=== PATIENT | female | born 1945 | race Caucasian/White ===

== ENCOUNTER 2019-09-22 09:07 | Inpatient (IN) | payer MEDICARE, OTHER, SELFPAY ==
[2019-09-22] VITALS (11 sets, daily range): BP systolic 126–158; BP diastolic 64–99; PULSE 69–92; RESP 16–20; TEMP 36.5–36.7; O2SAT 60–97; BMI 36.8
--- NOTE | 2019-09-22 09:23 | XR_ITS ---
WS: [id number] XR chest 1V portable [id number] REASON FOR EXAM: syncope FINDINGS: An infiltrate is seen in the right lung base. There appears to be prominence of the right ventricle not seen on previous exam. No other evidence to suggest aneurysms. There is arteriosclerotic changes in the arch of the aorta. XR/XR chest 1V portable [id number] IMPRESSION: There now appears to be prominence of the right ventricle. Consider CT to evalu ate for possible aneurysm with the history. There is an infiltrate in the right lung base. Arteriosclerotic changes.
--- NOTE | 2019-09-22 09:23 | CTR_ITS ---
PROCEDURE INFORMATION: Exam: CT Head Without Contrast Exam date and time: 09/22/2019 11:00 AM Age: 73 years old Clinical indication: Syncope and collapse; Patient HX: Multiple syncopal episodes over last few days. History of stroke. TECHNIQUE: Imaging protocol: Computed tomography of the head without contrast. Total DLP: 876.04 mGy-cm Radiation optimization: All CT scans at this facility use at least one of these dose optimization techniques: automated exposure control; mA and/or kV adjustment per patient size (includes targeted exams where dose is matched to clinical indication); or iterative reconstruction. COMPARISON: CT head wo con* [id number] 04/13/2014 8:07 AM FINDINGS: Brain: There is no acute intracranial hemorrhage or mass effect. Mild diffuse volume loss is within the range of normal for patient age. There are small vessel ischemic changes within the periventricular and subcortical white matter, but the normal hodge/white matter delineation is maintained. Chronic lacunar infarcts involve the basal ganglia. There is right inferior cerebellar cerebellar encephalomalacia. Ventricles: Normal. No ventriculomegaly. Bones/joints: Unremarkable. No acute fracture. Sinuses: Visualized sinuses are unremarkable. No fluid levels. Mastoid air cells: Visualized mastoid air cells are well aerated. Soft tissues: Unremarkable. CT/CT head wo con* [id number] IMPRESSION: No acute intracranial hemorrhage or edema. Radiation Dose CTDIVOL = (mGy): DLP = 876.04 (mGy-cm)
--- NOTE | 2019-09-22 09:31 | ECG_ITS ---
Measurements Intervals [place] Rate: 83 P: -15 [place]: 142 QRS: 37 QRSD: 107 T: 75 QT: 365 QTc: 431 SINUS RHYTHM LOW QRS VOLTAGE IN EXTREMITY LEADS [QRS DEFLECTION < 0.5 mV IN LIMB LEADS] No previous ECG available for comparison Electronically Signed On 09-22-2019 12:40:13 CDT by Khoa Sol [id number]
--- NOTE | 2019-09-22 09:32 | W.ED.FALL ---
HPI - Fall General: Chief Complaint: Fall Stated Complaint: dizzy and falling Time Seen by Provider: 09/22/19 09:23 Source: patient Mode of arrival: ambulatory History of Present Illness: HPI Narrative: Callie is a 73-year-old female who states she has had dizziness and syncopal events over the last 5 days. She states she has had multiple falls where she just blacks out and wakes up on the floor. Patient's family states that she has been slurring some of her words as well but that is resolved today. She denies any syncope today but states she has felt lightheaded. She has a long history of COPD and is on 4 L of oxygen at home. She denies any chest pain or no shortness of breath. She denies any headache. MD complaint: fall Onset (ago): day(s) Associated symptoms-after fall: Denies abdominal pain, chest pain, headache(s) or neck pain Review of Systems Const: Denies: fever, chills, body aches or change in appetite Eyes: Denies: blurry vision or eye discomfort ENMT: Denies: throat pain or dental pain Card: Denies: chest pain Resp: Denies: shortness of breath GI: Denies: abdominal pain, nausea, vomiting or diarrhea : Denies: painful urination Musc: Denies: neck pain or back pain Skin/Breast: Denies: rash Neuro: Reports: frequent falls and dizziness; Denies: headache Psych: Denies: depression Juan Carlos/Lymph: Denies: easy bruising All/Imm: Denies: hives PFSH ED PFSH: Social History Smoking and tobacco status: former smoker Physical Exam Const: COMMON NORMALS: no apparent distress, oriented x3 and healthy appearing HENMT: COMMON NORMALS: normocephalic and head/scalp atraumatic HEAD & SCALP: normocephalic and atraumatic Eye: COMMON NORMALS: PERRL and EOMs intact bilaterally PUPIL: Yes PERRL Neck/C-Spine: COMMON NORMALS: full ROM and supple Chest: COMMONS NORMALS: inspection of chest normal and palpation of chest normal Resp: COMMON NORMALS: normal respiratory effort, no retractions, no use of accessory muscles and clear to auscultation bilaterally AUSCULTATION: clear to auscultation bilaterally Cardio: COMMON NORMALS: regular rate, regular rhythm and no murmurs RATE: regular rate RHYTHM: regular rhythm GI: COMMON NORMALS: normal to inspection, nondistended, normoactive bowel sounds, soft to palpation, non-tender and no masses PALPATION: Yes soft Extremity: COMMON NORMALS: normal to inspection and full ROM Neuro: COMMON NORMALS: oriented x3, moves all extremities and no focal motor deficits Psych: COMMON NORMALS: mental status grossly normal, thought process normal and cooperative THOUGHT PROCESS: normal thought process Skin: COMMON NORMALS: no rashes or lesions noted and no wounds GENERAL SKIN EXAM: no rashes or lesions noted Course Vital Signs: Vital signs: Vital Signs Temperature 98 F 09/22/19 09:16 Pulse Rate 78 09/22/19 11:45 Respiratory Rate 17 09/22/19 11:45 Blood Pressure 133/64 09/22/19 11:45 Pulse Oximetry 95 09/22/19 11:45 MDM - Fall MDM Narrative: Medical decision making narrative: Patient presents here with syncopal event. She is found to be dehydrated along with acute kidney injury with elevated creatinine. This is likely causing her syncope. CT chest here is negative and repeat troponin went down. She has no signs of cardiac cause. I spoke to hospitalist will admit and further hydrate. Lab Data: Labs: Lab Results 09/22/19 09/22/19 09/22/19 Range/Units 09:36 09:45 09:58 WBC 10.0 (4.0-10.0) 10^3/ uL RBC 3.86 L (4.1-5.3) 10^6/u L Hgb 11.3 L (11.5-15.3) g/dL Hct 37.6 (37.0-47.0) % MCV 97.4 (81-99) fL MCH 29.3 (28.0-34.0) pg MCHC 30.1 (30.0-36.0) g/dL RDW 14.4 (12.1-15.1) % Plt Count 124 L (130-400) 10^3/c mm MPV 11.8 H (7.4-10.4) fL Neut % (Auto) 71.8 % Lymph % (Auto) 10.9 % Hanson % (Auto) 7.8 % Eos % (Auto) 8.8 % Baso % (Auto) 0.3 % Neut # (Auto) 7.2 (1.8-7.7) 10^3/u L Lymph # (Auto) 1.1 (0.8-4.8) 10^3/u L Hanson # (Auto) 0.8 (0.2-0.9) 10^3/u L Eos # (Auto) 0.9 H (0.0-0.8) 10^3/u L Baso # (Auto) 0.0 (0.0-0.1) 10^3/u L Nucleated RBC % (a uto) 0 % Nucleated RBCs # 0.0 /100WBC Specimen Type Arterial Sample Site Radial, right ABG pH 7.26 L (7.35-7.45) ABG pCO2 53.7 H (35-45) mmHg ABG pO2 60.0 L (80.0-100.0) mmH g ABG HCO3 24.1 (22-26) mmol/L ABG Base Excess -3.4 L (-2.0-2.0) mmol/ L Edi Test Pos Hematocrit 34.7 L (37-47) % O2 Delivery Device Nc FiO2 36.0 % Wind Turbine Performance Engineer ID [email or web address] Sodium 132 L (136-145) mmol/L Potassium 5.1 (3.5-5.1) mmol/L Chloride 93 L (98-107) mmol/L Carbon Dioxide 29 (22-29) mmol/L Anion Gap 15.1 (5-19) BUN 55 H (8-23) mg/dL Creatinine 6.5 H* (0.5-0.9) mg/dL Glucose 115 (65-115) mg/dL Calculated Osmolal ity 273 L (285-295) mOsm/k g Calcium 8.0 L (8.5-10.5) mg/dL Total Bilirubin 0.3 (0.15-1.2) mg/dL AST 14 (0-32) U/L ALT 17 (0-33) U/L Alkaline Phosphata se 86 (35-105) IU/L Troponin T Baselin e (0-10) ng/mL Troponin T 120 Min gerald (0-10) ng/mL Delta Troponin T (0-10) ABS# Total Protein 6.6 (6.6-8.7) g/dL Albumin 2.3 L (3.5-5.2) g/dL Globulin 4.3 (1.3-4.6) g/dL 09/22/19 09/22/19 Range/Units 09:58 11:57 WBC (4.0-10.0) 10^3/ uL RBC (4.1-5.3) 10^6/u L Hgb (11.5-15.3) g/dL Hct (37.0-47.0) % MCV (81-99) fL MCH (28.0-34.0) pg MCHC (30.0-36.0) g/dL RDW (12.1-15.1) % Plt Count (130-400) 10^3/c mm MPV (7.4-10.4) fL Neut % (Auto) % Lymph % (Auto) % Hanson % (Auto) % Eos % (Auto) % Baso % (Auto) % Neut # (Auto) (1.8-7.7) 10^3/u L Lymph # (Auto) (0.8-4.8) 10^3/u L Hanson # (Auto) (0.2-0.9) 10^3/u L Eos # (Auto) (0.0-0.8) 10^3/u L Baso # (Auto) (0.0-0.1) 10^3/u L Nucleated RBC % (a uto) % Nucleated RBCs # /100WBC Specimen Type Sample Site ABG pH (7.35-7.45) ABG pCO2 (35-45) mmHg ABG pO2 (80.0-100.0) mmH g ABG HCO3 (22-26) mmol/L ABG Base Excess (-2.0-2.0) mmol/ L Edi Test Hematocrit (37-47) % O2 Delivery Device FiO2 % Wind Turbine Performance Engineer ID Sodium (136-145) mmol/L Potassium (3.5-5.1) mmol/L Chloride (98-107) mmol/L Carbon Dioxide (22-29) mmol/L Anion Gap (5-19) BUN (8-23) mg/dL Creatinine (0.5-0.9) mg/dL Glucose (65-115) mg/dL Calculated Osmolal ity (285-295) mOsm/k g Calcium (8.5-10.5) mg/dL Total Bilirubin (0.15-1.2) mg/dL AST (0-32) U/L ALT (0-33) U/L Alkaline Phosphata se (35-105) IU/L Troponin T Baselin e 52 H (0-10) ng/mL Troponin T 120 Min gerald 48.92 H (0-10) ng/mL Delta Troponin T -3.08 L (0-10) ABS# Total Protein (6.6-8.7) g/dL Albumin (3.5-5.2) g/dL Globulin (1.3-4.6) g/dL Imaging Data^: CXR: Radiologist's impression: [address] [place] [address] XRay Report Signed Patient: Callie Hobbs Unit #: [id number] : 1945 Age/Sex: 73 / F ADM Date: 09/22/19 Loc: ER Room/Bed: Attending Dr: Ordering Provider/Ordering MD: Connie Chilel MD Date of Service: 09/22/19 Procedure(s): XR chest 1V portable [id number] Accession Number(s): [id number] Report Number: [id number] WS: [id number] XR chest 1V portable [id number] REASON FOR EXAM: syncope FINDINGS: An infiltrate is seen in the right lung base. There appears to be prominence of the right ventricle not seen on previous exam. No other evidence to suggest aneurysms. There is arteriosclerotic changes in the arch of the aorta. XR/XR chest 1V portable [id number] IMPRESSION: There now appears to be prominence of the right ventricle. Consider CT to evaluate for possible aneurysm with the history. There is an infiltrate in the right lung base. Arteriosclerotic changes. Dictated By: Eduardo Rosales DO Signed By: Eduardo Rosales DO Signed Date/Time: 09/22/19 1002 DD/ 1000 CT Chest: Radiologist's impression: [facility] [address] [place] [address] CT Scan Report Signed Patient: Callie Hobbs Unit #: [id number] : 1945 Age/Sex: 73 / F ADM Date: 09/22/19 Loc: ER Room/Bed: Attending Dr: Ordering Provider/Ordering MD: Connie Chilel MD Date of Service: 09/22/19 Procedure(s): CT chest wo con [id number] Accession Number(s): [id number] Report Number: [id number] PROCEDURE INFORMATION: Exam: CT Chest Without Contrast Exam date and time: 09/22/2019 11:00 AM Age: 73 years old Clinical indication: Patient HX: Persistent cough; Additional info: Syncope TECHNIQUE: Imaging protocol: Computed tomography of the chest without contrast. Total DLP: 1377.85 mGy-cm Radiation optimization: All CT scans at this facility use at least one of these dose optimization techniques: automated exposure control; mA and/or kV adjustment per patient size (includes targeted exams where dose is matched to clinical indication); or iterative reconstruction. COMPARISON: CR XR chest 1V portable [id number] 09/22/2019 9:48 AM FINDINGS: Lungs: There is biapical scarring. There is moderate upper zone predominant emphysema. Streaky bibasilar opacities are compatible with atelectasis. There is a ovoid soft tissue nodule with internal calcification along the right medial lung base, potentially hamartoma. Pleural space: There is mild dependent pleural thickening, right greater than left. Heart: There are calcific atherosclerotic changes of the coronary arteries. Aorta: Unremarkable. No aortic aneurysm. Lymph nodes: There is mediastinal and hilar lymphadenopathy. There is some kiarra calcification, compatible with previous granulomatous exposure. Dominant precarinal lymph node measures 1.7 cm in diameter. Bones/joints: Unremarkable. No acute fracture. Soft tissues: No significant soft tissue swelling. The spleen is at the upper limits of normal in size. CT/CT chest wo con [id number] IMPRESSION: 1. Biapical scarring and moderate emphysema. 2. Mediastinal and hilar lymphadenopathy with evidence of granulomatous exposure previously. 3. 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 CT Head: Radiologist's impression: [address] [address] [address] Scan Report Signed Patient: Callie Hobbs Unit #: [id number] : 1945 Age/Sex: 73 / F ADM Date: 09/22/19 Loc: ER Room/Bed: Attending Dr: Ordering Provider/Ordering MD: Connie Chilel MD Date of Service: 09/22/19 Procedure(s): CT head wo con* [id number] Accession Number(s): [id number] Report Number: [id number] PROCEDURE INFORMATION: Exam: CT Head Without Contrast Exam date and time: 09/22/2019 11:00 AM Age: 73 years old Clinical indication: Syncope and collapse; Patient HX: Multiple syncopal episodes over last few days. History of stroke. TECHNIQUE: Imaging protocol: Computed tomography of the head without contrast. Total DLP: 876.04 mGy-cm Radiation optimization: All CT scans at this facility use at least one of these dose optimization techniques: automated exposure control; mA and/or kV adjustment per patient size (includes targeted exams where dose is matched to clinical indication); or iterative reconstruction. COMPARISON: CT head wo con* [id number] 04/13/2014 8:07 AM FINDINGS: Brain: There is no acute intracranial hemorrhage or mass effect. Mild diffuse volume loss is within the range of normal for patient age. There are small vessel ischemic changes within the periventricular and subcortical white matter, but the normal hodge/white matter delineation is maintained. Chronic lacunar infarcts involve the basal ganglia. There is right inferior cerebellar cerebellar encephalomalacia. Ventricles: Normal. No ventriculomegaly. Bones/joints: Unremarkable. No acute fracture. Sinuses: Visualized sinuses are unremarkable. No fluid levels. Mastoid air cells: Visualized mastoid air cells are well aerated. Soft tissues: Unremarkable. CT/CT head wo con* [id number] IMPRESSION: No acute intracranial hemorrhage or edema. EKG Data^: EKG 1: Attestation: I personally reviewed and interpreted this EKG as follows: EKG interpretation date: 09/22/19 EKG interpretation time: 09:43 Interpretation: nsr hr [address] or t wave abnormalities qrs 107 qtc 405 EKG 2: EKG interpretation date: 09/22/19 EKG interpretation time: 11:44 Interpretation: nsr hr [address] or t wave abnormalities qrs 103 qtc 404 Discharge Plan Discharge Patient Disposition: Admitted As Inpatient Clinical Impression: Syncope, Acute kidney injury Condition: Stable Prescriptions: No Action atorvastatin 20 mg Tablet 20 mg PO DAILY RF: 0 sulfamethoxazole-trimethoprim 800-160 mg Tablet 1 tab PO BID RF: 0 alprazolam 0.5 mg Tablet 0.5 mg PO QID PRN (Reason: Anxiety) RF: 0 trazodone 100 mg Tablet 100 mg PO BEDTIME RF: 0 lisinopril 10 mg Tablet 10 mg PO BID RF: 0 aspirin 81 mg Tablet,Chewable 81 mg PO DAILY RF: 0 venlafaxine 150 mg Tablet Extended Release 24hr 150 mg PO DAILY RF: 0 Plavix 75 mg Tablet 75 mg PO DAILY RF: 0 metoprolol tartrate 50 mg Tablet 50 mg PO BID RF: 0 omeprazole 20 mg Capsule,Delayed Release(Dr/Ec) 20 mg PO DAILY RF: 0 Referrals: Savage Salmeron Jr, MD [Primary Care Provider] - Coding Level of Care Code ED Ground Water Pump Installer for Janag Fwd Exam Comprehensive
[2019-09-22] MEDS: sodium chloride 0.9% 1,000 ML 999 ML IV (09:42)
[2019-09-22 09:46] LABS: Basophils % 0.3 %; Eosinophils # 0.9 10^3/uL (0.0-0.8); Eosinophils % 8.8 %; Hematocrit 37.6 % (37.0-47.0); Hemoglobin 11.3 g/dL (11.5-15.3); Lymphocytes # 1.1 10^3/uL (0.8-4.8); Lymphocytes % 10.9 %; Mean Corpuscular HGB Conc 30.1 g/dL (30.0-36.0); Mean Corpuscular Hemoglobin 29.3 pg (28.0-34.0); Mean Corpuscular Volume 97.4 fL (81-99); Mean Platelet Volume 11.8 fL (7.4-10.4); Monocytes # 0.8 10^3/uL (0.2-0.9); Monocytes % 7.8 %; Neutrophils # 7.2 10^3/uL (1.8-7.7); Neutrophils % 71.8 %; Nucleated Red Blood Cells % 0 %; Platelet Count 124 10^3/cmm (130-400); Red Blood Count 3.86 10^6/uL (4.1-5.3); Red Cell Distribution Width 14.4 % (12.1-15.1)
[2019-09-22 09:57] LABS: ABG PCO2 53.7 mmHg (35-45); ABG PH Result 7.26 (7.35-7.45); Arterial Blood Gas Hematocrit 34.7 % (37-47); Base Excess ABG -3.4 mmol/L (-2.0-2.0); Blood Gas Allen Test Pos; Blood Gas Sample Site Radial, right; Blood Gas Sample Type Arterial; HCO3 ABG 24.1 mmol/L (22-26); Oxygen Device NC
--- NOTE | 2019-09-22 10:11 | CTR_ITS ---
PROCEDURE INFORMATION: Exam: CT Chest Without Contrast Exam date and time: 09/22/2019 11:00 AM Age: 73 years old Clinical indication: Patient HX: Persistent cough; Additional info: Syncope TECHNIQUE: Imaging protocol: Computed tomography of the chest without contrast. Total DLP: 1377.85 mGy-cm Radiation optimization: All CT scans at this facility use at least one of these dose optimization techniques: automated exposure control; mA and/or kV adjustment per patient size (includes targeted exams where dose is matched to clinical indication); or iterative reconstruction. COMPARISON: CR XR chest 1V portable [id number] 09/22/2019 9:48 AM FINDINGS: Lungs: There is biapical scarring. There is moderate upper zone predominant emphysema. Streaky bibasilar opacities are compatible with atelectasis. There is a ovoid soft tissue nodule with internal calcification along the right medial lung base, potentially hamartoma. Pleural space: There is mild dependent pleural thickening, right greater than left. Heart: There are calcific atherosclerotic changes of the coronary arteries. Aorta: Unremarkable. No aortic aneurysm. Lymph nodes: There is mediastinal and hilar lymphadenopathy. There is some kiarra calcification, compatible with previous granulomatous exposure. Dominant precarinal lymph node measures 1.7 cm in diameter. Bones/joints: Unremarkable. No acute fracture. Soft tissues: No significant soft tissue swelling. The spleen is at the upper limits of normal in size. CT/CT chest wo con [id number] IMPRESSION: 1. Biapical scarring and moderate emphysema. 2. Mediastinal and hilar lymphadenopathy with evidence of granulomatous exposure previously. 3. 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 Radiation Dose CTDIVOL = (mGy): DLP = 1377.85 (mGy-cm)
[2019-09-22 10:28] LABS: Alanine Aminotransferase 17 U/L (0-33); Albumin Level 2.3 g/dL (3.5-5.2); Alkaline Phosphatase 86 IU/L (35-105); Anion Gap 15.1 (5-19); Aspartate Amino Transferase 14 U/L (0-32); Blood Urea Nitrogen 55 mg/dL (8-23); Carbon Dioxide 29 mmol/L (22-29); Chloride 93 mmol/L (98-107); Globulin 4.3 g/dL (1.3-4.6); Glucose 115 mg/dL (65-115); Osmolality Calculated 273 mOsm/kg (285-295); Potassium 5.1 mmol/L (3.5-5.1); Sodium 132 mmol/L (136-145); Total Bilirubin 0.3 mg/dL (0.15-1.2); Total Protein 6.6 g/dL (6.6-8.7); Troponin(5th) Baseline 52 ng/mL (0-10)
[2019-09-22] MEDS: sodium chloride 0.9% 500 ML 999 ML IV (10:44)
--- NOTE | 2019-09-22 11:31 | ECG_ITS ---
Measurements Intervals [place] Rate: 78 P: -9 ND: 154 QRS: 31 QRSD: 103 T: 67 QT: 370 QTc: 424 SINUS RHYTHM LOW QRS VOLTAGE IN EXTREMITY LEADS [QRS DEFLECTION < 0.5 mV IN LIMB LEADS] Compared to ECG 09/22/2019 09:43:40 No significant changes Electronically Signed On 09-23-2019 8:51:44 CDT by Koha Sol [id number]
[2019-09-22 12:17] LABS: Troponin 5 2HR 48.92 ng/mL (0-10)
[2019-09-22 12:31] LABS: Troponin 5 2HR Delta -3.08 ABS# (0-10)
--- NOTE | 2019-09-22 12:56 | USCV_ITS ---
Callie Hobbs Age: 73 Gender: F : 1945 Exam Date: 09/22/2019 18:04 Ordering Phys: Ruben Burgos MD Technologist: Shawanda Cameron Exam Location[place] [facility] [place]ication: DVT? HISTORY: Rash on legs. PROCEDURES: The venous duplex Doppler examination of both lower extremities was performed in the standard fashion. The following venous structures were evaluated: common femoral vein, profunda vein, proximal portion of the greater saphenous vein, superficial femoral vein, and the popliteal vein. In addition, the posterior tibial and peroneal trunk were evaluated. Serial compression, augmentation maneuvers, and spectral Doppler flow evaluation were performed. FINDINGS: No DVT seen in any vessel examined CONCLUSIONS No evidence of right lower extremity DVT. No evidence of left lower extremity DVT. Octavio Yi MD (Electronically Signed) Final Date: 23 September 2019 16:39 S
--- NOTE | 2019-09-22 12:56 | USCV_ITS ---
Callie Hobbs Age: 73 Gender: F : 1945 Exam Date: 09/22/2019 18:24 Ordering Phys: Ruben Burgos Technologist: Shawanda Cameron [place] [facility] [place]: [place] WITH DIZZINESS AND FALLING BP: / HR: 118 Rhythm: Sinus Technical Quality: Adequate MEASUREMENTS (Male / Female) Normal Values 2D ECHO LV Chamber Size 3.2 cm RV Chamber Size 3.6 cm LVOT Diameter 2.0 cm LV Ejection Fraction MOD 2C 62.1 % LV Ejection Fraction 2C AL 60.8 % LA Diameter 4.1 cm LA Width 2.8 cm LA Height 4.4 cm RA Width 3.5 cm RA Height 4.1 cm Aorta at Sinotubular Diameter 3.0 cm M-MODE LV Diastolic Diameter MM 4.0 cm 4.2 - 5.9 / 3.9 - 5.3 cm LV Systolic Diameter MM 2.4 cm LV Ejection Fraction MM Teich 71.6 % IVS Diastolic Thickness MM 1.1 cm 0.6 - 1.0 / 0.6 - 0.9 cm IVS Systolic Thickness MM 2.0 cm LVPW Diastolic Thickness MM 1.0 cm 0.6 - 1.0 / 0.6 - 0.9 cm LVPW Systolic Thickness MM 1.7 cm RV Diastolic Diameter MM 2.2 cm Aortic Annulus Diameter 3.3 cm LA Ao Ratio MM 1.2 MV E Point Septal Separation 0.4 cm DOPPLER AV Peak Velocity 214.0 cm/s LVOT Peak Velocity 155.0 cm/s AV Area Cont Eq vti 2.0 cm squared AV Area Cont Eq pk 2.3 cm squared MV Area PHT 5.5 cm squared Mitral E to A Ratio 1.2 MV E' Velocity 13.0 cm/s Mitral E to MV E' Ratio 9.2 Mitral E to LV E' Lateral Ratio 8.5 Mitral E to LV E' Septal Ratio 10.1 TR Peak Velocity 272.3 cm/s TR Peak Gradient 29.7 mmHg TR Mean Velocity 185.6 cm/s TR Mean Gradient 15.8 mmHg TR Velocity Time Integral 57.2 cm TV Peak E Velocity 73.0 cm/s Right Atrial Pressure 3.0 mmHg Pulmonary Artery Systolic Pressu 32.7 mmHg PV Peak Velocity 81.0 cm/s RV Acceleration Time 0.1 s RV Ejection Time 0.3 s RV AcT/ET 0.5 FINDINGS Left Ventricle Normal left ventricular size, systolic function and wall thickness, with no regional wall motion abnormalities. Left ventricular ejection fraction is estimated at 65 %. Right Ventricle Normal right ventricular size and systolic function. Right Atrium Normal right atrial size. Left Atrium Normal left atrial size. Mitral Valve Structurally normal mitral valve. No mitral valve stenosis. Trace mitral valve regurgitation. Aortic Valve Thickened aortic valve. No aortic valve regurgitation. Mild aortic valve sclerosis . Tricuspid Valve Structurally normal tricuspid valve. Trace to mild tricuspid valve regurgitation. Pulmonic Valve Pulmonic valve not well visualized. Pericardium Small pericardial effusion with no evidence of tamponade Aorta CONCLUSIONS Normal LV function EF 65% No significant valvular stenosis or regurgitation Small pericardial effusion with no evidence of tamponade Darlene Sol MD (Electronically Signed) Final Date: 22 September 2019 19:25 S
--- NOTE | 2019-09-22 12:56 | USCV_ITS ---
Callie Hobbs Age: 73 Gender: F : 1945 Exam Date: 09/22/2019 17:43 Ordering Phys: Ruben Burgos MD Technologist: Shawanda Cameron [place] [facility] [place]: [place] Risk Factors: Unknown Previous Vascular Surgery: None Right Brachial BP: / Left Brachial BP: / Right Left Velocity (cm/s) Spectral Plaque Velocity (cm/s) Spectral Plaque Syst/Diast Broadening Syst/Diast Broadening 144.50/31.10 Prox CCA 164.50/ 9.10 144.20/33.40 Mid CCA 138.90/ 22.50 140.60/31.00 Hetro Distal CCA 207.40/ 34.90 Hetro 134.10/27.20 Hetro Prox ICA 202.90/ 32.20 Hetro 152.70/39.00 Mid ICA 174.60/ 24.90 Hetro 118.90/31.80 Distal ICA 139.80/ 26.00 177.90 Hetro ECA 248.50 Hetro 1.06 ICA/CCA 1.32 Antegrade Vertebral Antegrade 26.40/ 8.80 cm/s 46.30/ 14.50 cm/s Tri Subclavian Tri 120.0 246.0 0 0 CONCLUSIONS Right ICA stenosis 50-69%. Moderate atheromatous plaque right carotid bulb/ICA. Left ICA stenosis 50-69%. Moderate atheromatous plaque left carotid bulb/ICA. Normal antegrade Doppler flow noted in the right vertebral artery. Normal antegrade Doppler flow noted in the left vertebral artery. Octavio Yi MD (Electronically Signed) Final Date: 23 September 2019 16:43 S
--- NOTE | 2019-09-22 13:04 | P.HP_ITS ---
Providers/Chief Complaint Primary Care Provider: Savage Salmeron Jr, MD Chief Complaint: dizzy and falling History of Present Illness Callie Hobbs is a 73 year old female with past medical history of CVA of posterior cerebellar infarct in 2013, COPD with baseline 3 L oxygen requirement, obstructive sleep apnea not on CPAP, hyperlipidemia, hypertension, anxiety, C. difficile colitis with complaint of having multiple syncopal events since Thursday. Patient gives history of being treated for UTI by her primary care physician since September 11 with Bactrim DS for 1 week. Patient last took Bactrim on Thursday, September 18. Patient stated since September 19 she has had at least 6-7 episodes of syncope which she describes as losing consciousness and hitting the ground for a few seconds. Most of these events are associated with dizziness, n ausea. Patient had vomiting and one episode and had bowel accident and one episode. All of these events have been unwitnessed. Patient thinks he does not think of having any jittery or seizure-like movements during these events. As per the daughter who is bedside patient did have some slurry speech from Thursday afternoon to Thursday morning which has resolved now. These events are not associated with palpitations, chest pain, aura. Patient has not had any episodes like this in the past. Patient denies of having any UTI-like symptoms at present. Denies of having any flulike symptoms, diarrhea, cough, abdominal pain, swelling in her legs, orthopnea, PND, lightheadedness, shortness of ember ath, cough, bleeding from anywhere. As per the patient her urine output has also decreased right dramatically since Thursday evening. In the ER patient's blood work was concerning for creatinine of 6.1 which is new, potassium of 5.1 so hospital service was asked to see the patient to admit. During my evaluation patient was lying comfortably in bed, AO x3 and is able to tell the whole story on his own without any confusion. Review of Systems Const: Denies: fever, chills, body aches, change in appetite, malaise, night sweats, diaphoresis, change in sleep pattern, daytime sleepiness or snoring Eyes: Denies: change in vision, blurry vision, photophobia, eye discomfort or eye discharge ENMT: Denies: throat pain, enlarged tonsils, hoarseness, mouth pain, oral sores/lesions, dry mouth, tinnitus, nasal congestion or post nasal drip Card: Denies: chest pain, palpitations, irregular heart rhythm, edema, swelling of feet/ankles, lightheadedness, syncope, pre-syncope, shortness of breath on exertion, shortness of breath when lying down, leg pain with exertion or bluish discoloration of hands/feet Resp: Denies: shortness of breath, productive cough, non-productive cough, wheezing, stridor, pain on inspiration, change in phlegm color, coughing up blood or chest congestion GI: Denies: abdominal pain, nausea, vomiting, vomiting blood, coffee grounds in vomit, difficulty swallowing, heartburn/indigestion, diarrhea, constipation, bloating, cramping, change in bowel habits, painful bowel movements, blood in stool or black tarry stool : Denies: flank pain, painful urination, urinary frequency, urinary urgency, urinary hesitancy, nighttime urination or blood in urine Musc: Denies: neck pain, back pain, extremity pain, joint pain, joint swelling, redness, joint stiffness or limited range of motion Neuro: Reports: frequent falls and dizziness; Denies: headache, numbness in extremities, weakness in extremities, changes in sensation, lack of coordination, difficulty walking, vertigo, confusion, slurred speech, difficulty communicating thoughts or seizure-like activity Psych: Denies: anxiety, depression, mood swings, panic attacks, hopelessness or irritability Endo: Denies: excessive urination, excessive thirst, tired all the time, cold intolerance, excessive sweating, flushing or heat intolerance Juan Carlos/Lymph: Denies: easy bruising or easy bleeding All/Imm: Denies: tongue swelling, facial swelling or acute wheezing Medications/Allergies Home Medications Medication Instructions Recorded Confirmed Last Taken Type alprazolam 0.5 mg PO QID PRN 09/22/19 09/22/19 09/21/19 History aspirin 81 mg PO DAILY 09/22/19 09/22/19 09/21/19 History atorvastatin 20 mg PO DAILY 09/22/19 09/22/19 09/21/19 History clopidogrel [Plavix] 75 mg PO DAILY 09/22/19 09/22/19 09/21/19 History lisinopril 10 mg PO BID 09/22/19 09/22/19 09/21/19 History metoprolol tartrate 50 mg PO BID 09/22/19 09/22/19 09/21/19 History omeprazole 20 mg PO DAILY 09/22/19 09/22/19 09/21/19 History sulfamethoxazole-trimethoprim 1 tab PO BID 09/22/19 09/22/19 09/18/19 History trazodone 100 mg PO BEDTIME 09/22/19 09/22/19 09/21/19 History venlafaxine 150 mg PO DAILY 09/22/19 09/22/19 09/21/19 History Allergies Allergy/AdvReac Type Severity Reaction Status Date / Time No Known Allergies Allergy Verified 09/22/19 09:16 PFSH Acute PFSH: Medical History (Updated 09/22/19 @ 14:18 by Ruben Burgos MD) Anxiety C. difficile colitis COPD (chronic obstructive pulmonary disease) CVA (cerebral vascular accident) HLD (hyperlipidemia) HTN (hypertension) Posterior inferior cerebellar artery embolism Surgical History (Updated 09/22/19 @ 14:18 by Ruben Burgos MD) Status post right knee replacement Social History (Updated 09/22/19 @ 14:20 by Ruben Burgos MD) Smoking and tobacco status: former smoker Alcohol intake: never Household members: none Housing: House Vitals/I&O/Wt Last Vital Signs Temp 98 F 09/22/19 09:16 Pulse 78 09/22/19 11:45 Resp 17 09/22/19 11:45 BP 133/64 09/22/19 11:45 Pulse Ox 95 09/22/19 11:45 09/21/19 09/22/19 09/22/19 22:59 06:59 14:59 Intake Total 1500 / 1500 Balance 1500 / 1500 Weight last 48 hrs Weight 94.347 kg Physical Exam Narrative: EXAM NARRATIVE: General: No acute distress, AO x3, lethargic, multiple purpuric rash bilateral thighs and legs and arms. HEENT: PERRLA, pupils bilaterally equal and reactive Chest: Normal vesicular breath sounds, no added sounds, equal good air entry bilaterally CVS: S1-S2 regular, no murmurs, no tachycardia, no gallops, no rubs Abdomen: Soft, nontender, no organomegaly, bowel sounds present Neuro: No focal deficits, no facial deformity, AO x3, power 5/5 in all limbs Data : 09/22/19 09:36 09/22/19 09:58 A&P Assessment and plan (1) Syncope: Status: Acute Qualifiers: Syncope type: unspecified Qualified Code(s): R55 - Syncope and collapse Code(s): R55 - Syncope and collapse (2) Acute kidney injury: Status: Acute Code(s): N17.9 - Acute kidney failure, unspecified (3) COPD (chronic obstructive pulmonary disease): Status: Acute Code(s): J44.9 - Chronic obstructive pulmonary disease, unspecified (4) HLD (hyperlipidemia): Status: Acute Code(s): E78.5 - Hyperlipidemia, unspecified (5) HTN (hypertension): Status: Acute Code(s): I10 - Essential (primary) hypertension Additional A&P Information Syncope: Given patient's history of CVA along with creatinine of six-point presentation even though her potassium was higher normal at present etiology of the syncope in her case could be both neurological and cardiological at present. Neurology: Patient has a history of CVA in the past. Continue with aspirin, Plavix, statin at present Lipid panel HbA1c in the morning. Carotid Dopplers. Unfortunately cannot do CTA head and neck or MRA with contrast at present because of acute kidney injury. Will do MRI of brain without contrast. Fall precautions, seizure pulse precautions, every neurochecks. At present cannot rule out seizures though patient does not have any history of same. Check prolactin. Cardiovascular: Could be cardiovascular because of arrhythmias given possible hyperkalemia. Put on telemetry. We will continue to monitor. Check orthostatics. CT chest concerning for cardiomegaly cannot rule out pericardial effusion. Check stat echocardiogram to rule out tamponade though patient does not have any vitals concerning for tamponade physiology. Trend troponins, EKG not concerning of acute ischemia. Symptoms could be related to acute PE. Unfortunately cannot do CTA given the [place]. Check d-dimer. Check lower limb Dopplers. COPD: ABG concerning for mild acidosis which is most likely a mixed metabolic and respiratory acidosis. Continue oxygen supplementation keeping saturation over 90%. DuoNeb's every 6 hours, budesonide IV 12 hours. No steroids for now as no wheezing. Acute kidney injury: Most likely because of Bactrim use along with lisinopril use. Last lisinopril dose yesterday. Normal SNF 75 cc/h. Medication reconciled for nephrotoxic drugs. Check BMP daily. No electrolyte imbalance at present. Potassium 5.1. No metabolic acidosis. Urine lites, urine creatinine, renal ultrasound. We will hold off on nephrology consult for now but will consult if creatinine continues to worsen. No signs of uremia at present. Hypertension: Given the syncope will hold off on antihypertensives for now. We will introduce blood pressure medications except lisinopril for systolic blood pressure of more than 150 mmHg. Continue chronic medications like trazodone but will hold off on venlafaxine given the acute kidney injury. Full code. Renal nondialysis diet. Heparin 5000 units every 12 hours. Attestations Medical Necessity Statement*: More than 2 midnights for syncope work-up, severe acute kidney injury Time Spent in Patient Care: Greater than 35 minutes Coding Level of Care Code Acute Heater Installer for [facility] Fwd Diagnoses Syncope R55 Syncope type: unspecified Acute kidney injury N17.9 COPD (chronic obstructive pulmonary disease) J44.9 HLD (hyperlipidemia) E78.5 HTN (hypertension) I10
[2019-09-22 13:35] LABS: D Dimer 1.32 ug/mIFEU (0-0.59)
[2019-09-22 13:41] LABS: Iron 10 ug/dL (37-145); Percent Saturation 5.5 % (20-50); Total Iron Binding Capacity 181 mcg/dl; Unsaturated Iron Binding 171 ug/dL (112-347)
[2019-09-22 14:05] LABS: NT Pro B Type Natriuretic Pept 3799 pg/mL (0-125)
--- NOTE | 2019-09-22 14:31 | MR_ITS ---
WS: [id number] MRI HEAD WITHOUT CONTRAST TECHNIQUE: Sagittal T1, T2 axial, T2 axial FLAIR, axial and coronal T1 images, axial susceptibility w eighted imaging, axial diffusion weighted images, and coronal T2 images were obtained. CLINICAL INFORMATION: h/o stroke, multiple syncope COMPARISON: CT head September 22, 2019 FINDINGS: A few tiny foci of restricted diffusion in the deep right frontal and left frontoparietal white matte r. Findings consistent with small foci of acute ischemia. Additional small focus of restricted diffus ion about the right occipital horn. No other foci of restricted diffusion. No mass effect or midline shift. Advanced small vessel changes with moderate parenchymal volume loss. Chronic lacunar infarcts in the basal ganglia and right thalamus. Small vessel changes in the tierra. Large chronic infarct with enceph alomalacia and gliosis involving the inferior right cerebellum. Normal vascular flow voids at the sku ll base. No extra-axial fluid collections. Paranasal sinuses and mastoid air cells are well aerated. Mild mucosal thickening in the mastoid air cells. No hemosiderin on the susceptibility weighted images. Moderate symmetric atrophy involving the tempor al lobes and hippocampal formations. MR/MR head wo con* [id number] IMPRESSION: 1. A few tiny foci of restricted diffusion in the right posterior frontal lobe and left centrum semiovale consistent with acute ischemia. Additional small fo cus of partially restricted diffusion about the right occipital horn consistent with acute to subacute ischemia. 2. No large areas of acute ischemia. 3. No mass effect or midline shift. 4. Advanced small vessel changes with moderate parenchymal volume loss. 5. Chronic lacunar infarcts involving the bilateral basal ganglia and right th alamus. 6. Large chronic infarct involving the right cerebellum with encephalomalacia ankle analysis. 7. Small vessel changes in the tierra.
--- NOTE | 2019-09-22 15:31 | ECG_ITS ---
Measurements Intervals [place] Rate: 85 P: 2 LA: 150 QRS: 17 QRSD: 105 T: 73 QT: 346 QTc: 412 SINUS RHYTHM LOW QRS VOLTAGE IN EXTREMITY LEADS [QRS DEFLECTION < 0.5 mV IN LIMB LEADS] Compared to ECG 09/22/2019 09:43:40 No significant changes Electronically Signed On 09-24-2019 14:51:39 CDT by Ezra Russell M.D. [id number]
[2019-09-22 15:33] LABS: Thyroid Stimulating Hormone 2.97 uIU/mL (0.27-4.20)
[2019-09-22 15:58] LABS: Influenza A by IFA Negative (Negative); Influenza B by IFA Negative (Negative)
[2019-09-22] MEDS: metoprolol tartrate 50 mg Tablet PO (18:39)
[2019-09-22] MEDS: apixaban 5 mg Tablet PO (18:39)
[2019-09-22] MEDS: sodium chloride 0.9% 1,000 ML 75 ML IV (18:40)
[2019-09-22 19:28] LABS: Specific Gravity, Urine 1.015 (1.005-1.030); Urine Appearance Cloudy (CLEAR); Urine Color Amber (Yellow); pH Urine 5 (5-7)
[2019-09-22 19:29] LABS: Bilirubin Urine 1+ (NEGATIVE); Blood Urine 2+ (Negative); Glucose Urine UA Norm (Normal); Ketones Urine Negative (Negative); Leukocyte Esterase Urine Trace (Negative); Nitrate Urine Negative (Negative); Protein Urine 1+ (Negative); Urobilinogen Urine Norm (Negative)
[2019-09-22 19:34] LABS: Amphetamines Screen Urine Negative (Negative); Barbiturates Screen Urine Negative (Negative); Benzodiazepines Screen Urine Positive (Negative); Cocaine Screen Urine Negative (Negative); Opiate Screen Urine Negative (Negative); PCP Screen Urine Positive (Negative); THC Screen Urine Negative (Negative)
[2019-09-22 19:53] LABS: Potassium, Radom Urine 43 mmol/L; Urine Creatinine 108 mg/dL (28-217); Urine Random Chloride 21 mmol/L; Urine Random Sodium 51 mmol/L
[2019-09-22 20:06] LABS: Troponin 5 6HR 47.27 ng/mL (0-10)
[2019-09-22 20:09] LABS: Fine Granular Casts Urine 0-4 /lpf; Hyaline Casts Urine 0-4
[2019-09-22 20:11] LABS: Add Urine Culture? No; Bacteria Urine TRACE; RBC Urine 0-4 /hpf (0-2); Squamous Epithelial Cell Urine 0-4 (0-5); Transitional Epi Cells Urine 0-4 /hpf
[2019-09-22] MEDS: ipratropium-albuterol 3 mL Neb INHALATION (20:55)
[2019-09-22] MEDS: trazodone 100 mg Tablet PO (21:10)
[2019-09-23] VITALS (12 sets, daily range): BP systolic 122–165; BP diastolic 71–81; PULSE 69–95; RESP 16–20; TEMP 36.3–36.9; O2SAT 90–97
[2019-09-23] MEDS: ipratropium-albuterol 3 mL Neb INHALATION ×4 (02:15→21:38)
[2019-09-23 06:04] LABS: Eosinophils % 13.5 %; Hematocrit 32.5 % (37.0-47.0); Hemoglobin 9.7 g/dL (11.5-15.3); Lymphocytes # 1.1 10^3/uL (0.8-4.8); Lymphocytes % 15.4 %; Mean Corpuscular HGB Conc 29.8 g/dL (30.0-36.0); Mean Corpuscular Hemoglobin 29.2 pg (28.0-34.0); Mean Corpuscular Volume 97.9 fL (81-99); Mean Platelet Volume 11.6 fL (7.4-10.4); Monocytes # 0.8 10^3/uL (0.2-0.9); Monocytes % 10.4 %; Neutrophils # 4.4 10^3/uL (1.8-7.7); Neutrophils % 60.2 %; Nucleated Red Blood Cells % 0 %; Platelet Count 117 10^3/cmm (130-400); Red Blood Count 3.32 10^6/uL (4.1-5.3); Red Cell Distribution Width 14.6 % (12.1-15.1); White Blood Count 7.3 10^3/uL (4.0-10.0)
[2019-09-23 06:19] LABS: Chol HDL Ratio 14.11 mg/dL (0.0-4.40); Cholesterol 127 mg/dL (0-200); HDL Cholesterol 9 mg/dL (60-100); LDL Cholesterol Calculated 38 mg/dL (50-129); Triglycerides 398 mg/dL (0-150); VLDL Cholestrol Calculation 80 mg/dL (0-30)
[2019-09-23 06:20] LABS: Alanine Aminotransferase 14 U/L (0-33); Albumin Level 2.4 g/dL (3.5-5.2); Alkaline Phosphatase 77 IU/L (35-105); Aspartate Amino Transferase 13 U/L (0-32); Blood Urea Nitrogen 62 mg/dL (8-23); Calcium 8.3 mg/dL (8.5-10.5); Carbon Dioxide 26 mmol/L (22-29); Chloride 92 mmol/L (98-107); Globulin 3.8 g/dL (1.3-4.6); Glucose 88 mg/dL (65-115); Osmolality Calculated 270 mOsm/kg (285-295); Sodium 131 mmol/L (136-145); Total Bilirubin 0.2 mg/dL (0.15-1.2); Total Protein 6.2 g/dL (6.6-8.7)
[2019-09-23 06:23] LABS: Estmated Average Glucose 111; Hemoglobin A1C 5.5 % (4.0-6.0)
[2019-09-23] MEDS: sodium chloride 0.9% 1,000 ML 75 ML IV ×2 (08:15→22:19)
[2019-09-23] MEDS: metoprolol tartrate 50 mg Tablet PO ×2 (08:16→17:29)
[2019-09-23] MEDS: apixaban 5 mg Tablet PO ×2 (08:16→17:29)
[2019-09-23] MEDS: aspirin 81 mg Chew Tablet PO (08:16)
[2019-09-23] MEDS: atorvastatin 40 mg Tablet 20 MG PO (08:16)
--- NOTE | 2019-09-23 11:14 | P.CONIM_ITS ---
Providers/Reason For Consult Consulting Physican/Specialty*: Nephrology Reason for Consult*: acute renal failure Attending Physician: Ruben Burgos MD Primary Care Provider: Savage Salmeron Jr, MD History of Present Illness History of Present Illness Callie Hobbs is a 73 year old female Thank you for consultation, today I review this very pleasant 73 year old female in the presence of her daughter for evaluation of acute kidney failure. She was in pretty reasonable health until she suffered from a bladder infection, between September 10 and September 17, where she took the antibiotic Bactrim. On the , i.e. Thursday, she started to develop subtle changes in her cognition. Her daughter describes this as a loss of her train of thought, easily. She was acting out of sorts. She does have the occasional fall, and she had two significant falls on Thursday. She did not sustain any injury. She has had a noticeably lower urine output over the last few days. On admission yesterday her serum creatinine was 6.5, increasing to 7.3 today. There is no history of acute or chronic kidney disease. The only other lab data we have is from January 2019, when her creatinine was 0.9. She has also broken out in a rash. This is affecting a lower extremity and her forearm. This is a red blotchy rash. She denies any other new medications that have been initiated. Of note she does take a baby aspirin and has done for many years. She also takes combination of omeprazole and lisinopril also for at least three years. They deny any other additional symptoms of kidney failure at this time. This includes extremity oedema, shortness of breath or other high volume symptoms. No myoclonic twitching, no nausea and vomiting, the appetite is low but she is able to eat and drink. She has a history of urinary incontinence, however no bladder outflow obstructive symptoms. Haemodynamically she has been stable since admission with systolic pressures between 120 and 130. Review of Systems Const: Denies: fever or chills Eyes: Denies: change in vision ENMT: Denies: uvular edema Card: Denies: chest pain or palpitations Resp: Denies: shortness of breath or productive cough Psych: Reports: memory loss and difficulty concentrating; Denies: anxiety or depression Meds/Allergies Home Medications and Allergies Home Medications Medication Instructions Recorded Confirmed Type alprazolam 0.5 mg PO QID PRN 09/22/19 09/22/19 History aspirin 81 mg PO DAILY 09/22/19 09/22/19 History atorvastatin 20 mg PO DAILY 09/22/19 09/22/19 History clopidogrel [Plavix] 75 mg PO DAILY 09/22/19 09/22/19 History lisinopril 10 mg PO BID 09/22/19 09/22/19 History metoprolol tartrate 50 mg PO BID 09/22/19 09/22/19 History omeprazole 20 mg PO DAILY 09/22/19 09/22/19 History sulfamethoxazole-trimethoprim 1 tab PO BID 09/22/19 09/22/19 History trazodone 100 mg PO BEDTIME 09/22/19 09/22/19 History venlafaxine 150 mg PO DAILY 09/22/19 09/22/19 History Allergies Allergy/AdvReac Type Severity Reaction Status Date / Time No Known Allergies Allergy Verified 09/22/19 09:16 Current Medications Current Medications Generic Name Dose Route Start Last Admin Trade Name Freq PRN Reason Stop Dose Admin Albuterol/Ipratropium 3 ml 09/22/19 15:23 09/23/19 08:19 Duoneb INHALATION 3 ml Q6H.RESPIRATORY DOROTHY Administration Apixaban 5 mg 09/22/19 18:00 09/23/19 08:16 Eliquis PO 5 mg BID DOROTHY Administration Aspirin 81 mg 09/23/19 09:00 09/23/19 08:16 Aspirin Chewable PO 81 mg DAILY DOROTHY Administration Atorvastatin Calcium 20 mg 09/23/19 09:00 09/23/19 08:16 Lipitor PO 20 mg DAILY DOROTHY Administration Sodium Chloride 1,000 mls @ 75 mls/hr 09/22/19 15:23 09/23/19 08:15 Sodium Chloride 0.9% IV 75 mls/hr .[id number] DOROTHY Administration Metoprolol Tartrate 50 mg 09/22/19 18:00 09/23/19 08:16 Lopressor PO 50 mg BID DOROTHY Administration Trazodone HCl 100 mg 09/22/19 21:00 09/22/19 21:10 Desyrel PO 100 mg BEDTIME DOROTHY Administration PFSH Acute PFSH: Medical History (Updated 09/22/19 @ 14:18 by Ruben Burgos MD) Anxiety C. difficile colitis COPD (chronic obstructive pulmonary disease) CVA (cerebral vascular accident) HLD (hyperlipidemia) HTN (hypertension) Posterior inferior cerebellar artery embolism Surgical History (Updated 09/22/19 @ 14:18 by Ruben Burgos MD) Status post right knee replacement Social History (Updated 09/22/19 @ 14:20 by Ruben Burgos MD) Smoking and tobacco status: former smoker Alcohol intake: never Household members: none Housing: House Vitals/I&O/Wt Last Vital Signs Temp 98.5 F 09/23/19 07:17 Pulse 95 09/23/19 08:24 Resp 18 09/23/19 08:20 BP 122/71 09/23/19 07:17 Pulse Ox 95 09/23/19 08:20 09/22/19 09/23/19 09/23/19 22:59 06:59 14:59 Intake Total 120 / 1620 1120 / 1120 Output Total 150 / 150 Balance 120 / 1620 970 / 970 Weight last 48 hrs Weight 95.396 kg Weight 94.347 kg Physical Exam HENMT: THROAT: no uvular edema Eye: COMMON NORMALS: PERRL and EOMs intact bilaterally PUPIL: Yes PERRL Neck/C-Spine: COMMON NORMALS: no JVD Lymph: LYMPHATIC: no lymphadenopathy noted and no lymphedema noted Chest: COMMONS NORMALS: inspection of chest normal Resp: COMMON NORMALS: normal respiratory effort and no retractions Cardio: COMMON NORMALS: no JVD, regular rate, regular rhythm, S1 normal heart sound and S2 normal heart sound RATE: regular rate RHYTHM: regular rhythm HEART SOUNDS: S1 normal and S2 normal : COMMON NORMALS: Yes no CVA tenderness BLADDER/KIDNEY EXAM: Yes no CVA tenderness Back/Pelvis: COMMON NORMALS: no CVA tenderness and thoracic and lumbar spine normal to inspection Extremity: COMMON NORMALS: normal to inspection and full ROM A&P Additional A&P Information 1. Acute kidney failure. She has a nice combination of typical stigmata of acute interstitial nephritis. This includes a recent new prescription for a classic causative drug i.e. Bactrim, a rash, peripheral eosinophilia at 13.5%, sterile pyuria also appears to be present. Other potential causes would be much less likely. I will send off some basic serology to include NISHA, ANCA, compliments. I will also repeat urinalysis with urine eosinophils. Of note she does not appear to be prerenal in her assessment and evaluation, her haemodynamics are stable, fractional excretion of sodium is 2.3%, and BUN/creatinine ratio is 8.4, all speaking against renal hypoperfusion. I discussed the utility of a kidney biopsy, and although this would be nice for definitive diagnosis, it would be complicated by her recent use of anticoagulation, the ongoing need for anticoagulation also in the event of bleeding. I treat initially with 500 to 1000 mg of intravenous methylprednisolone daily for three days, followed by oral prednisone at 1 mg/kg daily for definitive management of AIN. She does not have an acute indication for haemodialysis today, I would like to defer placing a dialysis catheter in the hope that she has a rapid turnaround with the steroids. Avoid the usual nephrotoxic agents. Dose medications for GFR less than 15 2. Chemistry considering the degree of kidney damage, chemistry is currently well balanced. 3. Haemodynamics. Stable. No changes to management in this regard. I would like to thank Dr Brito for this consultation, as always it's a pleasure for myself and [facility] to all these patients with you. Consultation including evaluation and physical examination was performed via telemedicine, utilising the help of the bedside nurse. Nimesh Kenney MD [facility], telemedicine [phone] Coding Level of Care Code Acute Barber Apprentice for [facility]
--- NOTE | 2019-09-23 11:27 | PC.CHAP ---
Pastoral Care Encounter/Spiritual Assessment Type of Contact [] Declined rewind operator visit [] Patient/Family/Request visit [] Outpatient visit [] Follow-up visit [] Physician referral [] Code/Alert [X] Routine visit [] Staff referral [] Actively dying [] Patient sleeping [] Family support [] [] Out of room [] Palliative care [] [X] Receiving care in room [] Pre-surgical visit [] Trauma [] Long length of stay [] ICU visit [] Other: Relational/Emotional Strength [X] Patient feels connected with others/family/visitors/staff [] Distress [] Loneliness/isolation [] Abandonment Spirituality of Patient [X] Person of Brittany [] Attends Mormonism of their Brittany [X] Believes in Prayer [] Reads Bible or Restorationist materials [] There are Spiritual issues to be addressed Supervisor Chemical Interventions [X] Prayer [X] Non-anxious presence [X] Spiritual/emotional support [] Crisis/trauma care [X] Spiritual counseling [] Bereavement support [] Provided bereavement packet [] Provided Bible/devotional materials [] Provided toy/stuffed animal, coloring book to patient or family member [] Provided Communion [] Anointing/Noonan [] Salvation [X] Completed spiritual assessment [] Other: Impact on Illness or Injury [] Angry [] Fearful [] Anxious [] Often cries [] Exhaustion [x] Unable to work [] Unable to attend quaker [] Unable to walk/stand [] Unable to read [x] Unable to drive [] Unable to eat/drink [] Unable to sleep [] Unable to be with family [] Patient intubated [] Other: Summary With Family daughter, Have tests, waiting on treatment to see what needs to be done, maybe Dilassies, has family close to watch over her lives a lone. Time spent with patient
--- NOTE | 2019-09-23 11:37 | PC.CHAP ---
Pastoral Care Encounter/Spiritual Assessment Type of Contact [] Declined urology physician assistant visit [] Patient/Family/Request visit [] Outpatient visit [] Follow-up visit [] Physician referral [] Code/Alert [] Routine visit [] Staff referral [] Actively dying [] Patient sleeping [] Family support [] [] Out of room [] Palliative care [] [] Receiving care in room [] Pre-surgical visit [] Trauma [] Long length of stay [] ICU visit [] Other: Relational/Emotional Strength [] Patient feels connected with others/family/visitors/staff [] Distress [] Loneliness/isolation [] Abandonment Spirituality of Patient [] Person of Brittany [] Attends Anabaptist of their Brittany [] Believes in Prayer [] Reads Bible or Tenriism materials [] There are Spiritual issues to be addressed Garment Sewing Machine Operator Interventions [] Prayer [] Active listening [] Non-anxious presence [] Spiritual/emotional support [] Crisis/trauma care [] Spiritual counseling [] Bereavement support [] Provided bereavement packet [] Provided Bible/devotional materials [] Provided toy/stuffed animal, coloring book to patient or family member [] Provided Communion [] Anointing/[place] [] Salvation [] Completed spiritual assessment [] Other: Impact on Illness or Injury [] Angry [] Fearful [] Anxious [] Often cries [] Exhaustion [] Unable to work [] Unable to attend yazidi [] Unable to walk/stand [] Unable to read [] Unable to drive [] Unable to eat/drink [] Unable to sleep [] Unable to be with family [] Patient intubated [] Other: Summary Time spent with patient
--- NOTE | 2019-09-23 11:38 | PC.CHAP ---
Pastoral Care Encounter/Spiritual Assessment Type of Contact [] Declined account liaison visit [] Patient/Family/Request visit [] Outpatient visit [] Follow-up visit [] Physician referral [] Code/Alert [x] Routine visit [] Staff referral [] Actively dying [] Patient sleeping [] Family support [] [] Out of room [] Palliative care [] [x] Receiving care in room [] Pre-surgical visit [] Trauma [] Long length of stay [] ICU visit [] Other: Relational/Emotional Strength [x] Patient feels connected with others/family/visitors/staff [] Distress [] Loneliness/isolation [] Abandonment Spirituality of Patient [x] Person of Brittany [] Attends Yarsani of their Brittany [x] Believes in Prayer [] Reads Bible or Jain materials [] There are Spiritual issues 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 Interventions [x] Prayer [x] Active listening [x] Non-anxious presence [x] Spiritual/emotional support [] Crisis/trauma care [x] Spiritual counseling [] Bereavement support [] Provided bereavement packet [] Provided Bible/devotional materials [] Provided toy/stuffed animal, coloring book to patient or family member [] Provided Communion [] Anointing/[place] [] Salvation [x] Completed spiritual assessment [] Other: Impact on Illness or Injury [] Angry [] Fearful [] Anxious [] Often cries [] Exhaustion [] Unable to work [] Unable to attend presybeterian [] Unable to walk/stand [] Unable to read [] Unable to drive [] Unable to eat/drink [] Unable to sleep [] Unable to be with family [] Patient intubated [] Other: Summary family daughterBebeto Waiting on tests, for now waiting to see what needs to be done maybe dilassiss Time spent with patient 10 mins
--- NOTE | 2019-09-23 13:18 | PM.PN ---
Subjective Subjective: Interval history: No acute events overnight. Patient denies of having any nausea, vomiting, headache any limb weakness overnight. She complains of feeling weak. Labs, input output noted. Vitals/I&O/Wt Last Vital Signs Temp 97.3 F L 09/23/19 11:25 Pulse 83 09/23/19 11:25 Resp 16 09/23/19 11:25 BP 140/81 09/23/19 11:25 Pulse Ox 92 09/23/19 11:25 09/22/19 09/23/19 09/23/19 22:59 06:59 14:59 Intake Total 120 / 1620 1120 / 1120 Output Total 150 / 150 Balance 120 / 1620 970 / 970 Weight last 48 hrs Weight 95.396 kg Weight 94.347 kg Physical Exam Narrative: EXAM NARRATIVE: General: No acute distress, AO x3, lethargic, multiple purpuric rash bilateral thighs and legs and arms. HEENT: PERRLA, pupils bilaterally equal and reactive Chest: Normal vesicular breath sounds, no added sounds, equal good air entry bilaterally CVS: S1-S2 regular, no murmurs, no tachycardia, no gallops, no rubs Abdomen: Soft, nontender, no organomegaly, bowel sounds present Neuro: No focal deficits, no facial deformity, AO x3, power 5/5 in all limbs Data : 09/23/19 04:50 09/23/19 04:50 A&P Assessment and plan (1) Syncope: Status: Acute Qualifiers: Syncope type: unspecified Qualified Code(s): R55 - Syncope and collapse Code(s): R55 - Syncope and collapse (2) Embolic stroke: Status: Acute Code(s): I63.9 - Cerebral infarction, unspecified (3) Acute kidney injury: Status: Acute Code(s): N17.9 - Acute kidney failure, unspecified (4) COPD (chronic obstructive pulmonary disease): Status: Acute Code(s): J44.9 - Chronic obstructive pulmonary disease, unspecified (5) HLD (hyperlipidemia): Status: Acute Code(s): E78.5 - Hyperlipidemia, unspecified (6) HTN (hypertension): Status: Acute Code(s): I10 - Essential (primary) hypertension Additional A&P Information Syncope: Given patient's history of CVA along with creatinine of six-point presentation even though her potassium was higher normal at present etiology of the syncope in her case could be both neurological and cardiological at present. Results of MRI brain, lipid panel, HbA1c, echocardiogram, CT chest, proBNP, procalcitonin, prolactin appreciated. Radiology of syncope is most likely because of embolic strokes. Case discussed with Dr. Beltrán. Continue with aspirin, statins. We will switch her Plavix to Eliquis for now in view of embolic strokes. Unfortunately cannot do CTA head, MRI brain at present because of severe acute kidney injury. Continue on telemetry to rule out atrial fibrillation. Patient would most likely need a Holter monitor as an outpatient. Every neurochecks. Fall, seizure precautions. Procalcitonin prolactin most likely elevated because of acute kidney injury. Patient would most likely need to follow-up with Dr. Beltrán in 2 weeks after discharge. COPD: ABG concerning for mild acidosis which is most likely a mixed metabolic and respiratory acidosis. Continue oxygen supplementation keeping saturation over 90%. DuoNeb's every 6 hours, budesonide IV 12 hours. No steroids for now as no wheezing. Acute kidney injury: After looking at the urine studies results, CBC concern for acute interstitial nephritis. Most likely because of Bactrim use along with lisinopril use. Last lisinopril dose yesterday. Continue with normal saline at 75 cc/h. Medication reconciled for nephrotoxic drugs. Check BMP daily. Case discussed with Dr. Hopkins. Will need to start patient on stress dose steroids for now. We will check for autoimmune work-up. Hypertension: Given the syncope will hold off on antihypertensives for now. We will introduce blood pressure medications except lisinopril for systolic blood pressure of more than 150 mmHg. Continue chronic medications like trazodone but will hold off on venlafaxine given the acute kidney injury. Full code. Renal nondialysis diet. Heparin 5000 units every 12 hours. Attestations Medical Necessity Statement*: Embolic stroke, severe acute kidney injury Time Spent in Patient Care: Greater than 35 minutes Coding Level of Care Code Acute Operations And Intelligence Assistant for [facility] Diagnoses Syncope R55 Syncope type: unspecified Embolic stroke I63.9 Acute kidney injury N17.9 COPD (chronic obstructive pulmonary disease) J44.9 HLD (hyperlipidemia) E78.5 HTN (hypertension) I10
[2019-09-23 13:25] LABS: Protein Urine Trace (Negative); Urine Appearance SL Hazy (CLEAR); Urine Color Yellow (Yellow); pH Urine 5 (5-7)
[2019-09-23 13:26] LABS: Bilirubin Urine 1+ (NEGATIVE); Blood Urine 2+ (Negative); Glucose Urine UA Norm (Normal); Ketones Urine Negative (Negative); Leukocyte Esterase Urine Negative (Negative); Nitrate Urine Negative (Negative); Urobilinogen Urine Norm (Negative)
[2019-09-23 13:49] LABS: Bacteria Urine 1+; RBC Urine 0-4 /hpf (0-2); WBC Urine 0-4 /hpf (0-5)
[2019-09-23 13:50] LABS: Add Urine Culture? Yes
[2019-09-23 13:58] LABS: Complement C3 72 mg/dL (90-180)
[2019-09-23 14:27] LABS: Eosinophil Urine No Eosinophils Seen; Urine Eosinophil Count 0 (0-0)
[2019-09-23] MEDS: ondansetron 2 mg/ML SDV 2 mL 4 MG IVP (19:39)
[2019-09-23] MEDS: budesonide 0.5 mg/2 mL Neb INHALATION (21:38)
[2019-09-23] MEDS: trazodone 100 mg Tablet PO (22:16)
[2019-09-24] VITALS (8 sets, daily range): BP systolic 148–185; BP diastolic 65–85; PULSE 65–87; RESP 16–18; TEMP 36.4–36.8; O2SAT 91–96; BMI 37.9
[2019-09-24 06:08] LABS: Hematocrit 32.3 % (37.0-47.0); Hemoglobin 9.9 g/dL (11.5-15.3); Lymphocytes # 0.6 10^3/uL (0.8-4.8); Lymphocytes % 16.9 %; Mean Corpuscular HGB Conc 30.7 g/dL (30.0-36.0); Mean Corpuscular Hemoglobin 28.9 pg (28.0-34.0); Mean Corpuscular Volume 94.2 fL (81-99); Mean Platelet Volume 11.6 fL (7.4-10.4); Monocytes # 0.1 10^3/uL (0.2-0.9); Monocytes % 2.2 %; Neutrophils # 2.9 10^3/uL (1.8-7.7); Neutrophils % 80.3 %; Nucleated Red Blood Cells % 0 %; Platelet Count 119 10^3/cmm (130-400); Red Blood Count 3.43 10^6/uL (4.1-5.3); Red Cell Distribution Width 14.3 % (12.1-15.1); White Blood Count 3.6 10^3/uL (4.0-10.0)
[2019-09-24 06:34] LABS: Alanine Aminotransferase 13 U/L (0-33); Albumin Level 2.9 g/dL (3.5-5.2); Alkaline Phosphatase 80 IU/L (35-105); Anion Gap 18.3 (5-19); Aspartate Amino Transferase 11 U/L (0-32); Blood Urea Nitrogen 71 mg/dL (8-23); Calcium 8.7 mg/dL (8.5-10.5); Carbon Dioxide 24 mmol/L (22-29); Chloride 95 mmol/L (98-107); Globulin 4.1 g/dL (1.3-4.6); Glucose 163 mg/dL (65-115); Osmolality Calculated 277 mOsm/kg (285-295); Potassium 5.3 mmol/L (3.5-5.1); Sodium 132 mmol/L (136-145); Total Bilirubin 0.2 mg/dL (0.15-1.2)
[2019-09-24 07:28] LABS: Slide Review Slide Review Perform
[2019-09-24] MEDS: atorvastatin 40 mg Tablet 20 MG PO (08:37)
[2019-09-24] MEDS: aspirin 81 mg Chew Tablet PO (08:37)
[2019-09-24] MEDS: metoprolol tartrate 50 mg Tablet PO ×2 (08:37→17:04)
[2019-09-24] MEDS: apixaban 5 mg Tablet PO ×2 (08:37→17:04)
[2019-09-24] MEDS: sodium chloride 0.9% 1,000 ML 75 ML IV (09:53)
--- NOTE | 2019-09-24 10:26 | P.PN_ITS ---
Subjective Subjective: Interval history: Feels a little better today, more lucid. Passing more urine. Feels anxious without the Xanax. No uremic Sx. No dysequilibrium. Vitals/I&O/Wt Last Vital Signs Temp 98.0 F 09/24/19 07:17 Pulse 85 09/24/19 09:15 Resp 16 09/24/19 09:15 BP 148/74 09/24/19 07:17 Pulse Ox 91 09/24/19 09:15 09/23/19 09/24/19 09/24/19 22:59 06:59 14:59 Intake Total 1240 / 2716 867.5 / 867.5 Output Total 200 / 350 250 / 600 150 / 150 Balance 1040 / 2366 -250 / 2116 717.5 / 717.5 Weight last 48 hrs Weight 97.154 kg Weight 95.396 kg Physical Exam HENMT: THROAT: no uvular edema Eye: COMMON NORMALS: PERRL and EOMs intact bilaterally PUPIL: Yes PERRL Neck/C-Spine: COMMON NORMALS: no JVD Lymph: LYMPHATIC: no lymphadenopathy noted and no lymphedema noted Chest: COMMONS NORMALS: inspection of chest normal Resp: COMMON NORMALS: normal respiratory effort and no retractions Cardio: COMMON NORMALS: no JVD, regular rate, regular rhythm, S1 normal heart sound and S2 normal heart sound RATE: regular rate RHYTHM: regular rhythm HEART SOUNDS: S1 normal and S2 normal : COMMON NORMALS: Yes no CVA tenderness BLADDER/KIDNEY EXAM: Yes no CVA tenderness Back/Pelvis: COMMON NORMALS: no CVA tenderness and thoracic and lumbar spine normal to inspection Extremity: COMMON NORMALS: normal to inspection and full ROM Data : 09/24/19 05:00 09/24/19 05:00 A&P Additional A&P Information 1. Acute kidney failure. Creatinine now coming down She has a nice combination of typical stigmata of acute interstitial nephritis. This includes a recent new prescription for a classic causative drug i.e. Bactrim, a rash, peripheral eosinophilia at 13.5%, sterile pyuria also appears to be present. Other potential causes would be much less likely. Serology pending I discussed the utility of a kidney biopsy, and although this would be nice for definitive diagnosis, it would be complicated by her recent use of anticoagulation, the ongoing need for anticoagulation also in the event of bleeding. I treat initially with 500 to 1000 mg of intravenous methylprednisolone daily for three days, followed by oral prednisone at 1 mg/kg daily for definitive management of AIN. With this in mind I have prescribed 750mg daily, on day 2/3 before transition to oral She does not have an acute indication for haemodialysis today and with the improvement in her creatinine and UO this looks like it will not be needed Avoid the usual nephrotoxic agents. Dose medications for GFR less than 15 2. Chemistry considering the degree of kidney damage, chemistry is currently well balanced. 3. Haemodynamics. Stable. No changes to management in this regard. 4. Anxiety; may need to resume Xanax prn per Dr Centeno 5. Dispo - on Thursday if we continue to see improvement in her renal function she will be ok for DC on oral steroids with follow up with Dr Clark I would like to thank Dr Brito for this consultation, as always it's a pl easure for myself and [facility] renal telemedicine services to all these patients with you. Consultation including evaluation and physical examination was performed via telemedicine, utilising the help of the bedside nurse. Nimesh Kenney MD [facility] renal care, telemedicine [phone] Attestations Medical Necessity Statement*: eval for renal failure Coding Level of Care Code Acute Ict Developer for Nedra Yen
--- NOTE | 2019-09-24 11:48 | P.PN_ITS ---
Subjective Subjective: Interval history: She reports she is starting to feel better. She is anxious. States that she cannot sleep at night and feels it is due to not receiving her usual Xanax dose. Vitals/I&O/Wt Last Vital Signs Temp 98.0 F 09/24/19 07:17 Pulse 85 09/24/19 09:15 Resp 16 09/24/19 09:15 BP 148/74 09/24/19 07:17 Pulse Ox 91 09/24/19 09:15 09/23/19 09/24/19 09/24/19 22:59 06:59 14:59 Intake Total 1240 / 2716 1107.5 / 1107.5 Output Total 200 / 350 250 / 600 250 / 250 Balance 1040 / 2366 -250 / 2116 857.5 / 857.5 Weight last 48 hrs Weight 97.154 kg Weight 95.396 kg Physical Exam Narrative: EXAM NARRATIVE: Sitting up in chair. Daughter at bedside. Const: COMMON NORMALS: no apparent distress and oriented x3 NUTRITIONAL APPEARANCE: obese OTHER: Pleasant, cooperative. HENMT: COMMON NORMALS: oropharynx normal Neck/C-Spine: COMMON NORMALS: no JVD Resp: COMMON NORMALS: normal respiratory effort and clear to auscultation bilaterally AUSCULTATION: clear to auscultation bilaterally Cardio: COMMON NORMALS: no JVD, regular rhythm, S1 normal heart sound, S2 normal heart sound and no murmurs RHYTHM: regular rhythm HEART SOUNDS: S1 normal and S2 normal GI: COMMON NORMALS: normal to inspection, nondistended, normoactive bowel sounds, soft to palpation and non-tender PALPATION: Yes soft Extremity: COMMON NORMALS: no joint enlargement and no pedal edema Neuro: COMMON NORMALS: oriented x3 and moves all extremities Skin: OTHER: Small petechial lesions noted on lower extremities, and larger erythematous patches on thighs. Data : 09/24/19 05:00 09/24/19 05:00 A&P Assessment and plan (1) Syncope: Reports multiple falls, stating feels like somebody is pushing her from b ehind . States that now she will be using her walker when walking to the restroom. We will request for orthostatic blood pressures. So far has been doing well in the hospital without any recurrence. 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 Acute and chronic. With lacunar CVA discussed with her need for close monitoring of blood pressures at home. She says she has not been checking her blood pressures at all. Recommend she check them 3 times daily. She and daughter verbalized understanding. She is also started on anticoagulation while in the hospital due to concern for embolic etiology. Will need follow-up with neurology after discharge. Continue aspirin, statin. Status: Acute Code(s): I63.9 - Cerebral infarction, unspecified (3) Acute kidney injury: Nephrology recommendations appreciated. Appears to be showing some improvement. Status: Acute Code(s): N17.9 - Acute kidney failure, unspecified (4) COPD (chronic obstructive pulmonary disease): Continue oxygen support. Not currently in exacerbation. Continue nebulization. Receiving steroids for renal condition. Status: Acute Code(s): J44.9 - Chronic obstructive pulmonary disease, unspecified (5) HLD (hyperlipidemia): Status: Acute Code(s): E78.5 - Hyperlipidemia, unspecified (6) HTN (hypertension): Discussed long-term optimization of control and close monitoring at home. Status: Acute Code(s): I10 - Essential (primary) hypertension Additional A&P Information Continue chronic medications like trazodone but will hold off on venlafaxine given the acute kidney injury. Restart Xanax. Attestations Medical Necessity Statement*: Continue admission to minimize risk of acute kidney injury with AIN, acute on chronic CVA. Coding Level of Care Code Acute Deputy Brand Inspector for [facility] Fwd Diagnoses Syncope R55 Syncope type: unspecified Embolic stroke I63.9 Acute kidney injury N17.9 COPD (chronic obstructive pulmonary disease) J44.9 HLD (hyperlipidemia) E78.5 HTN (hypertension) I10
[2019-09-24] MEDS: ALPRAZolam 0.5 mg Tablet PO ×3 (13:44→20:52)
[2019-09-24] MEDS: trazodone 100 mg Tablet PO (20:52)
[2019-09-25] VITALS (9 sets, daily range): BP systolic 132–175; BP diastolic 69–77; PULSE 60–74; RESP 17–22; TEMP 35.8–36.7; O2SAT 90–98
--- NOTE | 2019-09-25 06:46 | PC.NURSE ---
SHIFT SUMMARY Rested well tonight. Says believes having the Xanax restarted really helped. Up to [facility] several times tonight and has urinated well.
[2019-09-25 07:02] LABS: Nucleated Red Blood Cells % 0 %; Platelet Count 157 10^3/cmm (130-400); Red Blood Count 3.31 10^6/uL (4.1-5.3)
[2019-09-25 07:15] LABS: Basophils % 0.2 %; Hematocrit 31.6 % (37.0-47.0); Hemoglobin 9.6 g/dL (11.5-15.3); Lymphocytes # 0.7 10^3/uL (0.8-4.8); Lymphocytes % 12.7 %; Mean Corpuscular HGB Conc 30.4 g/dL (30.0-36.0); Mean Corpuscular Volume 95.5 fL (81-99); Mean Platelet Volume 11.3 fL (7.4-10.4); Monocytes # 0.3 10^3/uL (0.2-0.9); Monocytes % 5.1 %; Neutrophils # 4.4 10^3/uL (1.8-7.7); Neutrophils % 81.4 %; Red Cell Distribution Width 14.4 % (12.1-15.1); White Blood Count 5.4 10^3/uL (4.0-10.0)
[2019-09-25 07:24] LABS: Anion Gap 12.7 (5-19); Blood Urea Nitrogen 78 mg/dL (8-23); Calcium 8.9 mg/dL (8.5-10.5); Carbon Dioxide 28 mmol/L (22-29); Chloride 99 mmol/L (98-107); Creatinine Clr Calc Pharmacy 12.1844; Glucose 172 mg/dL (65-115); Osmolality Calculated 282 mOsm/kg (285-295); Potassium 5.7 mmol/L (3.5-5.1); Sodium 134 mmol/L (136-145)
[2019-09-25 07:25] LABS: Slide Review Slide Review Perform
[2019-09-25] MEDS: atorvastatin 40 mg Tablet 20 MG PO (08:07)
[2019-09-25] MEDS: metoprolol tartrate 50 mg Tablet PO ×2 (08:07→17:34)
[2019-09-25] MEDS: aspirin 81 mg Chew Tablet PO (08:07)
[2019-09-25] MEDS: apixaban 5 mg Tablet PO ×2 (08:07→17:34)
[2019-09-25] MEDS: ALPRAZolam 0.5 mg Tablet PO ×4 (08:08→20:36)
--- NOTE | 2019-09-25 12:15 | PC.SOCIAL ---
IMM Page 2 of IMM given to patient. She verbalizes understanding. Initialed, dated, and timed and placed in chart.
--- NOTE | 2019-09-25 12:23 | PM.PN ---
Subjective Subjective: Interval history: Doing better today with no new issues. No uremic Sx. Feels much better, passing, more urine, eating and drinking well, mobilizing well. No edema and no other Sx of hypervolemia. Vitals/I&O/Wt Last Vital Signs Temp 96.4 F L 09/25/19 11:35 Pulse 65 09/25/19 11:35 Resp 17 09/25/19 11:35 BP 169/72 09/25/19 11:35 Pulse Ox 97 09/25/19 11:35 09/24/19 09/25/19 09/25/19 22:59 06:59 14:59 Intake Total 240 / 1803.5 250 / 2053.5 720 / 720 Output Total 350 / 800 650 / 1450 300 / 300 Balance -110 / 1003.5 -400 / 603.5 420 / 420 Weight last 48 hrs Weight 97.324 kg Weight 97.154 kg Physical Exam HENMT: THROAT: no uvular edema Eye: COMMON NORMALS: PERRL and EOMs intact bilaterally PUPIL: Yes PERRL Neck/C-Spine: COMMON NORMALS: no JVD Lymph: LYMPHATIC: no lymphadenopathy noted and no lymphedema noted Chest: COMMONS NORMALS: inspection of chest normal Resp: COMMON NORMALS: normal respiratory effort and no retractions Cardio: COMMON NORMALS: no JVD, regular rate, regular rhythm, S1 normal heart sound and S2 normal heart sound RATE: regular rate RHYTHM: regular rhythm HEART SOUNDS: S1 normal and S2 normal : COMMON NORMALS: Yes no CVA tenderness BLADDER/KIDNEY EXAM: Yes no CVA tenderness Back/Pelvis: COMMON NORMALS: no CVA tenderness and thoracic and lumbar spine normal to inspection Extremity: COMMON NORMALS: normal to inspection and full ROM Data : 09/25/19 06:12 09/25/19 06:12 Micro: Microbiology 09/23/19 12:39 Urine Culture - Final Urine,Clean Catch A&P Additional A&P Information 1. Acute kidney failure. Creatinine now coming down She has a nice combination of typical stigmata of acute interstitial nephritis. This includes a recent new prescription for a classic causative drug i.e. Bactrim, a rash, peripheral eosinophilia at 13.5%, sterile pyuria also appears to be present. Other potential causes would be much less likely. Day 3 of high dose iv steroids. I will give her a low dose of oral steroids as she has responded beautifully to the pulse dose steroids; 40mg po Prednisone, for 2 weeks and then taper 10mg evrey 5 days to completion She does not have an acute indication for haemodialysis today and with the improvement in her creatinine and UO this looks like it will not be needed Avoid the usual nephrotoxic agents. Dose medications for GFR less than 15 2. Chemistry Potassium is a little high; non critical and diet changed to low K, no other therapy needed for the time being 3. Haemodynamics. Stable. No changes to management in this regard. 4. Anxiety; may need to resume Xanax prn per Dr Centeno 5. Dispo - on Thursday if we continue to see improvement in her renal function she will be ok for DC on oral steroids with follow up with Dr Clark Consultation including evaluation and physical examination was performed via telemedicine, utilising the help of the bedside nurse. Nimesh Kenney MD [facility], [facility] [phone] Attestations Medical Necessity Statement*: mgmt of renal failure Coding Level of Care Code Acute Milling/Polishing Operator for Nedra Yen
--- NOTE | 2019-09-25 15:06 | PM.PN ---
Subjective Subjective: Interval history: She slept much better last night. Today denies any new symptoms. Vitals/I&O/Wt Last Vital Signs Temp 96.4 F L 09/25/19 11:35 Pulse 65 09/25/19 11:35 Resp 17 09/25/19 11:35 BP 169/72 09/25/19 11:35 Pulse Ox 97 09/25/19 11:35 09/25/19 09/25/19 09/25/19 06:59 14:59 22:59 Intake Total 250 / 2053.5 1716 / 1716 Output Total 650 / 1450 700 / 700 Balance -400 / 603.5 1016 / 1016 Weight last 48 hrs Weight 97.324 kg Weight 97.154 kg Physical Exam Narrative: EXAM NARRATIVE: Sitting up in bed. Const: COMMON NORMALS: no apparent distress and oriented x3 NUTRITIONAL APPEARANCE: obese OTHER: Pleasant, cooperative. Son at bedside. HENMT: COMMON NORMALS: oropharynx normal Neck/C-Spine: COMMON NORMALS: no JVD Resp: COMMON NORMALS: normal respiratory effort and clear to auscultation bilaterally AUSCULTATION: clear to auscultation bilaterally Cardio: COMMON NORMALS: no JVD, regular rhythm, S1 normal heart sound, S2 normal heart sound and no murmurs RHYTHM: regular rhythm HEART SOUNDS: S1 normal and S2 normal GI: COMMON NORMALS: normal to inspection, nondistended, normoactive bowel sounds, soft to palpation and non-tender PALPATION: Yes soft Extremity: COMMON NORMALS: no joint enlargement and no pedal edema Neuro: COMMON NORMALS: oriented x3 and moves all extremities Skin: OTHER: Small petechial lesions noted on lower extremities, and larger erythematous patches on thighs. Data : 09/25/19 06:12 09/25/19 06:12 Micro: Microbiology 09/23/19 12:39 Urine Culture - Final Urine,Clean Catch A&P Assessment and plan (1) Acute kidney injury: Creatinine gradually improving. Steroid switch to oral dose. Nephrology recommendations appreciated. Status: Acute Code(s): N17.9 - Acute kidney failure, unspecified (2) Syncope: Reports multiple falls, stating feels like somebody is pushing her from behind . States that now she will be using her walker when walking to the restroom. We will request for orthostatic blood pressures. So far has been doing well in the hospital without any recurrence. 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 Acute and chronic. With lacunar CVA discussed with her need for close monitoring of blood pressures at home. She says she has not been checking her blood pressures at all. Recommend she check them 3 times daily. She and daughter verbalized understanding. She is also started on anticoagulation while in the hospital due to concern for embolic etiology. Will need follow-up with neurology after discharge. Continue aspirin, statin. Status: Acute Code(s): I63.9 - Cerebral infarction, unspecified (4) COPD (chronic obstructive pulmonary disease): Continue oxygen support. Not currently in exacerbation. Continue nebulization. Receiving steroids for renal condition. Status: Acute Code(s): J44.9 - Chronic obstructive pulmonary disease, unspecified (5) HLD (hyperlipidemia): Status: Acute Code(s): E78.5 - Hyperlipidemia, unspecified (6) HTN (hypertension): Discussed long-term optimization of control and close monitoring at home. Status: Acute Code(s): I10 - Essential (primary) hypertension Additional A&P Information Continue chronic medications like trazodone but will hold off on venlafaxine given the acute kidney injury. Restart Xanax. Attestations Medical Necessity Statement*: Continue admission for assessment of acute kidney injury with acute interstitial nephritis. CVA. Coding Level of Care Code Acute Automatic Embroidery Machine Tender for Nedra Yen Diagnoses Acute kidney injury N17.9 Syncope R55 Syncope type: unspecified Embolic stroke I63.9 COPD (chronic obstructive pulmonary disease) J44.9 HLD (hyperlipidemia) E78.5 HTN (hypertension) I10
--- NOTE | 2019-09-25 15:50 | PC.NURSE ---
lying BP 149/75 lying pulse 64 setting BP 178/76 setting pulse 76 standing BP 168/65 standing pulse 73
--- NOTE | 2019-09-25 15:54 | PC.PT ---
Patient adamantly refused to work with therapy today reports she is unable and just had a Xanx and needs to rest. Plan to check with patient tomorrow to resume therapy.
[2019-09-25] MEDS: trazodone 100 mg Tablet PO (20:36)
[2019-09-26] VITALS (8 sets, daily range): BP systolic 147–197; BP diastolic 56–84; PULSE 66–79; RESP 16–22; TEMP 36.4–36.9; O2SAT 89–96
[2019-09-26 05:38] LABS: Hematocrit 31.9 % (37.0-47.0); Hemoglobin 9.5 g/dL (11.5-15.3); Lymphocytes # 0.7 10^3/uL (0.8-4.8); Lymphocytes % 12.3 %; Mean Corpuscular HGB Conc 29.8 g/dL (30.0-36.0); Mean Corpuscular Hemoglobin 28.8 pg (28.0-34.0); Mean Corpuscular Volume 96.7 fL (81-99); Mean Platelet Volume 11.2 fL (7.4-10.4); Monocytes # 0.4 10^3/uL (0.2-0.9); Neutrophils # 4.9 10^3/uL (1.8-7.7); Neutrophils % 80.9 %; Nucleated Red Blood Cells % 0 %; Platelet Count 188 10^3/cmm (130-400); Red Cell Distribution Width 14.4 % (12.1-15.1)
[2019-09-26 06:07] LABS: Anion Gap 15.8 (5-19); Blood Urea Nitrogen 73 mg/dL (8-23); Calcium 9.2 mg/dL (8.5-10.5); Carbon Dioxide 25 mmol/L (22-29); Chloride 105 mmol/L (98-107); Glucose 149 mg/dL (65-115); Osmolality Calculated 292 mOsm/kg (285-295); Potassium 5.8 mmol/L (3.5-5.1); Sodium 140 mmol/L (136-145)
[2019-09-26 06:44] LABS: Slide Review Slide Review Perform
[2019-09-26] MEDS: apixaban 5 mg Tablet PO ×2 (09:07→17:12)
[2019-09-26] MEDS: atorvastatin 40 mg Tablet 20 MG PO (09:07)
[2019-09-26] MEDS: metoprolol tartrate 50 mg Tablet PO ×2 (09:08→17:11)
[2019-09-26] MEDS: ALPRAZolam 0.5 mg Tablet PO ×4 (09:08→20:47)
[2019-09-26] MEDS: aspirin 81 mg Chew Tablet PO (09:08)
[2019-09-26] MEDS: predniSONE 20 mg Tablet 40 MG PO (09:08)
[2019-09-26 09:52] LABS: Anti-Nuclear AB Pattern #2 Cytoplasmic; Anti-Nuclear Antibody Screen POSITIVE (NEGATIVE); Anti-Nuclear Antibody Titer 1:40 titer; Anti-Nuclear Antibody Titer #2 1:40 titer
--- NOTE | 2019-09-26 12:27 | P.PN_ITS ---
Subjective Subjective: Interval history: Doing better today with no new issues. No uremic Sx. Feels much better, passing, more urine, eating and drinking well, mobilizing well. No edema and no other Sx of hypervolemia. Vitals/I&O/Wt Last Vital Signs Temp 98.4 F 09/26/19 11:12 Pulse 66 09/26/19 11:12 Resp 22 H 09/26/19 11:12 BP 184/84 09/26/19 11:12 Pulse Ox 96 09/26/19 11:12 09/25/19 09/26/19 09/26/19 22:59 06:59 14:59 Intake Total 480 / 2196 240 / 240 Output Total 350 / 1050 500 / 1550 Balance 130 / 1146 -500 / 646 240 / 240 Weight last 48 hrs Weight 96.814 kg Weight 97.324 kg Physical Exam HENMT: THROAT: no uvular edema Eye: COMMON NORMALS: PERRL and EOMs intact bilaterally PUPIL: Yes PERRL Neck/C-Spine: COMMON NORMALS: no JVD Lymph: LYMPHATIC: no lymphadenopathy noted and no lymphedema noted Chest: COMMONS NORMALS: inspection of chest normal Resp: COMMON NORMALS: normal respiratory effort and no retractions Cardio: COMMON NORMALS: no JVD, regular rate, regular rhythm, S1 normal heart sound and S2 normal heart sound RATE: regular rate RHYTHM: regular rhythm HEART SOUNDS: S1 normal and S2 normal : COMMON NORMALS: Yes no CVA tenderness BLADDER/KIDNEY EXAM: Yes no CVA tenderness Back/Pelvis: COMMON NORMALS: no CVA tenderness and thoracic and lumbar spine normal to inspection Extremity: COMMON NORMALS: normal to inspection and full ROM Data : 09/26/19 04:26 09/26/19 04:26 Micro: Microbiology 09/23/19 12:39 Urine Culture - Final Urine,Clean Catch A&P Additional A&P Information 1. Acute kidney failure. Creatinine now coming down She has a nice combination of typical stigmata of acute interstitial nephritis. This includes a recent new prescription for a classic causative drug i.e. Bactrim, a rash, peripheral eosinophilia at 13.5%, sterile pyuria also appears to be present. Other potential causes would be much less likely. She ahs now completed 3 doses of high dose iv steroids. I will give her a low dose of oral steroids as she has responded beautifully to the pulse dose steroids; 40mg po Prednisone, for 2 weeks and then taper 10mg every 5 days to completion to start today Avoid the usual nephrotoxic agents. Dose medications for GFR less than 15 2. Chemistry Potassium is a little high; kayexalate x 1 today recheck later today 3. Haemodynamics. Stable. No changes to management in this regard. 4. Anxiety; may need to resume Xanax prn per Dr Centeno 5. Dispo - ok for DC later today if K is coming down with Kayexalate - ok for DC on oral steroids with follow up with Dr Clark Consultation including evaluation and physical examination was performed via telemedicine, utilising the help of the bedside nurse. Nimesh Kenney MD [facility], [facility] [phone] Attestations Medical Necessity Statement*: eval for renal failure Coding Level of Care Code Acute Moving Van Driver for Nedra Yen
[2019-09-26] MEDS: sodium polystyrene sulfonate 15 gm/60 mL Btl PO (12:36)
[2019-09-26 17:35] LABS: Anion Gap 14.9 (5-19); Blood Urea Nitrogen 61 mg/dL (8-23); Calcium 9.2 mg/dL (8.5-10.5); Carbon Dioxide 24 mmol/L (22-29); Chloride 104 mmol/L (98-107); Glucose 131 mg/dL (65-115); Osmolality Calculated 285 mOsm/kg (285-295); Potassium 5.9 mmol/L (3.5-5.1); Sodium 137 mmol/L (136-145)
--- NOTE | 2019-09-26 18:59 | P.PN_ITS ---
Subjective Subjective: Interval history: She is feeling well, no new symptoms. Excited at the prospect that she may return home, although because potassium was persistently elevated he is needing to stay another night. Vitals/I&O/Wt Last Vital Signs Temp 97.8 F 09/26/19 16:00 Pulse 74 09/26/19 16:00 Resp 18 09/26/19 16:00 BP 184/74 09/26/19 16:00 Pulse Ox 91 09/26/19 16:00 09/26/19 09/26/19 09/26/19 06:59 14:59 22:59 Intake Total 360 / 360 240 / 600 Output Total 500 / 1550 400 / 400 Balance -500 / 646 360 / 360 -160 / 200 Weight last 48 hrs Weight 96.814 kg Weight 97.324 kg Physical Exam Narrative: EXAM NARRATIVE: Sitting up in chair. Const: COMMON NORMALS: no apparent distress and oriented x3 NUTRITIONAL APPEARANCE: obese OTHER: Pleasant, cooperative. HENMT: COMMON NORMALS: oropharynx normal Neck/C-Spine: COMMON NORMALS: no JVD Resp: COMMON NORMALS: normal respiratory effort and clear to auscultation bilaterally AUSCULTATION: clear to auscultation bilaterally Cardio: COMMON NORMALS: no JVD, regular rhythm, S1 normal heart sound, S2 normal heart sound and no murmurs RHYTHM: regular rhythm HEART SOUNDS: S1 normal and S2 normal GI: COMMON NORMALS: normal to inspection, nondistended, normoactive bowel sounds, soft to palpation and non-tender PALPATION: Yes soft Extremity: COMMON NORMALS: no joint enlargement and no pedal edema Neuro: COMMON NORMALS: oriented x3 and moves all extremities Skin: OTHER: Small petechial lesions noted on lower extremities, and larger erythematous patches on thighs. Data : 09/26/19 04:26 09/26/19 16:45 A&P Assessment and plan (1) Hyperkalemia: Persistent hyperkalemia today. Delay discharge. Did receive correct lites earlier today, but potassium still 5.9. Discussed with nephrology, he is to receive gentle IV hydration with dose of Lasix. Recheck potassium in the morning. If improving likely discharge tomorrow. Status: Acute Code(s): E87.5 - Hyperkalemia (2) Acute kidney injury: Creatinine improving. Steroid switch to oral dose with plan to taper. Nephrology recommendations appreciated. Discussed with her need for follow-up with nephrology after discharge and she is in agreement. Status: Acute Code(s): N17.9 - Acute kidney failure, unspecified (3) Syncope: Reports multiple falls, stating feels like somebody is pushing her from behind . Encouraged her to use walker at all times. We will request for orthostatic blood pressures. So far has been doing well in the hospital without any recurrence. 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 Acute and chronic. With lacunar CVA discussed with her need for close monitoring of blood pressures at home. She says she has not been checking her blood pressures at all. Recommend she check them 3 times daily. She and daughter verbalized understanding. She is also started on anticoagulation while in the hospital due to concern for embolic etiology. Will need follow-up with neurology after discharge. Continue aspirin, statin. Status: Acute Code(s): I63.9 - Cerebral infarction, unspecified (5) COPD (chronic obstructive pulmonary disease): Continue oxygen support. Not currently in exacerbation. Continue nebulization. Receiving steroids for renal condition. Status: Acute Code(s): J44.9 - Chronic obstructive pulmonary disease, unspecified (6) HLD (hyperlipidemia): Status: Acute Code(s): E78.5 - Hyperlipidemia, unspecified (7) HTN (hypertension): Discussed long-term optimization of control and close monitoring at home. Status: Acute Code(s): I10 - Essential (primary) hypertension Additional A&P Information Continue chronic medications like trazodone but will hold off on venlafaxine given the acute kidney injury. Restart Xanax. Attestations Medical Necessity Statement*: Continue assessment management of hyperkalemia, acute kidney injury. Coding Level of Care Code Acute Patient Care Secretary for Nedra Yen Diagnoses Hyperkalemia E87.5 Acute kidney injury N17.9 Syncope R55 Syncope type: unspecified Embolic stroke I63.9 COPD (chronic obstructive pulmonary disease) J44.9 HLD (hyperlipidemia) E78.5 HTN (hypertension) I10
[2019-09-26] MEDS: sodium chloride 0.9% 1,000 ML 75 ML IV (20:47)
[2019-09-26] MEDS: FUROsemide 10 mg/mL SDV 4mL 40 MG IVP (20:47)
[2019-09-26] MEDS: trazodone 100 mg Tablet PO (20:47)
[2019-09-26 21:41] LABS: ANCA Interp Negative (Negative)
[2019-09-27] VITALS (9 sets, daily range): BP systolic 183–199; BP diastolic 75–133; PULSE 69–167; RESP 16–20; TEMP 36.3–36.8; O2SAT 91–100
--- NOTE | 2019-09-27 03:55 | PC.NURSE ---
Addendum entered by Yelena Merida RN 09/27/19 06:01: Dr. May got back with this nurse. Wants to observe BP after reviewing charts; will let day shift know and address if needed. Original Note: 0330: Contacted Dr. May about patient BP-192/95; she states she will look into it when she can. There are no PRN BP medications.
[2019-09-27 05:45] LABS: Basophils % 0.1 %; Eosinophils % 0.2 %; Hematocrit 36.4 % (37.0-47.0); Lymphocytes # 1.8 10^3/uL (0.8-4.8); Mean Corpuscular HGB Conc 30.2 g/dL (30.0-36.0); Mean Corpuscular Hemoglobin 29.1 pg (28.0-34.0); Mean Corpuscular Volume 96.3 fL (81-99); Mean Platelet Volume 11.2 fL (7.4-10.4); Monocytes # 1.6 10^3/uL (0.2-0.9); Monocytes % 14.5 %; Neutrophils # 7.5 10^3/uL (1.8-7.7); Neutrophils % 67.7 %; Nucleated Red Blood Cells % 0 %; Platelet Count 289 10^3/cmm (130-400); Red Blood Count 3.78 10^6/uL (4.1-5.3); Red Cell Distribution Width 14.2 % (12.1-15.1)
[2019-09-27 05:53] LABS: Blood Urea Nitrogen 54 mg/dL (8-23); Carbon Dioxide 26 mmol/L (22-29); Chloride 103 mmol/L (98-107); Glucose 97 mg/dL (65-115); Osmolality Calculated 290 mOsm/kg (285-295); Sodium 141 mmol/L (136-145)
--- NOTE | 2019-09-27 07:47 | PM.PN ---
Subjective Subjective: Interval history: feels better. no n/v/f/c/lr/d/sob Medications: Reviewed: Yes Medication Review Details: Current Medications Acetaminophen (Tylenol) 650 mg PO Q6H PRN PRN Reason: Mild/Mod Pain Or Temp >/= 101 Albuterol/Ipratropium (Duoneb) 3 ml INHALATION Q6H.RESPIRATORY [facility] Last Admin: 09/27/19 02:45 Dose: Not Given Documented by: Alprazolam (Xanax) 0.5 mg PO QID [facility] Last Admin: 09/26/19 20:47 Dose: 0.5 mg Documented by: Apixaban (Eliquis) 5 mg PO BID [facility] Last Admin: 09/26/19 17:12 Dose: 5 mg Documented by: Aspirin (Aspirin Chewable) 81 mg PO DAILY [facility] Last Admin: 09/26/19 09:08 Dose: 81 mg Documented by: Atorvastatin Calcium (Lipitor) 20 mg PO DAILY [facility] Last Admin: 09/26/19 09:07 Dose: 20 mg Documented by: Bisacodyl (Dulcolax) 10 mg PO DAILY PRN PRN Reason: CONSTIPATION Budesonide (Pulmicort) 0.5 mg INHALATION BID.RESPIRATORY [facility] Last Admin: 09/26/19 19:37 Dose: Not Given Documented by: Sodium Chloride (Sodium Chloride 0.9%) 1,000 mls @ 75 mls/hr IV .[id number] [facility] Last Infusion: 09/27/19 06:03 Dose: 75 mls/hr Documented by: Lactulose (Constulose) 10 gm PO DAILY PRN PRN Reason: CONSTIPA Metoprolol Tartrate (Lopressor) 50 mg PO BID [facility] Last Admin: 09/26/19 17:11 Dose: 50 mg Documented by: Ondansetron HCl (Zofran) 4 mg IVP Q8H PRN PRN Reason: vomiting, or N/V if npo Last Admin: 09/23/19 19:39 Dose: 4 mg Documented by: Prednisone (Prednisone) 40 mg PO DAILY [facility] Last Admin: 09/26/19 09:08 Dose: 40 mg Documented by: Trazodone HCl (Desyrel) 100 mg PO BEDTIME [facility] Last Admin: 09/26/19 20:47 Dose: 100 mg Documented by: Vitals/I&O/Wt Last Vital Signs Temp 97.5 F L 09/27/19 07:30 Pulse 76 09/27/19 07:30 Resp 18 09/27/19 07:30 BP 193/98 09/27/19 07:30 Pulse Ox 100 09/27/19 07:30 09/26/19 09/27/19 09/27/19 22:59 06:59 14:59 Intake Total 240 / 600 695.00 / 1295.00 Output Total 900 / 900 2550 / 3450 Balance -660 / -300 -1855.00 / -2155.00 Weight last 48 hrs Weight 96.797 kg Weight 96.814 kg Physical Exam Narrative: EXAM NARRATIVE: obese woman comfortable in bed, NARD vs noted heent- nc/at, eomi, anicteric neck supple lungs clear b/l heart reg, +MARTITA abd soft, +BS ext min edema neuro- a,a,o x3 skin- rash improving mood- good Data : 09/27/19 05:12 09/27/19 05:12 A&P Additional A&P Information 1. Acute kidney failure. Creatinine improving presumed AIN- she had a combination of typical stigmata of acute interstitial nephritis. This includes a recent new prescription for a classic causative drug i.e. Bactrim, a rash, peripheral eosinophilia at 13.5%, sterile pyuria also appears to be present. She has now completed 3 doses of high dose iv steroids. as per plan of Dr. Kenney, today is d# 2 of 14 of 40mg po Prednisone, then taper 10mg every 5 days to completion Avoid the usual nephrotoxic agents. Dose medications for GFR less than 15 2. Chemistry Potassium improved 3. Htn and recent cva- add norvasc -may use arb as outpt when renal fxn stable and on lower dose steroids -also need to ensure that k stays stable 4. renal okay for d/c on oral steroids with follow up with Dr Clark Consultation including evaluation and physical examination was performed via telemedicine, utilizing the help of the bedside nurse. Attestations Medical Necessity Statement*: per hospitalist Time Spent in Patient Care: 16 - 35 minutes Coding Level of Care Code Acute Boiler Testing Technician for Nedra Yen
[2019-09-27] MEDS: atorvastatin 40 mg Tablet 20 MG PO (08:29)
[2019-09-27] MEDS: ALPRAZolam 0.5 mg Tablet PO ×4 (08:30→20:24)
[2019-09-27] MEDS: metoprolol tartrate 50 mg Tablet PO (08:30)
[2019-09-27] MEDS: predniSONE 20 mg Tablet 40 MG PO (08:30)
[2019-09-27] MEDS: apixaban 5 mg Tablet PO ×2 (08:30→17:00)
[2019-09-27] MEDS: amlodipine 5 mg Tablet PO ×2 (08:30→14:21)
[2019-09-27] MEDS: aspirin 81 mg Chew Tablet PO (08:30)
[2019-09-27] MEDS: acetaminophen 325 mg Tablet 650 MG PO ×2 (08:35→14:21)
--- NOTE | 2019-09-27 09:42 | ECG_ITS ---
Measurements Intervals [place] Rate: 72 P: 30 IN: 138 QRS: 45 QRSD: 103 T: 53 QT: 370 QTc: 405 SINUS RHYTHM WITH MARKED SINUS ARRHYTHMIA Compared to ECG 09/22/2019 23:28:00 No significant changes Electronically Signed On 09-27-2019 20:17:37 CDT by Amanda Sol M.D. [email or web address]
[2019-09-27] MEDS: sodium chloride 0.9% 1,000 ML 75 ML IV (09:58)
[2019-09-27 10:08] LABS: Magnesium 1.7 mg/dL (1.7-2.3)
[2019-09-27] MEDS: metoprolol tartrate 25 mg Tablet PO (11:10)
[2019-09-27] MEDS: magnesium sulfate premix 2 GM/50 ML PIGGYBACK IV ×2 (11:10→21:37)
--- NOTE | 2019-09-27 12:02 | PC.SOCIAL ---
IMM Updated Updated pt on Pg 2 IMM. NO questions voiced. Provided pt a copy & left on their bedside table. Signed, dated, & timed copy in chart.
[2019-09-27] MEDS: metoprolol tartrate 50 mg Tablet 75 MG PO (17:00)
[2019-09-27] MEDS: hyDRALAzine 10 mg Tablet PO ×2 (17:01→20:24)
[2019-09-27] MEDS: trazodone 100 mg Tablet PO (20:24)
--- NOTE | 2019-09-27 20:32 | P.PN_ITS ---
Subjective Subjective: Interval history: Denies any new complaints. She is feeling great. Ready to return home. Vitals/I&O/Wt Last Vital Signs Temp 98.2 F 09/27/19 19:46 Pulse 79 09/27/19 19:55 Resp 18 09/27/19 19:46 BP 199/75 09/27/19 19:46 Pulse Ox 95 09/27/19 19:55 09/27/19 09/27/19 09/27/19 06:59 14:59 22:59 Intake Total 695.00 / 1295.00 773.75 / 773.75 1620 / 2393.75 Output Total 2550 / 3450 1300 / 1300 Balance -1855.00 / -2155.00 773.75 / 773.75 320 / 1093.75 Weight last 48 hrs Weight 96.797 kg Weight 96.814 kg Physical Exam Narrative: EXAM NARRATIVE: Sitting up in chair. Const: COMMON NORMALS: no apparent distress and oriented x3 NUTRITIONAL APPEARANCE: obese OTHER: Pleasant, cooperative. HENMT: COMMON NORMALS: oropharynx normal Neck/C-Spine: COMMON NORMALS: no JVD Resp: COMMON NORMALS: normal respiratory effort and clear to auscultation bilaterally AUSCULTATION: clear to auscultation bilaterally Cardio: COMMON NORMALS: no JVD, regular rhythm, S1 normal heart sound, S2 normal heart sound and no murmurs RHYTHM: regular rhythm HEART SOUNDS: S1 normal and S2 normal GI: COMMON NORMALS: normal to inspection, nondistended, normoactive bowel sounds, soft to palpation and non-tender PALPATION: Yes soft Extremity: COMMON NORMALS: no joint enlargement and no pedal edema Neuro: COMMON NORMALS: oriented x3 and moves all extremities Skin: OTHER: Small petechial lesions noted on lower extremities, and larger erythematous patches on thighs. Data : 09/27/19 05:12 09/27/19 05:12 A&P Assessment and plan (1) HTN (hypertension): Was about ready to leave home in terms of renal function. This morning with Breanna fib with RVR, subsequently improved, and metoprolol dose increased up to 75 mg, but with persistent hypertension. Received amlodipine 5 mg, this was repeated with another 5 mg. Also started on 10 mg hydralazine p.o. 3 times daily. Diet changed to low-sodium. Will keep overnight as blood pressure still elevated. Discussed long-term optimization of control and close monitoring at home. Discussed with nephrology as well, and will decrease taper time, taper to start after 5 days of 40 mg dosing. Status: Acute Code(s): I10 - Essential (primary) hypertension (2) Atrial fibrillation with RVR: Heart rates were in the 140s-150s this morning. Improved. Metoprolol dose increased to 75 mg twice daily. Discussed with her with CVA, risk of CVA with A. fib. Discussed also risk of bleeding as she has had some falls in the past. She is wanting to start anticoagulation and states she will be walking with a walker at all times currently. Reports has never had a follow-up with a walker. Verbalized understanding regarding strict fall precautions while on anticoagulation. Status: Acute Code(s): I48.91 - Unspecified atrial fibrillation (3) Hyperkalemia: Improved. Status: Acute Code(s): E87.5 - Hyperkalemia (4) Acute kidney injury: Creatinine improving. Steroid switch to oral dose with plan to taper. Nephrology recommendations appreciated. Discussed with her need for follow-up with nephrology after discharge and she is in agreement. Status: Acute Code(s): N17.9 - Acute kidney failure, unspecified (5) Syncope: Reports multiple falls, stating feels like somebody is pushing her from behind . Reports she will be walking with walker at all times. Encouraged her to use walker at all times. Not orthostatic. So far has been doing well in the hospital without any recurrence. Status: Acute Qualifiers: Syncope type: unspecified Qualified Code(s): R55 - Syncope and collapse Code(s): R55 - Syncope and collapse (6) Embolic stroke: Lacunar CVA noted on imaging of the brain. Acute and chronic. With lacunar CVA discussed with her need for close monitoring of blood pressures at home. She says she has not been checking her blood pressures at all. Recommend she check them 3 times daily. She and daughter verbalized understanding. She is started on anticoagulation while in the hospital due to concern for embolic etiology. Will need follow-up with neurology after discharge. Continue aspirin, statin. Status: Acute Code(s): I63.9 - Cerebral infarction, unspecified (7) COPD (chronic obstructive pulmonary disease): Continue oxygen support. Not currently in exacerbation. Continue nebulization. Receiving steroids for renal condition. Status: Acute Code(s): J44.9 - Chronic obstructive pulmonary disease, unspecified (8) HLD (hyperlipidemia): Status: Acute Code(s): E78.5 - Hyperlipidemia, unspecified Additional A&P Information Continue chronic medications like trazodone but will hold off on venlafaxine given the acute kidney injury. Restart Xanax. Attestations Medical Necessity Statement*: Continue admission for optimization of medical management due to persistently elevated blood pressure, as well as A. fib with RVR. Coding Level of Care Code Acute Building Dismantler for Chg Fwd Diagnoses HTN (hypertension) I10 Atrial fibrillation with RVR I48.91 Hyperkalemia E87.5 Acute kidney injury N17.9 Syncope R55 Syncope type: unspecified Embolic stroke I63.9 COPD (chronic obstructive pulmonary disease) J44.9 HLD (hyperlipidemia) E78.5
[2019-09-28] VITALS (7 sets, daily range): BP systolic 147–188; BP diastolic 78–96; PULSE 57–84; RESP 16–20; TEMP 36.3–36.9; O2SAT 95–98
[2019-09-28] MEDS: sodium chloride 0.9% 1,000 ML 75 ML IV (00:34)
[2019-09-28 05:11] LABS: Basophils % 0.1 %; Eosinophils # 0.3 10^3/uL (0.0-0.8); Hematocrit 36.1 % (37.0-47.0); Hemoglobin 10.7 g/dL (11.5-15.3); Lymphocytes # 1.9 10^3/uL (0.8-4.8); Mean Corpuscular HGB Conc 29.6 g/dL (30.0-36.0); Mean Corpuscular Hemoglobin 28.6 pg (28.0-34.0); Mean Corpuscular Volume 96.5 fL (81-99); Mean Platelet Volume 10.9 fL (7.4-10.4); Monocytes # 1.6 10^3/uL (0.2-0.9); Monocytes % 15.2 %; Neutrophils # 6.6 10^3/uL (1.8-7.7); Neutrophils % 62.2 %; Nucleated Red Blood Cells % 0 %; Platelet Count 346 10^3/cmm (130-400); Red Blood Count 3.74 10^6/uL (4.1-5.3); Red Cell Distribution Width 14.1 % (12.1-15.1); White Blood Count 10.6 10^3/uL (4.0-10.0)
[2019-09-28 05:26] LABS: Anion Gap 12.5 (5-19); Blood Urea Nitrogen 32 mg/dL (8-23); Calcium 8.9 mg/dL (8.5-10.5); Carbon Dioxide 31 mmol/L (22-29); Chloride 104 mmol/L (98-107); Glucose 88 mg/dL (65-115); Osmolality Calculated 293 mOsm/kg (285-295); Potassium 4.5 mmol/L (3.5-5.1); Sodium 143 mmol/L (136-145)
[2019-09-28 05:31] LABS: Magnesium 2.3 mg/dL (1.7-2.3)
[2019-09-28] MEDS: ALPRAZolam 0.5 mg Tablet PO ×2 (08:43→13:22)
[2019-09-28] MEDS: hyDRALAzine 10 mg Tablet PO (08:43)
[2019-09-28] MEDS: apixaban 5 mg Tablet PO (08:43)
[2019-09-28] MEDS: predniSONE 20 mg Tablet 40 MG PO (08:43)
[2019-09-28] MEDS: atorvastatin 40 mg Tablet 20 MG PO (08:44)
[2019-09-28] MEDS: aspirin 81 mg Chew Tablet PO (08:44)
[2019-09-28] MEDS: amlodipine 5 mg Tablet PO (08:45)
[2019-09-28] MEDS: metoprolol tartrate 50 mg Tablet 75 MG PO (08:51)
--- NOTE | 2019-09-28 08:53 | PM.PN ---
Subjective Subjective: Interval history: feels better. no n/v/f/c/lr/d. bp still an issue. Medications: Reviewed: Yes Medication Review Details: Current Medications Acetaminophen (Tylenol) 650 mg PO Q6H PRN PRN Reason: Mild/Mod Pain Or Temp >/= 101 Last Admin: 09/27/19 14:21 Dose: 650 mg Documented by: Albuterol/Ipratropium (Duoneb) 3 ml INHALATION Q6H.RESPIRATORY [facility] Last Admin: 09/27/19 15:30 Dose: Not Given Documented by: Alprazolam (Xanax) 0.5 mg PO QID [facility] Last Admin: 09/28/19 08:43 Dose: 0.5 mg Documented by: Amlodipine Besylate (Norvasc) 5 mg PO DAILY [facility] Last Admin: 09/28/19 08:45 Dose: 5 mg Documented by: Apixaban (Eliquis) 5 mg PO BID [facility] Last Admin: 09/28/19 08:43 Dose: 5 mg Documented by: Aspirin (Aspirin Chewable) 81 mg PO DAILY [facility] Last Admin: 09/28/19 08:44 Dose: 81 mg Documented by: Atorvastatin Calcium (Lipitor) 20 mg PO DAILY [facility] Last Admin: 09/28/19 08:44 Dose: 20 mg Documented by: Bisacodyl (Dulcolax) 10 mg PO DAILY PRN PRN Reason: CONSTIPATION Budesonide (Pulmicort) 0.5 mg INHALATION BID.RESPIRATORY [facility] Last Admin: 09/27/19 08:30 Dose: Not Given Documented by: Hydralazine HCl (Apresoline) 10 mg PO TID [facility] Last Admin: 09/28/19 08:43 Dose: 10 mg Documented by: Sodium Chloride (Sodium Chloride 0.9%) 1,000 mls @ 75 mls/hr IV .[id number] [facility] Last Infusion: 09/28/19 02:17 Dose: 75 mls/hr Documented by: Lactulose (Constulose) 10 gm PO DAILY PRN PRN Reason: CONSTIPA Metoprolol Tartrate (Lopressor) 75 mg PO BID [facility] Last Admin: 09/28/19 08:51 Dose: 75 mg Documented by: Ondansetron HCl (Zofran) 4 mg IVP Q8H PRN PRN Reason: vomiting, or N/V if npo Last Admin: 09/23/19 19:39 Dose: 4 mg Documented by: Prednisone (Prednisone) 40 mg PO DAILY [facility] Last Admin: 09/28/19 08:43 Dose: 40 mg Documented by: Trazodone HCl (Desyrel) 100 mg PO BEDTIME [facility] Last Admin: 09/27/19 20:24 Dose: 100 mg Documented by: Vitals/I&O/Wt Last Vital Signs Temp 98.1 F 09/28/19 07:17 Pulse 84 09/28/19 07:17 Resp 18 09/28/19 07:17 BP 174/91 09/28/19 07:17 Pulse Ox 98 09/28/19 07:17 09/27/19 09/28/19 09/28/19 22:59 06:59 14:59 Intake Total 2041.25 / 2815.00 347.50 / 3162.50 120 / 120 Output Total 1600 / 1600 600 / 2200 Balance 441.25 / 1215.00 -252.50 / 962.50 120 / 120 Weight last 48 hrs Weight 94.517 kg Weight 96.797 kg Physical Exam Narrative: EXAM NARRATIVE: obese woman comfortable in bed, NARD vs noted heent- nc/at, eomi, anicteric neck supple lungs clear b/l heart reg, +MARTITA abd soft, +BS ext min edema neuro- a,a,o x3 skin- rash improving mood- good Data : 09/28/19 04:23 09/28/19 04:23 A&P Additional A&P Information 1. Acute kidney failure. Creatinine improving presumed AIN- she had a combination of typical stigmata of acute interstitial nephritis. This includes a recent new prescription for a classic causative drug i.e. Bactrim, a rash, peripheral eosinophilia at 13.5%, sterile pyuria also appears to be present. She has now completed 3 doses of high dose iv steroids. as per plan of Dr. Kenney, today is d# 3 of 40mg po Prednisone, since she has such htn and cr now normal, please taper Prednisone 10mg every 5 days to completion Avoid the usual nephrotoxic agents. Dose medications for GFR less than 15 2. Chemistry met alkalosis vs resp aciodosis and compensation monitor bicarb 3. Htn and recent cva- norvasc, metoprolo, and hydralazine- if bp high, raise hydralazine dose -avoid ARB/ Ricardo-i for now w/ recent rajan and hyperkalemia 4. renal okay for d/c on oral steroids with follow up with Dr Clark will sign off. call if we can be of assistance Consultation including evaluation and physical examination was performed via telemedicine, utilizing the help of the bedside nurse. Attestations Medical Necessity Statement*: per hospitalist Time Spent in Patient Care: 16 - 35 minutes Coding Level of Care Code Acute Home Health Travel Ot for Nedra Yen
[2019-09-28] MEDS: lanolin oint 7 gm 1 APPLIC TOPICAL (10:47)
[2019-09-28] MEDS: acetaminophen 325 mg Tablet 650 MG PO (11:20)
--- NOTE | 2019-09-28 13:30 | PM.DCS ---
Discharge Providers Date of Admission: 09/22/19 12:44 Date of Discharge: September 28, 2019 Attending Provider at Admission: Ruben Burgos MD Attending Provider at Discharge: Bonilla Yu Primary Care Provider: Savage Salmeron Jr, MD Diagnoses at Discharge Discharge Diagnosis (1) HTN (hypertension): Status: Acute (2) Atrial fibrillation with RVR: Status: Acute (3) Hyperkalemia: Status: Acute (4) Acute kidney injury: Status: Acute Problem details: Suspected AIN (5) Syncope: Status: Acute Qualifiers: Syncope type: unspecified Qualified Code(s): R55 - Syncope and collapse (6) Embolic stroke: Status: Acute (7) COPD (chronic obstructive pulmonary disease): Status: Acute (8) HLD (hyperlipidemia): Status: Acute Reason for Visit Reason for Visit: Reason For Visit: dizzy and falling Hospital Course Hospital Course: Pleasant 73-year-old lady with history of CVA back in 2013, COPD on chronic 3 L oxygen by nasal cannula, TINO on CPAP, HLD, HTN, anxiety, history of C. difficile colitis was admitted for assessment management after reported falls, and previously syncope, treated for urinary tract infection by her primary care provider earlier in the month on September 11 with Bactrim for 1 week, subsequently with reported episodes of loss of balance as if being pushed from behind , falls, and on occasion loss of consciousness. Given history she received work-up for CVA, with findings of new CVA since prior on MRI brain, with tiny foci in right posterior frontal lobe and left centrum semiovale consistent with acute ischemia, subacute ischemia in right occipital horn, as well as chronic lacunar infarcts in bilateral basal ganglia and right thalamus and large chronic infarct in the right cerebellum. Her echocardiogram was unremarkable. With small nonhemodynamically significant pericardial effusion. Carotid Doppler with bilateral 50-69% atheromatous plaque stenosis. With noted atrial fibrillation during the admission. Due to concern for embolic etiology she was started on anticoagulation with Eliquis. Was instructed on strict fall precautions, and will be maintaining a walker with her at all times. To decrease risk of bleeding her aspirin is discontinued. She is continued on Plavix. We will have her follow-up with neurology in office. On presentation also with acute kidney injury with temporal relation to Bactrim, with eosinophilia, and suspected AIN. Was treated with steroids, and will have a steroid taper over the next 18 days, decreasing by 10 mg each 5 days. Taper is shortened slightly per discussion with nephrology due to persistently elevated blood pressures and atrial fibrillation with RVR. She will need to follow-up with nephrology in office. Her blood pressures improved with addition of amlodipine and hydralazine. Please continue to monitor. She is instructed to monitor 3 times daily and record values. Atrial fibrillation improved with increase in metoprolol dose to 75 mg twice daily. Please continue optimize control and risk factors for CVA. She has been feeling much better, and is requesting to return home. Work-up and treatment plan was discussed with her in detail, and she is happy to proceed. Physical Exam Narrative: EXAM NARRATIVE: Sitting up in chair. Const: COMMON NORMALS: no apparent distress and oriented x3 NUTRITIONAL APPEARANCE: obese OTHER: Pleasant, cooperative. HENMT: COMMON NORMALS: oropharynx normal Neck/C-Spine: COMMON NORMALS: no JVD Resp: COMMON NORMALS: normal respiratory effort and clear to auscultation bilaterally AUSCULTATION: clear to auscultation bilaterally Cardio: COMMON NORMALS: no JVD, regular rhythm, S1 normal heart sound, S2 normal heart sound and no murmurs RHYTHM: regular rhythm HEART SOUNDS: S1 normal and S2 normal GI: COMMON NORMALS: normal to inspection, nondistended, normoactive bowel sounds, soft to palpation and non-tender PALPATION: Yes soft Extremity: COMMON NORMALS: no joint enlargement and no pedal edema Neuro: COMMON NORMALS: oriented x3 and moves all extremities Skin: OTHER: Small petechial lesions noted on lower extremities, and larger erythematous patches on thighs. Discharge Data Data Completed and Pending: Completed Studies During Hospitalization Category Date Time Status CT chest wo con 7 1250 Urgent Cat Scan 09/22/19 10:[address] head wo con* 7 1870 Urgent Cat Scan 09/22/19 09:23 Completed XR chest 1V christine ble [id number] Urgent Exams 09/22/19 09:23 Completed MR head wo con* 7 0251 Routine MRI 09/22/19 14:31 Completed CV carotid duplex BI* [id number] Urgent Ultrasound 09/22/19 12:56 Completed CV echo complete* [id number] Urgent Ultrasound 09/22/19 12:56 [place] [id number] Urgent Ultrasound 09/22/19 12:56 Completed Pending at discharge Category Date Time Status NISHA Screen w/ Ref isidro Routine Lab 09/23/19 04:50 Results Anti-Neutrophil C utoplasmic AB Rout ine Lab 09/23/19 04:50 Results Basic Metabolic P edgardo AM LABS Lab 09/29/19 04:00 Ordered Basic Metabolic P edgardo AM LABS Lab 09/30/19 04:00 Ordered Complete Blood Co unt w/Auto AM LABS Lab 09/29/19 04:00 Ordered Complete Blood Co unt w/Auto AM LABS Lab 09/30/19 04:00 Ordered Labs from last 24 hours 09/28/19 09/28/19 09/28/19 04:23 04:23 04:23 WBC 10.6 H RBC 3.74 L Hgb 10.7 L Hct 36.1 L MCV 96.5 MCH 28.6 MCHC 29.6 L RDW 14.1 Plt Count 346 MPV 10.9 H Neut % (Auto) 62.2 Lymph % (Auto) 18.0 Callaway % (Auto) 15.2 Eos % (Auto) 3.0 Baso % (Auto) 0.1 Neut # (Auto) 6.6 Lymph # (Auto) 1.9 [place] # (Auto) 1.6 H Eos # (Auto) 0.3 Baso # (Auto) 0.0 Nucleated RBC % (a uto) 0 Nucleated RBCs # 0.0 Sodium 143 Potassium 4.5 Chloride 104 Carbon Dioxide 31 H Anion Gap 12.5 BUN 32 H Creatinine 0.8 Glucose 88 Calculated Osmolal ity 293 Calcium 8.9 Magnesium 2.3 Vitals: Last Vital Signs Temp 97.4 F L 09/28/19 13:05 Pulse 74 09/28/19 13:05 Resp 16 09/28/19 13:05 BP 187/96 09/28/19 13:05 Pulse Ox 95 09/28/19 13:05 Discharge Plan Discharge Patient Disposition: Home Health Service Condition: Stable Prescriptions: New hydralazine 10 mg Tablet 10 mg PO TID Qty: 90 RF: 0 prednisone 20 mg Tablet 40 mg PO DAILY 18 Days Qty: 21 RF: 0 amlodipine 5 mg Tablet 10 mg PO DAILY Qty: 60 RF: 0 Eliquis 5 mg Tablet 5 mg PO BID Qty: 60 RF: 0 Continued alprazolam 0.5 mg Tablet 0.5 mg PO QID PRN (Reason: Anxiety) RF: 0 trazodone 100 mg Tablet 100 mg PO BEDTIME RF: 0 venlafaxine 150 mg Tablet Extended Release 24hr 150 mg PO DAILY RF: 0 Plavix 75 mg Tablet 75 mg PO DAILY RF: 0 omeprazole 20 mg Capsule,Delayed Release(Dr/Ec) 20 mg PO DAILY RF: 0 Changed atorvastatin 20 mg Tablet 40 mg PO DAILY Qty: 60 RF: 0 metoprolol tartrate 50 mg Tablet 75 mg PO BID Qty: 90 RF: 0 Discontinued sulfamethoxazole-trimethoprim 800-160 mg Tablet 1 tab PO BID RF: 0 lisinopril 10 mg Tablet 10 mg PO BID RF: 0 aspirin 81 mg Tablet,Chewable 81 mg PO DAILY RF: 0 Discharge Orders: Discharge Order (Routine); Ordered 09/28/19 Ordered By: Bonilla Yu Other Ambulatory Orders: Holter Monitor (Routine) Timeframe: 1 Week Facility: [facility] - Location: Cardiology Outpatients Ordered By: Ruben Burgos Referrals: [facility] [Outside] Cecelia Beltrán MD [Physician] - 11/21/19 11:30 am Jacky Clark MD [Referring] - 1 week (AIN, HTN) Savage Salmeron Jr, MD [Primary Care Provider] - 10/19/19 9:00 am Discharge Diet: Cardiac and Low Salt Discharge Activity: Increase activity as tolerated, Use walker/crutches as instructed and As per PT/OT instructions Patient Instructions: Atrial Fibrillation, COPD, Prednisone (By mouth), Hydralazine (By mouth), Amlodipine (By mouth), Apixaban (By mouth), Hyperkalemia (DC), COPD Stoplight Activity Restrictions/Additional Instructions: Please use walker at all times. Exercise extreme fall precautions. Remove any loose items, cords, carpets from the floor. Measure your blood pressure 3 times daily, record values to bring to your appointment. If you have blood pressures persistently elevated, above 190 systolic, despite treatment, please seek medical attention. If you experience any abnormal bleeding, or any numbness, weakness, difficulty speaking, vision changes, or other abnormal symptoms please seek medical attention without delay. Avoid any NSAIDs like ibuprofen, naproxen, etc. your lisinopril at this time is on hold due to acute kidney injury. Please discuss with your kidney doctor when it will be safe to resume. Discharge Attestations Time Spent in Discharge Care*: greater than 30 min Quality Metrics Clinical Quality Measures During this hospital stay, did patient experience: Stroke Contraindication to Antithrombotic: Antithrombotic prescribed Contraindication to Anticoagulation: Anticoagulation prescribed Contraindication to Statin: Statin prescribed Coding Level of Care Code Acute Dependency Case Manager for Chg Fwd Diagnoses HTN (hypertension) I10 Atrial fibrillation with RVR I48.91 Hyperkalemia E87.5 Acute kidney injury N17.9 Syncope R55 Syncope type: unspecified Embolic stroke I63.9 COPD (chronic obstructive pulmonary disease) J44.9 HLD (hyperlipidemia) E78.5
--- NOTE | 2019-09-28 14:20 | PC.NURSE ---
Discharge note Patient discharged at this time. Patient discharge orders reviewed with the patient including new medications and the side effects. Patient verbalized understanding. Patient's IV removed with catheter intact. Patient tolerated well. Patient is A&Ox3. Respirations even and non-labored on portable home oxygen brought to the hospital by patient's daughter. Patient wheel chaired to her private car.
== END 2019-09-28 14:15 | disposition home health service (06) | DRG 682 ==
LOC: ER 12:47 → MEDSURG 13:38
PROVIDERS: Internal Medicine Nephrology; Admitting Provider Student in an Organized Health Care Education/Training Program; Emergency Provider Emergency Medicine; Family Provider Family Medicine; PCP Family Medicine; Visit Provider Internal Medicine
DX: N17.9 Acute kidney failure, unspecified (principal); I63.9 Cerebral infarction, unspecified; A04.72 Enterocolitis due to Clostridium difficile, not specified as recurrent; I48.91 Unspecified atrial fibrillation; I10 Essential (primary) hypertension; E87.5 Hyperkalemia; J44.9 Chronic obstructive pulmonary disease, unspecified; E78.5 Hyperlipidemia, unspecified; R29.6 Repeated falls; G47.33 Obstructive sleep apnea (adult) (pediatric); F41.9 Anxiety disorder, unspecified; R47.81 Slurred speech; R55 Syncope and collapse; Z99.81 Dependence on supplemental oxygen; Z87.891 Personal history of nicotine dependence; Z79.83 Long term (current) use of bisphosphonates; Z79.84 Long term (current) use of oral hypoglycemic drugs; Z79.899 Other long term (current) drug therapy; Z79.02 Long term (current) use of antithrombotics/antiplatelets
CPT/HCPCS: 12345; 36415; 36600; 70450; 70551; 71045; 71250; 80048; 80053; 80061; 80306; 81001; 82436; 82570; 82803; 83036; 83516; 83540; 83550; 83735; 83880; 84133; 84145; 84146; 84300; 84443; 84484; 85025; 85378; 85999; 86038; 86160; 87086; 87804; 93005; 93010; 93306; 93880; 93970; 94640; 94664; 96375; 97110; 97116; 97161; 99284; A9270; J1940; J2405; J2930; J3475; J7030; J7040; J7050; J7512; J7626; Q3014

== ENCOUNTER 2019-11-15 09:04 | Outpatient (CLI) | payer MEDICARE, OTHER, SELFPAY ==
[2019-11-15 09:31] LABS: Basophils % 0.3 %; Eosinophils # 0.3 10^3/uL (0.0-0.8); Eosinophils % 2.6 %; Hematocrit 35.6 % (37.0-47.0); Hemoglobin 10.7 g/dL (11.5-15.3); Lymphocytes # 1.6 10^3/uL (0.8-4.8); Lymphocytes % 12.4 %; Mean Corpuscular HGB Conc 30.1 g/dL (30.0-36.0); Mean Corpuscular Hemoglobin 29.2 pg (28.0-34.0); Mean Platelet Volume 10.4 fL (7.4-10.4); Monocytes % 7.4 %; Neutrophils # 9.9 10^3/uL (1.8-7.7); Neutrophils % 76.7 %; Nucleated Red Blood Cells % 0 %; Platelet Count 426 10^3/cmm (130-400); Red Blood Count 3.67 10^6/uL (4.1-5.3); Red Cell Distribution Width 14.2 % (12.1-15.1); White Blood Count 12.9 10^3/uL (4.0-10.0)
[2019-11-15 10:00] LABS: Alanine Aminotransferase 61 U/L (0-33); Albumin Level 3.8 g/dL (3.5-5.2); Alkaline Phosphatase 165 IU/L (35-105); Anion Gap 14.2 (5-19); Aspartate Amino Transferase 22 U/L (0-32); Blood Urea Nitrogen 13 mg/dL (8-23); Calcium 9.1 mg/dL (8.5-10.5); Carbon Dioxide 31 mmol/L (22-29); Chloride 99 mmol/L (98-107); Chol HDL Ratio 6.44 mg/dL (0.0-4.40); Cholesterol 232 mg/dL (0-200); Globulin 3.5 g/dL (1.3-4.6); Glucose 103 mg/dL (65-115); HDL Cholesterol 36 mg/dL (60-100); LDL Cholesterol Calculated 160 mg/dL (50-129); LDL HDL Ratio 4.44 RATIO (0.00-3.22); Osmolality Calculated 286 mOsm/kg (285-295); Potassium 4.2 mmol/L (3.5-5.1); Sodium 140 mmol/L (136-145); Thyroid Stimulating Hormone 2.07 uIU/mL (0.27-4.20); Total Bilirubin 0.2 mg/dL (0.15-1.2); Total Protein 7.3 g/dL (6.6-8.7); Triglycerides 180 mg/dL (0-150)
== END 2019-11-15 09:05 | disposition home or self-care (01) ==
LOC: LAB 09:12
PROVIDERS: PCP Family Medicine; Visit Provider Family Medicine
DX: I10 Essential (primary) hypertension (principal)
CPT/HCPCS: 36415; 80053; 80061; 84443; 85025

== ENCOUNTER 2019-12-29 07:26 | Day surgery (SDC) | payer MEDICARE, OTHER, SELFPAY ==
[2019-12-27 13:06] VITALS: BMI 38.3
[2019-12-29 07:47] VITALS: BP 148/92; PULSE 87; RESP 18; O2SAT 99
--- NOTE | 2019-12-29 07:56 | ANES.PREANE2 ---
Pre-Anesthetic Assessment Pre-Anesthetic Assessment: Height/Weight: Height 1.55 m Weight 92.079 kg Pulse Resp BP Pulse Ox 87 18 148/92 99 12/29/19 07:47 12/29/19 07:47 12/29/19 07:47 12/29/19 07:47 Proposed Procedure: Operation Date: 12/29/19 08:25 Proposed Procedures p Colonoscopy(Not Applicable) - Gunner Silver MD Was Beta Beth taken within 24 hours: N/A Last intake: Intake Last Liquid Date 12/28/19 Last Liquid Time 20:00 Last Solid Date 12/27/19 Last Solid Time 22:00 Last Intake: 00:00 Social: Social History: No alcohol and No tobacco Exam: Pre-Anes Outpt Exam: alert, oriented x 3 and clear to auscultation bilaterally Pulmonary: Pulmonary: COPD (4 L) and [place] CV/HEM: CV/HEM: Afib, Angina (Stable), Arrythmia (a-fibb ) and HTN : : None reported Hepatic: Hepatic: None reported GI: GI: GERD Comments: controlled with meds Metabolic: Metabolic: Morbid obesity Musc/skel: Musc/skel: OA/DJD Neuropsych: Neuropsych: Anxiety, CVA, Depression and TIA Comments: denies deficits Anesthetic Plan: ASA status: 3 Anesthesia: Anesthesia Evaluation and MAC PFSH Anesthesia PFSH: Medical History (Updated 09/29/19 @ 00:00 by ) Anxiety C. difficile colitis COPD (chronic obstructive pulmonary disease) CVA (cerebral vascular accident) HLD (hyperlipidemia) HTN (hypertension) Posterior inferior cerebellar artery embolism Surgical History (Updated 09/22/19 @ 14:18 by Ruben Burgos MD) Status post right knee replacement Social History (Updated 09/22/19 @ 14:20 by Ruben Burgos MD) Smoking and tobacco status: former smoker Alcohol intake: never Household members: none Housing: House Data Anesthesia Cardiac Studies: No Data to Display
[2019-12-29] MEDS: sodium chloride 0.9% 500 ML 30 ML IV (07:58)
--- NOTE | 2019-12-29 08:14 | W.PM.OPSUD ---
Surgery/Procedure H&P Update DATE OF PROCEDURE: December 29, 2019 DATE H&P PERFORMED: 12/19/19 H&P UPDATE INFORMATION: Changes to prior documentation as noted here CHANGES TO PREVIOUS DOCUMENTATION: We did, in fact, find out that the patient is taking both Plavix and Eliquis. The patient's daughter had called Dr. Salmeron's office to make sure this was correct, but I am still unsure that they have received an answer. The patient is going to discuss it with Dr. Salmeron at their scheduled visit within the next 2 weeks. In the interim, we had her stop her Plavix and Eliquis 2 days ago in preparation for the procedure, and I will have her at least restart 1 of them following the procedure. PLANNED PROCEDURE: Operation Date: 12/29/19 08:25 Proposed Procedures p Colonoscopy(Not Applicable) - Gunner Silver MD
[2019-12-29 08:33] VITALS: BP 134/78; PULSE 88; RESP 18; TEMP 37.3; O2SAT 94
[2019-12-29 08:45] VITALS: BP 135/79; PULSE 84; RESP 18; O2SAT 99
== END 2019-12-29 08:55 | disposition home or self-care (01) ==
PROVIDERS: PCP Family Medicine; Visit Provider Surgery
PROC: 0DJD8ZZ Inspection of Lower Intestinal Tract, Via Natural or Artificial Opening Endoscopic (ICD-10-PCS; CPT 45378; principal; 2019-12-29 08:25)
DX: Z12.11 Encounter for screening for malignant neoplasm of colon (principal); D64.9 Anemia, unspecified; M19.90 Unspecified osteoarthritis, unspecified site; Z86.73 Personal history of transient ischemic attack (TIA), and cerebral infarction without residual deficits; I11.0 Hypertensive heart disease with heart failure; I50.9 Heart failure, unspecified; J44.9 Chronic obstructive pulmonary disease, unspecified; Z87.891 Personal history of nicotine dependence; K57.30 Diverticulosis of large intestine without perforation or abscess without bleeding; I48.91 Unspecified atrial fibrillation; Z79.02 Long term (current) use of antithrombotics/antiplatelets; Z79.01 Long term (current) use of anticoagulants; E66.01 Morbid (severe) obesity due to excess calories; Z68.38 Body mass index [BMI] 38.0-38.9, adult; E78.5 Hyperlipidemia, unspecified
CPT/HCPCS: 12345; 45378; J2704

== ENCOUNTER → 2020-05-28 10:07 | Outpatient (BNVA) | payer MEDICARE, OTHER, SELFPAY | PROVIDERS: PCP Family Medicine; Visit Provider Internal Medicine | DX: M79.643 Pain in unspecified hand (principal); Z79.899 Other long term (current) drug therapy; Z11.59 Encounter for screening for other viral diseases; Z11.1 Encounter for screening for respiratory tuberculosis; R79.82 Elevated C-reactive protein (CRP); D86.9 Sarcoidosis, unspecified; M32.9 Systemic lupus erythematosus, unspecified; L40.9 Psoriasis, unspecified; R76.8 Other specified abnormal immunological findings in serum | CPT/HCPCS: 36415; 99203; 99204 ==

== ENCOUNTER 2020-05-28 11:11 | Outpatient (CLI) | payer MEDICARE, OTHER, SELFPAY ==
--- NOTE | 2020-05-28 11:28 | XR_ITS ---
WS: [id number] SI JOINTS TECHNIQUE: 3 views of the sacroiliac joints CLINICAL INFORMATION: L40.9 - Psoriasis, unspecified COMPARISON: None. FINDINGS: Osteopenia. Mild degenerative arthritis involving both sacroiliac joints. No significant periarticula r erosions. Degenerative arthritis lower lumbar spine. Pubic rami appear normal. A few pelvic phlebol iths. XR/XR sacroiliac jts m 3V [id number] IMPRESSION: Mild degenerative arthritis involving both sacroiliac joints. No significant er osive changes.
--- NOTE | 2020-05-28 11:28 | XR_ITS ---
WS: [id number] TECHNIQUE: 2 views of the left hand CLINICAL INFORMATION: R79.82 - Elevated C-reactive protein (CRP) COMPARISON: None. FINDINGS: Osteopenia. Mild degenerative narrowing at the radiocarpal joint. Advanced narrowing at the first CMC and STT with subchondral sclerosis. A few erosions involving the metacarpal heads. Joint s pace narrowing worse involving the PIP and DIP joints with periarticular erosions. XR/XR hand LT 2V [id number] IMPRESSION: 1. Osteopenia 2. Joint space narrowing worse involving the IP joints a few periarticular ero sions. 3. Degenerative arthritis first CMC and STT.
--- NOTE | 2020-05-28 11:28 | XR_ITS ---
WS: [id number] TECHNIQUE: 2 views of the right hand CLINICAL INFORMATION: R79.82 - Elevated C-reactive protein (CRP) COMPARISON: None. FINDINGS: Osteopenia. IP joint narrowing with a few periarticular erosions and marginal osteophytes. Advanced d egenerative arthritis at the first CMC and STT with subchondral sclerosis. Mild narrowing of the radi ocarpal joint. Chondrocalcinosis involving the TFCC. XR/XR hand RT 2V [id number] IMPRESSION: 1. Osteopenia 2. IP joint narrowing worse involving the PIP and DIP joints with periarticula r erosions and marginal osteophytes. 3. Advanced degenerative arthritis the first CMC and STT.
== END 2020-05-28 11:12 | disposition home or self-care (01) ==
LOC: RADWPI 11:21
PROVIDERS: PCP Family Medicine; Visit Provider Internal Medicine
DX: R79.82 Elevated C-reactive protein (CRP) (principal); L40.9 Psoriasis, unspecified; M32.9 Systemic lupus erythematosus, unspecified; Z51.81 Encounter for therapeutic drug level monitoring; D86.9 Sarcoidosis, unspecified; M19.09 Primary osteoarthritis, other specified site; M85.841 Other specified disorders of bone density and structure, right hand; M19.041 Primary osteoarthritis, right hand; M25.741 Osteophyte, right hand; M85.842 Other specified disorders of bone density and structure, left hand; M19.042 Primary osteoarthritis, left hand
CPT/HCPCS: 72202; 73120; 82550; 82955; 86160; 86480; 86704; 86803; 86812; 87340

== ENCOUNTER 2020-06-10 23:35 | Inpatient (IN) | payer MEDICARE, OTHER, SELFPAY ==
[2020-06-10 23:36] VITALS: BP 178/84; PULSE 100; RESP 16; TEMP 36.7; O2SAT 95; BMI 42.1
[2020-06-10 23:59] VITALS: PULSE 122; RESP 20; O2SAT 94
--- NOTE | 2020-06-10 23:59 | CTR_ITS ---
PROCEDURE INFORMATION: Exam: CT Abdomen And Pelvis With Contrast Exam date and time: 06/10/2020 1:19 AM Age: 74 years old Clinical indication: Abdominal pain; Generalized; Additional info: Abd pain vomiting TECHNIQUE: Imaging protocol: Computed tomography of the abdomen and pelvis with intravenous contrast. Radiation optimization: All CT scans at this facility use at least one of these dose optimization techniques: automated exposure control; mA and/or kV adjustment per patient size (includes targeted exams where dose is matched to clinical indication); or iterative reconstruction. Contrast material: OMNI 300; Contrast volume: 95 ml; Contrast route: INTRAVENOUS (IV); COMPARISON: CR Hip 2-3v LEFT wwo Pelv* [id number] 2015-10-25 13:37 RADIATION DOSE METRICS: Total DLP (mGy-cm): 1292.66 FINDINGS: Lungs: Peripheral lower lobe and lingular and middle lobe nonspecific lung opacities and pleural thickening. Partially calcified medial right lower lobe 1 cm nodule. Pleural space: There is trace stranding along the right lower quadrant small bowel. Liver: Normal. No mass. Gallbladder and bile ducts: Abnormal calcified appearing gallbladder with hyperdensity and possibly some stones. Pancreas: Normal. No ductal dilation. Spleen: Normal. No splenomegaly. Adrenal glands: Normal. No mass. Kidneys and ureters: Multiple small renal benign cysts, the largest measures approximately 1 cm. Stomach and bowel: Gastric antral thickening, could be from incomplete distension or gastritis. Moderate diverticulosis coli. Small bowel dilatation with transition point in the right lower quadrant, evidence of a small-bowel obstruction, question adhesions. Decompressed ileum. Appendix: No evidence of appendicitis. Intraperitoneal space: Unremarkable. No free air. No significant fluid collection. Vasculature: Unremarkable. No abdominal aortic aneurysm. Lymph nodes: Unremarkable. No enlarged lymph nodes. Urinary bladder: Unremarkable as visualized. Reproductive: Hysterectomy. Bones/joints: Moderate spondylosis of the spine. Moderate levoconvex lumbar curvature. Soft tissues: Small fat protruding umbilical hernia. CT/CT abdomen pelvis w con* [id number] IMPRESSION: 1. Small bowel dilatation with transition point in the right lower quadrant, evidence of a small-bowel obstruction, question adhesions. 2. Abnormal calcified appearing gallbladder with hyperdensity and possibly some stones. Mild intra and extrahepatic biliary duct dilatation raising a question of choledocholithiasis and or porcelain gallbladder. Recommend follow-up. 3. Gastric antral thickening, could be from incomplete distension or gastritis. 4. Peripheral lower lobe and lingular and middle lobe nonspecific lung opacities and pleural thickening. Partially calcified medial right lower lobe 1 cm nodule. COMMENTS: Consistent with the [employer]'s Incidental Findings Committee white paper (J Am Lisa Radiol 2018): Any incidental renal lesion less than 1 cm or classified as too small to characterize, or any incidental cystic renal lesion characterized as simple-appearing, is likely benign. No follow-up imaging is recommended for these lesions per consensus recommendations based on imaging criteria. Radiation Dose CTDIVOL = (mGy): DLP = 1292.66 (mGy-cm)
[2020-06-11] VITALS (88 sets, daily range): BP systolic 97–160; BP diastolic 63–102; PULSE 68–195; RESP 13–39; TEMP 37–37.1; O2SAT 78–100
[2020-06-11] MEDS: sodium chloride 0.9% 1,000 ML 999 ML IV (00:21)
[2020-06-11] MEDS: ondansetron 2 mg/ML SDV 2 mL 4 MG IVP (00:35)
[2020-06-11] MEDS: morphine 4 mg/mL SDV 1 mL IVP ×3 (00:35→09:34)
[2020-06-11 01:26] LABS: Alanine Aminotransferase 21 U/L (0-33); Albumin Level 3.6 g/dL (3.5-5.2); Alkaline Phosphatase 96 IU/L (35-105); Anion Gap 14.2 (5-19); Aspartate Amino Transferase 20 U/L (0-32); Blood Urea Nitrogen 22 mg/dL (8-23); C Reactive Protein 22.2 mg/L (0.0-4.9); Calcium 9.6 mg/dL (8.5-10.5); Carbon Dioxide 31 mmol/L (22-29); Chloride 100 mmol/L (98-107); Globulin 3.4 g/dL (1.3-4.6); Glucose 135 mg/dL (65-115); Lipase 19 U/L (13-60); Osmolality Calculated 297 mOsm/kg (285-295); Potassium 4.2 mmol/L (3.5-5.1); Sodium 141 mmol/L (136-145); Total Bilirubin 0.2 mg/dL (0.15-1.2)
[2020-06-11 01:27] LABS: Lactate (Lactic Acid level) 1.1 mmol/L (0.5-2.2)
[2020-06-11 01:36] LABS: Basophils # 0.1 10^3/uL (0.0-0.1); Basophils % 0.3 %; Eosinophils # 0.1 10^3/uL (0.0-0.8); Eosinophils % 0.4 %; Hematocrit 38.4 % (37.0-47.0); Hemoglobin 11.6 g/dL (11.5-15.3); Lymphocytes # 1.5 10^3/uL (0.8-4.8); Lymphocytes % 7.7 %; Mean Corpuscular HGB Conc 30.2 g/dL (30.0-36.0); Mean Corpuscular Hemoglobin 28.9 pg (28.0-34.0); Mean Corpuscular Volume 95.8 fL (81-99); Mean Platelet Volume 10.3 fL (7.4-10.4); Monocytes # 1.4 10^3/uL (0.2-0.9); Monocytes % 7.1 %; Neutrophils # 16.46 10^3/uL (1.8-7.7); Nucleated Red Blood Cells % 0 %; Platelet Count 383 10^3/cmm (130-400); Red Blood Count 4.01 10^6/uL (4.1-5.3); Red Cell Distribution Width 15.8 % (12.1-15.1); White Blood Count 19.6 10^3/uL (4.0-10.0)
[2020-06-11] MEDS: iohexol 300 mg/mL 100 mL Btl IV (02:05)
--- NOTE | 2020-06-11 02:57 | US_ITS ---
WS: [id number] RIGHT UPPER QUADRANT ULTRASOUND HISTORY: abdominal pain COMPARISON: CT 06/11/2020 Liver: 16.5 cm in length. Mildly enlarged liver. No mass identified. Gallbladder: Gallbladder is contracted and very difficult to visualize. Stones or shadowing from the region of the christine hepatis and gallbladder consistent with stone filled contracted gallbladder. CBD: 0.4 cm Pancreas: Normal size and echogenicity. Right kidney: 10.6 cm in length. Normal size and echogenicity. No hydronephrosis or mass. Aorta and IVC: Unremarkable abdominal aorta and IVC. No ascites. US/US gall bladder [id number] IMPRESSION: 1. Contracted gallbladder with stones. 2. No bile duct dilatation. 3. Mild hepatomegaly and hepatic steatosis.
[2020-06-11 03:32] LABS: Procalcitonin 0.06 ng/mL (0-0.5)
[2020-06-11 03:36] LABS: Add Urine Microscopic? YES; Bilirubin Urine Neg (Negative); Blood Urine 2+ (Negative); Glucose Urine UA Norm (Normal); Ketones Urine 1+ (Negative); Leukocyte Esterase Urine Trace (Negative); Nitrate Urine Negative (Negative); Protein Urine Neg (Negative); Specific Gravity, Urine 1.001 (1.005-1.030); Urine Appearance Hazy (CLEAR); Urine Color Yellow (Yellow); Urobilinogen Urine Norm (Negative); pH Urine 7 (5-7)
[2020-06-11 03:47] LABS: RBC Urine 0-4 /hpf (0-2); WBC Urine 0-4 /hpf (0-5)
[2020-06-11 03:48] LABS: Add Urine Culture? No; Bacteria Urine TRACE /hpf; Calcium Oxalate Crystals Urine TOO NUMEROUS TO CNT /hpf; Squamous Epithelial Cell Urine 0-4 /hpf (0-5)
--- NOTE | 2020-06-11 03:54 | XR_ITS ---
WS: [id number] XR chest 1V portable [id number] REASON FOR EXAM: ng tube FINDINGS: The chest is unchanged compared to previous examination of 09/22/2019. There is tortuosity of the thoracic aorta and origin of great vessels. The heart is mildly enlarged. Chronic appearing interstitial changes in both lower lungs. Calcified granulomatous disease in both h emithoraces. Pleural scarring bilaterally. Nasogastric tube is in place the tip is not demonstrated on this examination but is beyond the fundus of the stomach. XR/XR chest 1V portable [id number] IMPRESSION: Stable abnormal chest. No acute abnormality identified.
[2020-06-11] MEDS: cetacaine Spray 5 gm Can 1 SPRAY TOPICAL (04:05)
--- NOTE | 2020-06-11 04:09 | W.ED.ABDPA2 ---
HPI - Abdominal Pain General: Chief Complaint: Abdominal Pain Stated Complaint: ABD PAIN Time Seen by Provider: 06/10/20 23:56 History of Present Illness: HPI narrative: 74-year-old lady with a 3 to 4-hour history on arrival of worsening belly pain, and vomiting. She notes the pain started in her epigastrium, and then moved to her left abdomen. It did not improve despite Prilosec at home. No fever. No diarrhea, no blood in the stool. She is anticoagulated on Eliquis. MD elicited complaint: abdominal pain Pertinent past history: other Onset (ago): hour(s) Pain Consistency: constant Location: Diffuse and LLQ Quality: cramping and stabbing Radiation: none Exacerbating factors: movement Relieving factors: nothing Associated Symptoms: Reports belching, bloating, dyspepsia, nausea and vomiting; Denies change in stool character, chills, coffee ground emesis, diarrhea, dysuria, fever(s), hematemesis and melena Review of Systems Const: Denies: fever(s) or chills Card: Denies: chest pain or palpitations Resp: Denies: dyspnea GI: Reports: nausea, vomiting, bloating and belching; Denies: hematemesis, coffee ground emesis, diarrhea, change in stool character or melena : Denies: dysuria Neuro: Denies: headache(s) or confusion PFSH ED PFSH: Medical History Anxiety C. difficile colitis COPD (chronic obstructive pulmonary disease) CVA (cerebral vascular accident) HLD (hyperlipidemia) HTN (hypertension) Posterior inferior cerebellar artery embolism Surgical History Status post right knee replacement Social History Smoking and tobacco status: former smoker Alcohol intake: never Household members: none Housing: House Physical Exam Const: GENERAL APPEARANCE: well developed ORIENTATION/CONSCIOUSNESS: Yes oriented to person, Yes oriented to place and Yes oriented to time HENMT: COMMON NORMALS: normocephalic and Normal external nose present HEAD & SCALP: normocephalic FACE & SINUS: normal facial exam NOSE: Normal external nose present and No nasal discharge present Eye: COMMON NORMALS: Equal, round and reactive pupils present, EOMs intact bilaterally and conjunctivae normal EYELID: eyelids normal CONJUNCTIVA: Yes conjunctivae normal PUPIL: Yes Equal, round and reactive pupils present Neck/C-Spine: GENERAL: No tracheal deviation Chest: COMMONS NORMALS: normal inspection of the chest CHEST: No tenderness Resp: COMMON NORMALS: clear to auscultation bilaterally EFFORT & INSPECTION: No tachypneic, No respiratory distress, No retractions, No uses accessory muscles and No tracheal deviation AUSCULTATION: clear to auscultation bilaterally, no rhonchi, no wheezes and lung sounds not diminished Cardio: COMMON NORMALS: regular rate and regular rhythm RATE: regular rate RHYTHM: regular rhythm HEART SOUNDS: no murmurs PERIPHERAL PULSES: radial pulses present GI: INSPECTION: Yes abdominal distension AUSCULTATION: No Hyperactive bowel sounds present and Yes Hypoactive bowel sounds present PALPATION: Yes Guarding due to palpation present (GI) and No Rigid due to palpation PERCUSSION: dullness to percussion and no tympanic to percussion Neuro: SENSORIUM/ORIENTATION: Yes oriented to person, Yes oriented to place and Yes oriented to time Psych: COMMON NORMALS: mental status grossly normal Skin: COMMON NORMALS: no rashes or lesions noted GENERAL SKIN EXAM: no rashes or lesions noted Course Vital Signs: Vital signs: Vital Signs Temperature 98.1 F 06/10/20 23:36 Pulse Rate 94 06/11/20 05:00 Respiratory Rate 20 H 06/11/20 05:00 Blood Pressure 116/81 06/11/20 05:00 Pulse Oximetry 90 06/11/20 05:00 MDM - Abdominal Pain MDM Narrative: Medical decision making narrative: 74-year-old lady with vomiting and increasing belly pain at home. She has a small bowel obstruction by CT scan. Also noted was a calcified gallbladder with possibly minimally dilated bile ducts. By gallbladder ultrasound, ducts are not dilated. She does have a contracted gallbladder with a stone. Her white blood cell count is 19. Attempting to place NG tube. Will obtain chest x-ray following. She'll be admitted to hospitalist service as chest pain. Lab Data: Labs: Lab Results 06/10/20 06/10/20 06/10/20 Range/Units 00:44 00:44 00:44 WBC 19.6 H (4.0-10.0) 10^3/ uL RBC 4.01 L (4.1-5.3) 10^6/u L Hgb 11.6 (11.5-15.3) g/dL Hct 38.4 (37.0-47.0) % MCV 95.8 (81-99) fL MCH 28.9 (28.0-34.0) pg MCHC 30.2 (30.0-36.0) g/dL RDW 15.8 H (12.1-15.1) % Plt Count 383 (130-400) 10^3/c mm MPV 10.3 (7.4-10.4) fL Neut % (Auto) 84.0 % Lymph % (Auto) 7.7 % Glasscock % (Auto) 7.1 % Eos % (Auto) 0.4 % Baso % (Auto) 0.3 % Neut # (Auto) 16.46 H (1.8-7.7) 10^3/u L Lymph # (Auto) 1.5 (0.8-4.8) 10^3/u L Glasscock # (Auto) 1.4 H (0.2-0.9) 10^3/u L Eos # (Auto) 0.1 (0.0-0.8) 10^3/u L Baso # (Auto) 0.1 (0.0-0.1) 10^3/u L Nucleated RBC % (a uto) 0 % Nucleated RBCs # 0.0 /100WBC Sodium 141 (136-145) mmol/L Potassium 4.2 (3.5-5.1) mmol/L Chloride 100 (98-107) mmol/L Carbon Dioxide 31 H (22-29) mmol/L Anion Gap 14.2 (5-19) BUN 22 (8-23) mg/dL Creatinine 0.7 (0.5-0.9) mg/dL GFR Calculation Not Reportable Glucose 135 H (65-115) mg/dL Calculated Osmolal ity 297 H (285-295) mOsm/k g Lactate 1.1 (0.5-2.2) mmol/L Calcium 9.6 (8.5-10.5) mg/dL Total Bilirubin 0.2 (0.15-1.2) mg/dL AST 20 (0-32) U/L ALT 21 (0-33) U/L Alkaline Phosphata se 96 (35-105) IU/L C-Reactive Protein 22.2 H (0.0-4.9) mg/L Total Protein 7.0 (6.6-8.7) g/dL Albumin 3.6 (3.5-5.2) g/dL Globulin 3.4 (1.3-4.6) g/dL Lipase 19 (13-60) U/L Procalcitonin 0.06 (0-0.5) ng/mL Urine Color (Yellow) Urine Appearance (CLEAR) Urine pH (5-7) Ur Specific Gravit y (1.005-1.030) Urine Protein (Negative) Urine Glucose (UA) (Normal) Urine Ketones (Negative) Urine Blood (Negative) Urine Nitrate (Negative) Urine Bilirubin (Negative) Urine Urobilinogen (Negative) mg/dL Ur Leukocyte Linda ase (Negative) Urine RBC (0-2) /hpf Urine WBC (0-5) /hpf Ur Squamous Epith Cells (0-5) /hpf Calcium Oxalate Cr ystal /hpf Amorphous Sediment Urine Bacteria (NONE) /hpf 06/11/20 Range/Units 02:15 WBC (4.0-10.0) 10^3/ uL RBC (4.1-5.3) 10^6/u L Hgb (11.5-15.3) g/dL Hct (37.0-47.0) % MCV (81-99) fL MCH (28.0-34.0) pg MCHC (30.0-36.0) g/dL RDW (12.1-15.1) % Plt Count (130-400) 10^3/c mm MPV (7.4-10.4) fL Neut % (Auto) % Lymph % (Auto) % Glasscock % (Auto) % Eos % (Auto) % Baso % (Auto) % Neut # (Auto) (1.8-7.7) 10^3/u L Lymph # (Auto) (0.8-4.8) 10^3/u L Glasscock # (Auto) (0.2-0.9) 10^3/u L Eos # (Auto) (0.0-0.8) 10^3/u L Baso # (Auto) (0.0-0.1) 10^3/u L Nucleated RBC % (a uto) % Nucleated RBCs # /100WBC Sodium (136-145) mmol/L Potassium (3.5-5.1) mmol/L Chloride (98-107) mmol/L Carbon Dioxide (22-29) mmol/L Anion Gap (5-19) BUN (8-23) mg/dL Creatinine (0.5-0.9) mg/dL GFR Calculation Glucose (65-115) mg/dL Calculated Osmolal ity (285-295) mOsm/k g Lactate (0.5-2.2) mmol/L Calcium (8.5-10.5) mg/dL Total Bilirubin (0.15-1.2) mg/dL AST (0-32) U/L ALT (0-33) U/L Alkaline Phosphata se (35-105) IU/L C-Reactive Protein (0.0-4.9) mg/L Total Protein (6.6-8.7) g/dL Albumin (3.5-5.2) g/dL Globulin (1.3-4.6) g/dL Lipase (13-60) U/L Procalcitonin (0-0.5) ng/mL Urine Color Yellow (Yellow) Urine Appearance Hazy A (CLEAR) Urine pH 7 (5-7) Ur Specific Gravit y 1.001 L (1.005-1.030) Urine Protein Neg (Negative) Urine Glucose (UA) Norm (Normal) Urine Ketones 1+ H (Negative) Urine Blood 2+ H (Negative) Urine Nitrate Negative (Negative) Urine Bilirubin Neg (Negative) Urine Urobilinogen Norm (Negative) mg/dL Ur Leukocyte Linda ase Trace H (Negative) Urine RBC 0-4 H (0-2) /hpf Urine WBC 0-4 H (0-5) /hpf Ur Squamous Epith Cells 0-4 H (0-5) /hpf Calcium Oxalate Cr ystal Too numerous to c nt H /hpf Amorphous Sediment Not Reportable Urine Bacteria Trace (NONE) /hpf Discharge Plan Discharge Patient Disposition: Admitted As Inpatient Clinical Impression: Small bowel obstruction Condition: Stable Coding Level of Care Code ED Stopper Maker for Chg Fwd Exam Comprehensive
--- NOTE | 2020-06-11 04:51 | PC.NURSE ---
14 fr NG placed after 3 failed attempts with 10 fr and 16 fr- Spo2 down to 83% during attempts with time between given for SpO2 to return to 92%-placed on mask O2 @ 6L NC-patient cooperative and tolerated proceedure well
--- NOTE | 2020-06-11 05:07 | PC.NURSE ---
Spo2 87-90% Dr Wan informed O2 increased to 10 L
[2020-06-11 06:22] LABS: SARS Covid-2 Antigen Negative (Negative)
--- NOTE | 2020-06-11 07:47 | ECG_ITS ---
[facility] Test Date: 2020-06-11 Pat Name: Callie Hobbs Department: Room: [facility] Gender: Female Paper Steamer: : 1945 Requested By: Montez Hernandez Order Number: [id number] Del MD: Shantel Caruso M.D. Measurements Intervals [place] Rate: 87 P: 24 MI: 140 QRS: -11 QRSD: 104 T: 78 QT: 336 QTc: 406 Interpretive Statements SINUS RHYTHM WITH MARKED SINUS ARRHYTHMIA Compared to ECG 09/27/2019 12:59:11 No significant changes Electronically Signed On 06-12-2020 21:31:14 WATER RIGHTS SPECIALIST by Shantel Caruso M.D. [email or web address]
[2020-06-11] MEDS: ipratropium-albuterol 3 mL Neb INHALATION ×5 (08:10→23:08)
[2020-06-11 08:34] LABS: ABG PH Result 7.35 (7.35-7.45); Arterial Blood Gas Hematocrit 36.6 % (37-47); Base Excess ABG 7.4 mmol/L (-2.0-2.0); Blood Gas Allen Test Pos; Blood Gas Sample Type Arterial; Carboxyhemoglobin 0.9 %THgb (0.4-20.1); HCO3 ABG 34.9 mmol/L (22-26); HGB O2 Sat 95.1 % (95-100); Ionized Calcium Level - ABG 1.3 mmol/L (1.1-1.4); Methemoglobin 0.9 % (0.4-1.5); Oxygen Saturation ABG 96.8; PO2 ABG 85.8 mmHg (80.0-100.0); Potassium Level - ABG 4.1 mmol/L (3.5-5.0); Total Hemoglobin 11.9 g/dL (12-16)
[2020-06-11 08:35] LABS: Blood Gas Operator Identificat ED; Blood Gas Sample Site Radial, right; Oxygen Device OXY MASK
[2020-06-11 08:36] LABS: ABG PCO2 63.1 mmHg (35-45)
--- NOTE | 2020-06-11 08:52 | PC.CHAP ---
Pastoral Care Encounter/Spiritual Assessment Type of Contact [] Declined retail loss prevention specialist visit [] Patient/Family/Request visit [] Outpatient visit [] Follow-up visit [] Physician referral [] Code/Alert [] Routine visit [] Staff referral [] Actively dying [] Patient sleeping [] Family support [] [] Out of room [] Palliative care [] [] Receiving care in room [] Pre-surgical visit [] Trauma [] Long length of stay [] ICU visit [] Other: Relational/Emotional Strength [] Patient feels connected with others/family/visitors/staff [] Distress [] Loneliness/isolation [] Abandonment Spirituality of Patient [] Person of Brittany [] Attends Rastafarian of their Brittany [] Believes in Prayer [] Reads Bible or Confucianism materials [] There are Spiritual issues to be addressed Home Teaching Gr[employer] 7 And 8 Teacher Interventions [x] Prayer [] Active listening [] Non-anxious presence [] Spiritual/emotional support [] Crisis/trauma care [] Spiritual counseling [] Bereavement support [] Provided bereavement packet [] Provided Bible/devotional materials [] Provided toy/stuffed animal, coloring book to patient or family member [] Provided Communion [] Anointing/Blanding [] Salvation [x] Completed spiritual assessment [] Other: Impact on Illness or Injury [] Angry [] Fearful [] Anxious [] Often cries [] Exhaustion [] Unable to work [] Unable to attend bahai [] Unable to walk/stand [] Unable to read [] Unable to drive [] Unable to eat/drink [] Unable to sleep [] Unable to be with family [] Patient intubated [] Other: Summary Time spent with patient
[2020-06-11] MEDS: piperacillin-tazobactam 3.375 GM in sodium chloride 0.9% (plus) 50 ML IV ×2 (09:35→16:08)
--- NOTE | 2020-06-11 09:38 | P.HP_ITS ---
Providers/Chief Complaint Admitting Physician: Montez Allred MD Primary Care Provider: Savage Salmeron Jr, MD Chief Complaint: ABD PAIN History of Present Illness Callie Hobbs is a 74 year old female that reports she has some abdominal discomfort. It started last night around 7 PM. This is associated with multiple episodes of vomiting. She has never had discomfort quite like this before, or presentation like this. She reports the discomfort was in her lower abdomen, and seem to radiate upwards. She denies any blood in her emesis. She did have some small bowel movements while she was throwing up, but no diarrhea. She reported no blood in her bowel movements nor black or tarry stool. She typically uses 4 L of oxygen at home. She is required more in the emergency department, but has not had complaints of shortness of breath. She denies any history of Covid, or exposure to it. She has no chest discomfort. Review of Systems General: Reports: 10 or more systems reviewed and unremarkable except in HPI and below Const: Denies: fever(s) or chills Eyes: Denies: change in vision ENMT: Denies: throat pain Card: Denies: chest pain Resp: Denies: dyspnea GI: Reports: abdominal pain, nausea and vomiting; Denies: hematemesis, diarrhea, constipation, hematochezia or melena : Denies: flank pain Musc: Denies: neck pain Skin/Breast: Denies: rash Neuro: Denies: headache(s) Psych: Denies: anxiety Endo: Denies: polyuria Juan Carlos/Lymph: Denies: easy bruising All/Imm: Denies: urticaria Medications/Allergies Home Medications Medication Instructions Recorded Confirmed Last Taken Type alprazolam 0.5 mg PO QID PRN 09/22/19 06/11/20 06/10/20 History clopidogrel [Plavix] 75 mg PO DAILY@09/22/19 06/11/20 06/10/20 History omeprazole 20 mg PO DAILY@09/22/19 06/11/20 06/10/20 History trazodone 100 mg PO BEDTIME@09/22/19 06/11/20 12/28/19 History venlafaxine 150 mg PO DAILY@09/22/19 06/11/20 06/10/20 History furosemide 20 mg PO DAILY@12/27/19 06/11/20 06/10/20 History potassium chloride 10 meq PO DAILY@12/27/19 06/11/20 06/10/20 History Eliquis 5 mg PO BID@06/11/20 06/11/20 06/10/20 History acetaminophen [Tylenol Extra 1,000 mg PO BID@06/11/20 06/11/20 06/10/20 History Strength] amlodipine 10 mg PO DAILY@06/11/20 06/11/20 06/10/20 History atorvastatin 40 mg PO DAILY@06/11/20 06/11/20 06/10/20 History cholecalciferol (vitamin D3) 25 mcg PO DAILY 06/11/20 06/11/20 Unknown History [Vitamin D3] diphenhydramine-acetaminophen 2 tab PO BEDTIME@06/11/20 06/11/20 Unknown History [Tylenol PM Extra Strength] hydralazine 10 mg PO TID@06/11/20 06/11/20 06/10/20 History prednisone 10 mg PO DAILY@06/11/20 06/11/20 06/10/20 History Allergies Allergy/AdvReac Type Severity Reaction Status Date / Time Sulfa (Sulfonamide Allergy ALGY-Rash Verified 06/11/20 08:33 Antibiotics) PFSH Acute PFSH: Medical History (Updated 06/11/20 @ 09:48 by Montez Allred MD) Anxiety Atrial fibrillation C. difficile colitis COPD (chronic obstructive pulmonary disease) 4 L oxygen baseline CVA (cerebral vascular accident) DJD (degenerative joint disease) HLD (hyperlipidemia) HTN (hypertension) Posterior inferior cerebellar artery embolism Rheumatoid arthritis Surgical History (Updated 06/11/20 @ 09:43 by Montez Allred MD) History of hysterectomy Status post right knee replacement Social History Smoking and tobacco status: former smoker Alcohol intake: never Household members: none Housing: House Supplemental PFSH Information: Reports only family history, atrial fibrillation Vitals/I&O/Wt Last Vital Signs Temp 98.1 F 06/10/20 23:36 Pulse 104 H 06/11/20 08:53 Resp 20 H 12/07/20 09:34 BP 130/70 06/11/20 06:30 Pulse Ox 92 06/11/20 09:34 Weight last 48 hrs Weight 101.151 kg Physical Exam Narrative: EXAM NARRATIVE: General exam is a white female, complaining of some lower abdominal discomfort. Does not appear in respiratory distress although on quite significant amount of oxygen. HEENT: Pupils equally round. Oropharynx clear. Neck is supple no lymphadenopathy or thyromegaly Cardiovascular regular rate and rhythm, no murmur. No S3 or S4 Lungs clear but with diminished breath sounds bilaterally Abdomen is with a few bowel sounds. Some tenderness in the lower quadrants. No obvious organomegaly was deferred Extremities no cyanosis clubbing or edema, cap refill brisk Skin no rash Neuro no obvious focal deficits. Data : 06/10/20 00:44 06/10/20 00:44 Micro: Microbiology 06/11/20 09:15 Blood Culture - Preliminary Blood SPECIMEN COLLECTED 06/11/20 08:45 Blood Culture - Preliminary Blood SPECIMEN COLLECTED Other data: EKG demonstrates sinus rhythm, normal axis, no acute changes Blood cultures have been drawn Chest x-ray bilateral scarring, no acute changes Abdominal ultrasound hepatomegaly, no bile duct dilation, gallbladder with stones CT abdomen demonstrates gallstones, small bowel dilation with transition point right lower quadrant with evidence of small bowel obstruction, calcified appe aring gallbladder, gastric thickening, pulmonary nodule medial right lower lobe ABG demonstrates pH 7.35, PCO2 of 63, PO2 of 85 Lactate 1.1 LFTs normal CRP 22 Lipase 19 Procalcitonin 0.06 Urinalysis 0-4 reds and 0-4 whites with numerous calcium oxalate crystals A&P Assessment and plan (1) Small bowel obstruction: Transition point is noted in the right lower quadrant. NG to intermittent suction placed in the emergency department Surgery consultation Support with fluids Check TSH Magnesium level Status: Acute (2) Acute and chronic respiratory failure with hypoxia: Typically she is on 4 L of oxygen I am concerned regarding the possibility of aspiration considering her leukocytosis, increased oxygen need Check MRSA PCR Placed on Zosyn Blood cultures, sputum cultures Check Covid PCR, Rapid was negative Status: Acute (3) Leukocytosis: See notations above Status: Acute (4) Hyperglycemia: No history of diabetes Blood sugar minimally elevated considering overall stress Check A1c Status: Acute (5) Pulmonary nodule: Outpatient follow-up Status: Acute (6) Cholelithiasis: Defer to surgery. Doubt this has a role in her primary presentation Status: Acute Additional A&P Information History of paroxysmal atrial fibrillation, on chronic anticoagulation. Hold anticoagulation currently. Surgery may be needed Recent diagnosis of rheumatoid arthritis, currently on prednisone. Change to hydrocortisone currently while she will be in the hospital and n.p.o. this will be twice her equivalent dose of prednisone secondary to stress dosing. COPD, with no current evidence of exacerbation. Appears to have chronic CO2 retention. Chronically on 4 L of oxygen. Keep O2 sat 90% to 92% to prevent CO2 retention. If any concern with confusion or lethargy consider BiPAP. Past history of CVA DJD Full code SCDs for DVT prophylaxis. Anticoagulation held as surgery may be indicated. Attestations Medical Necessity Statement*: Will need greater than 2 midnight stay for evaluation and treatment of small bowel obstruction, respiratory failure Critical Care Time: 64 minutes spent in critical care time on this patient with small bowel obstruction with vomiting, possible aspiration pneumonia, significant oxygen need with high risk for decompensation Coding Level of Care Code Acute Managed Care Liaison for Nedra Yen Diagnoses Small bowel obstruction K56.609 Acute and chronic respiratory failure with hypoxia J96.21 Leukocytosis D72.829 Hyperglycemia R73.9 Pulmonary nodule R91.1 Cholelithiasis K80.20
--- NOTE | 2020-06-11 09:44 | PC.RESP ---
Pulmonary Rehab information sent to patient.
[2020-06-11] MEDS: pantoprazole 40 mg SDV IVP ×2 (10:51→22:38)
[2020-06-11] MEDS: hydrocortisone 100 mg/2 mL SDV 50 MG IVP ×2 (10:52→22:39)
[2020-06-11] MEDS: sodium chloride 0.9% 1,000 ML 75 ML IV (10:52)
[2020-06-11 11:05] LABS: Magnesium 2.1 mg/dL (1.7-2.3); Thyroid Stimulating Hormone 1.62 uIU/mL (0.27-4.20)
[2020-06-11 11:46] LABS: Estmated Average Glucose 97
--- NOTE | 2020-06-11 12:51 | PC.NURSE ---
BACK ON BIPAP monitor alarms low O2 reading. oxygen saturation in the 80s and slowing declining. nurse entered room. patient currently on 4L nc. placed back on bipap. patient oxygen increased to 96% on 45% fio2
[2020-06-11] MEDS: morphine 4 mg/mL SDV 1 mL 2 MG IVP ×2 (13:55→19:35)
--- NOTE | 2020-06-11 15:39 | XR_ITS ---
WS: [id number] XR KUB portable [id number] REASON FOR EXAM: ABD PAIN FINDINGS: Nasogastric tube in place in a configuration compatible with placement in the body of the stomach. Several midline loops of dilated air-filled small bowel are identified. No free air is identified. There is hazy density of the abdomen likely due to fluid-filled dilated small bowel loops. XR/XR KUB portable [id number] IMPRESSION: Nasogastric tube placement as above. Small bowel obstruction confirmed by previ ous CT scan 06/11/2020.
--- NOTE | 2020-06-11 16:03 | PM.CONSULT ---
Providers/Reason For Consult Consulting Physican/Specialty*: Dr. Allred Reason for Consult*: Small bowel obstruction Attending Physician: Montez Allred MD Primary Care Provider: Savage Salmeron Jr, MD History of Present Illness History of Present Illness Callie Hobbs is a 74 year old female who presented to the ER last night with generalized abdominal pain associated with nausea and vomiting. Patient states that she had a bowel movement around 1030 last night and currently is not passing flatus nor has she had any bowel movement since then. Patient denies any fevers or chills. Patient uses 4 L oxygen at home and is currently on BiPAP. COVID-19 test is pending. She has had a prior vaginal hysterectomy but has never had any problems with bowel obstruction in the past. Patient denies any history of constipation. She had a colonoscopy earlier this year by Dr. Silver which showed sigmoid diverticulosis. Review of Systems General: Reports: 10 or more systems reviewed and unremarkable except in HPI and below Meds/Allergies Home Medications and Allergies Home Medications Medication Instructions Recorded Confirmed Last Taken Type alprazolam 0.5 mg PO QID PRN 09/22/19 06/11/20 06/10/20 History clopidogrel [Plavix] 75 mg PO DAILY@09/22/19 06/11/20 06/10/20 History omeprazole 20 mg PO DAILY@09/22/19 06/11/20 06/10/20 History trazodone 100 mg PO BEDTIME@09/22/19 06/11/20 12/28/19 History venlafaxine 150 mg PO DAILY@09/22/19 06/11/20 06/10/20 History furosemide 20 mg PO DAILY@12/27/19 06/11/20 06/10/20 History potassium chloride 10 meq PO DAILY@12/27/19 06/11/20 06/10/20 History Eliquis 5 mg PO BID@06/11/20 06/11/20 06/10/20 History acetaminophen [Tylenol Extra 1,000 mg PO BID@06/11/20 06/11/20 06/10/20 History Strength] amlodipine 10 mg PO DAILY@06/11/20 06/11/20 06/10/20 History atorvastatin 40 mg PO DAILY@06/11/20 06/11/2006/20 History cholecalciferol (vitamin D3) 25 mcg PO DAILY 06/11/20 06/11/20 Unknown History [Vitamin D3] diphenhydramine-acetaminophen 2 tab PO BEDTIME@06/11/20 06/11/20 Unknown History [Tylenol PM Extra Strength] hydralazine 10 mg PO TID@08,,06/11/20 06/11/20 06/10/20 History prednisone 10 mg PO DAILY@08 06/11/20 06/11/20 06/10/20 History Allergies Allergy/AdvReac Type Severity Reaction Status Date / Time Sulfa (Sulfonamide Allergy ALGY-Rash Verified 06/11/20 08:33 Antibiotics) Current Medications Current Medications Generic Name Dose Route Start Last Admin Trade Name Freq PRN Reason Stop Dose Admin Albuterol/Ipratropium 3 ml 06/11/20 08:00 06/11/20 15:17 Ipratropium-Albuterol 3 Ml Neb INHALATION 3 ml Q4H.RESPIRATORY DOROTHY Administration Hydrocortisone Sodium Succinate 50 mg 06/11/20 10:30 06/11/20 10:52 Hydrocortisone 100 Mg/2 Ml Sdv IVP 50 mg Q12H DOROTHY Administration Piperacillin Sod/Tazobactam 50 mls @ 12.5 mls/hr 06/11/20 08:00 06/11/20 13:54 Sod 3.375 gm/ Sodium Chloride IV Infused Q8H DOROTHY Infusion Protocol Sodium Chloride 1,000 mls @ 75 mls/hr 06/11/20 10:30 06/11/20 10:52 Sodium Chloride 0.9% IV 75 mls/hr .[id number] DOROTHY Administration Morphine Sulfate 2 mg 06/11/20 10:30 06/11/20 13:55 Morphine 4 Mg/Ml Sdv 1 Ml IVP 2 mg Q4H PRN Administration SEVERE PAIN Pantoprazole Sodium 40 mg 06/11/20 10:30 06/11/20 10:51 Pantoprazole 40 Mg Sdv IVP 40 mg Q12H DOROTHY Administration PFSH Acute PFSH: Medical History (Updated 06/11/20 @ 09:48 by Montez Allred MD) Anxiety Atrial fibrillation C. difficile colitis COPD (chronic obstructive pulmonary disease) 4 L oxygen baseline CVA (cerebral vascular accident) DJD (degenerative joint disease) HLD (hyperlipidemia) HTN (hypertension) Posterior inferior cerebellar artery embolism Rheumatoid arthritis Surgical History (Updated 06/11/20 @ 09:43 by Montez Allred MD) History of hysterectomy Status post right knee replacement Social History Smoking and tobacco status: former smoker Alcohol intake: never Household members: none Housing: House Vitals/I&O/Wt Last Vital Signs Temp 98.7 F 06/11/20 14:00 Pulse 82 06/11/20 15:53 Resp 17 06/11/20 15:18 BP 157/97 06/11/20 14:00 Pulse Ox 97 06/11/20 15:53 06/11/20 06/11/20 06/11/20 06:59 14:59 22:59 Intake Total 50 / 50 Balance 50 / 50 Weight last 48 hrs Weight 223 lb Physical Exam Narrative: EXAM NARRATIVE: HEENT: Normocephalic Eye: Sclera /conjunctiva normal Respiratory and chest: Bilateral clear breath sounds on auscultation Cardiovascular: Normal S1 and S2 heart sounds Abdomen: Soft to palpation, generalized tenderness, no guarding or rigidity, small nontender and reducible umbilical hernia Neurological: Oriented to place person and time Skin: Intact, no lesions appreciated on gross exam Data Micro: Micro: Microbiology 06/11/20 09:15 Blood Culture - Pr eliminary Blood SPE[facility]IMEN [facility] 06/11/20 08:45 Blood Culture - Pr eliminary Blood SPECIMEN [facility] Imaging^: CT Abd/Pel: Radiologist's impression: 1. Small bowel dilatation with transition point in the right lower quadrant, evidence of a small-bowel obstruction, question adhesions. 2. Abnormal calcified appearing gallbladder with hyperdensity and possibly some stones. Mild intra and extrahepatic biliary duct dilatation raising a question of choledocholithiasis and or porcelain gallbladder. Recommend follow-up. 3. Gastric antral thickening, could be from incomplete distension or gastritis. 4. Peripheral lower lobe and lingular and middle lobe nonspecific lung opacities and pleural thickening. Partially calcified medial right lower lobe 1 cm nodule. A&P Assessment and plan (1) Small bowel obstruction: 74-year-old female status post vaginal hysterectomy who presents with small bowel obstruction likely secondary to adhesions. Patient is currently hemodynamically stable with no evidence of peritonitis. Discussed treatment options with the patient Continue NG tube to low intermittent suction, output has been minimal, obtain x-rays today to confirm position Abdominal series in the morning Daily labs Protonix for GI prophylaxis Status: Acute (2) Cholelithiasis: Patient does not have any significant symptoms associated cholelithiasis. There was concern for choledocholithiasis on the CT scan but ultrasound showed cholelithiasis with no CBD stones Status: Acute Consult Attestations Medical Necessity Statement: Small bowel obstruction requiring continued inpatient stay Coding Level of Care Code Acute Child Care Team Lead for [facility] Diagnoses Small bowel obstruction K56.609 Cholelithiasis K80.20
[2020-06-11] MEDS: acetaminophen 325 mg Tablet 650 MG PO (16:08)
[2020-06-12] VITALS (35 sets, daily range): BP systolic 112–186; BP diastolic 59–90; PULSE 64–97; RESP 15–25; TEMP 36.5–36.9; O2SAT 90–100; BMI 42.1
[2020-06-12] MEDS: piperacillin-tazobactam 3.375 GM in sodium chloride 0.9% (plus) 50 ML IV ×4 (00:01→23:38)
[2020-06-12] MEDS: sodium chloride 0.9% 1,000 ML 75 ML IV ×2 (00:03→18:05)
--- NOTE | 2020-06-12 00:54 | PC.NURSE ---
0020 oral care provided
[2020-06-12] MEDS: ipratropium-albuterol 3 mL Neb INHALATION ×5 (03:09→21:27)
[2020-06-12 04:07] LABS: Basophils % 0.3 %; Eosinophils # 0.1 10^3/uL (0.0-0.8); Eosinophils % 0.5 %; Hematocrit 36.1 % (37.0-47.0); Hemoglobin 10.5 g/dL (11.5-15.3); Lymphocytes # 1.2 10^3/uL (0.8-4.8); Lymphocytes % 7.9 %; Mean Corpuscular HGB Conc 29.1 g/dL (30.0-36.0); Mean Corpuscular Hemoglobin 28.7 pg (28.0-34.0); Mean Corpuscular Volume 98.6 fL (81-99); Mean Platelet Volume 10.6 fL (7.4-10.4); Monocytes # 0.6 10^3/uL (0.2-0.9); Neutrophils % 86.9 %; Nucleated Red Blood Cells % 0 %; Platelet Count 350 10^3/cmm (130-400); Red Blood Count 3.66 10^6/uL (4.1-5.3); White Blood Count 15.5 10^3/uL (4.0-10.0)
[2020-06-12 04:30] LABS: Alanine Aminotransferase 154 U/L (0-33); Albumin Level 3.1 g/dL (3.5-5.2); Alkaline Phosphatase 91 IU/L (35-105); Anion Gap 14.2 (5-19); Aspartate Amino Transferase 105 U/L (0-32); Blood Urea Nitrogen 18 mg/dL (8-23); Calcium 8.9 mg/dL (8.5-10.5); Carbon Dioxide 29 mmol/L (22-29); Chloride 105 mmol/L (98-107); Globulin 3.1 g/dL (1.3-4.6); Glucose 108 mg/dL (65-115); Osmolality Calculated 300 mOsm/kg (285-295); Potassium 4.2 mmol/L (3.5-5.1); Sodium 144 mmol/L (136-145); Total Bilirubin 0.4 mg/dL (0.15-1.2); Total Protein 6.2 g/dL (6.6-8.7)
--- NOTE | 2020-06-12 06:00 | XR_ITS ---
WS: [id number] XR abdomen min 2V 14407 REASON FOR EXAM: sbo FINDINGS: Compared to the examination of 06/11/2020, a nasogastric tube remains in position. Significant reducti on in the number of identifiable dilated small bowel loops. Air is now seen in the right and left col on and within the rectum. No free air. XR/XR abdomen min 2V [id number] IMPRESSION: Improving bowel gas pattern as above.
[2020-06-12] MEDS: morphine 4 mg/mL SDV 1 mL 2 MG IVP (06:32)
--- NOTE | 2020-06-12 07:26 | PM.PN ---
Subjective Subjective: Interval history: Callie reports she is doing okay. No pain. She denies passing any stool. She has not had a bowel movement. No nausea currently. Believes her breathing is doing okay on BiPAP. Medications: Reviewed: Yes Vitals/I&O/Wt Last Vital Signs Temp 97.7 F 06/12/20 00:00 Pulse 64 06/12/20 06:00 Resp 18 06/12/20 06:32 BP 186/82 06/12/20 06:00 Pulse Ox 98 06/12/20 06:32 06/11/20 06/12/20 06/12/20 22:59 06:59 14:59 Intake Total 50 / 100 988.75 / 1088.75 Output Total 600 / 600 450 / 1050 Balance -550 / -500 538.75 / 38.75 Weight last 48 hrs Weight 101.151 kg Weight 101.151 kg Physical Exam Narrative: EXAM NARRATIVE: General exam is no apparent distress Cardiovascular regular rate and rhythm, no murmur. No S3 or S4 Lungs clear but with diminished breath sounds bilaterally Abdomen is with a few bowel sounds. No significant tenderness Extremities no cyanosis clubbing or edema Data : 06/12/20 03:08 06/12/20 03:08 Micro: Microbiology 06/11/20 11:00 MRSA Culture - Final Nose 06/11/20 09:15 Blood Culture - Preliminary Blood SPECIMEN COLLECTED 06/11/20 08:45 Blood Culture - Preliminary Blood SPECIMEN COLLECTED A&P Assessment and plan (1) Small bowel obstruction: Transition point is noted in the right lower quadrant on CT scan NG to intermittent suction placed in the emergency department Surgery consultation is appreciated Continue support with IV fluids TSH and magnesium level normal Reduce morphine dosage Status: Acute (2) Acute and chronic respiratory failure with hypoxia: Typically she is on 4 L of oxygen I am concerned regarding the possibility of aspiration considering her leukocytosis, increased oxygen need Continue Zosyn MRSA PCR was checked and negative Blood cultures, sputum cultures pending Rapid Covid negative. Awaiting PCR. Isolation precautions until this returns Status: Acute (3) Leukocytosis: Improved Status: Acute (4) Hyperglycemia: No history of diabetes Blood sugar minimally elevated considering overall stress A1c is completely normal Status: Acute (5) Pulmonary nodule: Outpatient follow-up Status: Acute (6) Cholelithiasis: Defer to surgery. Doubt this has a role in her primary presentation Tis increased slightly. Recheck tomorrow Status: Acute Additional A&P Information History of paroxysmal atrial fibrillation, on chronic anticoagulation. Hold anticoagulation currently. Surgery may be needed. Will discuss with surgery today. If no surgery anticipated consider starting on Lovenox. Recent diagnosis of rheumatoid arthritis, currently on prednisone. Change to hydrocortisone currently while she will be in the hospital and n.p.o. this will be twice her equivalent dose of prednisone secondary to stress dosing. COPD, with no current evidence of exacerbation. On BiPAP secondary to CO2 retention. Hopefully this can wean off today. Past history of CVA DJD Full code SCDs for DVT prophylaxis. Anticoagulation held as surgery may be indicated. Possible transfer out of ICU today if not requiring BiPAP continually, not requiring significant amount of pain medicine which could contribute to BiPAP dependency. 06/12 continue conservative management for small bowel obstruction. Continue Zosyn for possible aspiration. Try to wean off BiPAP, and may transition to floor if stable from a respiratory standpoint. Surgery following. Attestations Medical Necessity Statement*: Needs continued hospitalization, for close monitoring and management of small bowel obstruction Coding Level of Care Code Acute Visual Merchandising Manager for [facility] F[facility] Diagnoses Small bowel obstruction K56.609 Acute and chronic respiratory failure with hypoxia J96.21 Leukocytosis D72.829 Hyperglycemia R73.9 Pulmonary nodule R91.1 Cholelithiasis K80.20
--- NOTE | 2020-06-12 08:18 | PC.CHAP ---
Pastoral Care Encounter/Spiritual Assessment Type of Contact [] Declined standard machine stitcher visit [] Patient/Family/Request visit [] Outpatient visit [] Follow-up visit [] Physician referral [] Code/Alert [] Routine visit [] Staff referral [] Actively dying [] Patient sleeping [] Family support [] [] Out of room [] Palliative care [] [] Receiving care in room [] Pre-surgical visit [] Trauma [] Long length of stay [] ICU visit [] Other: Relational/Emotional Strength [] Patient feels connected with others/family/visitors/staff [] Distress [] Loneliness/isolation [] Abandonment Spirituality of Patient [] Person of Brittany [] Attends Advent of their Brittany [] Believes in Prayer [] Reads Bible or Baptism materials [] There are Spiritual issues to be addressed Magazine Grinder Loader Interventions [x] Prayer [] Active listening [] Non-anxious presence [] Spiritual/emotional support [] Crisis/trauma care [] Spiritual counseling [] Bereavement support [] Provided bereavement packet [] Provided Bible/devotional materials [] Provided toy/stuffed animal, coloring book to patient or family member [] Provided Communion [] Anointing/[place] [] Salvation [x] Completed spiritual assessment [] Other: Impact on Illness or Injury [] Angry [] Fearful [] Anxious [] Often cries [] Exhaustion [] Unable to work [] Unable to attend protestant [] Unable to walk/stand [] Unable to read [] Unable to drive [] Unable to eat/drink [] Unable to sleep [] Unable to be with family [] Patient intubated [] Other: Summary Time spent with patient
[2020-06-12 09:09] LABS: Coronavirus Lab Test PTC Negative
--- NOTE | 2020-06-12 09:38 | PC.NURSE ---
4980 Dr. Childs visited. Ask me to clamp NG and start on a clear liquid diet and will give Mag citrate 150ml. I clamped NG, gave mirta, called new samuel.
[2020-06-12] MEDS: magnesium citrate Btl 296 mL 150 ML PO (09:50)
[2020-06-12] MEDS: hydrocortisone 100 mg/2 mL SDV 50 MG IVP ×2 (09:51→21:42)
--- NOTE | 2020-06-12 10:29 | PM.PN ---
Subjective Subjective: Interval history: Patient states abdominal pain is better, still not passing flatus Vitals/I&O/Wt Last Vital Signs Temp 98.2 F 06/12/20 08:00 Pulse 71 06/12/20 08:08 Resp 18 06/12/20 08:06 BP 136/64 06/12/20 08:00 Pulse Ox 97 06/12/20 08:06 06/11/20 06/12/20 06/12/20 22:59 06:59 14:59 Intake Total 50 / 1138.75 1038.75 / 1138.75 0 / 0 Output Total 600 / 1050 450 / 1050 Balance -550 / 88.75 588.75 / 88.75 0 / 0 Weight last 48 hrs Weight 223 lb Weight 223 lb Physical Exam Narrative: EXAM NARRATIVE: Abdomen: Soft, less tender, nondistended Data : 06/12/20 03:08 06/12/20 03:08 Micro: Microbiology 06/11/20 09:15 Blood Culture - Preliminary Blood NEGATIVE TO DATE 06/11/20 08:45 Blood Culture - Preliminary Blood NEGATIVE TO DATE 06/11/20 11:00 MRSA Culture - Final Nose A&P Assessment and plan (1) Small bowel obstruction: 74-year-old female with small bowel obstruction likely secondary to adhesions, significant improvement on the abdominal x-ray today with air in the transverse colon Clamp NG tube Start clear liquid diet 1 bottle of magnesium Site-Rite Start therapeutic Lovenox given her cardiac history Transfer to the floor Abdominal series tomorrow Status: Acute Attestations Medical Necessity Statement*: Patient will need 1 more night of inpatient stay to ensure resolution of obstruction Coding Level of Care Code Acute Short Piece Handler for Nedra Yen Diagnoses Small bowel obstruction K56.609
[2020-06-12] MEDS: enoxaparin 100 mg/mL Syringe SUBCUT ×2 (11:04→21:42)
[2020-06-12] MEDS: pantoprazole DR 40 mg Tablet PO ×2 (13:06→18:08)
--- NOTE | 2020-06-12 15:45 | PC.NURSE ---
Transfer orders written, but no bed available on med surg floor. SBAR Handoff Report filled out and pending. Patient notified of move when bed available. She has had gas, but no stool since mag citrate.
--- NOTE | 2020-06-12 18:50 | PC.NURSE ---
1830 Called report to Gloria on [facility], transfered via w/c to [phone] with phone, plastics engineer and clothes. No c/o with Iv flowing.
--- NOTE | 2020-06-12 20:32 | PC.NURSE ---
answered call light for patient, patient repositioned in bed for comfort, patient states no other needs at this time.
--- NOTE | 2020-06-12 20:58 | PC.NURSE ---
Report received from EDUIN Garza and care transferred to EDUIN Ruby
--- NOTE | 2020-06-12 21:53 | PC.NURSE ---
rounded on patient for medication administration, patient states she has no other needs at this time. patient gown repositioned for comfort and modesty by this nurse.
--- NOTE | 2020-06-12 22:07 | PC.NURSE ---
respiratory in room with patient
--- NOTE | 2020-06-12 23:02 | PC.NURSE ---
patient ambulated to bathroom with help from this nurse. patient readjusted in bed and made comfortable.
[2020-06-12] MEDS: diphenhydrAMINE 25 mg Capsule PO ×2 (23:06)
[2020-06-13] VITALS (18 sets, daily range): BP systolic 150–173; BP diastolic 76–96; PULSE 71–96; RESP 16–20; TEMP 36.6–36.8; O2SAT 91–97
--- NOTE | 2020-06-13 00:01 | PC.NURSE ---
Rounded on patient, patient sleeping in bed with the TV on.
[2020-06-13] MEDS: ipratropium-albuterol 3 mL Neb INHALATION ×4 (00:11→15:31)
[2020-06-13 05:17] LABS: Basophils % 0.2 %; Eosinophils % 0.3 %; Hematocrit 34.4 % (37.0-47.0); Hemoglobin 10.3 g/dL (11.5-15.3); Lymphocytes # 1.4 10^3/uL (0.8-4.8); Mean Corpuscular HGB Conc 29.9 g/dL (30.0-36.0); Mean Corpuscular Hemoglobin 28.8 pg (28.0-34.0); Mean Corpuscular Volume 96.1 fL (81-99); Mean Platelet Volume 10.6 fL (7.4-10.4); Monocytes # 0.6 10^3/uL (0.2-0.9); Monocytes % 4.6 %; Neutrophils # 10.47 10^3/uL (1.8-7.7); Neutrophils % 83.3 %; Nucleated Red Blood Cells % 0 %; Platelet Count 354 10^3/cmm (130-400); Red Blood Count 3.58 10^6/uL (4.1-5.3); Red Cell Distribution Width 15.9 % (12.1-15.1); White Blood Count 12.6 10^3/uL (4.0-10.0)
[2020-06-13 05:34] LABS: Alanine Aminotransferase 96 U/L (0-33); Albumin Level 3.2 g/dL (3.5-5.2); Alkaline Phosphatase 84 IU/L (35-105); Anion Gap 11.9 (5-19); Aspartate Amino Transferase 32 U/L (0-32); Blood Urea Nitrogen 11 mg/dL (8-23); Calcium 8.9 mg/dL (8.5-10.5); Carbon Dioxide 30 mmol/L (22-29); Chloride 102 mmol/L (98-107); Globulin 2.9 g/dL (1.3-4.6); Glucose 104 mg/dL (65-115); Osmolality Calculated 290 mOsm/kg (285-295); Potassium 3.9 mmol/L (3.5-5.1); Sodium 140 mmol/L (136-145); Total Bilirubin 0.2 mg/dL (0.15-1.2); Total Protein 6.1 g/dL (6.6-8.7)
--- NOTE | 2020-06-13 07:34 | PM.PN ---
Subjective Subjective: Interval history: Patient denies significant abdominal pain, nausea, vomiting after the NG tube was clamped yesterday. Tolerating clear liquid diet, had multiple small bowel movements which are mainly liquid but she passed moderate amount of flatus Vitals/I&O/Wt Last Vital Signs Temp 98.2 F 06/13/20 07:25 Pulse 71 06/13/20 07:25 Resp 18 06/13/20 07:25 BP 150/76 06/13/20 07:25 Pulse Ox 91 06/13/20 07:25 06/12/20 06/13/20 06/13/20 22:59 06:59 14:59 Intake Total 350 / 1700 50 / 1700 Output Total 250 / 1100 550 / 1100 Balance 100 / 600 -500 / 600 Weight last 48 hrs Weight 194 lb 12.8 oz Weight 223 lb Physical Exam Narrative: EXAM NARRATIVE: Abdomen: Soft, mildly distended, nontender, no guarding or rigidity Data : 06/13/20 04:09 06/13/20 04:09 Micro: Microbiology 06/11/20 09:15 Blood Culture - Preliminary Blood NEGATIVE TO DATE 06/11/20 08:45 Blood Culture - Preliminary Blood NEGATIVE TO DATE A&P Assessment and plan (1) Small bowel obstruction: 74-year-old female with small bowel obstruction likely secondary to adhesions DC NG tube and Rangel catheter since creatinine is down to 2.6 Advance to full liquid diet 1 bottle of magnesium Site-Rite Can transition to oral anticoagulation Patient will need 1 for night of inpatient stay to ensure resolution of obstruction Status: Acute Attestations Medical Necessity Statement*: Small bowel obstruction requiring 1 more night of inpatient stay Coding Level of Care Code Acute Interactive Multimedia Designer for [facility] Yovana Diagnoses Small bowel obstruction K56.609
[2020-06-13] MEDS: pantoprazole DR 40 mg Tablet PO ×2 (08:23→17:14)
[2020-06-13] MEDS: magnesium citrate Btl 296 mL 150 ML PO (08:23)
[2020-06-13] MEDS: piperacillin-tazobactam 3.375 GM in sodium chloride 0.9% (plus) 50 ML IV ×2 (09:22→17:15)
[2020-06-13] MEDS: apixaban 5 mg Tablet PO ×2 (10:34→20:48)
[2020-06-13] MEDS: predniSONE 10 mg Tablet PO (10:35)
[2020-06-13] MEDS: ALPRAZolam 0.5 mg Tablet PO ×2 (10:37→17:14)
--- NOTE | 2020-06-13 11:43 | PM.PN ---
Subjective Subjective: Interval history: Callie reports she is feeling better. No nausea. Has been advanced to full liquid diet. Denies being short of breath. Medications: Reviewed: Yes Vitals/I&O/Wt Last Vital Signs Temp 98.3 F 06/13/20 11:10 Pulse 73 06/13/20 11:10 Resp 20 H 06/13/20 11:10 BP 155/81 06/13/20 11:10 Pulse Ox 92 06/13/20 11:10 06/12/20 06/13/20 06/13/20 22:59 06:59 14:59 Intake Total 350 / 1650 50 / 1700 Output Total 250 / 550 550 / 1100 200 / 200 Balance 100 / 1100 -500 / 600 -200 / -200 Weight last 48 hrs Weight 88.36 kg Weight 101.151 kg Physical Exam Narrative: EXAM NARRATIVE: General exam is no apparent distress Cardiovascular regular rate and rhythm, no murmur. No S3 or S4 Lungs clear but with diminished breath sounds bilaterally Abdomen nontender. Bowel sounds noted. Extremities no cyanosis clubbing or edema Urinary Catheter Management^: Rangel: Cath Placed During This Visit: yes, but has since been removed by the nurse Reason for Continuing Indwelling Catheter: Decision to DC Catheter Date Urinary Catheter Removed: 06/13/20 Time Urinary Catheter Discontinued: 08:00 Data : 06/13/20 04:09 06/13/20 04:09 Micro: Microbiology 06/11/20 09:15 Blood Culture - Preliminary Blood NEGATIVE TO DATE 06/11/20 08:45 Blood Culture - Preliminary Blood NEGATIVE TO DATE A&P Assessment and plan (1) Small bowel obstruction: Transition point is noted in the right lower quadrant on CT scan NG to intermittent suction was removed and she is tolerating this well Surgery consultation is appreciated Discontinue IV fluids TSH and magnesium level normal Discontinue morphine Advancing diet with hopes she can be discharged tomorrow Status: Acute (2) Acute and chronic respiratory failure with hypoxia: Typically she is on 4 L of oxygen. She is now on her baseline oxygen requirement I am concerned regarding the possibility of aspiration considering her leukocytosis, increased oxygen need Continue Zosyn MRSA PCR was checked and negative Blood cultures, sputum cultures negative to date Rapid Covid negative. PCR negative Status: Acute (3) Leukocytosis: Improved Status: Acute (4) Hyperglycemia: No history of diabetes Blood sugar minimally elevated considering overall stress A1c is completely normal Status: Acute (5) Pulmonary nodule: Outpatient follow-up Status: Acute (6) Cholelithiasis: Defer to surgery. Doubt this has a role in her primary presentation LFTs improved Status: Acute Additional A&P Information History of paroxysmal atrial fibrillation, on chronic anticoagulation. Restart oral anticoagulation today Recent diagnosis of rheumatoid arthritis, currently on prednisone. Change from hydrocortisone for which she was on stress dosing back to prednisone COPD, with no current evidence of exacerbation. She is weaned off BiPAP and on 4 L oxygen Past history of CVA DJD Full code Eliquis for DVT prophylaxis 06/12 continue conservative management for small bowel obstruction. Continue Zosyn for possible aspiration. Try to wean off BiPAP, and may transition to floor if stable from a respiratory standpoint. Surgery following. 06/13 small bowel obstruction improving. Advance diet. Stop fluids. Change meds to p.o. Hopefully home tomorrow. Attestations Medical Necessity Statement*: Needs continued hospitalization for small bowel obstruction, which is resolving. Coding Level of Care Code Acute Inside Technical Sales Representative for Nedra Yen Diagnoses Small bowel obstruction K56.609 Acute and chronic respiratory failure with hypoxia J96.21 Leukocytosis D72.829 Hyperglycemia R73.9 Pulmonary nodule R91.1 Cholelithiasis K80.20
[2020-06-13] MEDS: hyDRALAzine 10 mg Tablet PO ×2 (12:16→20:47)
[2020-06-13] MEDS: trazodone 100 mg Tablet PO (20:48)
[2020-06-13] MEDS: atorvastatin 40 mg Tablet PO (20:48)
[2020-06-14] MEDS: piperacillin-tazobactam 3.375 GM in sodium chloride 0.9% (plus) 50 ML IV ×2 (00:34→08:14)
[2020-06-14] MEDS: ALPRAZolam 0.5 mg Tablet PO ×3 (00:34→12:55)
[2020-06-14 04:30] VITALS: BP 159/79; PULSE 83; RESP 18; TEMP 36.6; O2SAT 91
[2020-06-14 05:29] LABS: Basophils % 0.4 %; Eosinophils # 0.3 10^3/uL (0.0-0.8); Eosinophils % 2.5 %; Hematocrit 35.2 % (37.0-47.0); Hemoglobin 10.5 g/dL (11.5-15.3); Lymphocytes # 1.9 10^3/uL (0.8-4.8); Lymphocytes % 17.2 %; Mean Corpuscular HGB Conc 29.8 g/dL (30.0-36.0); Mean Corpuscular Hemoglobin 28.6 pg (28.0-34.0); Mean Corpuscular Volume 95.9 fL (81-99); Mean Platelet Volume 10.9 fL (7.4-10.4); Monocytes # 0.9 10^3/uL (0.2-0.9); Monocytes % 7.7 %; Neutrophils # 7.85 10^3/uL (1.8-7.7); Neutrophils % 71.5 %; Nucleated Red Blood Cells % 0 %; Platelet Count 348 10^3/cmm (130-400); Red Blood Count 3.67 10^6/uL (4.1-5.3); Red Cell Distribution Width 15.7 % (12.1-15.1)
[2020-06-14 05:57] LABS: Alanine Aminotransferase 59 U/L (0-33); Albumin Level 3.4 g/dL (3.5-5.2); Alkaline Phosphatase 81 IU/L (35-105); Anion Gap 12.3 (5-19); Aspartate Amino Transferase 21 U/L (0-32); Blood Urea Nitrogen 7 mg/dL (8-23); Calcium 9.2 mg/dL (8.5-10.5); Carbon Dioxide 29 mmol/L (22-29); Chloride 103 mmol/L (98-107); Globulin 2.9 g/dL (1.3-4.6); Glucose 83 mg/dL (65-115); Osmolality Calculated 289 mOsm/kg (285-295); Potassium 3.3 mmol/L (3.5-5.1); Sodium 141 mmol/L (136-145); Total Bilirubin 0.3 mg/dL (0.15-1.2); Total Protein 6.3 g/dL (6.6-8.7)
[2020-06-14 07:37] VITALS: BP 181/75; PULSE 81; RESP 17; TEMP 37.1; O2SAT 93
[2020-06-14 07:43] VITALS: PULSE 92; RESP 20; O2SAT 96
[2020-06-14] MEDS: pantoprazole DR 40 mg Tablet PO (08:12)
[2020-06-14] MEDS: venlafaxine ER (24HR) 150 mg Capsule PO (08:13)
[2020-06-14] MEDS: amlodipine 5 mg Tablet 10 MG PO (08:13)
[2020-06-14] MEDS: clopidogrel 75 mg Tablet PO (08:14)
[2020-06-14] MEDS: predniSONE 10 mg Tablet PO (08:14)
[2020-06-14] MEDS: hyDRALAzine 10 mg Tablet PO ×2 (08:23→12:48)
[2020-06-14] MEDS: apixaban 5 mg Tablet PO (08:24)
--- NOTE | 2020-06-14 09:29 | PM.PN ---
Subjective Subjective: Interval history: Patient has been doing well, had multiple bowel movements, tolerating liquid diet, keen to go home today Vitals/I&O/Wt Last Vital Signs Temp 98.7 F 06/14/20 07:37 Pulse 92 06/14/20 07:43 Resp 20 H 06/14/20 07:43 BP 181/75 06/14/20 07:37 Pulse Ox 96 06/14/20 07:43 06/13/20 06/14/20 06/14/20 22:59 06:59 14:59 Intake Total 1050 / 1390 170 / 1390 Output Total 850 / 2200 800 / 2200 Balance 200 / -810 -630 / -810 Weight last 48 hrs Weight 196 lb 4.8 oz Weight 194 lb 12.8 oz Physical Exam Narrative: EXAM NARRATIVE: Abdomen: Soft, tender, nondistended Urinary Catheter Management^: Rangel: Cath Placed During This Visit: yes, but has since been removed by the nurse Reason for Continuing Indwelling Catheter: Decision to DC Catheter Date Urinary Catheter Removed: 06/13/20 Time Urinary Catheter Discontinued: 08:00 Data : 06/14/20 04:05 06/14/20 04:05 A&P Assessment and plan (1) Small bowel obstruction: 74-year-old female with small bowel obstruction likely secondary to adhesions Advance to GI soft diet DC home today, follow-up as needed Recommend staying on aggressive bowel regimen, consider lactulose 15 cc p.o. twice daily to avoid constipation Status: Acute Attestations Medical Necessity Statement*: sbo, resolved Coding Level of Care Code Acute Professor Of Surgery for [facility] Fwd Diagnoses Small bowel obstruction K56.609
--- NOTE | 2020-06-14 10:37 | P.DS_ITS ---
Discharge Providers Date of Admission: 06/11/20 07:39 Date of Discharge: June 14, 2020 Attending Provider at Admission: Montez Allred MD Attending Provider at Discharge: Montez Allred MD Primary Care Provider: Savage Salmeron Jr, MD Diagnoses at Discharge Discharge Diagnosis (1) Small bowel obstruction: Status: Acute Permanent problem details: Resolved. Thought to be secondary to adhesions. Reason for Visit Reason for Visit: ABD PAIN Hospital Course Hospital Course Callie is a 74-year-old white female who presented to the emergency department with history of multiple vomiting episodes. She had abdominal discomfort. CT scan demonstrated a small bowel obstruction with transition point in the right lower quadrant. This was thought to be secondary to adhesions. An NG was placed to suction. Surgery consultation was obtained. She was requiring some oxygen, had an elevated white blood cell count again there was concern for aspiration so Zosyn was initiated. Gallstones and possible calcified gallbladder were noted. Small partially calcified lung nodule was also noted. Gallbladder ultrasound demonstrated only contracted gallbladder with stones with no duct elation. During the hospital stay while providing conservative management for small bowel obstruction patient improved daily. NG was removed June 13. Diet was started. She was followed until June 14 at which time diet was advanced. She was tolerating this well so discharged home. She will follow-up with her primary regarding the CT scan with pulmonary nodules to determine when repeat scan showed or if they were performed. She was instructed on a low residue diet. She will continue MiraLAX twice daily to prevent constipation. She will follow-up with surgery if needed. Secondary to concern of aspiration she was followed for any fevers which did not occur. She will finish 4 days of Augmentin at home. Physical Exam Narrative: EXAM NARRATIVE: General exam no apparent distress Cardiovascular regular rate and rhythm without murmur Lungs clear Abdomen is soft, positive bowel sounds Extremities no cyanosis clubbing or edema Urinary Catheter Management^: Rangel: Cath Placed During This Visit: yes, but has since been removed by the nurse Reason for Continuing Indwelling Catheter: Decision to DC Catheter Date Urinary Catheter Removed: 06/13/20 Time Urinary Catheter Discontinued: 08:00 Discharge Data Data Completed and Pending: Completed Studies During Hospitalization Category Date Time Status CT abdomen pelvis w con* [id number] Urge nt Cat Scan 06/10/20 23:59 Completed XR KUB portable 7 [id number] Routine Exams 06/11/20 15:39 Completed XR abdomen min 2V [id number] Routine Exams 06/12/20 06:00 Completed XR chest 1V christine ble [id number] Stat Exams 06/11/20 03:54 Completed US gall bladder 7 [id number] Urgent Ultrasound 06/11/20 02:57 Completed Pending at discharge Category Date Time Status Arterial Blood Ga s Full Stat Lab 06/11/20 10:30 Ordered Blood Culture Sta t Lab 06/11/20 09:15 Results Sputum Culture an d Gram Stain Routi ne Lab 06/11/20 10:30 Uncollected Labs from last 24 hours 06/14/20 06/14/20 04:05 04:05 WBC 11.0 H RBC 3.67 L Hgb 10.5 L Hct 35.2 L MCV 95.9 MCH 28.6 MCHC 29.8 L RDW 15.7 H Plt Count 348 MPV 10.9 H Neut % (Auto) 71.5 Lymph % (Auto) 17.2 Cochran % (Auto) 7.7 Eos % (Auto) 2.5 Baso % (Auto) 0.4 Neut # (Auto) 7.85 H Lymph # (Auto) 1.9 Cochran # (Auto) 0.9 Eos # (Auto) 0.3 Baso # (Auto) 0.0 Nucleated RBC % (a uto) 0 Nucleated RBCs # 0.0 Sodium 141 Potassium 3.3 L Chloride 103 Carbon Dioxide 29 Anion Gap 12.3 BUN 7 L Creatinine 0.6 GFR Calculation Not Reportable Glucose 83 Calculated Osmolal ity 289 Calcium 9.2 Total Bilirubin 0.3 AST 21 ALT 59 H Alkaline Phosphata se 81 Total Protein 6.3 L Albumin 3.4 L Globulin 2.9 Vitals: Last Vital Signs Temp 98.7 F 06/14/20 07:37 Pulse 92 06/14/20 07:43 Resp 20 H 06/14/20 07:43 BP 181/75 06/14/20 07:37 Pulse Ox 96 06/14/20 07:43 Discharge Plan Discharge Patient Disposition: Home Condition: Stable Prescriptions: New amoxicillin-pot clavulanate [Augmentin] 875-125 mg tablet 1 tab PO BID Qty: 8 RF: 0 polyethylene glycol 3350 [Miralax] 17 gram powder in packet 17 g PO BID Qty: 60 RF: 0 Continued alprazolam 0.5 mg Tablet 0.5 mg PO QID PRN (Reason: Anxiety) RF: 0 trazodone 100 mg Tablet 100 mg PO BEDTIME@20 RF: 0 venlafaxine 150 mg Tablet Extended Release 24hr 150 mg PO DAILY@08 RF: 0 clopidogrel [Plavix] 75 mg Tablet 75 mg PO DAILY@20 RF: 0 omeprazole 20 mg Capsule,Delayed Release(Dr/Ec) 20 mg PO DAILY@20 RF: 0 potassium chloride 10 mEq capsule, extended release 10 meq PO DAILY@08 RF: 0 furosemide 20 mg tablet 20 mg PO DAILY@08 RF: 0 prednisone 10 mg tablet 10 mg PO DAILY@08 RF: 0 Tylenol Extra Strength 500 mg Tablet 1,000 mg PO BID@08,20 RF: 0 Tylenol PM Extra Strength 25-500 mg Tablet 2 tab PO BEDTIME@20 RF: 0 Vitamin D3 25 mcg (1,000 unit) Capsule 25 mcg PO DAILY RF: 0 hydralazine 10 mg tablet 10 mg PO TID@08,12,20 RF: 0 atorvastatin 20 mg tablet 40 mg PO DAILY@20 RF: 0 amlodipine 5 mg tablet 10 mg PO DAILY@08 RF: 0 Eliquis 5 mg tablet 5 mg PO BID@08,20 RF: 0 alprazolam 0.5 mg Tablet 0.5 mg PO QID RF: 0 Discharge Orders: Discharge Order (Routine); Ordered 06/14/20 Ordered By: Montez Allred Referrals: Savage Salmeron Jr, MD [Primary Care Provider] - 4-7 days Discharge Diet: As Directed and GI Soft Discharge Activity: Increase activity as tolerated Activity Restrictions/Additional Instructions: Low residue diet. Follow-up with your primary care provider. 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
[2020-06-14 11:24] VITALS: BP 137/74; PULSE 89; PULSE 96; RESP 18; TEMP 37.1; O2SAT 93; O2SAT 97
[2020-06-14] MEDS: ipratropium-albuterol 3 mL Neb INHALATION (11:24)
[2020-06-14 11:34] VITALS: PULSE 92
[2020-06-14] MEDS: potassium chloride ER 20 mEq Tablet 40 MEQ PO (12:47)
--- NOTE | 2020-06-14 13:53 | DCPLANNER ---
Pg 2 of IM updated and reviewed with pt. No questions, copy provided.
[2020-06-14 16:50] VITALS: BP 137/74; PULSE 92; RESP 18; TEMP 37.1; O2SAT 97
== END 2020-06-14 15:35 | disposition home or self-care (01) | DRG 388 ==
LOC: ER 06-11 07:39 → ICU 06-11 08:15 → MEDSURG 06-12 18:30
PROVIDERS: Emergency Medicine; Admitting Provider Internal Medicine; Emergency Provider Family Medicine; PCP Family Medicine; Visit Provider Internal Medicine
DX: K56.50 Intestinal adhesions [bands], unspecified as to partial versus complete obstruction (principal); J96.21 Acute and chronic respiratory failure with hypoxia; J69.0 Pneumonitis due to inhalation of food and vomit; Z99.81 Dependence on supplemental oxygen; F41.9 Anxiety disorder, unspecified; I48.0 Paroxysmal atrial fibrillation; J44.9 Chronic obstructive pulmonary disease, unspecified; Z86.73 Personal history of transient ischemic attack (TIA), and cerebral infarction without residual deficits; M19.90 Unspecified osteoarthritis, unspecified site; E78.5 Hyperlipidemia, unspecified; I10 Essential (primary) hypertension; M06.9 Rheumatoid arthritis, unspecified; Z96.651 Presence of right artificial knee joint; Z87.891 Personal history of nicotine dependence; R73.9 Hyperglycemia, unspecified; R91.8 Other nonspecific abnormal finding of lung field; K80.20 Calculus of gallbladder without cholecystitis without obstruction; K57.30 Diverticulosis of large intestine without perforation or abscess without bleeding; Z79.01 Long term (current) use of anticoagulants; Z79.02 Long term (current) use of antithrombotics/antiplatelets
CPT/HCPCS: 12345; 36415; 71045; 74018; 74019; 74177; 76705; 80051; 80053; 81001; 82330; 82805; 83036; 83605; 83690; 83735; 84145; 84443; 85025; 86140; 87040; 87426; 87635; 87641; 93005; 94640; 94660; 96372; 96375; 99283; C9113; J1650; J1720; J2270; J2405; J2543; J7030; J7512; Q9967

== ENCOUNTER → 2020-07-02 13:11 | Outpatient (BNVA) | payer MEDICARE, OTHER, SELFPAY | PROVIDERS: PCP Family Medicine; Visit Provider Internal Medicine | DX: R76.8 Other specified abnormal immunological findings in serum (principal); R79.82 Elevated C-reactive protein (CRP); M05.9 Rheumatoid arthritis with rheumatoid factor, unspecified; M79.643 Pain in unspecified hand; J44.9 Chronic obstructive pulmonary disease, unspecified; Z79.52 Long term (current) use of systemic steroids; Z87.891 Personal history of nicotine dependence | CPT/HCPCS: 99214 ==

== ENCOUNTER 2020-07-21 11:23 | Emergency (ER) | payer MEDICARE, OTHER, SELFPAY ==
[2020-07-21 11:32] VITALS: BP 138/92; PULSE 100; RESP 16; TEMP 37.1; O2SAT 96; BMI 36.3
--- NOTE | 2020-07-21 11:35 | CTR_ITS ---
PROCEDURE INFORMATION: Exam: CT Lumbar Spine Without Contrast Exam date and time: 07/21/2020 12:05 PM Age: 74 years old Clinical indication: Injury or trauma; Fall; Blunt trauma (contusions or hematomas); Additional info: Fall, low back pain TECHNIQUE: Imaging protocol: Computed tomography images of the lumbar spine without contrast. Radiation optimization: All CT scans at this facility use at least one of these dose optimization techniques: automated exposure control; mA and/or kV adjustment per patient size (includes targeted exams where dose is matched to clinical indication); or iterative reconstruction. COMPARISON: No relevant prior studies available. RADIATION DOSE METRICS: Total DLP (mGy-cm): 2147.4 FINDINGS: Vertebrae: No fracture or other acute bone or joint abnormalities are seen in the lumbar spine there is moderate scoliosis.. Discs/Spinal canal/Neural foramina: Chronic degenerative disc disease is present especially from L2 through S1 with disc space narrowing, vacuum phenomenon, disc protrusion and osteophytes. There is sclerosis narrowing and hypertrophy of the lower lumbar facet joints. There is [id number] spinal stenosis from L2 through S1 due disc protrusions and osteophytes. At the L5-S1 there is a 1 cm disc herniation to the left side which contains gas from vacuum phenomenon.. Soft tissues: Unremarkable. CT/CT lumbar spine wo con* [id number] IMPRESSION: 1. No fracture or other acute abnormality. 2. Prominent chronic degenerative disease from L2 through S1. Radiation Dose CTDIVOL = (mGy): DLP = 2147.4 (mGy-cm)
--- NOTE | 2020-07-21 11:35 | CTR_ITS ---
PROCEDURE INFORMATION: Exam: CT Abdomen And Pelvis Without Contrast Exam date and time: 07/21/2020 12:05 PM Age: 74 years old Clinical indication: Abdominal pain; Additional info: Fall, hip pain TECHNIQUE: Imaging protocol: Computed tomography of the abdomen and pelvis without contrast. Radiation optimization: All CT scans at this facility use at least one of these dose optimization techniques: automated exposure control; mA and/or kV adjustment per patient size (includes targeted exams where dose is matched to clinical indication); or iterative reconstruction. COMPARISON: CT abdomen pelvis w con* [id number] 06/11/2020 1:49 AM RADIATION DOSE METRICS: Total DLP (mGy-cm): 1337.04 FINDINGS: Lungs: There is bibasilar pulmonary fibrosis. A benign calcified granuloma is present in the right base. Mediastinal space: Small sliding hiatal hernia. Liver: Normal. No mass. Gallbladder and bile ducts: Cholelithiasis. Pancreas: Normal. No ductal dilation. Spleen: Normal. No splenomegaly. Adrenal glands: Normal. No mass. Kidneys and ureters: Normal. No hydronephrosis. Stomach and bowel: Diverticulosis. No evidence of acute diverticulitis. The small bowel is unremarkable. Appendix: No evidence of appendicitis. Intraperitoneal space: Unremarkable. No free air. No significant fluid collection. Vasculature: The aorta and iliac arteries are calcified but there is no aneurysm. Lymph nodes: Unremarkable. No enlarged lymph nodes. Urinary bladder: Unremarkable as visualized. Reproductive: Unremarkable as visualized. Bones/joints: There is moderate lumbar scoliosis. Degenerative changes are present in the spine and hips with joint space narrowing sclerosis and osteophyte formation. No fractures are seen. Soft tissues: Small fat containing umbilical hernia. CT/CT abdomen pelvis con [id number] IMPRESSION: 1. No acute abnormalities are seen in the abdomen and pelvis. 2. Diverticulosis. 3. Bibasilar pulmonary fibrosis. 4. Degenerative disease in the spine and hips. No fracture seen. Radiation Dose CTDIVOL = (mGy): DLP = 1337.04 (mGy-cm)
--- NOTE | 2020-07-21 11:35 | XRR_ITS ---
PROCEDURE INFORMATION: Exam: XR Chest, 1 View Exam date and time: 07/21/2020 12:05 PM Age: 74 years old Clinical indication: Injury or trauma; Fall; Blunt trauma (contusions or hematomas) TECHNIQUE: Imaging protocol: XR of the chest Views: 1 view. COMPARISON: CR XR chest 1V portable [id number] 06/11/2020 4:07 AM FINDINGS: Lungs: There is fibrosis in the lung bases. No acute pulmonary infiltrates are seen. Pleural space: Unremarkable. No pleural effusion. No pneumothorax. Heart/Mediastinum: Heart size may be normal for the AP projection. There is calcification of the aortic arch. Bones/joints: Unremarkable. XR/XR chest 1V portable [id number] IMPRESSION: No acute cardiopulmonary abnormalities.
--- NOTE | 2020-07-21 11:38 | W.ED.FALL ---
HPI - Fall General: Chief Complaint: Fall Stated Complaint: PELVIS/HIP AND LEG PAIN Time Seen by Provider: 07/21/20 11:24 Source: patient and EMS Mode of arrival: EMS Limitations: no limitations History of Present Illness: HPI Narrative: 74-year-old female patient with a history of COPD on 3 L of oxygen, A. fib on Eliquis, hypertension, presents to the emergency department with pain in her abdomen, hips, thighs following a fall 5 days ago. She is uncertain why she fell but she denies dizziness or lightheadedness prior to fall. She denied any chest pain before or after the fall. She does not think she tripped on anything. She is here to be evaluated because she is unable to take the pain any longer. complaint: fall Onset (ago): day(s) (5) Fall from: standing Fall witnessed: no Place fall occurred: home Loss of consciousness: None Prolonged down time: unclear Symptoms prior to fall: none Context: other (she is unsure but she says she was not dizzy or lightheaded, no chest pain) Quality: sharp Associated symptoms-after fall: Reports abdominal pain and difficulty walking (pain on walking); Denies chest pain, confusion, headache(s), hematuria, lightheadedness, neck pain, numbness, short of breath, vertigo or weakness Review of Systems General: Reports: 10 or more systems reviewed and unremarkable except in HPI and below Const: Denies: fever(s), chills or body aches Eyes: Denies: change in vision or blurry vision ENMT: Denies: throat pain, enlarged tonsils, odynophagia, hoarseness, mouth pain or swelling of lips/tongue Card: Denies: chest pain or lightheadedness Resp: Denies: dyspnea, productive cough or non-productive cough GI: Reports: abdominal pain : Denies: hematuria Musc: Denies: neck pain Skin/Breast: Denies: rash, pruritus or erythema Neuro: Reports: difficulty walking (pain on walking); Denies: headache(s), vertigo or confusion Endo: Denies: polyuria, polydipsia or tired all the time PFS ED PFSH: Medical History Anxiety Atrial fibrillation C. difficile colitis Cholelithiasis COPD (chronic obstructive pulmonary disease) 4 L oxygen baseline CVA (cerebral vascular accident) DJD (degenerative joint disease) HLD (hyperlipidemia) HTN (hypertension) Posterior inferior cerebellar artery embolism Pulmonary nodule Rheumatoid arthritis Small bowel obstruction Resolved. Thought to be secondary to adhesions. Surgical History History of hysterectomy Status post right knee replacement Social History Smoking and tobacco status: former smoker Alcohol intake: never Household members: none Housing: House Physical Exam Const: COMMON NORMALS: no acute distress, average body habitus, patient oriented x3, no limitations, healthy appearing, alert and well nourished HENMT: COMMON NORMALS: normocephalic, atraumatic and moist oral mucous membranes HEAD & SCALP: normocephalic and atraumatic Neck/C-Spine: COMMON NORMALS: full ROM, supple, no meningeal signs, no JVD and No carotid bruits Chest: COMMONS NORMALS: normal inspection of the chest and normal palpation of entire chest wall Resp: COMMON NORMALS: normal respiratory effort, No retractions, No use of accessory muscles, clear to auscultation bilaterally and percussion normal AUSCULTATION: clear to auscultation bilaterally PERCUSSION: percussion normal Cardio: COMMON NORMALS: no JVD, regular rate, regular rhythm, S1 normal heart sound present, S2 normal heart sound present, No gallops present (Cardio), No clicks present (Cardio), No murmurs present (Cardio), No rub (Cardio) and Peripheral pulses 2+ throughout RATE: regular rate RHYTHM: regular rhythm HEART SOUNDS: S1 normal heart sound present and S2 normal heart sound present PERIPHERAL PULSES: Peripheral pulses 2+ throughout GI: COMMON NORMALS: Normal to inspection, nondistended, normoactive bowel sounds present, Soft to palpation, non-tender, No hepatosplenomegaly present, no masses and no bruits PALPATION: Yes Soft to palpation and Yes No hepatosplenomegaly present : COMMON NORMALS: Yes no CVA tenderness BLADDER/KIDNEY EXAM: Yes no CVA tenderness Back/Pelvis: COMMON NORMALS: no CVA tenderness LUMBAR SPINE/LOWER BACK: Yes paraspinal muscle tenderness PELVIS: pain with lateral compression (pain with hip compression) OTHER: mild tenderness of the quadriceps muscles bilaterally Extremity: COMMON NORMALS: normal to inspection, full ROM, capillary refill normal, no calf tenderness and no pedal edema Neuro: COMMON NORMALS: patient oriented x3 SENSORIUM/ORIENTATION: Yes alert MENINGEAL SIGNS: Yes no meningeal signs Skin: COMMON NORMALS: no rashes or lesions noted, no wounds, turgor normal, no jaundice, no petechiae and no mottling GENERAL SKIN EXAM: no rashes or lesions noted and turgor normal Course Reevaluation(s): Reevaluation #1: Discussed her lab and imaging findings with her. No acute findings on imaging, she has a UTI. We will give her oral antibiotic on discharge but will give her an intravenous dose of an IV antibiotic today. She also is mildly dehydrated and will give her some IV fluids. She voiced understanding and is in agreement with the plan. Time: 14:22 Vital Signs: Vital signs: Vital Signs Temperature 98.8 F 07/21/20 11:32 Pulse Rate 91 07/21/20 16:41 Respiratory Rate 14 07/21/20 16:41 Blood Pressure 97/57 07/21/20 16:41 Pulse Oximetry 98 07/21/20 16:41 MDM - Fall MDM Narrative: Medical decision making narrative: 74-year-old female who presents to the emergency department after a fall several days ago. She had pelvic/hip pain and came here to be evaluated for these. Evaluation was negative for acute fractures or dislocation. She however has a urinary tract infection was given a dose of intravenous ceftriaxone in the emergency department and discharged home on oral Augmentin. She was also noted to be dehydrated. Lab Data: Labs: Lab Results 07/21/20 07/21/20 07/21/20 Range/Units 12:10 12:10 12:45 WBC 15.6 H (4.0-10.0) 10^3/ uL RBC 3.56 L (4.1-5.3) 10^6/u L Hgb 10.3 L (11.5-15.3) g/dL Hct 36.1 L (37.0-47.0) % MCV 101.4 H (81-99) fL MCH 28.9 (28.0-34.0) pg MCHC 28.5 L (30.0-36.0) g/dL RDW 15.4 H (12.1-15.1) % Plt Count 294 (130-400) 10^3/c mm MPV 11.5 H (7.4-10.4) fL Neut % (Auto) 84.2 % Lymph % (Auto) 6.1 % Nuckolls % (Auto) 7.7 % Eos % (Auto) 0.8 % Baso % (Auto) 0.3 % Neut # (Auto) 13.12 H (1.8-7.7) 10^3/u L Lymph # (Auto) 1.0 (0.8-4.8) 10^3/u L Nuckolls # (Auto) 1.2 H (0.2-0.9) 10^3/u L Eos # (Auto) 0.1 (0.0-0.8) 10^3/u L Baso # (Auto) 0.1 (0.0-0.1) 10^3/u L Nucleated RBC % (a uto) 0 % Nucleated RBCs # 0.0 /100WBC Sodium 129 L (136-145) mmol/L Potassium 4.9 (3.5-5.1) mmol/L Chloride 94 L (98-107) mmol/L Carbon Dioxide 24 (22-29) mmol/L Anion Gap 15.9 (5-19) BUN 16 (8-23) mg/dL Creatinine 0.7 (0.5-0.9) mg/dL GFR Calculation Not Reportable Glucose 114 (65-115) mg/dL Calculated Osmolal ity 270 L (285-295) mOsm/k g Calcium 9.6 (8.5-10.5) mg/dL Total Bilirubin 0.5 (0.15-1.2) mg/dL AST 30 (0-32) U/L ALT 39 H (0-33) U/L Alkaline Phosphata se 102 (35-105) IU/L Creatine Kinase 30 (26-192) U/L Total Protein 7.1 (6.6-8.7) g/dL Albumin 2.5 L (3.5-5.2) g/dL Globulin 4.6 (1.3-4.6) g/dL Urine Color Straw (Yellow) Urine Appearance Hazy A (CLEAR) Urine pH 6 (5-7) Ur Specific Gravit y 1.010 (1.005-1.030) Urine Protein Trace (Negative) Urine Glucose (UA) Norm (Normal) Urine Ketones Negative (Negative) Urine Blood 3+ H (Negative) Urine Nitrate Negative (Negative) Urine Bilirubin Neg (Negative) Urine Urobilinogen Norm (Negative) mg/dL Ur Leukocyte Linda ase 2+ H (Negative) Urine RBC 5-10 H (0-2) /hpf Urine WBC >100 H (0-5) /hpf Ur Squamous Epith Cells None (0-5) /hpf Amorphous Sediment Not Reportable Urine Bacteria 4+ H (NONE) /hpf Imaging Data^: CT Abd/Pel: Attestation: I personally reviewed and interpreted this imaging study as follows: Radiologist's impression: [employer] [address] [address] Scan Report Signed Patient: Callie Hobbs #: [id number] : 5Acct#:[id number] Age/Sex: 74 / FADM Date: 07/21/20 Loc: ERRoom/Bed: Attending Dr: Ordering Provider/Ordering MD: Leni Simpson MD, [facility] Date of Service: 07/21/20 Procedure(s): CT abdomen pelvis wo con [id number] Accession Number(s): [id number] Report Number: [id number] PROCEDURE INFORMATION: Exam: CT Abdomen And Pelvis Without Contrast Exam date and time: 07/21/2020 12:05 PM Age: 74 years old Clinical indication: Abdominal pain; Additional info: Fall, hip pain TECHNIQUE: Imaging protocol: Computed tomography of the abdomen and pelvis without contrast. Radiation optimization: All CT scans at this facility use at least one of these dose optimization techniques: automated exposure control; mA and/or kV adjustment per patient size (includes targeted exams where dose is matched to clinical indication); or iterative reconstruction. COMPARISON: CT abdomen pelvis w con* [id number] 06/11/2020 1:49 AM RADIATION DOSE METRICS: Total DLP (mGy-cm): 1337.04 FINDINGS: Lungs: There is bibasilar pulmonary fibrosis. A benign calcified granuloma is present in the right base. Mediastinal space: Small sliding hiatal hernia. Liver: Normal. No mass. Gallbladder and bile ducts: Cholelithiasis. Pancreas: Normal. No ductal dilation. Spleen: Normal. No splenomegaly. Adrenal glands: Normal. No mass. Kidneys and ureters: Normal. No hydronephrosis. Stomach and bowel: Diverticulosis. No evidence of acute diverticulitis. The small bowel is unremarkable. Appendix: No evidence of appendicitis. Intraperitoneal space: Unremarkable. No free air. No significant fluid collection. Vasculature: The aorta and iliac arteries are calcified but there is no aneurysm. Lymph nodes: Unremarkable. No enlarged lymph nodes. Urinary bladder: Unremarkable as visualized. Reproductive: Unremarkable as visualized. Bones/joints: There is moderate lumbar scoliosis. Degenerative changes are present in the spine and hips with joint space narrowing sclerosis and osteophyte formation. No fractures are seen. Soft tissues: Small fat containing umbilical hernia. CT/CT abdomen pelvis wo con [id number] IMPRESSION: 1. No acute abnormalities are seen in the abdomen and pelvis. 2. Diverticulosis. 3. Bibasilar pulmonary fibrosis. 4. Degenerative disease in the spine and hips. No fracture seen. Radiation Dose CTDIVOL = (mGy): DLP = 1337.04 (mGy-cm) Dictated By:Augustus Reynoso Signed By:Verito Reynoso Date/Time:07/21/201324 DD/ 24 CXR: Attestation: I personally reviewed and interpreted this imaging study as follows: Radiologist's impression: [address] [address] XRay Report Signed Patient: Callie Hobbs #: [id number] : 5Acct#:[id number] Age/Sex: 74 / FADM Date: 07/21/20 Loc: ERRoom/Bed: Attending Dr: Ordering Provider/Ordering MD: Leni Simpson MD, [facility] Date of Service: 07/21/20 Procedure(s): XR chest 1V portable [id number] Accession Number(s): [id number] Report Number: [id number] PROCEDURE INFORMATION: Exam: XR Chest, 1 View Exam date and time: 07/21/2020 12:05 PM Age: 74 years old Clinical indication: Injury or trauma; Fall; Blunt trauma (contusions or hematomas) TECHNIQUE: Imaging protocol: XR of the chest Views: 1 view. COMPARISON: CR XR chest 1V portable [id number] 06/11/2020 4:07 AM FINDINGS: Lungs: There is fibrosis in the lung bases. No acute pulmonary infiltrates are seen. Pleural space: Unremarkable. No pleural effusion. No pneumothorax. Heart/Mediastinum: Heart size may be normal for the AP projection. There is calcification of the aortic arch. Bones/joints: Unremarkable. XR/XR chest 1V portable [id number] IMPRESSION: No acute cardiopulmonary abnormalities. Dictated By:Augustus Reynoso Signed By:Verito Reynoso Date/Time:07/21/20 1326 DD/ [address]: Attestation: I personally reviewed and interpreted this imaging study as follows: Radiologist's impression: [employer] [address] [address] Scan Report Signed Patient: Callie Hobbs #: [id number] : 5Acct#:[id number] Age/Sex: 74 / FADM Date: 07/21/20 Loc: ERRoom/Bed: Attending Dr: Ordering Provider/Ordering MD: Leni Simpson MD, [facility] Date of Service: 07/21/20 Procedure(s): CT lumbar spine wo con* [id number] Accession Number(s): [id number] Report Number: [id number] PROCEDURE INFORMATION: Exam: CT Lumbar Spine Without Contrast Exam date and time: 07/21/2020 12:05 PM Age: 74 years old Clinical indication: Injury or trauma; Fall; Blunt trauma (contusions or hematomas); Additional info: Fall, low back pain TECHNIQUE: Imaging protocol: Computed tomography images of the lumbar spine without contrast. Radiation optimization: All CT scans at this facility use at least one of these dose optimization techniques: automated exposure control; mA and/or kV adjustment per patient size (includes targeted exams where dose is matched to clinical indication); or iterative reconstruction. COMPARISON: No relevant prior studies available. RADIATION DOSE METRICS: Total DLP (mGy-cm): 2147.4 FINDINGS: Vertebrae: No fracture or other acute bone or joint abnormalities are seen in the lumbar spine there is moderate scoliosis.. Discs/Spinal canal/Neural foramina: Chronic degenerative disc disease is present especially from L2 through S1 with disc space narrowing, vacuum phenomenon, disc protrusion and osteophytes. There is sclerosis narrowing and hypertrophy of the lower lumbar facet joints. There is [id number] spinal stenosis from L2 through S1 due disc protrusions and osteophytes. At the L5-S1 there is a 1 cm disc herniation to the left side which contains gas from vacuum phenomenon.. Soft tissues: Unremarkable. CT/CT lumbar spine wo con* [id number] IMPRESSION: 1. No fracture or other acute abnormality. 2. Prominent chronic degenerative disease from L2 through S1. Radiation Dose CTDIVOL = (mGy): DLP = 2147.4 (mGy-cm) Dictated By:Augustus Reynoso Signed By:Augustus ReynosoSijony Date/Time:07/21/20 1331 DD/ 1329 EKG Data^: EKG 1: Attestation: I personally reviewed and interpreted this EKG as follows: EKG interpretation date: 07/21/20 EKG interpretation time: 12:26 Prior EKG tracings: not available for review Interpretation: Sinus rhythm with sinus arrhythmia. Heart rate 96 bpm. Normal axis. No ST changes. Discharge Plan Discharge Patient Disposition: Home Clinical Impression: Acute dehydration UTI (urinary tract infection) Qualifiers: Urinary tract infection type: acute cystitis Hematuria presence: without hematuria Qualified Code(s): N30.00 - Acute cystitis without hematuria Fall Qualifiers: Encounter type: initial encounter Qualified Code(s): W19.XXXA - Unspecified fall, initial encounter Condition: Stable Prescriptions: New Augmentin 500-125 mg tablet 1 tab PO BID Qty: 10 RF: 0 Continued alprazolam 0.5 mg Tablet 0.5 mg PO QID PRN (Reason: Anxiety) RF: 0 trazodone 100 mg Tablet 100 mg PO BEDTIME@20 RF: 0 venlafaxine 150 mg Tablet Extended Release 24hr 150 mg PO DAILY@08 RF: 0 clopidogrel [Plavix] 75 mg Tablet 75 mg PO DAILY@20 RF: 0 omeprazole 20 mg Capsule,Delayed Release(Dr/Ec) 20 mg PO DAILY@20 RF: 0 potassium chloride 10 mEq capsule, extended release 10 meq PO DAILY@08 RF: 0 furosemide 20 mg tablet 20 mg PO DAILY@08 RF: 0 prednisone 10 mg tablet 10 mg PO DAILY@08 RF: 0 acetaminophen [Tylenol Extra Strength] 500 mg Tablet 1,000 mg PO DAILY@1999 RF: 0 cholecalciferol (vitamin D3) [Vitamin D3] 25 mcg (1,000 unit) Capsule 25 mcg PO DAILY@0800 RF: 0 hydralazine 10 mg tablet 10 mg PO TID@08,,20 RF: 0 atorvastatin 20 mg tablet 40 mg PO DAILY@20 RF: 0 amlodipine 5 mg tablet 10 mg PO DAILY@08 RF: 0 Eliquis 5 mg tablet 5 mg PO BID@08,20 RF: 0 alprazolam 0.5 mg Tablet 0.5 mg PO QID RF: 0 polyethylene glycol 3350 [Miralax] 17 gram powder in packet 17 g PO BID Qty: 60 RF: 0 hydroxychloroquine 200 mg tablet 200 mg PO BID@0800,1999 RF: 0 Discharge Orders: Discharge ED (Routine); Ordered 07/21/20 Ordered By: Leni Simpson Referrals: Giuliana Allred MD [Primary Care Provider] - 1-3 days Discharge Diet: Usual diet Discharge Activity: Increase activity as tolerated Patient Instructions: Dehydration (ED), Urinary Tract Infection in Women (ED), Fall Prevention (ED) Activity Restrictions/Additional Instructions: Return for any new or worsening symptoms. Take the antibiotic as prescribed. Drink plenty of fluids to keep well-hydrated. Follow up with your primary care provider within 3 days. Coding Level of Care Code ED Records Analysis Manager for Nedra Fwd Exam Comprehensive
--- NOTE | 2020-07-21 11:41 | ECG_ITS ---
[facility] Test Date: 2020-07-21 Pat Name: Callie Hobbs Department: Room: Gender: Female [employer]: : 1945 Requested By: Leni Simpson I Order Number: [id number] Del MD: Ezra Russell M.D. Measurements Intervals [place] Rate: 96 P: -2 MS: 137 QRS: 19 QRSD: 105 T: 64 QT: 323 QTc: 409 Interpretive Statements SINUS RHYTHM WITH SINUS ARRHYTHMIA Compared to ECG 06/11/2020 07:50:37 No significant changes Electronically Signed On 07-22-2020 9:17:15 SILK FOLDER by Ezra Russell M.D. [id number]
[2020-07-21] MEDS: morphine 4 mg/mL SDV 1 mL IVP ×2 (12:02→13:58)
[2020-07-21] MEDS: ondansetron 2 mg/ML SDV 2 mL 4 MG IVP (12:02)
[2020-07-21 12:39] LABS: Basophils # 0.1 10^3/uL (0.0-0.1); Basophils % 0.3 %; Eosinophils # 0.1 10^3/uL (0.0-0.8); Eosinophils % 0.8 %; Hematocrit 36.1 % (37.0-47.0); Hemoglobin 10.3 g/dL (11.5-15.3); Lymphocytes % 6.1 %; Mean Corpuscular HGB Conc 28.5 g/dL (30.0-36.0); Mean Corpuscular Hemoglobin 28.9 pg (28.0-34.0); Mean Corpuscular Volume 101.4 fL (81-99); Mean Platelet Volume 11.5 fL (7.4-10.4); Monocytes # 1.2 10^3/uL (0.2-0.9); Monocytes % 7.7 %; Neutrophils # 13.12 10^3/uL (1.8-7.7); Neutrophils % 84.2 %; Nucleated Red Blood Cells % 0 %; Platelet Count 294 10^3/cmm (130-400); Red Blood Count 3.56 10^6/uL (4.1-5.3); Red Cell Distribution Width 15.4 % (12.1-15.1); White Blood Count 15.6 10^3/uL (4.0-10.0)
[2020-07-21 12:46] VITALS: BP 151/96; PULSE 105; RESP 16; O2SAT 91
[2020-07-21 13:04] LABS: Alanine Aminotransferase 39 U/L (0-33); Albumin Level 2.5 g/dL (3.5-5.2); Alkaline Phosphatase 102 IU/L (35-105); Chloride 94 mmol/L (98-107); Creatine Phosphokinase 30 U/L (26-192); Potassium 4.9 mmol/L (3.5-5.1); Sodium 129 mmol/L (136-145)
[2020-07-21 13:18] LABS: Anion Gap 15.9 (5-19); Blood Urea Nitrogen 16 mg/dL (8-23); Calcium 9.6 mg/dL (8.5-10.5); Carbon Dioxide 24 mmol/L (22-29); Globulin 4.6 g/dL (1.3-4.6); Glucose 114 mg/dL (65-115); Osmolality Calculated 270 mOsm/kg (285-295); Total Bilirubin 0.5 mg/dL (0.15-1.2); Total Protein 7.1 g/dL (6.6-8.7)
[2020-07-21 13:28] VITALS: BP 136/58; PULSE 101; RESP 16; O2SAT 92
[2020-07-21 13:31] LABS: Aspartate Amino Transferase 30 U/L (0-32)
[2020-07-21 14:12] LABS: Urine Appearance Hazy (CLEAR); Urine Color Straw (Yellow)
[2020-07-21 14:13] LABS: Add Urine Microscopic? YES; Bacteria Urine 4+ /hpf; Bilirubin Urine Neg (Negative); Blood Urine 3+ (Negative); Glucose Urine UA Norm (Normal); Ketones Urine Negative (Negative); Leukocyte Esterase Urine 2+ (Negative); Nitrate Urine Negative (Negative); Protein Urine Trace (Negative); Urobilinogen Urine Norm (Negative); WBC Urine >100 /hpf (0-5); pH Urine 6 (5-7)
[2020-07-21 14:14] LABS: Add Urine Culture? Yes
[2020-07-21] MEDS: cefTRIAXone 1,000 MG in sodium chloride 0.9% (plus) 50 ML 100 MG IV (14:32)
[2020-07-21] MEDS: sodium chloride 0.9% 1,000 ML 999 ML IV (14:32)
[2020-07-21 14:44] VITALS: BP 127/67; PULSE 100; RESP 14; O2SAT 94
[2020-07-21 16:41] VITALS: BP 97/57; PULSE 91; RESP 14; O2SAT 98
== END 2020-07-21 16:42 | disposition home or self-care (01) ==
PROVIDERS: Emergency Provider Family Medicine; PCP Family Medicine
DX: N30.00 Acute cystitis without hematuria (principal); E86.0 Dehydration; Z79.02 Long term (current) use of antithrombotics/antiplatelets; Z79.01 Long term (current) use of anticoagulants; I48.91 Unspecified atrial fibrillation; J44.9 Chronic obstructive pulmonary disease, unspecified; Z99.81 Dependence on supplemental oxygen; Z86.73 Personal history of transient ischemic attack (TIA), and cerebral infarction without residual deficits; E78.5 Hyperlipidemia, unspecified; I10 Essential (primary) hypertension; Z87.891 Personal history of nicotine dependence
CPT/HCPCS: 12345; 71045; 72131; 74176; 80053; 81001; 82550; 85025; 87077; 87086; 87186; 93005; 96365; 96375; 96376; 99282; 99284; J0696; J2270; J2405; J7030

== ENCOUNTER 2020-08-02 14:04 | Outpatient (CLI) | payer MEDICARE, OTHER, SELFPAY ==
[2020-08-02 14:36] LABS: Add Urine Microscopic? YES; Bilirubin Urine Neg (Negative); Blood Urine 2+ (Negative); Glucose Urine UA Norm (Normal); Ketones Urine Negative (Negative); Leukocyte Esterase Urine 2+ (Negative); Nitrate Urine Negative (Negative); Protein Urine Neg (Negative); Urine Appearance Clear (CLEAR); Urine Color Yellow (Yellow); Urobilinogen Urine Norm (Negative); pH Urine 7 (5-7)
[2020-08-02 14:37] LABS: Add Urine Culture? No; Bacteria Urine 1+ /hpf; RBC Urine 0-4 /hpf (0-2); Squamous Epithelial Cell Urine 0-4 /hpf (0-5); WBC Urine >100 /hpf (0-5)
== END 2020-08-02 14:05 | disposition home or self-care (01) ==
LOC: LAB 14:11
PROVIDERS: PCP Family Medicine; Visit Provider Family Medicine
DX: N39.0 Urinary tract infection, site not specified (principal)
CPT/HCPCS: 81001; 87077; 87086; 87186

== ENCOUNTER 2020-08-16 12:53 | Outpatient (CLI) | payer MEDICARE, OTHER, SELFPAY ==
[2020-08-16 13:20] LABS: Add Urine Microscopic? YES; Bacteria Urine 2+ /hpf; Bilirubin Urine Neg (Negative); Blood Urine Trace (Negative); Glucose Urine UA Norm (Normal); Ketones Urine Negative (Negative); Leukocyte Esterase Urine 2+ (Negative); Nitrate Urine Negative (Negative); Protein Urine Neg (Negative); Specific Gravity, Urine 1.005 (1.005-1.030); Squamous Epithelial Cell Urine 0-4 /hpf (0-5); Urine Appearance Cloudy (CLEAR); Urine Color Yellow (Yellow); Urobilinogen Urine Norm (Negative); WBC Urine 25-40 /hpf (0-5); pH Urine 7 (5-7)
[2020-08-16 13:21] LABS: Add Urine Culture? No
== END 2020-08-16 12:54 | disposition home or self-care (01) ==
LOC: LAB 12:56
PROVIDERS: PCP Family Medicine; Visit Provider Family Medicine
DX: N39.0 Urinary tract infection, site not specified (principal)
CPT/HCPCS: 81001; 87077; 87086; 87186

== ENCOUNTER 2020-09-26 11:15 | Outpatient (CLI) | payer MEDICARE, OTHER, SELFPAY ==
--- NOTE | 2020-09-26 14:05 | PFTS_ITS ---
Date of Study:09/26/20 Date of Dictation: MECHANICS: Forced vital capacity (FVC) is reduced. Forced expiratory volume in one second (FEV1) is reduced. FEV1/FVC is reduced. FLOW VOLUME LOOP: Reduced flow at all lung volumes with significant scooping. LUNG VOLUMES: Not measured DIFFUSING CAPACITY FOR CARBON MONOXIDE: Moderately reduced. INTERPRETATION: The pulmonary function tests are consistent with moderate obstruction. There is no significant postbronchodilator response. A component of restrictive lung disease cannot rule out in the absence of lung volume measurements. Gas exchange (DLCO) is moderately reduced. MTDD
--- NOTE | 2020-09-26 14:15 | USCV_ITS ---
Callie Hobbs Age: 74 Gender: F : 1945 Exam Date: 09/26/2020 12:12 Ordering Phys: Uriel Degroot MD Technologist: Sammy Lewis Exam Location: [facility] [place] Indication: SOB BP: 134 / 70 HR: 94 Rhythm: Sinus Technical Quality: Good MEASUREMENTS (Male / Female) Normal Values 2D ECHO LV Diastolic Diameter PLAX 3.5 cm 4.2 - 5.9 / 3.9 - 5.3 cm LV Systolic Diameter PLAX 2.0 cm IVS Diastolic Thickness 0.9 cm 0.6 - 1.0 / 0.6 - 0.9 cm IVS Systolic Thickness 1.4 cm LVPW Diastolic Thickness 1.2 cm 0.6 - 1.0 / 0.6 - 0.9 cm LVPW Systolic Thickness 1.4 cm LVOT Diameter 2.1 cm LV Ejection Fraction 2D Teich 69.7 % LV Ejection Fraction MOD 2C 66.2 % LV Ejection Fraction 2C AL 66.1 % LA Diameter 4.4 cm LA Width 3.4 cm LA Height 4.5 cm RA Width 4.1 cm RA Height 5.1 cm M-MODE LV Diastolic Diameter MM 5.6 cm 4.2 - 5.9 / 3.9 - 5.3 cm LV Systolic Diameter MM 3.2 cm LV Ejection Fraction MM Teich 74.1 % IVS Diastolic Thickness MM 1.3 cm 0.6 - 1.0 / 0.6 - 0.9 cm IVS Systolic Thickness MM 1.6 cm LVPW Diastolic Thickness MM 1.2 cm 0.6 - 1.0 / 0.6 - 0.9 cm LVPW Systolic Thickness MM 1.8 cm RV Diastolic Diameter MM 1.4 cm Aortic Annulus Diameter 3.8 cm LA Ao Ratio MM 1.1 MV E Point Septal Separation 0.6 cm DOPPLER AV Peak Velocity 170.0 cm/s LVOT Peak Velocity 99.0 cm/s AV Area Cont Eq vti 2.3 cm squared AV Area Cont Eq pk 2.0 cm squared MV Area PHT 4.9 cm squared Mitral E to A Ratio 0.6 MV E' Velocity 38.0 cm/s Mitral E to MV E' Ratio 8.7 Mitral E to LV E' Lateral Ratio 7.0 Mitral E to LV E' Septal Ratio 11.9 TR Peak Velocity 185.0 cm/s TR Peak Gradient 13.7 mmHg TV Peak E Velocity 59.0 cm/s Right Atrial Pressure 3.0 mmHg Pulmonary Artery Systolic Pressu 16.7 mmHg PV Peak Velocity 99.0 cm/s RV Acceleration Time 0.1 s FINDINGS Left Ventricle Normal left ventricular size and systolic function, EF 68 %. Mild left ventricular hypertrophy. No regional wall motion abnormalities. Grade I/IV diastolic dysfunction (abnormal relaxation filling pattern), normal to mildly elevated filling pressures. Right Ventricle The right ventricle is normal in size and function. Right Atrium The right atrium is normal in size. Left Atrium The left atrium is normal in size. Mitral Valve Thickened mitral valve. Trace mitral valve regurgitation. Aortic Valve Thickened aortic valve. Tricuspid Valve Structurally normal tricuspid valve. Pulmonic Valve No pulmonic regurgitation. Pericardium Normal pericardium without effusion. Aorta Normal ascending aorta dimension. CONCLUSIONS Normal left ventricular size and systolic function, EF 68 %. Mild left ventricular hypertrophy. No regional wall motion abnormalities. Grade I/IV diastolic dysfunction (abnormal relaxation filling pattern), normal to mildly elevated filling pressures. Thickened mitral valve. Trace mitral valve regurgitation. Thickened aortic valve. There is no pericardial effusion. There are no intracardiac masses. Estimated pulmonary artery peak systolic pressure was 17 mmHg. This could be an underestimation because of the poor Doppler signals. Compared to the previous study from 09/22/2019, there may not be a significant change Dr Ezra Russell MD [facility] (Electronically Signed) Final Date: 27 September 2020 19:51 S
== END 2020-09-26 11:16 | disposition home or self-care (01) ==
LOC: RT 11:17
PROVIDERS: PCP Family Medicine; Visit Provider Internal Medicine Pulmonary Disease
DX: J44.9 Chronic obstructive pulmonary disease, unspecified (principal); R06.02 Shortness of breath; I31.3 Pericardial effusion (noninflammatory); I08.0 Rheumatic disorders of both mitral and aortic valves
CPT/HCPCS: 93306; 94060; 94618; 94729; J7611

== ENCOUNTER → 2021-02-06 09:49 | Outpatient (BNVA) | payer MEDICARE, OTHER, SELFPAY | PROVIDERS: PCP Family Medicine; Visit Provider Internal Medicine | DX: M05.741 Rheumatoid arthritis with rheumatoid factor of right hand without organ or systems involvement (principal); M05.742 Rheumatoid arthritis with rheumatoid factor of left hand without organ or systems involvement; R79.82 Elevated C-reactive protein (CRP); R76.8 Other specified abnormal immunological findings in serum; J43.2 Centrilobular emphysema; Z79.899 Other long term (current) drug therapy; Z99.81 Dependence on supplemental oxygen; Z87.891 Personal history of nicotine dependence | CPT/HCPCS: 99213; 99214 ==

== ENCOUNTER → 2021-03-26 10:44 | Outpatient (BNVA) | payer MEDICARE, OTHER, SELFPAY | PROVIDERS: PCP Family Medicine; Visit Provider Internal Medicine | DX: M05.741 Rheumatoid arthritis with rheumatoid factor of right hand without organ or systems involvement (principal) | CPT/HCPCS: 36415; 80053; 85025; 85651; 86140 ==

== ENCOUNTER 2021-07-18 09:29 | Outpatient (CLI) | payer MEDICARE, OTHER, SELFPAY ==
[2021-07-18 10:01] LABS: Basophils % 0.5 %; Eosinophils # 0.5 10^3/uL (0.0-0.8); Eosinophils % 6.1 %; Hematocrit 36.3 % (37.0-47.0); Hemoglobin 11.7 g/dL (11.5-15.3); Lymphocytes # 1.8 10^3/uL (0.8-4.8); Mean Corpuscular HGB Conc 32.2 g/dL (30.0-36.0); Mean Corpuscular Hemoglobin 32.5 pg (28.0-34.0); Mean Corpuscular Volume 100.8 fl (81-99); Mean Platelet Volume 9.8 fL (7.4-10.4); Monocytes # 0.7 10^3/uL (0.2-0.9); Monocytes % 9.3 %; Neutrophils # 4.66 10^3/uL (1.8-7.7); Nucleated Red Blood Cells % 0 %; Platelet Count 294 10^3/cmm (130-400); Red Cell Distribution Width 13.2 % (12.1-15.1); White Blood Count 7.7 10^3/uL (4.0-10.0)
[2021-07-18 10:19] LABS: Alanine Aminotransferase 166 U/L (0-33); Albumin Level 3.8 g/dL (3.5-5.2); Alkaline Phosphatase 142 IU/L (35-105); Aspartate Amino Transferase 100 U/L (0-32); Blood Urea Nitrogen 11 mg/dL (8-23); C Reactive Protein 4.2 mg/L (0.0-4.9); Calcium 8.9 mg/dL (8.5-10.5); Carbon Dioxide 24 mmol/L (22-29); Chloride 100 mmol/L (98-107); Globulin 2.9 g/dL (1.3-4.6); Glucose 72 mg/dL (65-115); Osmolality Calculated 284 mOsm/kg (285-295); Sodium 138 mmol/L (136-145); Total Bilirubin 0.2 mg/dL (0.15-1.2); Total Protein 6.7 g/dL (6.6-8.7)
[2021-07-18 10:41] LABS: Erythrocyte Sedimentation Rate 14 mm/hr (0-15)
== END 2021-07-18 09:30 | disposition home or self-care (01) ==
PROVIDERS: PCP Family Medicine; Visit Provider Internal Medicine
DX: M05.741 Rheumatoid arthritis with rheumatoid factor of right hand without organ or systems involvement (principal); M05.742 Rheumatoid arthritis with rheumatoid factor of left hand without organ or systems involvement; R76.8 Other specified abnormal immunological findings in serum
CPT/HCPCS: 36415; 80053; 85025; 85651; 86140

== ENCOUNTER → 2021-07-22 10:12 | Outpatient (BNVA) | payer MEDICARE, OTHER, SELFPAY | PROVIDERS: PCP Family Medicine; Visit Provider Internal Medicine | DX: M05.741 Rheumatoid arthritis with rheumatoid factor of right hand without organ or systems involvement (principal); M05.742 Rheumatoid arthritis with rheumatoid factor of left hand without organ or systems involvement; R76.8 Other specified abnormal immunological findings in serum; R74.01 Elevation of levels of liver transaminase levels; Z87.891 Personal history of nicotine dependence | CPT/HCPCS: 99214 ==

== ENCOUNTER 2021-08-16 11:01 | Outpatient (CLI) | payer MEDICARE, OTHER, SELFPAY ==
[2021-08-16 12:16] LABS: Alanine Aminotransferase 75 U/L (0-33); Alkaline Phosphatase 139 IU/L (35-105); Aspartate Amino Transferase 80 U/L (0-32); Chol HDL Ratio 2.74 mg/dL (0.0-4.40); Cholesterol 170 mg/dL (0-200); Creatine Phosphokinase 45 U/L (26-192); Globulin 3.1 g/dL (1.3-4.6); HDL Cholesterol 62 mg/dL (60-100); LDL Cholesterol Calculated 80 mg/dL (50-129); LDL HDL Ratio 1.29 RATIO (0.00-3.22); Total Bilirubin 0.2 mg/dL (0.15-1.2); Total Protein 7.1 g/dL (6.6-8.7); Triglycerides 139 mg/dL (0-150)
[2021-08-19 12:47] LABS: COMPLEMENT COMPONENT C3C 132 mg/dL (83-193); COMPLEMENT COMPONENT C4C 33 mg/dL (15-57)
[2021-08-19 12:57] LABS: COMPLEMENT, TOTAL (CH50) >60 U/mL (31-60)
[2021-08-20 13:47] LABS: CENTROMERE B ANTIBODY <1.0 NEG AI (<1.0 NEG); JO-1 ANTIBODY <1.0 NEG AI (<1.0 NEG); RNP ANTIBODY <1.0 NEG AI (<1.0 NEG); SCL-70 ANTIBODY <1.0 NEG AI (<1.0 NEG); SJOGREN'S ANTIBODY (SS-A) <1.0 NEG AI (<1.0 NEG); SM ANTIBODY <1.0 NEG AI (<1.0 NEG); SS-B <1.0 NEG AI (<1.0 NEG)
[2021-08-20 14:17] LABS: THYROID PEROXIDASE ANTIBODIES <1 IU/mL (<9)
[2021-08-20 14:32] LABS: ANA SCREEN, IFA NEGATIVE (NEGATIVE)
[2021-08-23 15:57] LABS: DNA AB (DS) CRITHIDIA,IFA NEGATIVE (NEGATIVE)
== END 2021-08-16 11:02 | disposition home or self-care (01) ==
LOC: LAB 11:17
PROVIDERS: PCP Family Medicine; Visit Provider Internal Medicine
DX: R76.8 Other specified abnormal immunological findings in serum (principal); M05.741 Rheumatoid arthritis with rheumatoid factor of right hand without organ or systems involvement; M05.742 Rheumatoid arthritis with rheumatoid factor of left hand without organ or systems involvement; R79.82 Elevated C-reactive protein (CRP); I63.9 Cerebral infarction, unspecified
CPT/HCPCS: 36415; 80061; 80076; 82550; 86160; 86162; 86235; 86255; 86376

== ENCOUNTER → 2021-09-03 11:12 | Outpatient (BNVA) | payer MEDICARE, OTHER, SELFPAY | PROVIDERS: PCP Family Medicine; Referring Provider Internal Medicine; Visit Provider Specialist | DX: R20.0 Anesthesia of skin (principal); R20.2 Paresthesia of skin; M79.643 Pain in unspecified hand; Z86.73 Personal history of transient ischemic attack (TIA), and cerebral infarction without residual deficits | CPT/HCPCS: 99204 ==

== ENCOUNTER → 2021-09-17 15:49 | Outpatient (BNVA) | payer MEDICARE, OTHER, SELFPAY | PROVIDERS: PCP Family Medicine; Visit Provider Specialist | DX: G56.03 Carpal tunnel syndrome, bilateral upper limbs (principal) | CPT/HCPCS: 95910 ==

== ENCOUNTER 2021-10-25 11:27 | Outpatient (CLI) | payer MEDICARE, OTHER, SELFPAY ==
[2021-10-28 16:44] LABS: Anti-Nuclear Antibody Screen NEGATIVE (NEGATIVE)
== END 2021-10-25 11:28 | disposition home or self-care (01) ==
PROVIDERS: PCP Family Medicine; Visit Provider Internal Medicine
DX: M05.741 Rheumatoid arthritis with rheumatoid factor of right hand without organ or systems involvement (principal); M05.742 Rheumatoid arthritis with rheumatoid factor of left hand without organ or systems involvement; R76.8 Other specified abnormal immunological findings in serum
CPT/HCPCS: 86038

== ENCOUNTER → 2021-11-01 10:17 | Outpatient (BNVA) | payer MEDICARE, OTHER, SELFPAY | PROVIDERS: PCP Family Medicine; Visit Provider Internal Medicine | DX: M05.741 Rheumatoid arthritis with rheumatoid factor of right hand without organ or systems involvement (principal); M05.742 Rheumatoid arthritis with rheumatoid factor of left hand without organ or systems involvement; M25.519 Pain in unspecified shoulder; R74.01 Elevation of levels of liver transaminase levels; J44.9 Chronic obstructive pulmonary disease, unspecified; Z79.899 Other long term (current) drug therapy; Z87.891 Personal history of nicotine dependence | CPT/HCPCS: 73030; 99214 ==

== ENCOUNTER → 2021-11-04 09:57 | Outpatient (BNVA) | payer MEDICARE, OTHER, SELFPAY | PROVIDERS: PCP Family Medicine; Referring Provider Specialist; Visit Provider Specialist | DX: Z87.891 Personal history of nicotine dependence (principal); G56.03 Carpal tunnel syndrome, bilateral upper limbs; Z46.89 Encounter for fitting and adjustment of other specified devices | CPT/HCPCS: 73110; 97760; 99204; L3908 ==

== ENCOUNTER 2021-11-04 11:04 | Outpatient (CLI) | payer MEDICARE, OTHER, SELFPAY ==
[2021-11-04 11:41] LABS: Basophils % 0.4 %; Eosinophils # 0.2 10^3/uL (0.0-0.8); Hematocrit 36.9 % (37.0-47.0); Hemoglobin 11.7 g/dL (11.5-15.3); Lymphocytes % 12.1 %; Mean Corpuscular HGB Conc 31.7 g/dL (30.0-36.0); Mean Corpuscular Hemoglobin 32.1 pg (28.0-34.0); Mean Corpuscular Volume 101.1 fl (81-99); Mean Platelet Volume 10.1 fL (7.4-10.4); Monocytes # 0.6 10^3/uL (0.2-0.9); Neutrophils # 6.41 10^3/uL (1.8-7.7); Neutrophils % 78.3 %; Nucleated Red Blood Cells % 0 %; Platelet Count 261 10^3/cmm (130-400); Red Blood Count 3.65 10^6/uL (4.1-5.3); Red Cell Distribution Width 12.5 % (12.1-15.1); White Blood Count 8.2 10^3/uL (4.0-10.0)
[2021-11-04 12:08] LABS: Alanine Aminotransferase 38 U/L (0-33); Alkaline Phosphatase 123 IU/L (35-105); Anion Gap 11.3 (5-19); Aspartate Amino Transferase 49 U/L (0-32); Blood Urea Nitrogen 15 mg/dL (8-23); Calcium 9.9 mg/dL (8.5-10.5); Carbon Dioxide 29 mmol/L (22-29); Chloride 101 mmol/L (98-107); Chol HDL Ratio 2.88 mg/dL (0.0-4.40); Cholesterol 196 mg/dL (0-200); Creatine Phosphokinase 55 U/L (26-192); Ferritin 219 ng/mL (15-150); Globulin 3.2 g/dL (1.3-4.6); Glucose 106 mg/dL (65-115); HDL Cholesterol 68 mg/dL (60-100); Iron 43 ug/dL (37-145); LDL Cholesterol Calculated 106 mg/dL (50-129); LDL HDL Ratio 1.56 RATIO (0.00-3.22); Osmolality Calculated 285 mOsm/kg (285-295); Potassium 4.3 mmol/L (3.5-5.1); Sodium 137 mmol/L (136-145); Total Bilirubin 0.2 mg/dL (0.15-1.2); Total Protein 7.2 g/dL (6.6-8.7); Triglycerides 108 mg/dL (0-150)
== END 2021-11-04 11:05 | disposition home or self-care (01) ==
LOC: LAB 11:13
PROVIDERS: PCP Family Medicine; Visit Provider Internal Medicine
DX: J44.9 Chronic obstructive pulmonary disease, unspecified (principal); M06.9 Rheumatoid arthritis, unspecified; N17.9 Acute kidney failure, unspecified; R76.8 Other specified abnormal immunological findings in serum; R74.01 Elevation of levels of liver transaminase levels; I63.9 Cerebral infarction, unspecified
CPT/HCPCS: 80053; 80061; 82550; 82728; 83540; 85025

== ENCOUNTER 2021-11-04 13:40 | Outpatient (CLI) | payer MEDICARE, OTHER, SELFPAY | END 2021-11-04 13:41 | disposition home or self-care (01) | LOC: SPT 13:41 | PROVIDERS: PCP Family Medicine; Visit Provider Specialist | DX: Z46.89 Encounter for fitting and adjustment of other specified devices (principal); G56.03 Carpal tunnel syndrome, bilateral upper limbs | CPT/HCPCS: 97760; L3908 ==

== ENCOUNTER → 2021-11-21 14:13 | Outpatient (BNVA) | payer MEDICARE, OTHER, SELFPAY | PROVIDERS: PCP Family Medicine; Visit Provider Internal Medicine Pulmonary Disease | DX: J43.2 Centrilobular emphysema (principal); M05.741 Rheumatoid arthritis with rheumatoid factor of right hand without organ or systems involvement; M05.742 Rheumatoid arthritis with rheumatoid factor of left hand without organ or systems involvement; R06.02 Shortness of breath; R59.0 Localized enlarged lymph nodes; R91.1 Solitary pulmonary nodule; Z87.891 Personal history of nicotine dependence; I10 Essential (primary) hypertension; E78.5 Hyperlipidemia, unspecified | CPT/HCPCS: 99214 ==

== ENCOUNTER 2021-11-29 06:51 | Day surgery (SDC) | payer MEDICARE, OTHER, SELFPAY ==
[2021-11-22 09:39] VITALS: BMI 25.6
--- NOTE | 2021-11-29 07:03 | P.HPUD_ITS ---
Surgery/Procedure H&P Update DATE OF PROCEDURE: November 29, 2021 DATE H&P PERFORMED: 11/04/21 H&P UPDATE INFORMATION: I have reviewed H&P completed within last 30 days, I have examined patient prior to procedure, No changes to prior documentation and H&P is in [facility] EMR on date indicated PREOP DIAGNOSIS: Right carpal tunnel syndrome PLANNED PROCEDURE: Operation Date: 11/29/21 08:25 Proposed Procedures p Carpal Tunnel Release 03294/g56.00(Right) - Nalini Jennings MD Related Problem List Diagnoses (1) Carpal tunnel syndrome on right:
--- NOTE | 2021-11-29 07:09 | ANES.PREANE2 ---
Pre-Anesthetic Assessment Height/Weight: Height 1.57 m Weight 63.503 kg Preop Diagnosis: Right carpal tunnel syndrome Operation Date: 11/29/21 08:25 Proposed Procedures p Carpal Tunnel Release [id number]/g56.00(Right) - Nalini Jennings MD Familial anesthetic complications: None Was Beta Beth taken within 24 hours: N/A Was Clonidine taken within 24 hours: N/A Social No alcohol and No tobacco Exam alert, oriented x 3 and regular rate & rhythm b/l diminished breath sounds Airway Submandibular: within normal limits Cervical ROM: Other (Limited ) Mallampati: Class II Dentition: partials Comments: Comments: Upper false, lower dentition very poor Pulmonary Chronic Obstructive Pulmonary Disease Chronic respiratory failure on 3 LPM NC O2 Hilar adenopathy PFTs 2020 INTERPRETATION: The pulmonary function tests are consistent with moderate obstruction.? There is no significant postbronchodilator response. A component of restrictive lung disease cannot rule out in the absence of lung volume measurements. Gas exchange (DLCO) is moderately reduced. CV/HEM Atrial Fibrillation and Hypertension Pericardial effusion hx TTE 2020 CONCLUSIONS ?Normal left ventricular size and systolic function, EF 68 %. ? Mild left ventricular hypertrophy. ?No regional wall motion abnormalities. ?Grade I/IV diastolic dysfunction (abnormal relaxation filling ?pattern), normal to mildly elevated filling pressures. ?Thickened mitral valve. Trace mitral valve regurgitation. ?Thickened aortic valve. ?There is no pericardial effusion. ?There are no intracardiac masses. ?Estimated pulmonary artery peak systolic pressure was 17 mmHg.? ?This could be an underestimation because of the poor Doppler ?signals. ?Compared to the previous study from 09/22/2019, there may not be ?a significant change Hx of [place] Hepatic Elelevated AST, ALT, Alk phos GI Hx of C. 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 ) and Neuropathy (carpal tunnel b/l) Anesthetic Plan ASA status: 4 (75 year old female with chronic respiratory failure on continuous home O2, afib, anxiety, COPD, CVA, HTN, RA) Anesthesia: Anesthesia Evaluation, General, MAC and Regional (specify below) ([place] block ) Other: We discussed risk and benefits of general, MAC, and regional ([place] block) anesthesia including PONV, sore throat (sometimes severe), corneal abrasion, positioning and peripheral nerve injuries, life threatening allergic reaction, LAST, post operative ICU admission requiring prolonged intubation, stroke, heart attack, , failed block, tourniquet pain/discomfort, possibility of recall of intraoperative stimuli including discomfort/pain/pressure. Patient consents to proceed with MAC and [place] block anesthesia with conversion to general if needed. Risk of > 500 ml blood loss (7ml/kg in children): No Medications/Allergies Home Medications Medication Instructions Recorded Confirmed Last Taken Type clopidogrel 75 mg tablet (Plavix) 75 mg PO DAILY@09/22/19 11/29/21 11/24/21 History omeprazole 20 mg capsule,delayed 20 mg PO DAILY@09/22/19 11/29/21 11/28/21 08:00 History release trazodone 100 mg tablet 100 mg PO BEDTIME@09/22/19 11/29/21 11/28/21 19:45 History venlafaxine 150 mg tablet,extended 150 mg PO DAILY@09/22/19 11/29/21 11/28/21 08:00 History release 24 hr furosemide 20 mg tablet 20 mg PO DAILY@12/27/19 11/29/21 11/28/21 08:00 History potassium chloride 10 mEq 10 meq PO DAILY@12/27/19 11/29/21 11/28/21 08:00 History capsule,extended release acetaminophen 500 mg tablet 1,000 mg PO DAILY@199906/11/20 11/22/21 07/20/20 History (Tylenol Extra Strength) amlodipine 5 mg tablet 10 mg PO DAILY@06/11/20 11/29/21 11/29/21 06:30 History apixaban 5 mg tablet (Eliquis) 5 mg PO BID@06/11/20 11/29/21 11/24/21 History atorvastatin 20 mg tablet 40 mg PO DAILY@06/11/20 11/29/21 11/28/21 07:45 History cholecalciferol (vitamin D3) 25 25 mcg PO DAILY@0806/11/20 11/29/21 11/28/21 08:00 History mcg (1,000 unit) capsule (Vitamin D3) hydralazine 10 mg tablet 10 mg PO TID@08,12,20 06/11/20 11/29/21 11/29/21 06:30 History alprazolam 0.5 mg tablet 0.5 mg PO BID 06/13/20 11/29/21 11/28/21 20:00 History polyethylene glycol 3350 17 gram 17 g PO BID #60 ea 06/14/20 11/22/21 Unknown Rx oral powder packet (Miralax) ferrous sulfate 325 mg (65 mg 325 mg PO DAILY 08/06/20 11/29/21 11/28/21 17:00 History iron) tablet hydrocodone 5 mg-acetaminophen 325 1 tab PO Q6H PRN 08/06/20 11/29/21 11/29/21 06:30 History mg tablet umeclidinium 62.5 mcg/actuation 1 inh INHALATION DAILY #30 ea 04/11/21 11/29/21 11/29/21 06:30 Rx blister powder for inhalation (Incruse Ellipta) adalimumab 40 mg/0.8 mL 40 mg (0.8 mL) SUBCUT Q14D #2 ea 11/01/21 11/22/21 Unknown Rx subcutaneous pen kit (Humira Pen) hydroxychloroquine 200 mg tablet 200 mg PO BID@0800,2000 #60 tab 11/01/21 11/29/21 11/28/21 08:00 Rx prednisone 5 mg tablet 5 mg PO DAILY #30 tab 11/01/21 11/29/21 11/28/21 08:00 Rx COCK UP SPLINT #1 ea NS 11/04/21 11/04/21 Unknown Rx Allergies Allergy/AdvReac Type Severity Reaction Status Date / Time Sulfa (Sulfonamide Allergy ALGY-Rash Verified 11/22/21 09:32 Antibiotics) [facility] Anesthesia Medical History Anxiety Atrial fibrillation C. difficile colitis Cholelithiasis COPD (chronic obstructive pulmonary disease) 4 L oxygen baseline CVA (cerebral vascular accident) DJD (degenerative joint disease) HLD (hyperlipidemia) HTN (hypertension) Posterior inferior cerebellar artery embolism Pulmonary nodule Rheumatoid arthritis Small bowel obstruction Resolved. Thought to be secondary to adhesions. Surgical History History of hysterectomy Status post right knee replacement Social History Smoking and tobacco status: former smoker Quit status (tobacco): has quit using tobacco Year quit tobacco: 1992 [id number] Second hand smoke exposure: Yes Smoking risk assessment/counseling performed?: Yes Alcohol intake: never Caregiver/support person: Yes Lives independently: Yes Household members: none Housing: House Marital status: / Current occupational status: retired Pets and animals: No History of recent travel: No Current gender identity: Female Data Anesthesia Cardiac Studies: Echocardiogram Ultrasound 09/26/20
[2021-11-29 07:31] VITALS: BP 131/55; PULSE 83; RESP 16; TEMP 36.6; O2SAT 100
[2021-11-29] MEDS: CELEcoxib 200 mg Capsule 400 MG PO (07:33)
[2021-11-29] MEDS: sodium chloride 0.9% 1,000 ML 30 ML IV (07:38)
[2021-11-29] MEDS: acetaminophen 1,000 MG/100 ML PIGGYBACK 400 MG IV (07:40)
[2021-11-29 08:31] LABS: Anion Gap 12.1 (5-19); Blood Urea Nitrogen 21 mg/dL (8-23); Calcium 9.3 mg/dL (8.5-10.5); Carbon Dioxide 30 mmol/L (22-29); Chloride 101 mmol/L (98-107); Glucose 93 mg/dL (65-115); Osmolality Calculated 291 mOsm/kg (285-295); Potassium 4.1 mmol/L (3.5-5.1); Sodium 139 mmol/L (136-145)
[2021-11-29 09:14] VITALS: BP 148/60; PULSE 78; RESP 18; TEMP 36.2; O2SAT 99
[2021-11-29 09:21] VITALS: BP 148/63; PULSE 71; RESP 16; TEMP 36.1; O2SAT 96
[2021-11-29 09:34] VITALS: BP 151/71; PULSE 69; RESP 16; TEMP 36.1; O2SAT 98
--- NOTE | 2021-11-29 10:06 | PM.OP ---
Operative Report Date of procedure: November 29, 2021 Pre-op diagnosis: Right carpal tunnel syndrome Post-op diagnosis: Right carpal tunnel syndrome Procedure done: Right carpal tunnel release Pathology: none sent Surgeon: Nalini Jennings Cinder Pit Crane Operator: None Anesthesia: MAC (With [place] block, ASA 4) Estimated blood loss (mL): 2 Tourniquet time (min): 40 (At 250 mmHg) IV fluids (mL): 200 Urine output (mL): 0 (No Rangel) Complications: None Findings: Severe compression across the median nerve Condition: stable Disposition: PACU (Then to same-day surgery for discharge to home) Brief History: The patient presented to my office with complaints of bilateral carpal tunnel syndrome symptoms. She had EMG documentation of bilateral carpal tunnel as well. The patient states she has been having pain to the hands for about a year. Patient states that she has numbness to all digits on both left and right hand. Patient states she wears gloves at night to help with the pain. Patient states that the numbness and pain stay in her hands and does not radiate. Procedure: The patient was brought to the operating theater. The patient had a [place] block with MAC. The tourniquet was elevated to 250 mmHg for a total tourniquet time of 40 minutes. The patient was also given Ancef 2 g preoperatively. The arm was then prepped and draped with DuraPrep in usual fashion with the arm draped free. A surgical pause was performed. At the time, the surgical pause, we confirmed the site and side of surgery. We also confirmed the patient's identity, appropriate and timely administration of preoperative antibiotics and preoperative surgical markings. An incision was then made along the thenar crease. The incision crossed the wrist joint in a curvilinear fashion. Dissection continued through skin and soft tissues using a scalpel. The palmaris longus was identified along with the transverse carpal ligament. Each of these was released carefully to avoid injury to the median nerve. The median nerve was quite superficial, but it was protected throughout the dissection. We were able to dissect gently into the carpal canal which was noted to be quite tight with significant compression across the median nerve. The nerve was visualized and was an hourglass shape with purplish discoloration. The canal was subsequently palpated to assure there was no bony encroachment upon the canal. There was a quite thickened fibrous tissue within the canal, and this was opened longitudinally as well. The canal was then palpated distally and proximally to assure that my small finger was passed easily without impingement. Finding this to be so, attention was directed to closure. The wound was irrigated with ropivacaine plain. It was then closed with 3-0 nylon in an interrupted mattress fashion. Sterile dressing was then placed consisting of Dermabond, OpSite, fluffed fluffs, sterile soft roll, and an Enrique wrap. The tourniquet was released after 40 minutes. There were no complications. There were no specimens. The procedure was well tolerated. Plan is the patient will be discharged home. Related Problem List Diagnoses (1) Carpal tunnel syndrome on right:
--- NOTE | 2021-11-29 14:59 | ANE.PACU2 ---
Inpatient post-anesthesia follow up: Airway intact: Yes Vital signs: Temperature 97.0 F Pulse Rate 69 Respiratory Rate 16 Blood Pressure 151/71 Pulse Oximetry 98 Oxygen Delivery Me thod Nasal Cannula Oxygen Flow Rate 4 Fraction of Inspir ed Oxygen Hydration adequate: Yes Nausea and vomiting: No Pain level: 1 Mental status: Baseline
== END 2021-11-29 10:22 | disposition home or self-care (01) ==
PROVIDERS: PCP Family Medicine; Visit Provider Specialist
PROC: (CPT 64721; principal; 2021-11-29 08:15)
DX: G56.01 Carpal tunnel syndrome, right upper limb (principal); J44.9 Chronic obstructive pulmonary disease, unspecified; Z99.81 Dependence on supplemental oxygen; I48.91 Unspecified atrial fibrillation; I10 Essential (primary) hypertension; M06.9 Rheumatoid arthritis, unspecified; Z86.73 Personal history of transient ischemic attack (TIA), and cerebral infarction without residual deficits; F41.9 Anxiety disorder, unspecified; Z87.891 Personal history of nicotine dependence
CPT/HCPCS: 64721; 80048; J2704; J3010; J3490; J7030

== ENCOUNTER → 2022-02-14 10:37 | Outpatient (BNVA) | payer MEDICARE, OTHER, SELFPAY | PROVIDERS: PCP Family Medicine; Visit Provider Internal Medicine | DX: M05.741 Rheumatoid arthritis with rheumatoid factor of right hand without organ or systems involvement (principal); M05.742 Rheumatoid arthritis with rheumatoid factor of left hand without organ or systems involvement; R79.82 Elevated C-reactive protein (CRP) | CPT/HCPCS: 99214 ==

== ENCOUNTER 2022-03-27 12:43 | Outpatient (CLI) | payer MEDICARE, OTHER, SELFPAY ==
--- NOTE | 2022-03-27 12:53 | MM_ITS ---
WS: [id number] Bilateral screening 3D tomosynthesis digital mammogram, 03/27/2022 Clinical Data: SCREENING Comparison: 10/28/2017, 01/20/2013, 11/06/2011, 06/25/2010, 08/25/2007. Findings: The breast parenchymal pattern shows fibroglandular tissue. No spiculated masses or clustered calcifi cations are seen. There are no secondary signs of carcinoma. Vascular calcifications are present. MM/[place] [id number] Impression: 1. Negative bilateral mammogram unchanged. 2. Recommend annual screening mammograms. BIRADS: 1-Negative FOLLOW UP: 1 Year Follow-up The CAD mold checker was used.
--- NOTE | 2022-03-27 13:23 | XR_ITS ---
WS: [id number] SCREENING DEXA SCAN [employer] CLINICAL INFORMATION: POSTMENOPAUSAL COMPARISON: None. FINDINGS: The L1-L4 bone mineral density measures 0.917 g/cm2. This corresponds to a T score score of -2.2 and Z score of -0.6. Left femoral neck bone mineral density measures 0.840 g/cm2. This corresponds to a T score of -1.3 an d Z score of 0.4. Right femoral neck bone mineral density measures 0.714 g/cm2. This corresponds to a T score -2.3of an d Z score of -0.6. Mean femoral neck bone mineral density measures 0.777 g/cm2. This corresponds to a T score of -1.8 an d Z score of -0.1. XR/XR DEXA axial skeleton* [id number] IMPRESSION: Osteopenia lumbar spine. Osteopenia of the femoral necks. Patient's FRAX calculated 10 year probability for major osteoporotic fracture i s 31.4 % and osteoporotic hip fracture is 12.4%.
== END 2022-03-27 12:44 | disposition home or self-care (01) ==
LOC: RAD 12:45
PROVIDERS: PCP Family Medicine; Visit Provider Family Medicine
DX: Z12.31 Encounter for screening mammogram for malignant neoplasm of breast (principal); Z78.0 Asymptomatic menopausal state; M85.89 Other specified disorders of bone density and structure, multiple sites
CPT/HCPCS: 77063; 77067; 77080

== ENCOUNTER → 2022-04-28 08:53 | Outpatient (BNVA) | payer MEDICARE, OTHER, SELFPAY | PROVIDERS: PCP Family Medicine; Visit Provider Specialist | DX: M19.012 Primary osteoarthritis, left shoulder (principal); M75.42 Impingement syndrome of left shoulder | CPT/HCPCS: 73030; 99213 ==

== ENCOUNTER 2022-06-16 07:54 | Outpatient (CLI) | payer MEDICARE, OTHER, SELFPAY ==
--- NOTE | 2022-06-16 08:30 | MR_ITS ---
WS: [id number] MRI LEFT SHOULDER HISTORY: Pain for 6 months. COMPARISON: None available. TECHNIQUE: Multiplanar sequences of the shoulder joint are submitted. Severe AC joint arthritis. Joint space narrowing with increased fluid and osteophytes. Osteophytes en croach upon the supraspinatus muscle and tendon at the myotendinous insertion site. Large amount of f luid in the subacromial and subdeltoid bursa. Biceps tendon is not identified in the bicipital groove . Increase fluid along the biceps tendon sheath. No os acromion. Marked narrowing of the glenohumeral joint with high riding humeral head. Complete supraspinatus tend on tear with retraction to the medial humeral head. There is a large fluid gap in the expected locati on of the distal supraspinatus tendon. Moderate amount of fluid along the infraspinatus tendon. Tendi nopathy of the subscapularis tendon. There is significant fraying and abnormal surface but no definit e tears. Focal tear along the base of the superior labrum. Additional intrasubstance degeneration throughout t he entire labrum. MR/MR shoulder LT wo con* [id number] IMPRESSION: 1. Complete tear supraspinatus tendon with retraction to the medial humeral he ad. 2. Interstitial fluid extending along the tendon sheath of the infraspinatus t endon but no definite tear. 3. Severe tendinopathy subscapularis tendon 4. Severe AC joint arthritis with encroachment towards the rotator cuff. 5. Moderate glenohumeral joint narrowing. 6. Biceps tendon is not present in the bicipital groove. Suspect tear versus s ubluxation. Biceps tendinopathy in the extracapsular portion of the tendon.
== END 2022-06-16 07:55 | disposition home or self-care (01) ==
LOC: RAD 07:54
PROVIDERS: PCP Family Medicine; Visit Provider Specialist
DX: M75.122 Complete rotator cuff tear or rupture of left shoulder, not specified as traumatic (principal); M13.812 Other specified arthritis, left shoulder; M25.512 Pain in left shoulder
CPT/HCPCS: 73221

== ENCOUNTER → 2022-06-23 09:31 | Outpatient (BNVA) | payer MEDICARE, OTHER, SELFPAY | PROVIDERS: PCP Family Medicine; Visit Provider Specialist | DX: M75.42 Impingement syndrome of left shoulder (principal); M19.012 Primary osteoarthritis, left shoulder | CPT/HCPCS: 20610; 99213 ==

== ENCOUNTER → 2022-08-13 14:26 | Outpatient (BNVA) | payer MEDICARE, OTHER, SELFPAY | PROVIDERS: PCP Family Medicine; Visit Provider Internal Medicine Pulmonary Disease | DX: J43.2 Centrilobular emphysema (principal); M05.741 Rheumatoid arthritis with rheumatoid factor of right hand without organ or systems involvement; M05.742 Rheumatoid arthritis with rheumatoid factor of left hand without organ or systems involvement; R91.1 Solitary pulmonary nodule; R59.0 Localized enlarged lymph nodes; R06.02 Shortness of breath; Z87.891 Personal history of nicotine dependence | CPT/HCPCS: 99214 ==

== ENCOUNTER → 2022-09-25 13:16 | Outpatient (BNVA) | payer MEDICARE, OTHER, SELFPAY | PROVIDERS: PCP Family Medicine; Visit Provider Internal Medicine | DX: M05.741 Rheumatoid arthritis with rheumatoid factor of right hand without organ or systems involvement (principal); M05.742 Rheumatoid arthritis with rheumatoid factor of left hand without organ or systems involvement; R79.82 Elevated C-reactive protein (CRP); Z79.52 Long term (current) use of systemic steroids; Z79.899 Other long term (current) drug therapy | CPT/HCPCS: 99213 ==

== ENCOUNTER → 2022-10-02 09:45 | Outpatient (BNVA) | payer MEDICARE, OTHER, SELFPAY | PROVIDERS: PCP Family Medicine; Visit Provider Specialist | DX: M19.012 Primary osteoarthritis, left shoulder (principal); M75.42 Impingement syndrome of left shoulder | CPT/HCPCS: 20610; J1100; J2795; J3301 ==

== ENCOUNTER → 2023-01-15 09:57 | Outpatient (BNVA) | payer MEDICARE, OTHER, SELFPAY | PROVIDERS: PCP Family Medicine; Visit Provider Specialist | DX: M75.42 Impingement syndrome of left shoulder (principal); M19.012 Primary osteoarthritis, left shoulder | CPT/HCPCS: 20610; J1100; J2795; J3301 ==

== ENCOUNTER → 2023-03-16 11:20 | Outpatient (BNVA) | payer MEDICARE, OTHER, SELFPAY | PROVIDERS: PCP Family Medicine; Visit Provider Internal Medicine | DX: M05.741 Rheumatoid arthritis with rheumatoid factor of right hand without organ or systems involvement (principal); M05.742 Rheumatoid arthritis with rheumatoid factor of left hand without organ or systems involvement; R79.82 Elevated C-reactive protein (CRP) | CPT/HCPCS: 99214 ==

== ENCOUNTER 2023-03-30 13:48 | Outpatient (CLI) | payer MEDICARE, OTHER, SELFPAY ==
[2023-03-30 14:08] LABS: Basophils # 0.1 10^3/uL (0.0-0.1); Basophils % 0.4 %; Eosinophils # 0.2 10^3/uL (0.0-0.8); Eosinophils % 1.5 %; Hematocrit 39.1 % (36-47); Lymphocytes # 1.5 10^3/uL (0.8-4.8); Lymphocytes % 12.4 %; Mean Corpuscular Hemoglobin 31.9 pg (27-33); Mean Corpuscular Volume 99.7 fl (85-98); Mean Platelet Volume 9.7 fL (7.4-10.4); Monocytes # 0.7 10^3/uL (0.2-0.9); Monocytes % 6.3 %; Neutrophils # 9.23 10^3/uL (1.8-7.7); Nucleated Red Blood Cells % 0 %; Platelet Count 279 10^3/cmm (157-399); Red Blood Count 3.92 10^6/uL (3.85-5.65); Red Cell Distribution Width 12.7 % (12.1-15.1); White Blood Count 11.68 10^3/uL (3.29-11.43)
[2023-03-30 14:21] LABS: Alanine Aminotransferase 16 U/L (0-33); Albumin Level 4.3 g/dL (3.5-5.2); Alkaline Phosphatase 74 U/L (35-105); Anion Gap 11.6 (5-19); Aspartate Amino Transferase 18 U/L (0-32); Blood Urea Nitrogen 17 mg/dL (8-23); Calcium 9.6 mg/dL (8.5-10.5); Carbon Dioxide 30 mmol/L (22-29); Chloride 102 mmol/L (98-107); Globulin 3.1 g/dL (1.3-4.6); Glucose 92 mg/dL (65-115); Osmolality Calculated 289 mOsm/kg (285-295); Potassium 4.6 mmol/L (3.5-5.1); Sodium 139 mmol/L (136-145); Total Bilirubin 0.3 mg/dL (0.15-1.2); Total Protein 7.4 g/dL (6.6-8.7)
[2023-03-30 14:23] LABS: Erythrocyte Sedimentation Rate 12 mm/hr (0-15)
== END 2023-03-30 13:49 | disposition home or self-care (01) ==
PROVIDERS: PCP Family Medicine; Visit Provider Internal Medicine
DX: M06.9 Rheumatoid arthritis, unspecified (principal)
CPT/HCPCS: 36415; 80053; 85025; 85651; 86140

== ENCOUNTER → 2023-04-16 10:07 | Outpatient (BNVA) | payer MEDICARE, OTHER, SELFPAY | PROVIDERS: PCP Family Medicine; Visit Provider Specialist | DX: M19.012 Primary osteoarthritis, left shoulder (principal); Z71.89 Other specified counseling | CPT/HCPCS: 20610; J1100; J2795; J3301 ==

== ENCOUNTER → 2023-06-15 10:51 | Outpatient (BNVA) | payer MEDICARE, OTHER, SELFPAY | PROVIDERS: PCP Family Medicine; Visit Provider Internal Medicine Pulmonary Disease | DX: J43.2 Centrilobular emphysema (principal); M05.741 Rheumatoid arthritis with rheumatoid factor of right hand without organ or systems involvement; M05.742 Rheumatoid arthritis with rheumatoid factor of left hand without organ or systems involvement; R91.1 Solitary pulmonary nodule; R59.0 Localized enlarged lymph nodes; Z12.2 Encounter for screening for malignant neoplasm of respiratory organs; Z99.81 Dependence on supplemental oxygen; I48.91 Unspecified atrial fibrillation; Z79.01 Long term (current) use of anticoagulants; Z87.891 Personal history of nicotine dependence | CPT/HCPCS: 99214 ==

== ENCOUNTER → 2023-06-16 09:48 | Outpatient (BNVA) | payer MEDICARE, OTHER, SELFPAY | PROVIDERS: PCP Family Medicine; Visit Provider Internal Medicine | DX: M05.741 Rheumatoid arthritis with rheumatoid factor of right hand without organ or systems involvement (principal); M05.742 Rheumatoid arthritis with rheumatoid factor of left hand without organ or systems involvement; R79.82 Elevated C-reactive protein (CRP); M54.50 Low back pain, unspecified | CPT/HCPCS: 99213 ==

== ENCOUNTER 2023-07-03 11:48 | Outpatient (CLI) | payer MEDICARE, OTHER, SELFPAY ==
--- NOTE | 2023-07-03 12:00 | CT_ITS ---
WS: [id number] LDCT LUNG CANCER SCREENING TECHNIQUE: Noncontrast CT of the chest with coronal and sagittal reformatted images. CLINICAL INFORMATION: Cancer Screen COMPARISON: CT chest 2019 DLP: 66.29 mGy.cm DIvol: Mean CTDIvol: 1.10 (mGy) All CT scans at [facility] use at least one of these dose optimization techniques: automat ed exposure control; mA and/or kV adjustment per patient size (includes targeted exams where dose is matched to clinical indication); or iterative reconstruction. FINDINGS: Advanced chronic emphysematous changes. Pleural parenchymal scarring within both lungs. Biapical fibr osis. Traction bronchiectasis in the RIGHT upper lobe and RIGHT middle lobe. Traction bronchiectasis in the LEFT greater than RIGHT lower lobes with subsegmental atelectasis. Previously described calcif ied hamartoma or granuloma in the RIGHT lower lobe measuring 14 mm is stable. No new suspicious pulmo nary parenchymal opacities. Adrenal glands are normal. Moderate esophageal hernia. Splenic artery calcification. Thoracic kyphosi s. Thoracic curve. Chronic anterior wedging in the midthoracic spine. Aortic calcification. Coronary calcification. No mediastinal or hilar lymphadenopathy. Partially visualized cholelithiasis. IMPRESSION: CT/CT lung screening [id number] LUNG-RADS: 2-Benign Appearance or Behavior FOLLOW UP: 12 Month: Continue annual screening with LDCT
== END 2023-07-03 11:49 | disposition home or self-care (01) ==
LOC: RAD 11:49
PROVIDERS: PCP Family Medicine; Visit Provider Internal Medicine Pulmonary Disease
DX: Z12.2 Encounter for screening for malignant neoplasm of respiratory organs (principal); Z87.891 Personal history of nicotine dependence
CPT/HCPCS: 71271; 99213

== ENCOUNTER → 2023-08-19 09:53 | Outpatient (BNVA) | payer MEDICARE, OTHER, SELFPAY | PROVIDERS: PCP Family Medicine; Visit Provider Specialist | DX: M19.012 Primary osteoarthritis, left shoulder (principal); M75.42 Impingement syndrome of left shoulder | CPT/HCPCS: 20610; J1100; J2795; J3301 ==

== ENCOUNTER 2023-09-14 10:49 | Outpatient (CLI) | payer MEDICARE, OTHER, SELFPAY ==
[2023-09-14 11:17] LABS: Basophils # 0.1 10^3/uL (0.0-0.1); Basophils % 0.5 %; Eosinophils # 0.4 10^3/uL (0.0-0.8); Eosinophils % 3.3 %; Hematocrit 40.4 % (36-47); Lymphocytes # 2.4 10^3/uL (0.8-4.8); Lymphocytes % 21.9 %; Mean Corpuscular HGB Conc 31.2 g/dL (30-55); Mean Corpuscular Hemoglobin 31.7 pg (27-33); Mean Corpuscular Volume 101.5 fl (85-98); Mean Platelet Volume 10.4 fL (7.4-10.4); Monocytes # 1.1 10^3/uL (0.2-0.9); Monocytes % 10.2 %; Neutrophils % 63.7 %; Nucleated Red Blood Cells % 0 %; Platelet Count 293 10^3/cmm (157-399); Red Blood Count 3.98 10^6/uL (3.85-5.65); Red Cell Distribution Width 12.2 % (12.1-15.1); White Blood Count 10.82 10^3/uL (3.29-11.43)
[2023-09-14 11:34] LABS: Erythrocyte Sedimentation Rate 11 mm/hr (0-15)
[2023-09-14 11:44] LABS: Alanine Aminotransferase 14 U/L (0-33); Albumin Level 4.1 g/dL (3.5-5.2); Alkaline Phosphatase 82 U/L (35-105); Globulin 2.9 g/dL (1.3-4.6); Total Bilirubin 0.2 mg/dL (0.15-1.2)
[2023-09-14 12:43] LABS: Aspartate Amino Transferase 23 U/L (0-32)
== END 2023-09-14 10:50 | disposition home or self-care (01) ==
LOC: LAB 10:56
PROVIDERS: PCP Family Medicine; Visit Provider Internal Medicine Rheumatology
DX: Z79.899 Other long term (current) drug therapy (principal); R76.8 Other specified abnormal immunological findings in serum; R79.82 Elevated C-reactive protein (CRP)
CPT/HCPCS: 36415; 80076; 82565; 85025; 85651; 86140

== ENCOUNTER 2023-11-18 11:27 | Emergency (ER) | payer MEDICARE, OTHER, SELFPAY ==
[2023-11-18 11:40] VITALS: BP 112/65; PULSE 85; RESP 18; TEMP 36.7; O2SAT 90
--- NOTE | 2023-11-18 11:47 | XRR_ITS ---
PROCEDURE INFORMATION: Exam: XR Right Humerus Exam date and time: 11/18/2023 12:04 PM Age: 77 years old Clinical indication: Injury or trauma; Fall; Blunt trauma (contusions or hematomas); Arm, upper; Right; Additional info: Fall, bruising TECHNIQUE: Imaging protocol: Radiologic exam of the right humerus. Views: 2 or more views. Total images: 1 COMPARISON: CR XR shoulder RT min 2V* [id number] 11/18/2023 12:02 PM FINDINGS: Bones/joints: Diffuse osteopenia noted. No acute fracture nor subluxation. No osseous erosion nor periosteal reaction. Soft tissues: 3 mm metallic density projecting in soft tissues anterolateral adjacent to distal humeral metadiaphyseal area may represent artifact external to the patient versus small foreign body. XR/[place] [id number] IMPRESSION: 1. 3 mm metallic density projecting in soft tissues anterolateral adjacent to distal humeral metadiaphyseal area may represent artifact external to the patient versus small foreign body. 2. No acute osseous pathology.
--- NOTE | 2023-11-18 11:47 | XRR_ITS ---
PROCEDURE INFORMATION: Exam: XR Right Shoulder Exam date and time: 11/18/2023 12:02 PM Age: 77 years old Clinical indication: Injury or trauma; Fall; Blunt trauma (contusions or hematomas); Shoulder; Right; Additional info: Fall, shoulder pain TECHNIQUE: Imaging protocol: Radiologic exam of the right shoulder. Views: 2 or more views. Total images: 2 COMPARISON: CR XR shoulder RT min 2V* [id number] 11/14/2023 10:51 AM FINDINGS: Bones/joints: Diffuse osteopenia noted. No acute fracture nor subluxation. No osseous erosion nor periosteal reaction. Lungs: Prominent interstitial markings within the lungs unchanged. Soft tissues: Normal. XR/XR shoulder RT min 2V* [id number] IMPRESSION: No acute osseous pathology.
--- NOTE | 2023-11-18 11:47 | W.ED.FALL ---
HPI - Fall General: Chief Complaint: Fall Stated Complaint: fall, right arm pain Time Seen by Provider: 11/18/23 11:41 History of Present Illness: 77-year-old female with a history of atrial fibrillation, COPD, hyperlipidemia, stroke, hypertension who is on Eliquis and Plavix. She fell onto her right arm a couple of days ago. She was seen in urgent care and x-rays were taken but she has not heard any report on this. She has very extensive bruising down her entire arm. This all appears old. No other injuries. No head injury. No altered mental status. No nausea or vomiting. No focal motor deficits. No chest pain. No abdominal pain. Review of Systems Narrative: Constitutional symptoms: Negative except as documented in HPI. Skin symptoms: Negative except as documented in HPI. Eye symptoms: Negative except as documented in HPI. ENMT symptoms: Negative except as documented in HPI. Respiratory symptoms: Negative except as documented in HPI. Cardiovascular symptoms: Negative except as documented in HPI. Gastrointestinal symptoms: Negative except as documented in HPI. Genitourinary symptoms: Negative except as documented in HPI. Musculoskeletal symptoms: Negative except as documented in HPI. Neurologic symptoms: Negative except as documented in HPI. Psychiatric symptoms: Negative except as documented in HPI. Endocrine symptoms: Negative except as documented in HPI. [facility] ED PFSH: Medical History Cholelithiasis Pulmonary nodule Atrial fibrillation DJD (degenerative joint disease) Rheumatoid arthritis Small bowel obstruction Resolved. Thought to be secondary to adhesions. Anxiety COPD (chronic obstructive pulmonary disease) 4 L oxygen baseline HLD (hyperlipidemia) Posterior inferior cerebellar artery embolism C. difficile colitis CVA (cerebral vascular accident) HTN (hypertension) Surgical History History of hysterectomy Status post right knee replacement Social History Smoking and tobacco/nicotine status: former use of tobacco/nicotine Quit status (tobacco/nicotine): has quit using Year quit tobacco: 1992 [id number] Second hand smoke exposure: Yes Alcohol intake: never Substance/Drug Use: never Caregiver/support person: Yes Lives independently: Yes Household members: none Housing: House Marital status: / Current occupational status: retired Pets and animals: No Do you think of yourself as: Straight/Heterosexual Current gender identity: Female Physical Exam Narrative: EXAM NARRATIVE: General: Alert, no acute distress. Skin: Warm, dry. Extensive bruising to the right arm from shoulder all the way down to the elbow Head: Normocephalic, atraumatic. Neck: Supple, trachea midline. Eye: Extraocular movements are intact. Ears, nose, mouth and throat: mucosa moist. Cardiovascular: Regular, Normal peripheral perfusion. Respiratory: Lungs are clear to auscultation, respirations are non-labored, breath sounds are equal, Symmetrical chest wall expansion. Gastrointestinal: Soft, Nontender, Non distended, Normal bowel sounds. Musculoskeletal: Mild limitation in range of motion of the shoulder secondary to pain. Full range of motion at the elbow., no deformity. Neurological: Alert and oriented, No focal neurological deficit observed. Psychiatric: Cooperative, appropriate mood & affect. Course Vital Signs: Vital signs: Vital Signs Temperature 98.0 F 11/18/23 11:40 Pulse Rate 85 11/18/23 11:40 Respiratory Rate 18 11/18/23 11:40 Blood Pressure 112/65 11/18/23 11:40 Pulse Oximetry 90 11/18/23 11:40 Oxygen Delivery Me thod Room Air 11/18/23 11:40 MDM - Fall Medical Decision Making Medical decision making: Differential diagnosis including but not limited to and based on the above HPI, review of systems and physical exam: In this patient with arm pain that is traumatic shoulder and humerus x-ray were ordered. Also with her having of this bruising a CBC and a BMP were ordered to rule out new anemia or renal failure. Orders placed to evaluate differential diagnosis based on the above differential, HPI and physical exam Lab Review: Laboratory results were reviewed and interpreted by myself the emergency room physician. Lab work is fairly unremarkable. Her hemoglobin is slightly down at 10.8 from most recent evaluation that was 12.6. BUN and creatinine are stable. X-ray of the shoulder and humerus: There are no acute fractures or dislocations. Some degenerative changes. This was reviewed and interpreted by myself the emergency room physician. I also reviewed the radiology reports. I reviewed the patient's medical record. Reexamination: Patient remained stable. No increased work of breathing. No altered mental status. No focal motor deficits. Assessment and plan: Hematoma of the right arm - Discharged home - Discussed plan with patient. Answered any questions. - Evaluation and treatment of this problem were appropriate in the emergency setting. Lab Data 11/18/23 12:11 11/18/23 12:11 Radiology Impressions Humerus X-Ray 11/18/23 11:47 IMPRESSION: 1. 3 mm metallic density projecting in soft tissues anterolateral adjacent to distal humeral metadiaphyseal area may represent artifact external to the patient versus small foreign body. 2. No acute osseous pathology. Shoulder X-Ray 11/18/23 11:47 IMPRESSION: No acute osseous pathology. Laboratory Results WBC 11.35 10^3/uL (3.29-11.43) 11/18/23 12:11 RBC 3.40 10^6/uL (3.85-5.65) L 11/18/23 12:11 Hgb 10.80 g/dL (11.27-16.99) L 11/18/23 12:11 Hct 34.9 % (36-47) L 11/18/23 12:11 MCV 102.6 fl (85-98) H 11/18/23 12:11 MCH 31.8 pg (27-33) 11/18/23 12:11 MCHC 30.9 g/dL (30-55) 11/18/23 12:11 RDW 12.9 % (12.1-15.1) 11/18/23 12:11 Plt Count 300 10^3/cmm (157-399) 11/18/23 12:11 MPV 9.9 fL (7.4-10.4) 11/18/23 12:11 Neut % (Auto) 78.6 % 11/18/23 12:11 Lymph % (Auto) 10.1 % 11/18/23 12:11 [place] % (Auto) 8.5 % 11/18/23 12:11 Eos % (Auto) 2.0 % 11/18/23 12:11 Baso % (Auto) 0.4 % 11/18/23 12:11 Neut # (Auto) 8.91 10^3/uL (1.8-7.7) H 11/18/23 12:11 Lymph # (Auto) 1.2 10^3/uL (0.8-4.8) 11/18/23 12:11 [place] # (Auto) 1.0 10^3/uL (0.2-0.9) H 11/18/23 12:11 Eos # (Auto) 0.2 10^3/uL (0.0-0.8) 11/18/23 12:11 Baso # (Auto) 0.1 10^3/uL (0.0-0.1) 11/18/23 12:11 Nucleated RBC % (auto) 0 % 11/18/23 12:11 Nucleated RBCs # 0.0 /100WBC 11/18/23 12:11 Sodium 141 mmol/L (136-145) 11/18/23 12:11 Potassium 4.5 mmol/L (3.5-5.1) 11/18/23 12:11 Chloride 103 mmol/L (98-107) 11/18/23 12:11 Carbon Dioxide 30 mmol/L (22-29) H 11/18/23 12:11 Anion Gap 12.5 (5-19) 11/18/23 12:11 BUN 14 mg/dL (8-23) 11/18/23 12:11 Creatinine 0.7 mg/dL (0.5-0.9) 11/18/23 12:11 GFR Calculation Not Reportable 11/18/23 12:11 Glucose 105 mg/dL (65-115) 11/18/23 12:11 Calculated Osmolality 293 mOsm/kg (285-295) 11/18/23 12:11 Lactic Acid 1.4 mmol/L (0.5-2.2) 11/18/23 12:11 Calcium 9.6 mg/dL (8.5-10.5) 11/18/23 12:11 All radiology interpretation(s) finalized by discharge Discharge Plan Discharge Patient Disposition: Home Clinical Impression: Traumatic ecchymosis of right upper arm Condition: Stable Prescriptions: No Action hydrocodone-acetaminophen 5-325 mg tablet 1 tab PO Q6H PRN (Reason: Pain) ferrous sulfate 325 mg (65 mg iron) tablet 325 mg PO DAILY Incruse Ellipta 62.5 mcg/actuation blister with device 1 inh inhalation DAILY Qty: 30 3RF albuterol sulfate 90 mcg/actuation HFA aerosol inhaler 2 puff inhalation Q6H PRN (Reason: shortness of breath or wheezing) Qty: 8.5 5RF Humira Pen 40 mg/0.8 mL pen injector kit 40 mg SUBCUT Q14D Qty: 2 3RF Rx Instructions: inject one - 40 mg/0.8 mL pen every 2 weeks SUBCUT hydroxychloroquine 200 mg tablet 200 mg PO BID@0800,2000 Qty: 180 1RF prednisone 5 mg tablet 5 mg PO DAILY Qty: 90 2RF trazodone 100 mg Tablet 100 mg PO BEDTIME@20 venlafaxine 150 mg Tablet Extended Release 24hr 150 mg PO DAILY@08 clopidogrel [Plavix] 75 mg Tablet 75 mg PO DAILY@20 omeprazole 20 mg Capsule,Delayed Release(Dr/Ec) 20 mg PO DAILY@20 potassium chloride 10 mEq capsule, extended release 10 meq PO DAILY@08 furosemide 20 mg tablet 20 mg PO DAILY@08 acetaminophen [Tylenol Extra Strength] 500 mg Tablet 1,000 mg PO DAILY@2000 cholecalciferol (vitamin D3) [Vitamin D3] 25 mcg (1,000 unit) Capsule 25 mcg PO DAILY@0800 hydralazine 10 mg tablet 10 mg PO TID@08,12,20 atorvastatin 20 mg tablet 40 mg PO DAILY@20 amlodipine 5 mg tablet 10 mg PO DAILY@08 Eliquis 5 mg tablet 5 mg PO BID@08,20 alprazolam 0.5 mg Tablet 0.5 mg PO BID polyethylene glycol 3350 [Miralax] 17 gram powder in packet 17 g PO BID Qty: 60 0RF Discharge Orders: Discharge ED (Routine); Ordered 11/18/23 Ordered By: Maddy Watkins Referrals: Giuliana Allred MD [Primary Care Provider] - 4-7 days Discharge Diet: Usual diet Discharge Activity: Increase activity as tolerated Patient Instructions: Ecchymosis (ED) Activity Restrictions/Additional Instructions: Thank you for choosing [facility] for your healthcare needs today. Please realize this is an emergency room and that we are providing you with a medical screening exam and this may not be complete and all inclusive of all the testing and or work up that you may need to determine your ailment or severity of your illness. You have been screened and evaluated and felt safe for discharge. Health conditions do change or evolve sometimes and as such it is important that you follow up with your Primary Doctor to be re checked, 3-5 days is a general good time frame for follow up. You are always welcome to return to the ED for re assessment if your symptoms are worsening or you have new concerns Coding Level of Care Code ED Candy Maker for Nedra Yen
[2023-11-18 12:20] LABS: Basophils # 0.1 10^3/uL (0.0-0.1); Basophils % 0.4 %; Eosinophils # 0.2 10^3/uL (0.0-0.8); Hematocrit 34.9 % (36-47); Lymphocytes # 1.2 10^3/uL (0.8-4.8); Lymphocytes % 10.1 %; Mean Corpuscular HGB Conc 30.9 g/dL (30-55); Mean Corpuscular Hemoglobin 31.8 pg (27-33); Mean Corpuscular Volume 102.6 fl (85-98); Mean Platelet Volume 9.9 fL (7.4-10.4); Monocytes % 8.5 %; Neutrophils # 8.91 10^3/uL (1.8-7.7); Neutrophils % 78.6 %; Nucleated Red Blood Cells % 0 %; Platelet Count 300 10^3/cmm (157-399); Red Cell Distribution Width 12.9 % (12.1-15.1); White Blood Count 11.35 10^3/uL (3.29-11.43)
[2023-11-18 12:35] LABS: Anion Gap 12.5 (5-19); Blood Urea Nitrogen 14 mg/dL (8-23); Calcium 9.6 mg/dL (8.5-10.5); Carbon Dioxide 30 mmol/L (22-29); Chloride 103 mmol/L (98-107); Creatinine Clr Calc Pharmacy 56.9859; Glucose 105 mg/dL (65-115); Lactic Sepsis W/Reflex 1.4 mmol/L (0.5-2.2); Osmolality Calculated 293 mOsm/kg (285-295); Potassium 4.5 mmol/L (3.5-5.1); Sodium 141 mmol/L (136-145)
--- NOTE | 2023-11-18 13:14 | PC.PHAR ---
PT HAS [facility], WHERE SHE GETS ALL HER MAINTENANCE MEDICATIONS. PT TAKES CARE OF HER MEDICATIONS WITHOUT HELP.
[2023-11-18 13:18] VITALS: BP 155/91; PULSE 77; O2SAT 94
== END 2023-11-18 13:32 | disposition home or self-care (01) ==
PROVIDERS: Emergency Provider Emergency Medicine; PCP Family Medicine
DX: S40.021A Contusion of right upper arm, initial encounter (principal); Z79.02 Long term (current) use of antithrombotics/antiplatelets; Z79.01 Long term (current) use of anticoagulants; Z87.891 Personal history of nicotine dependence; J44.9 Chronic obstructive pulmonary disease, unspecified; E78.5 Hyperlipidemia, unspecified; I10 Essential (primary) hypertension; Z86.73 Personal history of transient ischemic attack (TIA), and cerebral infarction without residual deficits; X58.XXXA Exposure to other specified factors, initial encounter
CPT/HCPCS: 36415; 73030; 73060; 80048; 83605; 85025; 99284

== ENCOUNTER → 2023-11-20 09:21 | Outpatient (BNVA) | payer MEDICARE, OTHER, SELFPAY | PROVIDERS: PCP Family Medicine; Visit Provider Specialist | DX: M19.012 Primary osteoarthritis, left shoulder (principal); Z71.89 Other specified counseling | CPT/HCPCS: 20610; J1100; J2795; J3301 ==

== ENCOUNTER 2023-11-23 15:13 | Emergency (ER) | payer MEDICARE, OTHER, SELFPAY ==
[2023-11-23 15:14] VITALS: BP 133/64; PULSE 73; TEMP 36.9; O2SAT 95; BMI 29.2
--- NOTE | 2023-11-23 15:31 | XRR_ITS ---
PROCEDURE INFORMATION: Exam: XR Right Shoulder Exam date and time: 11/23/2023 3:43 PM Age: 77 years old Clinical indication: Injury or trauma; Fall; Blunt trauma (contusions or hematomas); Shoulder; Right; Additional info: Fall, shoulder pain TECHNIQUE: Imaging protocol: Radiologic exam of the right shoulder. Views: 2 or more views. COMPARISON: CR XR shoulder RT min 2V* [id number] 11/18/2023 12:02 PM FINDINGS: Bones/joints: Moderate acromioclavicular and glenohumeral spurring. No fracture or dislocation. No acute osseous or joint abnormality. Soft tissues: Normal. XR/XR shoulder RT min 2V* [id number] IMPRESSION: Degenerative changes.
--- NOTE | 2023-11-23 15:42 | CTR_ITS ---
PROCEDURE INFORMATION: Exam: CT Right Upper Extremity Without Contrast, Shoulder Exam date and time: 11/23/2023 3:58 PM Age: 77 years old Clinical indication: Injury or trauma; Fall; Blunt trauma (contusions or hematomas); Shoulder; Right; Patient HX: Patient fell 1 week ago and continues to have pain, severe bruising; Additional info: Continued severe shoulder pain TECHNIQUE: Imaging protocol: Computed tomography of the right upper extremity without contrast. Exam focused on the shoulder. Radiation optimization: All CT scans at this facility use at least one of these dose optimization techniques: automated exposure control; mA and/or kV adjustment per patient size (includes targeted exams where dose is matched to clinical indication); or iterative reconstruction. COMPARISON: CR (CHEST, ) 11/23/2023 3:43 PM RADIATION DOSE METRICS: Total DLP (mGy-cm): 424.78 FINDINGS: Bones/joints: Large glenohumeral hemarthrosis. Moderate glenohumeral osteoarthritis without evidence of fracture or subluxation. Moderate AC joint osteoarthritis without evidence of fracture or subluxation. Visualized right-sided ribs are intact. Soft tissues: Mild-moderate muscular fatty atrophy of the shoulder girdle musculature, particularly the supraspinatus. No evidence of superficial soft tissue fluid collection or hematoma. Severe emphysematous changes of the right lung. There are fibronodular changes in the right apex. CT/CT shoulder RT wo con* [id number] IMPRESSION: 1. Glenohumeral hemarthrosis without evidence of fracture or subluxation. Correlation with MRI of the right shoulder is recommended. 2. Severe emphysematous changes. The presence of pulmonary emphysema on CT is an independent risk factor for lung cancer. In the absence of a history or active diagnosis of lung cancer, it is recommended that this patient with emphysema be evaluated for enrollment in a low dose CT lung cancer screening program.
[2023-11-23 15:44] VITALS: BP 116/70; PULSE 86; RESP 18; O2SAT 96
--- NOTE | 2023-11-23 15:46 | ED_ITS ---
HPI - Extremity Problem General: Chief complaint: Extremity Injury, Upper Stated complaint: fall 8 days ago Time Seen by Provider: 11/23/23 15:17 History of Present Illness: 77-year-old female who presents to the e mergency room with continued right shoulder pain. We have seen her here about a week ago with a fall and she had pain. She had difficult to control pain at the time. I ended up sending her home on 10 mg hydrocodone's and she says she might as well just take an aspirin that they do not do anything. She is crying out in pain when I recommend the room. Family is requesting studies to look for blood clot in the top of her shoulder. Discussed that it is not likely the cause of her pain. No focal motor deficits. No increased work of breathing. No nausea or vomiting. Workup did not show a fracture at the time. Review of Systems Narrative: Constitutional symptoms: Negative except as documented in HPI. Skin symptoms: Negative except as documented in HPI. Eye symptoms: Negative except as documented in HPI. ENMT symptoms: Negative except as documented in HPI. Respiratory symptoms: Negative except as documented in HPI. Cardiovascular symptoms: Negative except as documented in HPI. Gastrointestinal symptoms: Negative except as documented in HPI. Genitourinary symptoms: Negative except as documented in HPI. Musculoskeletal symptoms: Negative except as documented in HPI. Neurologic symptoms: Negative except as documented in HPI. Psychiatric symptoms: Negative except as documented in HPI. Endocrine symptoms: Negative except as documented in HPI. [facility] PFSH: Medical History Cholelithiasis Pulmonary nodule Atrial fibrillation DJD (degenerative joint disease) Rheumatoid arthritis Small bowel obstruction Resolved. Thought to be secondary to adhesions. Anxiety COPD (chronic obstructive pulmonary disease) 4 L oxygen baseline HLD (hyperlipidemia) Posterior inferior cerebellar artery embolism C. difficile colitis CVA (cerebral vascular accident) HTN (hypertension) Surgical History History of hysterectomy Status post right knee replacement Social History Smoking and tobacco/nicotine status: former use of tobacco/nicotine Quit status (tobacco/nicotine): has quit using Year quit tobacco: 1992 [id number] Second hand smoke exposure: Yes Alcohol intake: never Substance/Drug Use: never Caregiver/support person: Yes Lives independently: Yes Household members: none Housing: House Marital status: / Current occupational status: retired Pets and animals: No Do you think of yourself as: Straight/Heterosexual Current gender identity: Female Physical Exam Narrative: EXAM NARRATIVE: General: Alert, patient is crying out in pain Skin: Warm, dry. Head: Normocephalic, atraumatic. Neck: Supple, trachea midline. Eye: Extraocular movements are intact. Ears, nose, mouth and throat: mucosa moist. Cardiovascular: Regular, Normal peripheral perfusion. Respiratory: Lungs are clear to auscultation, respirations are non-labored, breath sounds are equal, Symmetrical chest wall expansion. Gastrointestinal: Soft, Nontender, Non distended, Normal bowel sounds. Musculoskeletal: Patient has quite bit of bruising down her right arm, this appears improved from when I saw her 5 days ago. No obvious deformities. Neurovascularly intact. Neurological: Alert and oriented, No focal neurological deficit observed. Psychiatric: Cooperative, patient is crying out in pain initially. Course Vital Signs: Vital signs: Vital Signs Temperature 98.4 F 11/23/23 15:14 Pulse Rate 71 11/23/23 18:03 Respiratory Rate 20 H 11/23/23 18:03 Blood Pressure 110/48 11/23/23 18:03 Pulse Oximetry 96 11/23/23 15:44 Oxygen Delivery Me thod Nasal Cannula 11/23/23 15:44 Oxygen Flow Rate 4 11/23/23 15:14 MDM - Extremity (Nontraumatic) Medical Decision Making Medical decision making: Differential diagnosis including but not limited to and based on the above HPI, review of systems and physical exam: CT of the shoulder was done on look for any occult fractures. Orders placed to evaluate differential diagnosis based on the above differential, HPI and physical exam CT of the right shoulder: There is some bruising/hemarthrosis. No fractures. There are some chronic changes in the patient's lungs. Consultation: I spoke with Dr. Sutherland who had seen the patient for her left shoulder just 2 days ago given her injection. She is good with increasing the patient's pain medications and she will see her in clinic at some point in the near future. I reviewed the patient's medical record. Reexamination: Sent says she is feeling quite a bit better after pain medications. No increased work of breathing. She is no longer moaning in pain. No altered ment al status. No focal motor deficits. Assessment and plan: Shoulder injury -Dilaudid and Zofran, Decadron and 15 mg Toradol in the emergency room - Discharged home - Discussed plan with patient. Answered any questions. - Evaluation and treatment of this problem were appropriate in the emergency setting. Lab Data Radiology Impressions Shoulder X-Ray 11/23/23 15:31 IMPRESSION: Degenerative changes. Shoulder CT 11/23/23 15:42 IMPRESSION: 1. Glenohumeral hemarthrosis without evidence of fracture or subluxation. Correlation with MRI of the right shoulder is recommended. 2. Severe emphysematous changes. The presence of pulmonary emphysema on CT is an independent risk factor for lung cancer. In the absence of a history or active diagnosis of lung cancer, it is recommended that this patient with emphysema be evaluated for enrollment in a low dose CT lung cancer screening program. All radiology interpretation(s) finalized by discharge Discharge Plan Discharge Patient Disposition: Home Clinical Impression: Shoulder injury Condition: Stable Prescriptions: New oxycodone 5 mg tablet 5 mg PO Q8H PRN (Reason: pain) Qty: 20 0RF Miralax 17 gram/dose powder 17 g PO DAILY Qty: 510 0RF Rx Instructions: Take 1 scoop daily while taking pain medications. No Action hydrocodone-acetaminophen 5-325 mg tablet 1 tab PO Q6H PRN (Reason: Pain) ferrous sulfate 325 mg (65 mg iron) tablet 325 mg PO DAILY Incruse Ellipta 62.5 mcg/actuation blister with device 1 inh inhalation DAILY Qty: 30 3RF albuterol sulfate 90 mcg/actuation HFA aerosol inhaler 2 puff inhalation Q6H PRN (Reason: shortness of breath or wheezing) Qty: 8.5 5RF Humira Pen 40 mg/0.8 mL pen injector kit 40 mg SUBCUT Q14D Qty: 2 3RF Rx Instructions: inject one - 40 mg/0.8 mL pen every 2 weeks SUBCUT hydroxychloroquine 200 mg tablet 200 mg PO BID@0800,2000 Qty: 180 1RF prednisone 5 mg tablet 5 mg PO DAILY Qty: 90 2RF trazodone 100 mg Tablet 100 mg PO BEDTIME@20 venlafaxine 150 mg Tablet Extended Release 24hr 150 mg PO DAILY@08 clopidogrel [Plavix] 75 mg Tablet 75 mg PO DAILY@20 omeprazole 20 mg Capsule,Delayed Release(Dr/Ec) 20 mg PO DAILY@20 potassium chloride 10 mEq capsule, extended release 10 meq PO DAILY@08 furosemide 20 mg tablet 20 mg PO DAILY@08 acetaminophen [Tylenol Extra Strength] 500 mg Tablet 1,000 mg PO DAILY@2000 cholecalciferol (vitamin D3) [Vitamin D3] 25 mcg (1,000 unit) Capsule 25 mcg PO DAILY@0800 hydralazine 10 mg tablet 10 mg PO TID@08,12,20 Eliquis 5 mg tablet 5 mg PO BID@08,20 alprazolam 0.5 mg Tablet 0.5 mg PO BID hydrocodone-acetaminophen 10-300 mg tablet 1 tab PO Q8H PRN (Reason: pain) Qty: 20 0RF Miralax 17 gram/dose powder 17 g PO DAILY Qty: 510 0RF Rx Instructions: Take 1 scoop daily while taking pain medications. Miralax 17 gram powder in packet 17 g PO BID PRN (Reason: Constipation) hydrocodone-acetaminophen 10-325 mg tablet 1 tab PO Q8H PRN (Reason: pain) Qty: 20 0RF Discharge Orders: Discharge ED (Routine); Ordered 11/23/23 Ordered By: Maddy Watkins Referrals: Giuliana Allred MD [Primary Care Provider] - 4-7 days Nalini Jennings MD [Physician] - 4-7 days (Please call for an appointment) Discharge Diet: Usual diet Discharge Activity: Increase activity as tolerated Patient Instructions: Opioid Safety, Pain Management Activity Restrictions/Additional Instructions: Thank you for choosing [facility] for your healthcare needs today. Please realize this is an emergency room and that we are providing you with a medical screening exam and this may not be complete and all inclusive of all the testing and or work up that you may need to determine your ailment or severity of your illness. You have been screened and evaluated and felt safe for discharge. Health conditions do change or evolve sometimes and as such it is important that you follow up with your Primary Doctor to be re checked, 3-5 days is a general good time frame for follow up. You are always welcome to return to the ED for re assessment if your symptoms are worsening or you have new concerns Coding Level of Care Code ED Tool Design Engineer for Nedra Yen
[2023-11-23] MEDS: ondansetron 2 mg/ML SDV 2 mL 4 MG IVP (16:09)
[2023-11-23] MEDS: HYDROmorphone 1 mg/mL INJ 1 mL IVP (16:12)
[2023-11-23] MEDS: dexamethasone 10 mg/mL INJ IVP (17:23)
[2023-11-23] MEDS: ketorolac 30 mg/mL INJ 15 MG IVP (17:25)
[2023-11-23 18:03] VITALS: BP 110/48; PULSE 71; RESP 20
== END 2023-11-23 18:27 | disposition home or self-care (01) ==
PROVIDERS: Emergency Provider Emergency Medicine; PCP Family Medicine
DX: S49.91XA Unspecified injury of right shoulder and upper arm, initial encounter (principal); Z79.02 Long term (current) use of antithrombotics/antiplatelets; Z79.01 Long term (current) use of anticoagulants; Z87.891 Personal history of nicotine dependence; J44.9 Chronic obstructive pulmonary disease, unspecified; Z99.81 Dependence on supplemental oxygen; E78.5 Hyperlipidemia, unspecified; Z86.73 Personal history of transient ischemic attack (TIA), and cerebral infarction without residual deficits; I10 Essential (primary) hypertension; W19.XXXA Unspecified fall, initial encounter
CPT/HCPCS: 73030; 73200; 96374; 96375; 99285; J1100; J1170; J1885; J2405

== ENCOUNTER → 2023-12-28 13:08 | Outpatient (BNVA) | payer MEDICARE, OTHER, SELFPAY | PROVIDERS: PCP Family Medicine; Visit Provider Specialist | DX: M19.011 Primary osteoarthritis, right shoulder | CPT/HCPCS: 20610; 73030; 99214 ==

== ENCOUNTER 2024-01-11 06:00 | Outpatient (RCR) | payer MEDICARE, OTHER, SELFPAY | END 2024-02-03 23:59 | disposition home or self-care (01) | LOC: SPT 06:00 | PROVIDERS: Visit Provider Specialist | DX: M75.01 Adhesive capsulitis of right shoulder (principal) | CPT/HCPCS: 97110; 97161 ==

== ENCOUNTER 2024-02-04 06:00 | Outpatient (RCR) | payer MEDICARE, OTHER, SELFPAY | END 2024-03-05 23:59 | disposition home or self-care (01) | LOC: SPT 06:00 | PROVIDERS: Visit Provider Specialist | DX: M75.01 Adhesive capsulitis of right shoulder (principal) | CPT/HCPCS: 97110 ==

== ENCOUNTER → 2024-02-11 14:11 | Outpatient (BNVA) | payer MEDICARE, OTHER, SELFPAY | PROVIDERS: Visit Provider Internal Medicine Rheumatology | DX: M05.79 Rheumatoid arthritis with rheumatoid factor of multiple sites without organ or systems involvement (principal); Z79.899 Other long term (current) drug therapy; Z71.85 Encounter for immunization safety counseling; R76.8 Other specified abnormal immunological findings in serum; Z72.0 Tobacco use | CPT/HCPCS: 36415; 80076; 82565; 85025; 85651; 86140; 99214 ==

== ENCOUNTER → 2024-02-26 09:12 | Outpatient (BNVA) | payer MEDICARE, OTHER, SELFPAY | PROVIDERS: PCP Family Medicine; Visit Provider Specialist | DX: M19.012 Primary osteoarthritis, left shoulder (principal); Z71.89 Other specified counseling | CPT/HCPCS: 20610; J1100; J2795; J3301 ==

== ENCOUNTER 2024-04-21 12:27 | Emergency (ER) | payer MEDICARE, OTHER, SELFPAY ==
--- NOTE | 2024-04-21 12:51 | XR_ITS ---
WS: [id number] Right arm and humerus, 2 views, 04/21/2024 Clinical Data: fall Comparison: Right shoulder, 12/28/2023 Findings: No fractures or dislocations are seen. The shoulder joint shows irregularity of the humeral head chantell cially of the greater tuberosity consistent with osteoarthritis. The shaft of the humerus is intact. There is heterotopic bone formation in the soft tissue adjacent to the proximal lateral aspect of the humerus. XR/[place] [id number] Impression: 1. Soft tissue heterotopic calcification of the proximal lateral subcutaneous t issue of the arm. 2. Osteoarthritis of the right glenohumeral joint.
--- NOTE | 2024-04-21 12:51 | XR_ITS ---
WS: [id number] Right hip, 2 views, AP pelvis, 04/21/2024 Clinical Data: fall Comparison: Pelvis and left hip, 02/26/2016 Findings: No fractures or dislocations are seen. The left hip shows narrowing, sclerosis, loss of normal spheri maury outline of the femoral head and ostial arthritic hypertrophic spurring on the medial aspect. The right hip shows narrowing, sclerosis, loss of normal spherical shape of the femoral head and medial h ypertrophic bone. The SI joints and pubic symphysis are not remarkable. The soft tissues are not keanu rkable. The adjacent pelvis is normal. There is osteoarthritis and dextroscoliosis of the lower lumbar vertebra. XR/XR hip RT 2-3V wo/w pel* [id number] Impression: Severe bilateral osteoarthritis of the hips. Tonnis classification: grade 3: large cysts in femoral head/acetabulum or joint space obliteration/severe narrowing or severe femoral head deformity vs AVN
[2024-04-21 14:26] VITALS: BP 127/68; PULSE 87; RESP 17; TEMP 36.6; O2SAT 91; BMI 29.2
--- NOTE | 2024-04-21 14:54 | ED_ITS ---
HPI - Fall General: Chief Complaint: Fall Stated Complaint: Fall shoulder and hip pain cant walk pain Time Seen by Provider: 04/21/24 14:51 History of Present Illness: 78-year-old female comes in today for ev aluation of right hip pain and right shoulder pain after a fall from Thursday. Patient has had difficulty ambulating due to the discomfort. Patient appears nontoxic. Patient appears in no acute distress. Related Data Home Medications Medication Instructions Recorded Confirmed clopidogrel 75 mg tablet (Plavix) 75 mg PO DAILY@09/22/19 02/26/24 omeprazole 20 mg capsule,delayed 20 mg PO DAILY@09/22/19 02/26/24 release trazodone 100 mg tablet 100 mg PO BEDTIME@09/22/19 02/26/24 venlafaxine 150 mg tablet,extended 150 mg PO DAILY@09/22/19 02/26/24 release 24 hr furosemide 20 mg tablet 20 mg PO DAILY@12/27/19 02/26/24 potassium chloride 10 mEq 10 meq PO DAILY@12/27/19 02/26/24 capsule,extended release acetaminophen 500 mg tablet 1,000 mg PO DAILY@199906/11/20 02/26/24 (Tylenol Extra Strength) apixaban 5 mg tablet (Eliquis) 5 mg PO BID@06/11/20 02/26/24 cholecalciferol (vitamin D3) 25 25 mcg PO DAILY@0800 06/11/20 02/26/24 mcg (1,000 unit) capsule (Vitamin D3) hydralazine 10 mg tablet 10 mg PO TID@06/11/20 02/26/24 alprazolam 0.5 mg tablet 0.5 mg PO BID 06/13/20 02/26/24 ferrous sulfate 325 mg (65 mg 325 mg PO DAILY 08/06/20 02/26/24 iron) tablet polyethylene glycol 3350 17 gram 17 g PO BID PRN Constipation 11/18/23 02/26/24 oral powder packet (Miralax) Previous Rx's Medication Instructions Recorded albuterol sulfate 90 mcg/actuation 2 puff inhalation Q6H PRN 08/13/22 aerosol inhaler shortness of breath or wheezing #8.5 grams adalimumab 40 mg/0.8 mL 40 mg (0.8 mL) SUBCUT Q14D #2 ea 02/11/24 subcutaneous pen kit (Humira Pen) hydroxychloroquine 200 mg tablet 200 mg PO BID@0800,1999 #180 tabs 02/11/24 prednisone 5 mg tablet 5 mg PO DAILY #90 tabs 02/11/24 umeclidinium 62.5 mcg/actuation 1 inh inhalation DAILY #30 ea 03/09/24 blister powder for inhalation (Incruse Ellipta) hydrocodone 5 mg-acetaminophen 325 1 tab PO Q6H PRN pain #12 tabs 04/21/24 mg tablet Allergies Allergy/AdvReac Type Severity Reaction Status Date / Time Sulfa (Sulfonamide Allergy ALGY-Rash Verified 04/21/24 14:26 Antibiotics) Review of Systems General: Reports: 10 or more systems reviewed and unremarkable except in HPI and below PFSH ED PFSH: Medical History Immunization counseling High risk medication use Seropositive rheumatoid arthritis of multiple sites Cholelithiasis Pulmonary nodule Atrial fibrillation DJD (degenerative joint disease) Rheumatoid arthritis Small bowel obstruction Resolved. Thought to be secondary to adhesions. Anxiety COPD (chronic obstructive pulmonary disease) 4 L oxygen baseline HLD (hyperlipidemia) Posterior inferior cerebellar artery embolism C. difficile colitis CVA (cerebral vascular accident) HTN (hypertension) Surgical History History of hysterectomy Status post right knee replacement Social History Smoking and tobacco/nicotine status: unknown if used tobacco/nicotine Quit status (tobacco/nicotine): has quit using Year quit tobacco: 1992 [id number] Second hand smoke exposure: Yes Alcohol intake: never Substance/Drug Use: never Caregiver/support person: Yes Lives independently: Yes Household members: none Housing: House Marital status: / Current occupational status: retired Pets and animals: No Do you think of yourself as: Straight/Heterosexual Current gender identity: Female Physical Exam Const: COMMON NORMALS: alert HENMT: COMMON NORMALS: normocephalic HEAD & SCALP: normocephalic Neck/C-Spine: COMMON NORMALS: full ROM Resp: COMMON NORMALS: normal respiratory effort and clear to auscultation bilaterally AUSCULTATION: clear to auscultation bilaterally Cardio: COMMON NORMALS: regular rate RATE: regular rate GI: COMMON NORMALS: Soft to palpation PALPATION: Yes Soft to palpation Back/Pelvis: COMMON NORMALS: thoracic and lumbar spine normal to inspection Extremity: COMMON NORMALS: full ROM Neuro: SENSORIUM/ORIENTATION: Yes alert Skin: COMMON NORMALS: turgor normal GENERAL SKIN EXAM: turgor normal Course Vital Signs: Vital signs: Vital Signs Temperature 97.8 F 04/21/24 14:26 Pulse Rate 87 04/21/24 14:26 Respiratory Rate 17 04/21/24 14:26 Blood Pressure 127/68 04/21/24 14:26 Pulse Oximetry 91 04/21/24 14:26 MDM - Fall Medical Decision Making 78-year-old female comes in today for injury secondary to a fall from Thursday. Patient reports difficulty ambulating and right hip pain. On exam patient appears nontoxic. Patient appears no acute distress. Respirations are even. Lungs are clear to auscultation. No vertebral tenderness. Right inguinal tenderness. No shortening or external rotation of the hip joint is noted. Differential diagnosis includes fracture of the pelvis, contusion, osteoarthritis. X-ray of the hip and right shoulder noted no fractures but significant arthritis. Reviewed exam with patient with recommendation for treatment and follow-up. Patient reported understanding and agreed to plan. Lab Data Radiology Impressions Hip/Pelvis X-Ray 04/21/24 12:51 Impression: Severe bilateral osteoarthritis of the hips. Tonnis classification: grade 3: large cysts in femoral head/acetabulum or joint space obliteration/severe narrowing or severe femoral head deformity vs AVN Humerus X-Ray 04/21/24 12:51 Impression: 1. Soft tissue heterotopic calcification of the proximal lateral subcutaneous tissue of the arm. 2. Osteoarthritis of the right glenohumeral joint. All radiology interpretation(s) finalized by discharge Discharge Plan Discharge Patient Disposition: Home Clinical Impression: Hip pain, right Fall from slip, trip, or stumble Qualifiers: Encounter type: initial encounter Qualified Code(s): W01.0XXA - Fall on same level from slipping, tripping and stumbling without subsequent striking against object, initial encounter Condition: Stable Prescriptions: New hydrocodone-acetaminophen 5-325 mg tablet 1 tab PO Q6H PRN (Reason: pain) Qty: 12 0RF Discontinued hydrocodone-acetaminophen 10-325 mg tablet 1 tab PO Q8H PRN (Reason: pain) Qty: 20 0RF No Action ferrous sulfate 325 mg (65 mg iron) tablet 325 mg PO DAILY albuterol sulfate 90 mcg/actuation HFA aerosol inhaler 2 puff inhalation Q6H PRN (Reason: shortness of breath or wheezing) Qty: 8.5 5RF Humira Pen 40 mg/0.8 mL pen injector kit 40 mg SUBCUT Q14D Qty: 2 5RF Rx Instructions: inject one - 40 mg/0.8 mL pen every 2 weeks SUBCUT hydroxychloroquine 200 mg tablet 200 mg PO BID@0800,2000 Qty: 180 1RF prednisone 5 mg tablet 5 mg PO DAILY Qty: 90 1RF Incruse Ellipta 62.5 mcg/actuation blister with device 1 inh inhalation DAILY Qty: 30 6RF trazodone 100 mg Tablet 100 mg PO BEDTIME@20 venlafaxine 150 mg Tablet Extended Release 24hr 150 mg PO DAILY@08 clopidogrel [Plavix] 75 mg Tablet 75 mg PO DAILY@20 omeprazole 20 mg Capsule,Delayed Release(Dr/Ec) 20 mg PO DAILY@20 potassium chloride 10 mEq capsule, extended release 10 meq PO DAILY@08 furosemide 20 mg tablet 20 mg PO DAILY@08 acetaminophen [Tylenol Extra Strength] 500 mg Tablet 1,000 mg PO DAILY@2000 cholecalciferol (vitamin D3) [Vitamin D3] 25 mcg (1,000 unit) Capsule 25 mcg PO DAILY@0800 hydralazine 10 mg tablet 10 mg PO TID@08,12,20 Eliquis 5 mg tablet 5 mg PO BID@08,20 alprazolam 0.5 mg Tablet 0.5 mg PO BID Miralax 17 gram powder in packet 17 g PO BID PRN (Reason: Constipation) Discharge Orders: Discharge ED (Routine); Ordered 04/21/24 Ordered By: Montrell Laws Referrals: Giuliana Allred MD [Primary Care Provider] - Discharge Diet: Usual diet Discharge Activity: Increase activity as tolerated Patient Instructions: Opioid Safety, Pain Management Activity Restrictions/Additional Instructions: Activity as tolerated. Follow-up with primary care for further instructions. Return to ED for new concerns. Coding Level of Care Code ED Dishwashing Machine Repairer for Nedra Yen
[2024-04-21 15:16] VITALS: BP 125/72; PULSE 84; O2SAT 92
== END 2024-04-21 15:17 | disposition home or self-care (01) ==
PROVIDERS: Emergency Provider Nurse Practitioner Family; PCP Family Medicine
DX: M25.551 Pain in right hip (principal); Z79.01 Long term (current) use of anticoagulants; Z79.02 Long term (current) use of antithrombotics/antiplatelets; Z87.891 Personal history of nicotine dependence; J44.9 Chronic obstructive pulmonary disease, unspecified; E78.5 Hyperlipidemia, unspecified; Z86.73 Personal history of transient ischemic attack (TIA), and cerebral infarction without residual deficits; I10 Essential (primary) hypertension; W19.XXXA Unspecified fall, initial encounter
CPT/HCPCS: 73060; 73502; 99284

== ENCOUNTER 2024-05-20 18:05 | Emergency (ER) | payer MEDICARE, OTHER, SELFPAY ==
[2024-05-20 18:07] VITALS: BP 160/81; PULSE 73; RESP 18; TEMP 36.7; O2SAT 98
[2024-05-20 18:35] LABS: Basophils % 0.4 %; Eosinophils # 0.2 10^3/uL (0.0-0.8); Eosinophils % 1.8 %; Hematocrit 36.4 % (36-47); Lymphocytes # 1.3 10^3/uL (0.8-4.8); Lymphocytes % 11.8 %; Mean Corpuscular Hemoglobin 30.6 pg (27-33); Mean Corpuscular Volume 98.6 fl (85-98); Mean Platelet Volume 10.5 fL (7.4-10.4); Monocytes # 0.7 10^3/uL (0.2-0.9); Monocytes % 5.9 %; Neutrophils # 8.93 10^3/uL (1.8-7.7); Neutrophils % 79.7 %; Nucleated Red Blood Cells % 0 %; Platelet Count 283 10^3/cmm (157-399); Red Blood Count 3.69 10^6/uL (3.85-5.65); Red Cell Distribution Width 12.9 % (12.1-15.1)
[2024-05-20 18:40] LABS: INR 0.92 (0.8-1.2)
[2024-05-20 18:46] LABS: Alanine Aminotransferase 14 U/L (0-33); Albumin Level 3.9 g/dL (3.5-5.2); Alkaline Phosphatase 111 U/L (35-105); Aspartate Amino Transferase 20 U/L (0-32); Blood Urea Nitrogen 19 mg/dL (8-23); Calcium 9.5 mg/dL (8.5-10.5); Carbon Dioxide 28 mmol/L (22-29); Chloride 100 mmol/L (98-107); Globulin 3.3 g/dL (1.3-4.6); Glucose 136 mg/dL (65-115); Lipase 58 U/L (13-60); Osmolality Calculated 292 mOsm/kg (285-295); Sodium 139 mmol/L (136-145); Total Bilirubin 0.2 mg/dL (0.15-1.2); Total Protein 7.2 g/dL (6.6-8.7)
[2024-05-20 18:48] LABS: Anion Gap 15.4 (5-19); Potassium 4.4 mmol/L (3.5-5.1)
--- NOTE | 2024-05-20 19:53 | ED_ITS ---
HPI - GI Bleed 2 General: Chief complaint: GI Bleed Stated complaint: rectal bleeding Time Seen by Provider: 05/20/24 18:07 History of Present Illness: 78-year-old female who is noticed bright red bleeding from her rectum intermittently today. Mainly with stool. Passage of small clots as well. She had clots on a pad, as well as blood in the stool. She has no abdominal pain. No fever. No nausea or vomiting. She does note intermittent hard stools alternating with loose stool chronically. She has not had this problem before. Related Data Home Medications Medication Instructions Recorded Confirmed clopidogrel 75 mg tablet (Plavix) 75 mg PO DAILY@09/22/19 02/26/24 omeprazole 20 mg capsule,delayed 20 mg PO DAILY@09/22/19 02/26/24 release trazodone 100 mg tablet 100 mg PO BEDTIME@09/22/19 02/26/24 venlafaxine 150 mg tablet,extended 150 mg PO DAILY@09/22/19 02/26/24 release 24 hr furosemide 20 mg tablet 20 mg PO DAILY@12/27/19 02/26/24 potassium chloride 10 mEq 10 meq PO DAILY@12/27/19 02/26/24 capsule,extended release acetaminophen 500 mg tablet 1,000 mg PO DAILY@199906/11/20 02/26/24 (Tylenol Extra Strength) apixaban 5 mg tablet (Eliquis) 5 mg PO BID@06/11/20 02/26/24 cholecalciferol (vitamin D3) 25 25 mcg PO DAILY@0800 06/11/20 02/26/24 mcg (1,000 unit) capsule (Vitamin D3) hydralazine 10 mg tablet 10 mg PO TID@,06/11/20 02/26/24 alprazolam 0.5 mg tablet 0.5 mg PO BID 06/13/20 02/26/24 ferrous sulfate 325 mg (65 mg 325 mg PO DAILY 08/06/20 02/26/24 iron) tablet polyethylene glycol 3350 17 gram 17 g PO BID PRN Constipation 11/18/23 02/26/24 oral powder packet (Miralax) Previous Rx's Medication Instructions Recorded albuterol sulfate 90 mcg/actuation 2 puff inhalation Q6H PRN 08/13/22 aerosol inhaler shortness of breath or wheezing #8.5 grams adalimumab 40 mg/0.8 mL 40 mg (0.8 mL) SUBCUT Q14D #2 ea 02/11/24 subcutaneous pen kit (Humira Pen) hydroxychloroquine 200 mg tablet 200 mg PO BID@0800,1999 #180 tabs 02/11/24 prednisone 5 mg tablet 5 mg PO DAILY #90 tabs 02/11/24 umeclidinium 62.5 mcg/actuation 1 inh inhalation DAILY #30 ea 03/09/24 blister powder for inhalation (Incruse Ellipta) hydrocodone 5 mg-acetaminophen 325 1 tab PO Q6H PRN pain #12 tabs 04/21/24 mg tablet Allergies Allergy/AdvReac Type Severity Reaction Status Date / Time Sulfa (Sulfonamide Allergy ALGY-Rash Verified 04/21/24 14:26 Antibiotics) PFSH ED 2 PFSH: Medical History Immunization counseling High risk medication use Seropositive rheumatoid arthritis of multiple sites Cholelithiasis Pulmonary nodule Atrial fibrillation DJD (degenerative joint disease) Rheumatoid arthritis Small bowel obstruction Resolved. Thought to be secondary to adhesions. Anxiety COPD (chronic obstructive pulmonary disease) 4 L oxygen baseline HLD (hyperlipidemia) Posterior inferior cerebellar artery embolism C. difficile colitis CVA (cerebral vascular accident) HTN (hypertension) Surgical History History of hysterectomy Status post right knee replacement Social History Smoking and tobacco/nicotine status: unknown if used tobacco/nicotine Quit status (tobacco/nicotine): has quit using Year quit tobacco: 1992 [id number] Second hand smoke exposure: Yes Alcohol intake: never Substance/Drug Use: never Caregiver/support person: Yes Lives independently: Yes Household members: none Housing: House Marital status: / Current occupational status: retired Pets and animals: No Do you think of yourself as: Straight/Heterosexual Current gender identity: Female Physical Exam 2 Const: COMMON NORMALS: no acute distress GENERAL APPEARANCE: cooperative; not ill appearing and not frail appearing HENMT: COMMON NORMALS: normocephalic, atraumatic and Normal external nose present HEAD & SCALP: normocephalic and atraumatic FACE & SINUS: normal facial exam and face symmetric NOSE: Normal external nose present Eye: COMMON NORMALS: Equal, round and reactive pupils present and EOMs intact bilaterally PUPIL: Yes Equal, round and reactive pupils present Neck/C-Spine: GENERAL: Yes trachea midline Chest: CHEST: Yes Symmetrical chest wall rise Resp: COMMON NORMALS: normal respiratory effort, No retractions, No use of accessory muscles and clear to auscultation bilaterally AUSCULTATION: clear to auscultation bilaterally Cardio: COMMON NORMALS: regular rate and regular rhythm RATE: regular rate RHYTHM: regular rhythm GI: COMMON NORMALS: Normal to inspection, nondistended, normoactive bowel sounds present RECTAL EXAM: visual inspection normal, normal sphincter tone, No Rectal prolapse, no fecal impaction, no fissure noted, heme negative stool and No Fistula present (GI) Extremity: COMMON NORMALS: no pedal edema Neuro: MAHENDRA COMA SCALE: document GCS findings [place] coma scale eye opening: Spontaneous Mahendra coma scale verbal response: Orientated Mahendra coma scale motor response: Obey commands Mahendra coma scale total score: 15 S ENSORY EXAM: Yes extremities (intact) Psych: COMMON NORMALS: speech normal SPEECH: Yes normal speech Skin: COMMON NORMALS: no rashes or lesions noted GENERAL SKIN EXAM: no rashes or lesions noted Course 2 Vital Signs: Vital signs: Vital Signs Temperature 98.1 F 05/20/24 18:07 Pulse Rate 82 05/20/24 20:05 Respiratory Rate 18 05/20/24 20:05 Blood Pressure 147/79 05/20/24 20:05 Pulse Oximetry 94 05/20/24 20:05 Oxygen Delivery Me thod Nasal Cannula 05/20/24 18:07 Oxygen Flow Rate 2 05/20/24 18:07 MDM - GI Bleed Medical Decision Making Vitals are good here. She is slightly hypertensive. Hemoglobin is 11.3. Other laboratory is normal. She is on Eliquis. Rectal exam did not reveal blood either macroscopically or microscopically. She is relieved by this. Her belly is nontender, so I do not believe imaging will aid us clinically. She states she is able to get her blood checked on Thursday or Thursday, in 2 to 3 days. She will return for increasing bleeding, pain, fever, etc. Otherwise she will be allowed discharge home. Lab Data 05/20/24 18:20 05/20/24 18:20 Laboratory Results WBC 11.20 10^3/uL (3.29-11.43) 05/20/24 18:20 RBC 3.69 10^6/uL (3.85-5.65) L 05/20/24 18:20 Hgb 11.30 g/dL (11.27-16.99) 05/20/24 18:20 Hct 36.4 % (36-47) 05/20/24 18:20 MCV 98.6 fl (85-98) H 05/20/24 18:20 MCH 30.6 pg (27-33) 05/20/24 18:20 MCHC 31.0 g/dL (30-55) 05/20/24 18:20 RDW 12.9 % (12.1-15.1) 05/20/24 18:20 Plt Count 283 10^3/cmm (157-399) 05/20/24 18:20 MPV 10.5 fL (7.4-10.4) H 05/20/24 18:20 Neut % (Auto) 79.7 % 05/20/24 18:20 Lymph % (Auto) 11.8 % 05/20/24 18:20 [place] % (Auto) 5.9 % 05/20/24 18:20 Eos % (Auto) 1.8 % 05/20/24 18:20 Baso % (Auto) 0.4 % 05/20/24 18:20 Neut # (Auto) 8.93 10^3/uL (1.8-7.7) H 05/20/24 18:20 Lymph # (Auto) 1.3 10^3/uL (0.8-4.8) 05/20/24 18:20 [place] # (Auto) 0.7 10^3/uL (0.2-0.9) 05/20/24 18:20 Eos # (Auto) 0.2 10^3/uL (0.0-0.8) 05/20/24 18:20 Baso # (Auto) 0.0 10^3/uL (0.0-0.1) 05/20/24 18:20 Nucleated RBC % (auto) 0 % 05/20/24 18:20 Nucleated RBCs # 0.0 /100WBC 05/20/24 18:20 PT 12.70 SECONDS (12.1-14.9) 05/20/24 18:20 INR 0.92 (0.8-1.2) 05/20/24 18:20 Sodium 139 mmol/L (136-145) 05/20/24 18:20 Potassium 4.4 mmol/L (3.5-5.1) 05/20/24 18:20 Chloride 100 mmol/L (98-107) 05/20/24 18:20 Carbon Dioxide 28 mmol/L (22-29) 05/20/24 18:20 Anion Gap 15.4 (5-19) 05/20/24 18:20 BUN 19 mg/dL (8-23) 05/20/24 18:20 Creatinine 0.8 mg/dL (0.5-0.9) 05/20/24 18:20 GFR Calculation Not Reportable 05/20/24 18:20 Glucose 136 mg/dL (65-115) H 05/20/24 18:20 Calculated Osmolality 292 mOsm/kg (285-295) 05/20/24 18:20 Calcium 9.5 mg/dL (8.5-10.5) 05/20/24 18:20 Total Bilirubin 0.2 mg/dL (0.15-1.2) 05/20/24 18:20 AST 20 U/L (0-32) 05/20/24 18:20 ALT 14 U/L (0-33) 05/20/24 18:20 Alkaline Phosphatase 111 U/L (35-105) H 05/20/24 18:20 Total Protein 7.2 g/dL (6.6-8.7) 05/20/24 18:20 Albumin 3.9 g/dL (3.5-5.2) 05/20/24 18:20 Globulin 3.3 g/dL (1.3-4.6) 05/20/24 18:20 Lipase 58 U/L (13-60) 05/20/24 18:20 All radiology interpretation(s) finalized by discharge Discharge Plan Discharge Patient Disposition: Home Clinical Impression: Bright red rectal bleeding Condition: Stable Prescriptions: No Action ferrous sulfate 325 mg (65 mg iron) tablet 325 mg PO DAILY albuterol sulfate 90 mcg/actuation HFA aerosol inhaler 2 puff inhalation Q6H PRN (Reason: shortness of breath or wheezing) Qty: 8.5 5RF Humira Pen 40 mg/0.8 mL pen injector kit 40 mg SUBCUT Q14D Qty: 2 5RF Rx Instructions: inject one - 40 mg/0.8 mL pen every 2 weeks SUBCUT hydroxychloroquine 200 mg tablet 200 mg PO BID@0800,2000 Qty: 180 1RF prednisone 5 mg tablet 5 mg PO DAILY Qty: 90 1RF Incruse Ellipta 62.5 mcg/actuation blister with device 1 inh inhalation DAILY Qty: 30 6RF trazodone 100 mg Tablet 100 mg PO BEDTIME@20 venlafaxine 150 mg Tablet Extended Release 24hr 150 mg PO DAILY@08 clopidogrel [Plavix] 75 mg Tablet 75 mg PO DAILY@20 omeprazole 20 mg Capsule,Delayed Release(Dr/Ec) 20 mg PO DAILY@20 potassium chloride 10 mEq capsule, extended release 10 meq PO DAILY@08 furosemide 20 mg tablet 20 mg PO DAILY@08 acetaminophen [Tylenol Extra Strength] 500 mg Tablet 1,000 mg PO DAILY@2000 cholecalciferol (vitamin D3) [Vitamin D3] 25 mcg (1,000 unit) Capsule 25 mcg PO DAILY@0800 hydralazine 10 mg tablet 10 mg PO TID@08,12,20 Eliquis 5 mg tablet 5 mg PO BID@08,20 alprazolam 0.5 mg Tablet 0.5 mg PO BID Miralax 17 gram powder in packet 17 g PO BID PRN (Reason: Constipation) hydrocodone-acetaminophen 5-325 mg tablet 1 tab PO Q6H PRN (Reason: pain) Qty: 12 0RF Discharge Orders: Discharge ED (Routine); Ordered 05/20/24 Ordered By: James Ross Referrals: Giuliana Allred MD [Primary Care Provider] - 1-3 days Patient Instructions: Rectal Bleeding (ED), Opioid Safety, Pain Management Activity Restrictions/Additional Instructions: Monitor for rectal bleeding over the weekend. Return for increasing amounts of rectal blood, clots, etc. Return for development of abdominal pain, fever, vomiting, any other concerning symptoms. Have your blood count checked on Thursday or Thursday of next week to ensure your blood count is staying stable. Call your doctor Thursday for a follow-up. Coding Level of Care Code ED Air Brakes Inspector for Nedra Yen
[2024-05-20 20:05] VITALS: BP 147/79; PULSE 82; RESP 18; O2SAT 94
== END 2024-05-20 20:08 | disposition home or self-care (01) ==
PROVIDERS: Emergency Medicine; Emergency Provider Emergency Medicine; PCP Family Medicine
DX: K62.5 Hemorrhage of anus and rectum (principal); Z79.02 Long term (current) use of antithrombotics/antiplatelets; Z87.891 Personal history of nicotine dependence; J44.9 Chronic obstructive pulmonary disease, unspecified; Z99.81 Dependence on supplemental oxygen; E78.5 Hyperlipidemia, unspecified; I10 Essential (primary) hypertension; Z86.73 Personal history of transient ischemic attack (TIA), and cerebral infarction without residual deficits
CPT/HCPCS: 80053; 83690; 85025; 85610; 99283

== ENCOUNTER → 2024-06-10 09:15 | Outpatient (BNVA) | payer MEDICARE, OTHER, SELFPAY | PROVIDERS: PCP Family Medicine; Visit Provider Specialist | DX: M19.012 Primary osteoarthritis, left shoulder (principal); M75.42 Impingement syndrome of left shoulder; Z71.89 Other specified counseling | CPT/HCPCS: 20610; J1100; J2795; J3301 ==

== ENCOUNTER 2024-06-20 11:45 | Emergency (ER) | payer MEDICARE, OTHER, SELFPAY ==
[2024-06-20 12:35] VITALS: BP 107/52; PULSE 98; RESP 18; TEMP 36.7; O2SAT 93; BMI 28.3
[2024-06-20 13:46] LABS: Basophils % 0.2 %; Eosinophils # 0.2 10^3/uL (0.0-0.8); Eosinophils % 1.2 %; Hematocrit 33.4 % (36-47); Lymphocytes # 0.8 10^3/uL (0.8-4.8); Mean Corpuscular HGB Conc 31.7 g/dL (30-55); Mean Corpuscular Hemoglobin 30.6 pg (27-33); Mean Corpuscular Volume 96.5 fl (85-98); Mean Platelet Volume 11.9 fL (7.4-10.4); Monocytes # 0.9 10^3/uL (0.2-0.9); Monocytes % 4.6 %; Neutrophils # 18.17 10^3/uL (1.8-7.7); Neutrophils % 88.2 %; Nucleated Red Blood Cells % 0 %; Platelet Count 159 10^3/cmm (157-399); Red Blood Count 3.46 10^6/uL (3.85-5.65); Red Cell Distribution Width 13.2 % (12.1-15.1)
[2024-06-20 14:09] LABS: Alanine Aminotransferase 403 U/L (0-33); Albumin Level 2.8 g/dL (3.5-5.2); Alkaline Phosphatase 454 U/L (35-105); Aspartate Amino Transferase 106 U/L (0-32); Blood Urea Nitrogen 56 mg/dL (8-23); Calcium 8.7 mg/dL (8.5-10.5); Carbon Dioxide 23 mmol/L (22-29); Chloride 91 mmol/L (98-107); Creatinine Clr Calc Pharmacy 9.2653; Globulin 3.5 g/dL (1.3-4.6); Glucose 82 mg/dL (65-115); Lipase 34 U/L (13-60); Osmolality Calculated 285 mOsm/kg (285-295); Slide Review Slide Review Perform; Sodium 130 mmol/L (136-145); Total Bilirubin 1.5 mg/dL (0.15-1.2); Total Protein 6.3 g/dL (6.6-8.7)
--- NOTE | 2024-06-20 17:05 | USR_ITS ---
PROCEDURE INFORMATION: Exam: US Abdomen, Limited; Right Upper Quadrant Exam date and time: 06/20/2024 5:21 PM Age: 78 years old Clinical indication: Abdominal pain; Generalized; Additional info: Abd pain TECHNIQUE: Imaging protocol: Real time ultrasound of the abdomen with image documentation. Limited exam focused on the right upper quadrant. COMPARISON: US gall bladder [id number] 06/11/2020 3:30 AM FINDINGS: Liver: Visualized hepatic parenchyma is mildly echogenic. The liver contour is grossly smooth. Mild intrahepatic biliary dilatation. Gallbladder: There is cholelithiasis. No significant wall thickening or edema to suggest cholecystitis.The toe stripper reports a negative sonographic Rosales's sign. Biliary ducts: The CBD is dilated, measuring 8-9 mm. Intraductal stone noted in the distal CBD on concurrent CT. Pancreas: The pancreas is mostly obscured bowel gas. Visualized portions are grossly unremarkable. Right kidney: The right kidney is normal in echotexture and measures 10.3 cm in length. There is mild-moderate right-sided hydronephrosis. US/US gall bladder [id number] IMPRESSION: 1. Choledocholithiasis with mild intrahepatic and extrahepatic biliary dilatation. No evidence of acute cholecystitis. 2. Mild-moderate right-sided hydronephrosis.
--- NOTE | 2024-06-20 17:05 | CTR_ITS ---
PROCEDURE INFORMATION: Exam: CT Abdomen And Pelvis Without Contrast Exam date and time: 06/20/2024 5:48 PM Age: 78 years old Clinical indication: Abdominal pain; Additional info: Ad pain TECHNIQUE: Imaging protocol: Computed tomography of the abdomen and pelvis without contrast. Radiation optimization: All CT scans at this facility use at least one of these dose optimization techniques: automated exposure control; mA and/or kV adjustment per patient size (includes targeted exams where dose is matched to clinical indication); or iterative reconstruction. COMPARISON: CT abdomen pelvis wo con [id number] 07/21/2020 12:51 PM RADIATION DOSE METRICS: Total DLP (mGy-cm): 764.27 FINDINGS: Lungs: Subsegmental bibasilar atelectasis. The visualized lung bases are otherwise clear. Diaphragm: No evidence of diaphragmatic defect. Hepatobiliary: Cholelithiasis with choledocholithiasis. There is an 18 mm craniocaudal by 9 mm transverse stone in the distal CBD with dilatation of the CBD to 10 mm and mild intrahepatic biliary dilatation. No significant inflammatory changes to suggest cholecystitis. No discrete hepatic lesion within limitations of a noncontrast exam. Pancreas: Mildly atrophic. Otherwise grossly unremarkable. Spleen: Grossly unremarkable. Adrenal glands: Grossly unremarkable. Kidneys and ureters: Mild-moderate hydronephrosis with abrupt change in caliber at the UPJ compatible with UPJ obstruction. No evidence of ureteral stone. No hydronephrosis or stone on the left. There are multiple hyperdense left-sided renal lesions compatible with hemorrhagic or proteinaceous cysts. Consider correlation with follow-up outpatient renal ultrasound. Stomach and bowel: Colonic diverticulosis without evidence of acute diverticulitis. No bowel obstruction or perienteric inflammatory changes. Appendix: Normal appendix. Intraperitoneal space: No evidence of free air or fluid collection. Vasculature: Atherosclerosis without evidence of aneurysmal dilitation of abdominal aorta. Suspected narrowing of the proximal SMA and celiac trunk secondary to atherosclerotic plaque. Consider follow-up outpatient vascular evaluatiion. Lymph nodes: No evidence of adenopathy. Urinary bladder: Grossly unremarkable. Reproductive: Prior hysterectomy. There is laxity of the pelvic floor. Bones/joints: No evidence of acute fracture or aggresive osseous lesion. Moderate-severe multilevel spondylosis of the lumbar spine with facet arthrosis, osteophytosis and endplate degeneration. Consider correlation with follow-up outpatient MRI to evaluate for neural impingement. Severe osteoarthritis of both hips. Soft tissues: No evidence of fluid collection or hematoma in the superficial soft tissues. CT/CT kidney stone [id number] IMPRESSION: 1. Choledocholithiasis with mild intrahepatic and extrahepatic biliary dilatation. 2. Mild-moderate right-sided hydronephrosis with findings most suggestive of UPJ obstruction. No evidence of ureteral stone. Consider urologic evaluation. 3. Multiple hyperdense left-sided renal lesions compatible with hemorrhagic or proteinaceous cysts. Consider correlation with follow-up outpatient renal ultrasound.
[2024-06-20] MEDS: ondansetron 2 mg/ML SDV 2 mL 4 MG IVP (17:19)
[2024-06-20] MEDS: sodium chloride 0.9% 1,000 ML 999 ML IV ×2 (17:19→18:56)
--- NOTE | 2024-06-20 17:19 | ED_ITS ---
HPI - Weakness 2 General: Chief complaint: Weakness Stated complaint: Unable to keep anything down Time Seen by Provider: 06/20/24 17:04 Source: patient Mode of arrival: ambulatory Limitations: no limitations History of Present Illness: 78-year-old female states has been havin g nausea vomiting not feeling well the last 3 to 4 days. She states she has not had much of an appetite either. She states she has been started to have generalized weakness as well. She denies any abdominal pain denies any fevers. Associated symptoms: Reports nausea and vomiting; Denies chest pain, chills, dysuria, fever(s) or headache(s) Review of Systems 2 Const: Reports: fatigue and malaise; Denies: fever(s), chills, body aches or change in appetite ENMT: Denies: throat pain or dental pain Card: Denies: chest pain Resp: Denies: dyspnea GI: Reports: nausea and vomiting; Denies: abdominal pain or diarrhea : Denies: dysuria Musc: Denies: neck pain or back pain Skin/Breast: Denies: rash Neuro: Denies: headache(s) PFSH ED 2 PFSH: Medical History Immunization counseling High risk medication use Seropositive rheumatoid arthritis of multiple sites Cholelithiasis Pulmonary nodule Atrial fibrillation DJD (degenerative joint disease) Rheumatoid arthritis Small bowel obstruction Resolved. Thought to be secondary to adhesions. Anxiety COPD (chronic obstructive pulmonary disease) 4 L oxygen baseline HLD (hyperlipidemia) Posterior inferior cerebellar artery embolism C. difficile colitis CVA (cerebral vascular accident) HTN (hypertension) Surgical History History of hysterectomy Status post right knee replacement Social History Smoking and tobacco/nicotine status: unknown if used tobacco/nicotine Quit status (tobacco/nicotine): has quit using Year quit tobacco: 1992 [id number] Second hand smoke exposure: Yes Alcohol intake: never Substance/Drug Use: never Caregiver/support person: Yes Lives independently: Yes Household members: none Housing: House Marital status: / Current occupational status: retired Pets and animals: No Do you think of yourself as: Straight/Heterosexual Current gender identity: Female Physical Exam 2 Const: COMMON NORMALS: no acute distress, patient oriented x3 and healthy appearing HENMT: COMMON NORMALS: normocephalic and atraumatic HEAD & SCALP: n ormocephalic and atraumatic Neck/C-Spine: COMMON NORMALS: full ROM and supple Chest: COMMONS NORMALS: normal inspection of the chest Resp: COMMON NORMALS: normal respiratory effort, No retractions, No use of accessory muscles and clear to auscultation bilaterally AUSCULTATION: clear to auscultation bilaterally Cardio: COMMON NORMALS: regular rate, regular rhythm and No murmurs present (Cardio) RATE: regular rate RHYTHM: regular rhythm GI: COMMON NORMALS: Normal to inspection, nondistended, normoactive bowel sounds present, Soft to palpation, non-tender and no masses PALPATION: Yes Soft to palpation Extremity: COMMON NORMALS: normal to inspection and full ROM Neuro: COMMON NORMALS: patient oriented x3, moves all extremities and no focal motor deficits Psych: COMMON NORMALS: mental status grossly normal, Normal thought process present and cooperative THOUGHT PROCESS: Normal thought process present Skin: COMMON NORMALS: no rashes or lesions noted and no wounds GENERAL SKIN EXAM: no rashes or lesions noted Course 2 Vital Signs: Vital signs: Vital Signs Temperature 98.1 F 06/20/24 12:35 Pulse Rate 92 06/20/24 18:03 Respiratory Rate 18 06/20/24 12:35 Blood Pressure 115/72 06/20/24 18:03 Pulse Oximetry 99 06/20/24 18:03 Oxygen Delivery Me thod Room Air 06/20/24 18:03 MDM - Weakness Medical Decision Making Patient presents here with vomiting she is found to have choledocholithiasis she also has UTI along with acute kidney injury blood pressure here has been stable [facility] there for higher level of care as we do not have GI and she likely needs an ERCP. Lab Data I reviewed the patient's lab results. 06/20/24 13:33 06/20/24 13:33 Radiology Impressions Abdomen/Pelvis CT 06/20/24 17:05 IMPRESSION: 1. Choledocholithiasis with mild intrahepatic and extrahepatic biliary dilatation. 2. Mild-moderate right-sided hydronephrosis with findings most suggestive of UPJ obstruction. No evidence of ureteral stone. Consider urologic evaluation. 3. Multiple hyperdense left-sided renal lesions compatible with hemorrhagic or proteinaceous cysts. Consider correlation with follow-up outpatient renal ultrasound. Gallbladder Ultrasound 06/20/24 17:05 IMPRESSION: 1. Choledocholithiasis with mild intrahepatic and extrahepatic biliary dilatation. No evidence of acute cholecystitis. 2. Mild-moderate right-sided hydronephrosis. Laboratory Results WBC 20.60 10^3/uL (3.29-11.43) H 06/20/24 13:33 RBC 3.46 10^6/uL (3.85-5.65) L 06/20/24 13:33 Hgb 10.60 g/dL (11.27-16.99) L 06/20/24 13:33 Hct 33.4 % (36-47) L 06/20/24 13:33 MCV 96.5 fl (85-98) 06/20/24 13:33 MCH 30.6 pg (27-33) 06/20/24 13:33 MCHC 31.7 g/dL (30-55) 06/20/24 13:33 RDW 13.2 % (12.1-15.1) 06/20/24 13:33 Plt Count 159 10^3/cmm (157-399) 06/20/24 13:33 MPV 11.9 fL (7.4-10.4) H 06/20/24 13:33 Neut % (Auto) 88.2 % 06/20/24 13:33 Lymph % (Auto) 4.0 % 06/20/24 13:33 [place] % (Auto) 4.6 % 06/20/24 13:33 Eos % (Auto) 1.2 % 06/20/24 13:33 Baso % (Auto) 0.2 % 06/20/24 13:33 Neut # (Auto) 18.17 10^3/uL (1.8-7.7) H 06/20/24 13:33 Lymph # (Auto) 0.8 10^3/uL (0.8-4.8) 06/20/24 13:33 [place] # (Auto) 0.9 10^3/uL (0.2-0.9) 06/20/24 13:33 Eos # (Auto) 0.2 10^3/uL (0.0-0.8) 06/20/24 13:33 Baso # (Auto) 0.0 10^3/uL (0.0-0.1) 06/20/24 13:33 Nucleated RBC % (auto) 0 % 06/20/24 13:33 Nucleated RBCs # 0.0 /100WBC 06/20/24 13:33 Sodium 130 mmol/L (136-145) L 06/20/24 13:33 Potassium 4.0 mmol/L (3.5-5.1) 06/20/24 13:33 Chloride 91 mmol/L (98-107) L 06/20/24 13:33 Carbon Dioxide 23 mmol/L (22-29) 06/20/24 13:33 Anion Gap 20.0 (5-19) H 06/20/24 13:33 BUN 56 mg/dL (8-23) H 06/20/24 13:33 Creatinine 4.7 mg/dL (0.5-0.9) H 06/20/24 13:33 GFR Calculation Not Reportable 06/20/24 13:33 Glucose 82 mg/dL (65-115) 06/20/24 13:33 Calculated Osmolality 285 mOsm/kg (285-295) 06/20/24 13:33 Calcium 8.7 mg/dL (8.5-10.5) 06/20/24 13:33 Total Bilirubin 1.5 mg/dL (0.15-1.2) H 06/20/24 13:33 AST 106 U/L (0-32) H 06/20/24 13:33 ALT 403 U/L (0-33) H 06/20/24 13:33 Alkaline Phosphatase 454 U/L (35-105) H 06/20/24 13:33 Total Protein 6.3 g/dL (6.6-8.7) L 06/20/24 13:33 Albumin 2.8 g/dL (3.5-5.2) L 06/20/24 13:33 Globulin 3.5 g/dL (1.3-4.6) 06/20/24 13:33 Lipase 34 U/L (13-60) 06/20/24 13:33 Urine Color Dark yellow (Yellow) A 06/20/24 18:27 Urine Appearance Turbid (CLEAR) A 06/20/24 18:27 Urine pH 5.5 (5-7) 06/20/24 18: Ur Specific [place] 1.010 (1.005-1.030) 06/20/24 18: Urine Protein 2+ (Negative) A 06/20/24 18: Urine Glucose (UA) Negative (Normal) 06/20/24 18: Urine Ketones Negative (Negative) 06/20/24 18: Urine Blood 2+ (Negative) A 06/20/24 18: Urine Nitrate Negative (Negative) 06/20/24 18: Urine Bilirubin Negative (Negative) 06/20/24 18: Urine Urobilinogen 1.0 mg/dL (Negative) 06/20/24 18: Ur Leukocyte Esterase 3+ (Negative) A 06/20/24 18: Urine RBC 6-10 /hpf (0-2) 06/20/24 18:27 Urine WBC >100 /hpf (0-5) H 06/20/24 18:27 Ur Squamous Epith Cells 0-5 /hpf (0-5) 06/20/24 18: Amorphous Sediment Not Reportable 06/20/24 18:27 Urine Bacteria 4+ /hpf (NONE) H 06/20/24 18:27 Hyaline Casts 19.83 /lpf 06/20/24 18:27 All radiology interpretation(s) finalized by discharge Discharge Plan Discharge Patient Disposition: Xfer Short-Term Hosp Clinical Impression: Choledocholithiasis, Acute kidney injury, Acute cystitis Condition: Stable Prescriptions: No Action ferrous sulfate 325 mg (65 mg iron) tablet 325 mg PO DAILY albuterol sulfate 90 mcg/actuation HFA aerosol inhaler 2 puff inhalation Q6H PRN (Reason: shortness of breath or wheezing) Qty: 8.5 5RF Humira Pen 40 mg/0.8 mL pen injector kit 40 mg SUBCUT Q14D Qty: 2 5RF Rx Instructions: inject one - 40 mg/0.8 mL pen every 2 weeks SUBCUT hydroxychloroquine 200 mg tablet 200 mg PO BID@0800,2000 Qty: 180 1RF prednisone 5 mg tablet 5 mg PO DAILY Qty: 90 1RF Incruse Ellipta 62.5 mcg/actuation blister with device 1 inh inhalation DAILY Qty: 30 6RF trazodone 100 mg Tablet 100 mg PO BEDTIME@20 venlafaxine 150 mg Tablet Extended Release 24hr 150 mg PO DAILY@08 clopidogrel [Plavix] 75 mg Tablet 75 mg PO DAILY@20 omeprazole 20 mg Capsule,Delayed Release(Dr/Ec) 20 mg PO DAILY@20 potassium chloride 10 mEq capsule, extended release 10 meq PO DAILY@08 furosemide 20 mg tablet 20 mg PO DAILY@08 acetaminophen [Tylenol Extra Strength] 500 mg Tablet 1,000 mg PO DAILY@1999 cholecalciferol (vitamin D3) [Vitamin D3] 25 mcg (1,000 unit) Capsule 25 mcg PO DAILY@0800 hydralazine 10 mg tablet 10 mg PO TID@08,, Eliquis 5 mg tablet 5 mg PO BID@ alprazolam 0.5 mg Tablet 0.5 mg PO BID Miralax 17 gram powder in packet 17 g PO BID PRN (Reason: Constipation) hydrocodone-acetaminophen 5-325 mg tablet 1 tab PO Q6H PRN (Reason: pain) Qty: 12 0RF Referrals: Giuliana Allred MD [Primary Care Provider] - Coding Level of Care Code ED [employer] for g Fwd Related Data Home Medications Medication Instructions Recorded Confirmed clopidogrel 75 mg tablet (Plavix) 75 mg PO DAILY@09/22/19 06/10/24 omeprazole 20 mg capsule,delayed 20 mg PO DAILY@09/22/19 06/10/24 release trazodone 100 mg tablet 100 mg PO BEDTIME@09/22/19 06/10/24 venlafaxine 150 mg tablet,extended 150 mg PO DAILY@09/22/19 06/10/24 release 24 hr furosemide 20 mg tablet 20 mg PO DAILY@12/27/19 06/10/24 potassium chloride 10 mEq 10 meq PO DAILY@12/27/19 06/10/24 capsule,extended release acetaminophen 500 mg tablet 1,000 mg PO DAILY@199906/11/20 06/10/24 (Tylenol Extra Strength) apixaban 5 mg tablet (Eliquis) 5 mg PO BID@,06/11/20 06/10/24 cholecalciferol (vitamin D3) 25 25 mcg PO DAILY@0800 06/11/20 06/10/24 mcg (1,000 unit) capsule (Vitamin D3) hydralazine 10 mg tablet 10 mg PO TID@08,12,20 06/11/20 06/10/24 alprazolam 0.5 mg tablet 0.5 mg PO BID 06/13/20 06/10/24 ferrous sulfate 325 mg (65 mg 325 mg PO DAILY 08/06/20 06/10/24 iron) tablet polyethylene glycol 3350 17 gram 17 g PO BID PRN Constipation 11/18/23 06/10/24 oral powder packet (Miralax) Previous Rx's Medication Instructions Recorded albuterol sulfate 90 mcg/actuation 2 puff inhalation Q6H PRN 08/13/22 aerosol inhaler shortness of breath or wheezing #8.5 grams adalimumab 40 mg/0.8 mL 40 mg (0.8 mL) SUBCUT Q14D #2 ea 02/11/24 subcutaneous pen kit (Humira Pen) hydroxychloroquine 200 mg tablet 200 mg PO BID@0800,2000 #180 tabs 02/11/24 prednisone 5 mg tablet 5 mg PO DAILY #90 tabs 02/11/24 umeclidinium 62.5 mcg/actuation 1 inh inhalation DAILY #30 ea 03/09/24 blister powder for inhalation (Incruse Ellipta) hydrocodone 5 mg-acetaminophen 325 1 tab PO Q6H PRN pain #12 tabs 04/21/24 mg tablet Allergies Allergy/AdvReac Type Severity Reaction Status Date / Time Sulfa (Sulfonamide Allergy ALGY-Rash Verified 06/10/24 10:12 Antibiotics)
[2024-06-20 18:03] VITALS: BP 115/72; PULSE 92; O2SAT 99
[2024-06-20 18:52] LABS: Bilirubin Urine Negative (Negative); Blood Urine 2+ (Negative); Glucose Urine UA Negative (Normal); Ketones Urine Negative (Negative); Leukocyte Esterase Urine 3+ (Negative); Nitrate Urine Negative (Negative); Protein Urine 2+ (Negative); Urine Appearance Turbid (CLEAR); Urine Color Dark Yellow (Yellow); pH Urine 5.5 (5-7)
[2024-06-20 18:59] LABS: Add Urine Microscopic? YES; Bacteria Urine 4+ /hpf; Hyaline Casts Urine 19.83 /lpf; Squamous Epithelial Cell Urine 0-5 /hpf (0-5); WBC Urine >100 /hpf (0-5)
[2024-06-20] MEDS: piperacillin-tazobactam 3.375 GM in sodium chloride 0.9% (plus) 50 ML IV (19:02)
[2024-06-20 19:19] LABS: UA Slide Review UA Slide Review Perf
[2024-06-20 19:21] LABS: Add Urine Culture? Yes
[2024-06-20 20:14] LABS: Lactic Sepsis W/Reflex 1.5 mmol/L (0.5-2.2)
[2024-06-20 20:41] VITALS: BP 108/65; PULSE 97; O2SAT 88
[2024-06-20 21:50] VITALS: BP 129/79; PULSE 94; O2SAT 95
== END 2024-06-20 21:51 | disposition short-term general hospital (02) ==
PROVIDERS: Emergency Provider Emergency Medicine; PCP Family Medicine
DX: K80.50 Calculus of bile duct without cholangitis or cholecystitis without obstruction (principal); N17.9 Acute kidney failure, unspecified; N30.00 Acute cystitis without hematuria; Z79.01 Long term (current) use of anticoagulants; Z87.891 Personal history of nicotine dependence; J44.9 Chronic obstructive pulmonary disease, unspecified; Z99.81 Dependence on supplemental oxygen; E78.5 Hyperlipidemia, unspecified; Z86.73 Personal history of transient ischemic attack (TIA), and cerebral infarction without residual deficits; I10 Essential (primary) hypertension
CPT/HCPCS: 36415; 51701; 74176; 76705; 80053; 81001; 83605; 83690; 85025; 87040; 87077; 87086; 87150; 87186; 87205; 96365; 96375; 99285; J2405; J2543; J7030

== ENCOUNTER 2024-09-03 20:17 | Emergency (ER) | payer MEDICARE, OTHER, SELFPAY ==
[2024-09-03 20:27] VITALS: BP 133/90; PULSE 99; RESP 22; TEMP 36.7; O2SAT 96; BMI 26.2
--- NOTE | 2024-09-03 20:42 | XRR_ITS ---
PROCEDURE INFORMATION: Exam: XR Chest Exam date and time: 09/03/2024 8:52 PM Age: 78 years old Clinical indication: C/O severe left upper ext pain. Tachycardic and hypertensive on monitor. ; Additional info: Left arm pain TECHNIQUE: Imaging protocol: Radiologic exam of the chest. Views: 1 view. COMPARISON: CT lung screening [id number] 07/03/2023 12:08 PM FINDINGS: Lungs: Hyperaeration with bibasilar atelectasis versus scarring. No lobar consolidation Pleural spaces: Unremarkable. No pleural effusion. No pneumothorax. Heart/Mediastinum: Ectatic thoracic aorta with vascular calcification. No cardiomegaly. Bones/joints: Unremarkable. XR/XR chest 1V portable [id number] IMPRESSION: Hyperaeration with bibasilar atelectasis versus scarring.
--- NOTE | 2024-09-03 20:43 | ECG_ITS ---
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 Measurements Intervals Babb Rate: 89 P: 0 NJ: 0 QRS: 20 QRSD: 108 T: 71 QT: 369 QTc: 451 Interpretive Statements Sinus rhythm with PACs Compared to ECG 07/21/2020 12:25:49 PACs are new Electronically Signed On 09-04-2024 12:11:08 STUDENT SUCCESS COUNSELOR by Nikkie Jean M.D. [email or web address]
--- NOTE | 2024-09-03 20:44 | XRR_ITS ---
PROCEDURE INFORMATION: Exam: XR Left Elbow Exam date and time: 09/03/2024 8:52 PM Age: 78 years old Clinical indication: C/O left elbow pain. No injury. ; Additional info: Left elbow pain no trauma TECHNIQUE: Imaging protocol: Radiologic exam of the left elbow. Views: 3 or more views. COMPARISON: CR (CHEST, ) 09/03/2024 8:52 PM FINDINGS: Bones/joints: Degenerative joint space narrowing in the elbow with osteophyte formation. No joint effusion. Lucency in the radial head laterally is suspicious for nondisplaced fracture although unlikely without joint effusion. No dislocation. Soft tissues: Normal. XR/XR elbow LT min 3V* [id number] IMPRESSION: 1. Degenerative joint space narrowing in the elbow with osteophyte formation. No joint effusion. 2. Lucency in the radial head laterally is suspicious for nondisplaced fracture although unlikely without joint effusion. Correlation with point tenderness suggested
--- NOTE | 2024-09-03 20:44 | XRR_ITS ---
PROCEDURE INFORMATION: Exam: XR Left Shoulder Exam date and time: 09/03/2024 8:52 PM Age: 78 years old Clinical indication: C/O left shoulder pain. No injury. TECHNIQUE: Imaging protocol: Radiologic exam of the left shoulder. Views: 2 or more views. COMPARISON: CT lung screening [id number] 07/03/2023 12:08 PM FINDINGS: Bones/joints: Normal. Soft tissues: Normal. XR/XR shoulder LT min 2V* [id number] IMPRESSION: No acute findings.
[2024-09-03 20:49] LABS: Basophils # 0.1 10^3/uL (0.0-0.1); Basophils % 0.5 %; Eosinophils # 0.1 10^3/uL (0.0-0.8); Eosinophils % 0.8 %; Hematocrit 31.5 % (36-47); Lymphocytes # 1.1 10^3/uL (0.8-4.8); Lymphocytes % 11.3 %; Mean Corpuscular HGB Conc 31.7 g/dL (30-55); Mean Corpuscular Hemoglobin 31.3 pg (27-33); Mean Corpuscular Volume 98.7 fl (85-98); Mean Platelet Volume 10.6 fL (7.4-10.4); Monocytes # 0.5 10^3/uL (0.2-0.9); Monocytes % 4.8 %; Neutrophils # 7.91 10^3/uL (1.8-7.7); Neutrophils % 82.3 %; Nucleated Red Blood Cells % 0 %; Platelet Count 359 10^3/cmm (157-399); Red Blood Count 3.19 10^6/uL (3.85-5.65); Red Cell Distribution Width 14.4 % (12.1-15.1); White Blood Count 9.62 10^3/uL (3.29-11.43)
[2024-09-03] MEDS: morphine 4 mg/mL SDV 1 mL IVP (20:50)
[2024-09-03 20:59] LABS: Troponin(5th) Baseline 40 ng/L (0-10)
--- NOTE | 2024-09-03 20:59 | W.ED.EXTPRO ---
HPI - Extremity Problem General: Chief complaint: Extremity Injury, Upper Stated complaint: ARM PAIN Time Seen by Provider: 09/03/24 20:21 History of Present Illness: Patient is a 78-year-old female who presents to the ER by EMS with complaint of left arm pain. She states she was putting up some shoes in her closet whenever she developed the increased left shoulder and elbow pain. She states she had something similar to this 1 week ago but it subsided. She reports pain with any range of motion of the left arm. She denies any known injury or trauma. She denies any substernal chest pain or shortness of breath. No fevers or chills. Pain is exacerbated with movement of the left arm and improved with immobility of the left arm. MD Complaint: extremity pain Pain Consistency: constant Location: left and upper extremity Quality: stabbing and aching Radiation: none Relieving factors: immobilization Exacerbating factors: range of motion Associated symptoms: Deny chest pain, fever(s) or rash Related Data Home Medications ?Medication ?Instructions ?Recorded ?Confirmed clopidogrel 75 mg tablet (Plavix) 75 mg PO DAILY@09/22/19 06/10/24 omeprazole 20 mg capsule,delayed 20 mg PO DAILY@09/22/19 06/10/24 release trazodone 100 mg tablet 100 mg PO BEDTIME@09/22/19 06/10/24 venlafaxine 150 mg tablet,extended 150 mg PO DAILY@09/22/19 06/10/24 release 24 hr furosemide 20 mg tablet 20 mg PO DAILY@12/27/19 06/10/24 potassium chloride 10 mEq 10 meq PO DAILY@12/27/19 06/10/24 capsule,extended release acetaminophen 500 mg tablet 1,000 mg PO DAILY@199906/11/20 06/10/24 (Tylenol Extra Strength) apixaban 5 mg tablet (Eliquis) 5 mg PO BID@06/11/20 06/10/24 cholecalciferol (vitamin D3) 25 25 mcg PO DAILY@0800 06/11/20 06/10/24 mcg (1,000 unit) capsule (Vitamin D3) hydralazine 10 mg tablet 10 mg PO TID@,06/11/20 06/10/24 alprazolam 0.5 mg tablet 0.5 mg PO BID 06/13/20 06/10/24 ferrous sulfate 325 mg (65 mg 325 mg PO DAILY 08/06/20 06/10/24 iron) tablet polyethylene glycol 3350 17 gram 17 g PO BID PRN Constipation 11/18/23 06/10/24 oral powder packet (Miralax) Previous Rx's ?Medication ?Instructions ?Recorded albuterol sulfate 90 mcg/actuation 2 puff inhalation Q6H PRN 08/13/22 aerosol inhaler shortness of breath or wheezing #8.5 grams adalimumab 40 mg/0.8 mL 40 mg (0.8 mL) SUBCUT Q14D #2 ea 02/11/24 subcutaneous pen kit (Humira Pen) hydroxychloroquine 200 mg tablet 200 mg PO BID@0800,1999 #180 tabs 02/11/24 prednisone 5 mg tablet 5 mg PO DAILY #90 tabs 02/11/24 umeclidinium 62.5 mcg/actuation 1 inh inhalation DAILY #30 ea 03/09/24 blister powder for inhalation (Incruse Ellipta) hydrocodone 5 mg-acetaminophen 325 1 tab PO Q6H PRN pain #12 tabs 04/21/24 mg tablet hydrocodone 5 mg-acetaminophen 325 1 tab PO Q8H PRN pain #7 tabs 09/03/ mg tablet Allergies Allergy/AdvReac Type Severity Reaction Status Date / Time Sulfa (Sulfonamide Allergy ALGY-Rash Verified 06/10/24 10:12 Antibiotics) Review of Systems Const: Denies: fever(s), chills or diaphoresis Card: Denies: chest pain Resp: Denies: dyspnea GI: Denies: abdominal pain, nausea or vomiting Skin/Breast: Denies: rash Neuro: Denies: headache(s) PFS ED PFSH: Medical History Immunization counseling High risk medication use Seropositive rheumatoid arthritis of multiple sites Cholelithiasis Pulmonary nodule Atrial fibrillation DJD (degenerative joint disease) Rheumatoid arthritis Small bowel obstruction Resolved. Thought to be secondary to adhesions. Anxiety COPD (chronic obstructive pulmonary disease) 4 L oxygen baseline HLD (hyperlipidemia) Posterior inferior cerebellar artery embolism C. difficile colitis CVA (cerebral vascular accident) HTN (hypertension) Surgical History History of hysterectomy Status post right knee replacement Social History Smoking and tobacco/nicotine status: unknown if used tobacco/nicotine Quit status (tobacco/nicotine): has quit using Year quit tobacco: 1992 [id number] Second hand smoke exposure: Yes Alcohol intake: never Substance/Drug Use: never Caregiver/support person: Yes Lives independently: Yes Household members: none Housing: House Marital status: / Current occupational status: retired Pets and animals: No Do you think of yourself as: Straight/Heterosexual Current gender identity: Female Physical Exam Narrative: EXAM NARRATIVE: Chronically ill-appearing 78-year-old female in mild distress Const: COMMON NORMALS: average body habitus, alert and well nourished GENERAL APPEARANCE: cooperative ORIENTATION/CONSCIOUSNESS: Yes awake HENMT: COMMON NORMALS: normocephalic and atraumatic HEAD & SCALP: normocephalic and atraumatic Eye: COMMON NORMALS: conjunctivae normal CONJUNCTIVA: Yes conjunctivae normal Neck/C-Spine: GENERAL: Yes normal visual inspection Resp: COMMON NORMALS: normal respiratory effort, No retractions and No use of accessory muscles Cardio: COMMON NORMALS: regular rhythm and Peripheral pulses 2+ throughout RHYTHM: regular rhythm PERIPHERAL PULSES: Peripheral pulses 2+ throughout GI: COMMON NORMALS: Soft to palpation and non-tender PALPATION: Yes Soft to palpation Extremity: COMMON NORMALS: normal to inspection, full ROM and no pedal edema NARRATIVE EXTREMITY EXAM: Patient is holding her left upper extremity flexed and internally rotated. She has some scattered bruising to the left arm which she states is due to being on anticoagulants. No significant swelling or deformity noted. She has full range of motion of the wrist and elbow without any significant limitation. She complains of some pain with range of motion of the elbow but is able to do so. She reports increased tenderness over the lateral aspect of the left deltoid and shoulder region. No crepitance. She does have range of motion of the left shoulder and is neurovascular intact. Neuro: COMMON NORMALS: no focal motor deficits SENSORIUM/ORIENTATION: Yes alert Skin: COMMON NORMALS: no rashes or lesions noted GENERAL SKIN EXAM: no rashes or lesions noted Course Vital Signs: Vital signs: Vital Signs Temperature 98.1 F 09/03/24 20:27 Pulse Rate 99 09/03/24 20:27 Respiratory Rate 22 H 09/03/24 20:27 Blood Pressure 133/90 09/03/24 20:27 Pulse Oximetry 96 09/03/24 20:27 Oxygen Delivery Me thod Nasal Cannula 09/03/24 20:27 Oxygen Flow Rate 3 09/03/24 20:27 MDM - Extremity (Nontraumatic) Medical Decision Making Patient is a 78-year-old chronically ill-appearing female who presents with left shoulder pain. She states she was putting up some shoes in her closet whenever she developed left shoulder pain. She states she has a history of chronic shoulder pain and with further questioning during her stay revealed that she is out of her hydrocodone that she typically takes for her shoulder pain and is not able to get it filled until Thursday. She states she normally gets injections in that left shoulder by her primary doctor. She denies any trauma. She was quite anxious and somewhat mild distress upon arrival here complaining of the pain in her left shoulder. EKG was obtained which shows atrial fibrillation and rate controlled. No ischemic ST changes. She is anticoagulated. I have very low suspicion for acute coronary syndrome. Her troponin was obtained and is consistent with her baseline troponin of 40. She has no leukocytosis or left shift. Chemistry panel is unremarkable. X-ray of the left shoulder, chest and elbow were obtained. No acute traumatic findings of the left shoulder. She does have some scarring in the right lung base. She has no complaints of acute shortness of breath, fever, productive cough. Pneumonia seems less likely and certainly not the culprit for her acute presentation of pain. On reassessment she feels somewhat better after receiving some morphine but continues quite a bit of pain. A dose of Dilaudid has been ordered. Her pain is easily reproduced with any movement of the left shoulder however with slow deliberate movement I am able to abduct and range her left shoulder fully. She is neurovascular intact in the left upper extremity with 2+ radial pulse to the left upper extremity. No erythema or warmth noted to the shoulder. I do not suspect she has a septic joint. I will go ahead and place her in a sling and have her follow-up with orthopedics on Thursday. She is comfortable with this plan. She requested a prescription for a few pain pills for tomorrow until she can get her normal prescription picked up on Thursday. Lab Data I reviewed the patient's lab results. 09/03/24 20:28 09/03/24 20: Laboratory Results WBC 9.62 10^3/uL (3.29-11.43) 09/03/24 20: RBC 3.19 10^6/uL (3.85-5.65) L 09/03/24 20: Hgb 10.00 g/dL (11.27-16.99) L 09/03/24 20: Hct 31.5 % (36-47) L 09/03/24 20: MCV 98.7 fl (85-98) H 09/03/24 20: MCH 31.3 pg (27-33) 09/03/24 20: MCHC 31.7 g/dL (30-55) 09/03/24 20: RDW 14.4 % (12.1-15.1) 09/03/24: Plt Count 359 10^3/cmm (157-399) 09/03/24: MPV 10.6 fL (7.4-10.4) H 09/03/24 20: Neut % (Auto) 82.3 % 09/03/24: Lymph % (Auto) 11.3 % 09/03/24: [place] % (Auto) 4.8 % 09/03/24 20: Eos % (Auto) 0.8 % 09/03/24: Baso % (Auto) 0.5 % 09/03/24: Neut # (Auto) 7.91 10^3/uL (1.8-7.7) H 09/03/24: Lymph # (Auto) 1.1 10^3/uL (0.8-4.8) 09/03/24: [place] # (Auto) 0.5 10^3/uL (0.2-0.9) 09/03/24 20: Eos # (Auto) 0.1 10^3/uL (0.0-0.8) 09/03/24 20: Baso # (Auto) 0.1 10^3/uL (0.0-0.1) 09/03/24: Nucleated RBC % (auto) 0 % 09/03/24 20: Nucleated RBCs # 0.0 /100WBC 09/03/24 20: Sodium 137 mmol/L (136-145) 09/03/24 20: Potassium 4.4 mmol/L (3.5-5.1) 09/03/24 20: Chloride 99 mmol/L (98-107) 09/03/24: Carbon Dioxide 24 mmol/L (22-29) 09/03/24: Anion Gap 18.4 (5-19) 09/03/24 20: BUN 14 mg/dL (8-23) 09/03/24 20: Creatinine 0.9 mg/dL (0.5-0.9) 09/03/24 GFR Calculation Not Reportable 09/03/24: Glucose 154 mg/dL (65-115) H 09/03/24 20: Calculated Osmolality 288 mOsm/kg (285-295) 09/03/24: Calcium 10.0 mg/dL (8.5-10.5) 09/03/24 20: Total Bilirubin 0.3 mg/dL (0.15-1.2) 09/03/24 20: AST 14 U/L (0-32) 09/03/24: ALT 7 U/L (0-33) 09/03/24 20: Alkaline Phosphatase 79 U/L (35-105) 09/03/24 20: Troponin T Baseline 40 ng/L (0-10) H 09/03/24 20: C-Reactive Protein 3.6 mg/L (0.0-4.9) 09/03/24 20: Total Protein 7.1 g/dL (6.6-8.7) 09/03/24 20: Albumin 3.9 g/dL (3.5-5.2) 09/03/24 20: Globulin 3.2 g/dL (1.3-4.6) 09/03/24 20: XR interpretation done by ED provider, pending radiology final review ED provider radiology interpretation(s): bibasilar atelectasis, right greater than left. Emphysematous changes noted on chest x-ray Degenerative changes noted on x-ray of the left shoulder and elbow. Arthritic changes noted with some calcification and bone spurring noted. No acute fractures. EKG Data EKG 1: Interpretation: Atrial fibrillation. Normal axis. Rate of 89 bpm. QTc of [address] elevation or depressions. Pacemaker function: normal pacer function Discharge Plan Discharge Patient Disposition: Home Clinical Impression: Acute pain of left shoulder Condition: Stable Prescriptions: New hydrocodone-acetaminophen 5-325 mg tablet 1 tab PO Q8H PRN (Reason: pain) Qty: 7 0RF No Action ferrous sulfate 325 mg (65 mg iron) tablet 325 mg PO DAILY albuterol sulfate 90 mcg/actuation HFA aerosol inhaler 2 puff inhalation Q6H PRN (Reason: shortness of breath or wheezing) Qty: 8.5 5RF Humira Pen 40 mg/0.8 mL pen injector kit 40 mg SUBCUT Q14D Qty: 2 5RF Rx Instructions: inject one - 40 mg/0.8 mL pen every 2 weeks SUBCUT hydroxychloroquine 200 mg tablet 200 mg PO BID@0800,2000 Qty: 180 1RF prednisone 5 mg tablet 5 mg PO DAILY Qty: 90 1RF Incruse Ellipta 62.5 mcg/actuation blister with device 1 inh inhalation DAILY Qty: 30 6RF trazodone 100 mg Tablet 100 mg PO BEDTIME@20 venlafaxine 150 mg Tablet Extended Release 24hr 150 mg PO DAILY@08 clopidogrel [Plavix] 75 mg Tablet 75 mg PO DAILY@20 omeprazole 20 mg Capsule,Delayed Release(Dr/Ec) 20 mg PO DAILY@20 potassium chloride 10 mEq capsule, extended release 10 meq PO DAILY@08 furosemide 20 mg tablet 20 mg PO DAILY@08 acetaminophen [Tylenol Extra Strength] 500 mg Tablet 1,000 mg PO DAILY@2000 cholecalciferol (vitamin D3) [Vitamin D3] 25 mcg (1,000 unit) Capsule 25 mcg PO DAILY@0800 hydralazine 10 mg tablet 10 mg PO TID@08,12,20 Eliquis 5 mg tablet 5 mg PO BID@08,20 alprazolam 0.5 mg Tablet 0.5 mg PO BID Miralax 17 gram powder in packet 17 g PO BID PRN (Reason: Constipation) hydrocodone-acetaminophen 5-325 mg tablet 1 tab PO Q6H PRN (Reason: pain) Qty: 12 0RF Discharge Orders: Discharge ED (Routine); Ordered 09/03/24 Ordered By: Luis Alberto Muller Referrals: Giuliana Allred MD [Primary Care Provider] - Patient Instructions: Opioid Safety, Pain Management Print Language: Indonesian Coding Level of Care Code ED Hook Up Driver for Nedra Yen
[2024-09-03 21:01] LABS: Alanine Aminotransferase 7 U/L (0-33); Albumin Level 3.9 g/dL (3.5-5.2); Alkaline Phosphatase 79 U/L (35-105); Anion Gap 18.4 (5-19); Aspartate Amino Transferase 14 U/L (0-32); Blood Urea Nitrogen 14 mg/dL (8-23); C Reactive Protein 3.6 mg/L (0.0-4.9); Carbon Dioxide 24 mmol/L (22-29); Chloride 99 mmol/L (98-107); Creatinine Clr Calc Pharmacy 44.8131; Globulin 3.2 g/dL (1.3-4.6); Glucose 154 mg/dL (65-115); Osmolality Calculated 288 mOsm/kg (285-295); Potassium 4.4 mmol/L (3.5-5.1); Sodium 137 mmol/L (136-145); Total Bilirubin 0.3 mg/dL (0.15-1.2); Total Protein 7.1 g/dL (6.6-8.7)
[2024-09-03] MEDS: HYDROMORPHONE HCL 0.5 MG/0.5 ML INJ IVP (21:46)
[2024-09-03] MEDS: HYDROcodone-acetaminophen 5-325 mg Tablet 2 TAB PO (22:20)
[2024-09-03 22:23] VITALS: BP 145/97; PULSE 91; RESP 18; O2SAT 96
--- NOTE | 2024-09-03 22:24 | PC.NURSE ---
Pt sent home with 1 tab of Hydrocodone 5/[address] Muller's order.
== END 2024-09-03 22:22 | disposition home or self-care (01) ==
PROVIDERS: Emergency Provider Student in an Organized Health Care Education/Training Program; PCP Family Medicine
DX: M25.512 Pain in left shoulder (principal); Z79.02 Long term (current) use of antithrombotics/antiplatelets; Z79.01 Long term (current) use of anticoagulants; J44.9 Chronic obstructive pulmonary disease, unspecified; Z86.73 Personal history of transient ischemic attack (TIA), and cerebral infarction without residual deficits; I10 Essential (primary) hypertension; Z99.81 Dependence on supplemental oxygen
CPT/HCPCS: 36415; 71045; 73030; 73080; 80053; 84484; 85025; 86140; 93005; 96374; 96375; 99285; J1171; J2270

== ENCOUNTER → 2024-09-16 10:32 | Outpatient (BNVA) | payer MEDICARE, OTHER, SELFPAY | PROVIDERS: PCP Family Medicine; Visit Provider Specialist | DX: M19.012 Primary osteoarthritis, left shoulder (principal); M75.42 Impingement syndrome of left shoulder; Z71.89 Other specified counseling | CPT/HCPCS: 20610; J1100; J2795; J3301; J9999 ==

== ENCOUNTER → 2024-10-13 09:36 | Outpatient (BNVA) | payer MEDICARE, OTHER, SELFPAY | PROVIDERS: PCP Family Medicine; Visit Provider Internal Medicine Rheumatology | DX: M05.79 Rheumatoid arthritis with rheumatoid factor of multiple sites without organ or systems involvement (principal); Z79.899 Other long term (current) drug therapy; Z71.85 Encounter for immunization safety counseling; R76.8 Other specified abnormal immunological findings in serum | CPT/HCPCS: 99214 ==

== ENCOUNTER 2024-11-01 15:12 | Emergency (ER) | payer MEDICARE, OTHER, SELFPAY ==
[2024-11-01 15:17] VITALS: BP 160/77; PULSE 83; RESP 17; TEMP 36.7; O2SAT 93; BMI 25.3
--- NOTE | 2024-11-01 15:29 | W.ED.EXTPRO ---
HPI - Extremity Problem General: Chief complaint: Extremity Injury, Upper Stated complaint: pain in L arm/shoulder Time Seen by Provider: 11/01/24 15:15 Source: patient and family Mode of arrival: wheelchair Limitations: no limitations History of Present Illness: Callie is a 78-year-old female presenting to the ED with unmanageable pain of the left shoulder. She was at the dentist earlier today and upon leaving, developed worsening (has chronic pain) left shoulder pain. She is seen for chronic pain in the left shoulder and receives cortisone injections periodically (Dr. Jennings at [facility]). She uses Hydrocodone and Tylenol for pain management at home, but she reports that it did not provide relief today. She denies injury to the area, excessive lifting or strenuous activity. MD Complaint: joint pain (L shoulder) Onset (ago): unknown (chronic pain-worse today) Pain Consistency: constant Location: left and upper extremity (shoulder) Severity scale (1-10): 10 Quality: sharp Relieving factors: nothing Exacerbating factors: range of motion Associated symptoms: Reports no associated symptoms; Deny chest pain Related Data Home Medications ?Medication ?Instructions ?Recorded ?Confirmed clopidogrel 75 mg tablet (Plavix) 75 mg PO DAILY@09/22/19 11/01/24 omeprazole 20 mg capsule,delayed 20 mg PO DAILY@09/22/19 11/01/24 release trazodone 100 mg tablet 100 mg PO BEDTIME@09/22/19 11/01/24 venlafaxine 150 mg tablet,extended 150 mg PO DAILY@09/22/19 11/01/24 release 24 hr furosemide 20 mg tablet 20 mg PO DAILY@12/27/19 11/01/24 potassium chloride 10 mEq 10 meq PO DAILY@12/27/19 11/01/24 capsule,extended release acetaminophen 500 mg tablet 1,000 mg PO DAILY@199906/11/20 11/01/24 (Tylenol Extra Strength) apixaban 5 mg tablet (Eliquis) 5 mg PO BID@06/11/20 11/01/24 hydralazine 10 mg tablet 10 mg PO TID@,,06/11/20 11/01/24 alprazolam 0.5 mg tablet 0.5 mg PO BID 06/13/20 11/01/24 Previous Rx's ?Medication ?Instructions ?Recorded albuterol sulfate 90 mcg/actuation 2 puff inhalation Q6H PRN 08/13/22 aerosol inhaler shortness of breath or wheezing #8.5 grams hydroxychloroquine 200 mg tablet 200 mg PO BID@0800,1999 #180 tabs 02/11/24 umeclidinium 62.5 mcg/actuation 1 inh inhalation DAILY #30 ea 03/09/24 blister powder for inhalation (Incruse Ellipta) hydrocodone 5 mg-acetaminophen 325 1 tab PO Q8H PRN pain #7 tabs 09/03/24 mg tablet adalimumab 40 mg/0.8 mL 40 mg (0.8 mL) SUBCUT Q14D #2 ea 10/13/24 subcutaneous pen kit (Humira Pen) prednisone 5 mg tablet 5 mg PO DAILY #90 tabs 10/13/24 Allergies Allergy/AdvReac Type Severity Reaction Status Date / Time Sulfa (Sulfonamide Allergy ALGY-Rash Verified 09/16/24 11:02 Antibiotics) Review of Systems Card: Denies: chest pain Resp: Denies: dyspnea Musc: Reports: joint pain (L shoulder) and limited range of motion; Denies: neck pain, back pain, extremity pain, extremity swelling, joint swelling, joint warmth or deformity Neuro: Denies: numbness in extremities, sensory changes or lack of coordination PFSH ED PFSH: Medical History Immunization counseling High risk medication use Seropositive rheumatoid arthritis of multiple sites Cholelithiasis Pulmonary nodule Atrial fibrillation DJD (degenerative joint disease) Rheumatoid arthritis Small bowel obstruction Resolved. Thought to be secondary to adhesions. Anxiety COPD (chronic obstructive pulmonary disease) 4 L oxygen baseline HLD (hyperlipidemia) Posterior inferior cerebellar artery embolism C. difficile colitis CVA (cerebral vascular accident) HTN (hypertension) Surgical History History of hysterectomy Status post right knee replacement Social History Smoking and tobacco/nicotine status: former use of tobacco/nicotine (quite smoking 38 yrs ago) Quit status (tobacco/nicotine): has quit using Year quit tobacco: 1992 [id number] Second hand smoke exposure: Yes Alcohol intake: never Substance/Drug Use: never Caregiver/support person: Yes Lives independently: Yes Household members: none Housing: House Marital status: / Current occupational status: retired Pets and animals: No Do you think of yourself as: Straight/Heterosexual Current gender identity: Female Physical Exam Const: COMMON NORMALS: no acute distress, patient oriented x3, no limitations, alert and well nourished GENERAL APPEARANCE: cooperative and anxious Resp: COMMON NORMALS: normal respiratory effort and clear to auscultation bilaterally AUSCULTATION: clear to auscultation bilaterally Cardio: COMMON NORMALS: regular rate and regular rhythm RATE: regular rate RHYTHM: regular rhythm Extremity: COMMON NORMALS: normal to inspection GENERAL: Yes normal exam except as noted RIGHT UPPER EXTREMITY: Yes shoulder joint (TTP throughout shoulder joint) Right shoulder: Yes Right shoulder joint inspection exam (normal), Yes Right shoulder joint ROM exam (decreased) and Yes Right shoulder joint neurovascular exam (normal) and Yes elbow joint Right elbow: Yes ROM (normal) and Yes neurovascular exam (normal) Neuro: COMMON NORMALS: patient oriented x3, moves all extremities, no focal motor deficits and no sensory deficits noted SENSORIUM/ORIENTATION: Yes alert Course Vital Signs: Vital signs: Vital Signs Temperature 98.1 F 11/01/24 15:17 Pulse Rate 83 11/01/24 15:17 Respiratory Rate 16 11/01/24 15:53 Blood Pressure 160/77 11/01/24 15:17 Pulse Oximetry 93 11/01/24 15:53 Oxygen Delivery Me thod Room Air 11/01/24 15:17 MDM - Extremity (Nontraumatic) Medical Decision Making No known injury or trauma. XRs at this time would probably be low yield and unlikely to change overall management. She was provided IM medications to help with her discomfort. Will be encouraged to follow-up with Dr. Jennings. Medical Records I reviewed the patient's medical records. No radiology studies performed this visit Discharge Plan Discharge Patient Disposition: Home Clinical Impression: Chronic pain in left shoulder Condition: Stable Prescriptions: No Action albuterol sulfate 90 mcg/actuation HFA aerosol inhaler 2 puff inhalation Q6H PRN (Reason: shortness of breath or wheezing) Qty: 8.5 5RF hydroxychloroquine 200 mg tablet 200 mg PO BID@0800,2000 Qty: 180 1RF Humira Pen 40 mg/0.8 mL pen injector kit 40 mg SUBCUT Q14D Qty: 2 5RF Rx Instructions: inject one - 40 mg/0.8 mL pen every 2 weeks SUBCUT prednisone 5 mg tablet 5 mg PO DAILY Qty: 90 1RF Incruse Ellipta 62.5 mcg/actuation blister with device 1 inh inhalation DAILY Qty: 30 6RF trazodone 100 mg Tablet 100 mg PO BEDTIME@20 venlafaxine 150 mg Tablet Extended Release 24hr 150 mg PO DAILY@08 clopidogrel [Plavix] 75 mg Tablet 75 mg PO DAILY@20 omeprazole 20 mg Capsule,Delayed Release(Dr/Ec) 20 mg PO DAILY@20 potassium chloride 10 mEq capsule, extended release 10 meq PO DAILY@08 furosemide 20 mg tablet 20 mg PO DAILY@08 acetaminophen [Tylenol Extra Strength] 500 mg Tablet 1,000 mg PO DAILY@2000 hydralazine 10 mg tablet 10 mg PO TID@08,12,20 Eliquis 5 mg tablet 5 mg PO BID@08,20 alprazolam 0.5 mg Tablet 0.5 mg PO BID hydrocodone-acetaminophen 5-325 mg tablet 1 tab PO Q8H PRN (Reason: pain) Qty: 7 0RF Discharge Orders: Discharge ED (Routine); Ordered 11/01/24 Ordered By: Keira Davis Referrals: Giuliana Allred MD [Primary Care Provider] - Activity Restrictions/Additional Instructions: As we discussed, please follow-up with your quality measurement specialist, Dr. Jennings for further evaluation of your left shoulder pain. You may continue to to use your hydrocodone as needed for severe pain in addition to [id number] oral and topical analgesics. Print Language: Amharic Coding Level of Care Code ED Service Department Manager for Nedra Yen
[2024-11-01] MEDS: dexamethasone 10 mg/mL INJ 8 MG IM (15:52)
[2024-11-01 15:53] VITALS: RESP 16; O2SAT 93
[2024-11-01] MEDS: morphine 4 mg/mL SDV 1 mL IM (15:53)
[2024-11-01] MEDS: ketorolac 30 mg/mL INJ 15 MG IM (15:56)
[2024-11-01 16:26] VITALS: BP 143/83; PULSE 84; O2SAT 94
== END 2024-11-01 16:27 | disposition home or self-care (01) ==
PROVIDERS: Emergency Provider Physician Assistant; PCP Family Medicine
DX: M25.512 Pain in left shoulder (principal); Z79.02 Long term (current) use of antithrombotics/antiplatelets; Z79.01 Long term (current) use of anticoagulants; Z87.891 Personal history of nicotine dependence; J44.9 Chronic obstructive pulmonary disease, unspecified; Z86.73 Personal history of transient ischemic attack (TIA), and cerebral infarction without residual deficits; I10 Essential (primary) hypertension
CPT/HCPCS: 96372; 99284; J1100; J1885; J2270

== ENCOUNTER → 2024-11-16 15:52 | Outpatient (BNVA) | payer MEDICARE, OTHER, SELFPAY | PROVIDERS: Visit Provider Specialist | DX: M19.012 Primary osteoarthritis, left shoulder (principal); M54.2 Cervicalgia | CPT/HCPCS: 20610; 73030; 99214; J1100; J2795; J3301; J9999 ==

== ENCOUNTER → 2024-12-12 13:10 | Outpatient (BNVA) | payer MEDICARE, OTHER, SELFPAY | PROVIDERS: PCP Family Medicine; Referring Provider Specialist; Visit Provider Anesthesiology Pain Medicine | DX: M54.2 Cervicalgia (principal) | CPT/HCPCS: 99204 ==

== ENCOUNTER 2025-01-13 12:15 | Outpatient (CLI) | payer MEDICARE, OTHER, SELFPAY ==
[2025-01-13 13:33] LABS: Hematocrit 34.7 % (36-47); Hemoglobin 10.60 g/dL (11.27-16.99); Mean Corpuscular HGB Conc 30.5 g/dL (30-55); Mean Corpuscular Hemoglobin 30.2 pg (27-33); Mean Corpuscular Volume 98.9 fl (85-98); Nucleated Red Blood Cells % 0 %; Platelet Count 261 10^3/cmm (157-399); Red Blood Count 3.51 10^6/uL (3.85-5.65); White Blood Count 8.08 10^3/uL (3.29-11.43)
[2025-01-13 13:57] LABS: Alanine Aminotransferase 15 U/L (0-33); Albumin Level 3.7 g/dL (3.5-5.2); Alkaline Phosphatase 81 U/L (35-105); Globulin 3.1 g/dL (1.3-4.6); Total Protein 6.8 g/dL (6.6-8.7)
[2025-01-13 15:01] LABS: Aspartate Amino Transferase 18 U/L (0-32)
== END 2025-01-13 12:16 | disposition home or self-care (01) ==
LOC: LAB 12:18
PROVIDERS: PCP Family Medicine; Visit Provider Internal Medicine Rheumatology
DX: Z79.899 Other long term (current) drug therapy (principal)
CPT/HCPCS: 36415; 80076; 82565; 85025; 85651; 86140

== ENCOUNTER → 2025-02-17 11:08 | Outpatient (BNVA) | payer MEDICARE, OTHER, SELFPAY | PROVIDERS: PCP Family Medicine; Visit Provider Specialist | DX: M19.012 Primary osteoarthritis, left shoulder (principal) | CPT/HCPCS: 20610; J1100; J2795; J3301; J9999 ==

== ENCOUNTER → 2025-04-13 09:39 | Outpatient (BNVA) | payer MEDICARE, OTHER, SELFPAY | PROVIDERS: PCP Family Medicine; Visit Provider Internal Medicine Rheumatology | DX: M05.79 Rheumatoid arthritis with rheumatoid factor of multiple sites without organ or systems involvement (principal); Z79.899 Other long term (current) drug therapy; Z71.85 Encounter for immunization safety counseling; R76.89 Other specified abnormal immunological findings in serum | CPT/HCPCS: 36415; 80076; 82306; 82565; 85025; 85651; 86140; 86480; 99214 ==

== ENCOUNTER → 2025-05-26 09:35 | Outpatient (BNVA) | payer MEDICARE, OTHER, SELFPAY | PROVIDERS: PCP Family Medicine; Visit Provider Specialist | DX: M19.012 Primary osteoarthritis, left shoulder (principal) | CPT/HCPCS: 20610; J1100; J2795; J3301; J9999 ==